=== PATIENT | male | born 1950 | race Caucasian/White ===

== ENCOUNTER 2020-04-17 18:09 | Outpatient (REF) | payer MEDICARE, MEDICAID, SELFPAY | END 2020-04-17 18:10 | disposition home or self-care (01) | LOC: HO.LAB 18:09 | PROVIDERS: Visit Provider Internal Medicine | DX: Z20.828 Contact with and (suspected) exposure to other viral communicable diseases (principal) | CPT/HCPCS: 36415; 87635 ==

== ENCOUNTER 2020-04-22 09:18 | Emergency (ER) | payer MEDICARE, MEDICAID, SELFPAY ==
[2020-04-22 09:24] VITALS: BP 105/60; BP 120/68; PULSE 76; RESP 15; TEMP 36.9; O2SAT 96; BMI 24.5
--- NOTE | 2020-04-22 09:35 | XR_ITS ---
EXAMINATION: XR CHEST CLINICAL INFORMATION: Chest pain. COMPARISON: 06/30/2019. TECHNIQUE: Frontal view of the chest was obtained. FINDINGS: No significant abnormality is noted involving the heart, lungs, mediastinum, bony thorax or soft tissues. IMPRESSION: Unremarkable examination.
--- NOTE | 2020-04-22 09:36 | ECG_ITS ---
Test Reason : CP Blood Pressure : / mmHG Vent. Rate : 061 BPM Atrial Rate : 061 BPM P-R Int : 126 ms QRS Dur : 082 ms QT Int : 390 ms P-R-T Axes : 032 -14 051 degrees QTc Int : 392 ms Normal sinus rhythm QRS Of low voltage Borderline ECG When compared with ECG of 30-DEC-2019 11:17, No significant change was found Referred By: Sander Mendoza Electronically Signed By:ALEXA DIANE MD
--- NOTE | 2020-04-22 09:37 | ED.CHESTPAIN ---
HPI - Chest Pain General Chief Complaint: Chest Pain Stated Complaint: CHEST PAIN Time Seen by Provider: 04/22/20 09:34 Related Data Allergies Allergy/AdvReac Type Severity Reaction Status Date / Time No Known Allergies Allergy Unverified 03/30/20 14:58 [No Known Allergies*] none Allergy Unknown Uncoded 09/24/18 00:00 [facility] Past Medical History Medical History (Updated 04/22/20 @ 09:28 by Kaelyn Shipley) Asthma Social History Social History Smoking Status: Never smoker Smoked in Last 30 Days: No Use of substances other than those prescribed or required for medical reasons: No Advance Directives: No Advance Directives Information Provided: Yes Physical Exam Vital Signs: Vital Signs: Vital Signs Temp Pulse Resp BP Pulse Ox 04/22/20 09:24 98.5 F 76 15 105/60 96 Body Mass Index 24.5
--- NOTE | 2020-04-22 09:39 | ED_ITS ---
HPI - Chest Pain General Chief Complaint: Chest Pain Stated Complaint: CHEST PAIN Time Seen by Provider: 04/22/20 09:34 Mode of arrival: EMS History of Present Illness HPI narrative: 64 years old male with history of borderline diabetes and hypertension presented to the emergency room by ambulance with chief complaint of chest pain since yesterday, not radiation of the pain Onset (ago): day(s) (1) Timing of current episode: episodic Prior episodes: No Onset: during rest Pain location: substernal Pain radiation: none Severity: mild Quality: dull Relieving factors: nitroglycerin Exacerbating factors: nothing Risk Factors Coronary artery disease risk factors: diabetes and hypertension Related Data Allergies Allergy/AdvReac Type Severity Reaction Status Date / Time No Known Allergies Allergy Unverified 03/30/20 14:58 [No Known Allergies*] none Allergy Unknown Uncoded 09/24/18 00:00 Review of Systems Review of Systems: Yes all other systems are reviewed and are negative Respiratory: Respiratory: Reports no additional respiratory complaints PMFSH Past Medical History Medical History Asthma Social History Social History Smoking Status: Never smoker Smoked in Last 30 Days: No Use of substances other than those prescribed or required for medical reasons: No Advance Directives: No Advance Directives Information Provided: Yes Physical Exam Vital Signs: Vital Signs: Vital Signs Temp Pulse Resp BP Pulse Ox 04/22/20 11:45 98.8 F 59 17 108/69 97 04/22/20 10:51 98.4 F 57 14 108/71 96 04/22/20 10:12 98.5 F 56 14 91/56 L 96 04/22/20 09:24 98.5 F 76 15 105/60 96 Body Mass Index 24.5 Const: Orientation/consciousness: oriented to place and patient oriented x3 HENMT: Head: Yes normal to inspection and Yes No palpable skull fracture present Eyes: General: appearance normal, both eyes and all related structures Visual Patel: normal visual patel by confrontation Neck: Neck: Yes normal visual inspection Chest: Chest palpation & inspection: normal inspection of the chest and normal palpation of entire chest wall Resp: Effort & Inspection: normal respiratory effort and decreased respiratory effort Cardio: Rhythm: regular rhythm Skin: General skin exam: no rashes or lesions noted Neuro: General: oriented to place and patient oriented x3 Course Course Course Narrative: CHEST PAIN-FREE, TROPONIN NEGATIVE, HIS PAIN HAS BEEN GOING ON SINCE YESTERDAY I THINK IS VERY REASONABLE TO REPEAT A TROPONIN AT 03:00 HOURS INTERVAL Reevaluation(s) Reevaluation #1: REMAIN CHEST PAIN FREE #2 TROPONIN IS NEGATIVE I THINK IT IS REASONABLE TO D/C THE PT AT THIS TIME Time: 14:45 Reevaluation #2: REPEAT EKG NORMAL SINUS RHYTHM A 58 ST-T SEGMENT ISOELECTRIC NO ISCHEMIA MDM - Chest Pain Lab Data Result diagrams: 04/22/20 10:11 04/22/20 10:11 Labs: Lab Results 04/22/20 04/22/20 04/22/20 Range/Units 10:11 10:11 10:11 WBC 5.5 (4.8-10.8) X10*3/uL RBC 4.65 (4.60-5.80) X10*6/uL Hgb 15.1 (14.0-18.0) g/dl Hct 44.1 (42-52) % MCV 94.8 (80-98) fL MCH 32.5 (27.0-33.0) pg MCHC 34.2 (31.0-36.0) g/dl RDW 11.6 (11.0-16.0) % Plt Count 267 (160-400) X10*3/uL MPV 8.8 L (9.4-12.4) fL Immature Gran % (Auto) 1.3 H (0.0-0.4) % Neut % (Auto) 64.2 (45-73) % Lymph % (Auto) 27.0 (20-40) % [place] % (Auto) 6.4 (2-11) % Eos % (Auto) 0.7 (0-4) % Baso % (Auto) 0.4 (0-2) % Lymph # (Auto) 1.5 (1.2-4.9) X10*3/uL [place] # (Auto) 0.4 (0.1-1.2) X10*3/uL Eos # (Auto) 0.0 (0.0-0.4) X10*3/uL Baso # (Auto) 0.0 (0.0-0.2) X10*3/uL Abs Immat Gran (auto) 0.07 H (0.00-0.03) X10*3/uL Absolute Neuts (auto) 3.5 (2.0-8.3) X10*3/uL Absolute Nucleated RBC 0.000 (0.0-0.012) X10*3/uL Nucleated RBC % (auto) 0.0 (0.0-0.2) /100WBC PT 12.2 (10.8-13.0) SEC INR 1.0 (0.9-1.1) APTT 30.7 (24.1-38.0) SEC D-Dimer < 200 NG/ML Sodium 139 (135-145) mmol/L Potassium 4.0 (3.3-5.1) mmol/l Chloride 107 (96-108) mmol/L Carbon Dioxide 26 (22-29) mmol/L Anion Gap 10 L (12-20) BUN 17 H (9-16) mg/dL Creatinine 0.82 (0.5-1.4) mg/dL Estim Creat Clear Calc 72.1 Estimated GFR > 60 Random Glucose 94 (60-115) mg/dL Calcium 9.2 (8.4-10.2) mg/dL Total Bilirubin 0.6 (0.0-1.0) mg/dL AST 15 (5-37) U/L ALT 19 (0-40) U/L Alkaline Phosphatase 51 (39-117) U/L Troponin I High Sens (<3.5-35.0) ng/L Total Protein 6.5 (6.5-8.0) g/dL Albumin 4.1 (3.5-5.0) g/dL 04/22/20 04/22/20 Range/Units 10:11 12:37 WBC (4.8-10.8) X10*3/uL RBC (4.60-5.80) X10*6/uL Hgb (14.0-18.0) g/dl Hct (42-52) % MCV (80-98) fL MCH (27.0-33.0) pg MCHC (31.0-36.0) g/dl RDW (11.0-16.0) % Plt Count (160-400) X10*3/uL MPV (9.4-12.4) fL Immature Gran % (Auto) (0.0-0.4) % Neut % (Auto) (45-73) % Lymph % (Auto) (20-40) % [place] % (Auto) (2-11) % Eos % (Auto) (0-4) % Baso % (Auto) (0-2) % Lymph # (Auto) (1.2-4.9) X10*3/uL [place] # (Auto) (0.1-1.2) X10*3/uL Eos # (Auto) (0.0-0.4) X10*3/uL Baso # (Auto) (0.0-0.2) X10*3/uL Abs Immat Gran (auto) (0.00-0.03) X10*3/uL Absolute Neuts (auto) (2.0-8.3) X10*3/uL Absolute Nucleated RBC (0.0-0.012) X10*3/uL Nucleated RBC % (auto) (0.0-0.2) /100WBC PT (10.8-13.0) SEC INR (0.9-1.1) APTT (24.1-38.0) SEC D-Dimer NG/ML Sodium (135-145) mmol/L Potassium (3.3-5.1) mmol/l Chloride (96-108) mmol/L Carbon Dioxide (22-29) mmol/L Anion Gap (12-20) BUN (9-16) mg/dL Creatinine (0.5-1.4) mg/dL Estim Creat Clear Calc Estimated GFR Random Glucose (60-115) mg/dL Calcium (8.4-10.2) mg/dL Total Bilirubin (0.0-1.0) mg/dL AST (5-37) U/L ALT (0-40) U/L Alkaline Phosphatase (39-117) U/L Troponin I High Sens < 3.5 < 3.5 (<3.5-35.0) ng/L Total Protein (6.5-8.0) g/dL Albumin (3.5-5.0) g/dL Imaging Data Chest x-ray: Radiologist's impression: FINDINGS: No significant abnormality is noted involving the heart, lungs, mediastinum, bony thorax or soft tissues. IMPRESSION: Unremarkable examination. ECG Data ECG #1: Attestation: I personally reviewed and interpreted this ECG as follows: ECG interpretation date: 04/22/20 Pacemaker model: NORMAL SINUS RYTHM RATE 61 NO ISCHEMIC CHANGES,ST-T ISOELECTRIC
[2020-04-22 10:12] VITALS: BP 91/56; PULSE 56; RESP 14; TEMP 36.9; O2SAT 96
[2020-04-22 10:20] LABS: MANUAL DIFF FLAG NO
[2020-04-22 10:21] LABS: Basophils Percent Auto 0.4 % (0-2); Eosinophils Percent Auto 0.7 % (0-4); Hematocrit 44.1 % (42-52); Hemoglobin 15.1 g/dl (14.0-18.0); Imm Gran Abs Auto 0.07 X10*3/uL (0.00-0.03); Imm Gran Pct Auto 1.3 % (0.0-0.4); Lymphocytes Absolute Auto 1.5 X10*3/uL (1.2-4.9); Mean Corpuscular HGB Conc 34.2 g/dl (31.0-36.0); Mean Corpuscular Hemoglobin 32.5 pg (27.0-33.0); Mean Corpuscular Volume 94.8 fL (80-98); Mean Platelet Volume 8.8 fL (9.4-12.4); Monocytes Absolute Auto 0.4 X10*3/uL (0.1-1.2); Monocytes Percent Auto 6.4 % (2-11); Neutrophils Absolute Auto 3.5 X10*3/uL (2.0-8.3); Neutrophils Percent Auto 64.2 % (45-73); Platelet Count 267 X10*3/uL (160-400); Red Blood Count 4.65 X10*6/uL (4.60-5.80); Red Cell Distribution Width 11.6 % (11.0-16.0); White Blood Count 5.5 X10*3/uL (4.8-10.8)
[2020-04-22 10:27] LABS: Prothrombin Time 12.2 SEC (10.8-13.0)
[2020-04-22 10:29] LABS: Partial Thromboplastin Time 30.7 SEC (24.1-38.0)
[2020-04-22 10:37] LABS: D Dimer < 200 NG/ML
[2020-04-22 10:46] LABS: Alanine Aminotransferase 19 U/L (0-40); Albumin Level 4.1 g/dL (3.5-5.0); Alkaline Phosphatase 51 U/L (39-117); Anion Gap 10 (12-20); Aspartate Amino Transferase 15 U/L (5-37); Bilirubin Total 0.6 mg/dL (0.0-1.0); Blood Urea Nitrogen 17 mg/dL (9-16); Calcium 9.2 mg/dL (8.4-10.2); Carbon Dioxide 26 mmol/L (22-29); Chloride 107 mmol/L (96-108); Creatinine Clr Calc Pharmacy 72.1; Estimated Glomerular Filt Rate > 60; Glucose Random 94 mg/dL (60-115); Sodium 139 mmol/L (135-145); Total Protein 6.5 g/dL (6.5-8.0)
[2020-04-22 10:51] VITALS: BP 108/71; PULSE 57; RESP 14; TEMP 36.9; O2SAT 96
[2020-04-22 10:52] LABS: Troponin-I High Sensitivity < 3.5 ng/L (<3.5-35.0)
--- NOTE | 2020-04-22 10:53 | PC.NURSE ---
pt reports relief of chest pain.
[2020-04-22 11:45] VITALS: BP 108/69; PULSE 59; RESP 17; TEMP 37.1; O2SAT 97
--- NOTE | 2020-04-22 12:42 | PC.NURSE ---
repeat trop drawn and sent to lab. pt continues to deny further chest pain.
[2020-04-22 13:10] LABS: Troponin-I High Sensitivity < 3.5 ng/L (<3.5-35.0)
== END 2020-04-22 15:13 | disposition home or self-care (01) ==
PROVIDERS: Emergency Provider Emergency Medicine
DX: R07.9 Chest pain, unspecified (principal); I10 Essential (primary) hypertension; E11.9 Type 2 diabetes mellitus without complications; Z79.899 Other long term (current) drug therapy
CPT/HCPCS: 36415; 71045; 80053; 84484; 85025; 85379; 85610; 85730; 93005; 99283; 99284

== ENCOUNTER 2020-07-06 06:01 | Emergency (ER) | payer MEDICARE, MEDICAID, SELFPAY ==
[2020-07-06 06:02] VITALS: BP 126/84; PULSE 76; RESP 18; TEMP 37.8; O2SAT 95; BMI 23.1
--- NOTE | 2020-07-06 06:13 | ED.GENADULT ---
HPI - General Adult General Chief complaint: General Medical Stated complaint: CHILLS,BODYACHES,? COVID S/P EXPOSURE Time Seen by Provider: 07/06/20 06:13 Source: patient Mode of arrival: ambulatory Limitations: language barrier History of Present Illness HPI narrative: Patient history of mild asthma and chronic vertigo been feeling weak chills sore throat headache for last 2 days patient's son was positive with COVID 10 days ago and is living with him patient denies any significant shortness of breath no chest pain no palpitations no abdominal pain no loss of taste or smell on arrival patient temperature was 100.1 F, saturating 95% at room air Onset (ago): day(s) (2) Related Data Allergies Allergy/AdvReac Type Severity Reaction Status Date / Time No Known Allergies Allergy Unverified 03/30/20 14:58 [No Known Allergies*] none Allergy Unknown Uncoded 09/24/18 00:00 Review of Systems Review of Systems: Constitutional : No Weight loss, No Fever, + Chills ENT/Mouth : +sore throat, No Rhinorrhea Eyes: No Eye Pain, No Swelling Cardiovascular : No Chest Pain, no palpitations Respiratory : No Cough, No Sputum, no shortness of breath Gastrointestinal : no Nausea, No Vomiting, No Diarrhea, No abdominal Pain, no black stools Genitourinary : No Dysuria, No Urinary Frequency Musculoskeletal : No joint pain, ++Myalgias, No Joint Swelling Skin : No Skin Lesions, No rash Neuro : No Weakness, No Numbness, No Dizziness, No Headache Psych : No Anxiety/Panic, No Depression Heme/Lymph: No Bruising, No Lymphadenopathy Endocrine : No Polyuria, No Polydipsia All other systems reviewed and are negative PMFSH Past Medical History Medical History Asthma Social History Social History Smoking Status: Never smoker Use of substances other than those prescribed or required for medical reasons: No Advance Directives: No Advance Directives Information Provided: No Physical Exam Vital Signs: Vital Signs: Last Vital Signs Temp 100.1 F 07/06/20 06:02 Pulse 76 07/06/20 06:02 Resp 16 07/06/20 06:14 BP 126/84 07/06/20 06:02 Pulse Ox 95 12/24/20 06:02 Body Mass Index 23.1 Appearance: Alert. Oriented X3. No acute distress. Eyes: Pupils equal, round and reactive to light. ENT: Pharynx normal. Neck: Normal inspection. Neck supple. CVS: Normal heart rate and rhythm. Pulses normal. Respiratory: No respiratory distress. Breath sounds normal. Abdomen: Soft and nontender. Bowel sounds are present, no mass palpable, no CVA tenderness Skin: Skin warm and dry. Normal skin color. Normal skin turgor. Extremities: No lower extremity edema. Neuro: Oriented X 3. No motor deficit. No sensory deficit. Medical Decision Making MDM Narrative Medical decision making narrative: Patient likely with COVID symptoms with recent exposure from son with COVID at home patient denies any shortness of breath saturating 95% at room air will do the chest x-ray and COVID testing patient's previous labs in 05/02 were normal, CXR neg for infiltrates
[2020-07-06 06:14] VITALS: RESP 16
--- NOTE | 2020-07-06 06:14 | XR_ITS ---
EXAMINATION: CHEST 1 VIEW CLINICAL INFORMATION: Covid positivity. COMPARISON: 06/30/2019. TECHNIQUE: An AP view of the chest is provided. FINDINGS: The cardiac silhouette is not enlarged. The mediastinal and hilar contours are unremarkable. There are neither pleural effusions nor pneumothoraces. There are no consolidations. The osseous structures are stable. XR/XR chest 1V IMPRESSION: No evidence for acute disease.
[2020-07-06] MEDS: Acetaminophen 325 MG TABLET 650 MG PO (06:49)
[2020-07-06 07:16] LABS: COVID-19 Test Negative (Negative)
--- NOTE | 2020-07-06 07:29 | PC.NURSE ---
Dr Sheth to bedside discussing plan for Flu/RSV/Covid swab after negative Barron test, pt request to await results
[2020-07-06 08:22] LABS: Influenza A PCR NEGATIVE (Negative); Influenza B PCR NEGATIVE (Negative); Resp Syncy Virus RNA Qual PCR NEGATIVE (Negative); SARS COV2 PCR INHOUSE POSITIVE (Negative)
== END 2020-07-06 08:39 | disposition home or self-care (01) ==
PROVIDERS: Emergency Provider Internal Medicine
DX: U07.1 COVID-19 (principal); J45.909 Unspecified asthma, uncomplicated
CPT/HCPCS: 0241U; 71045; 87635; 99284

== ENCOUNTER 2020-07-18 08:46 | Outpatient (REF) | payer MEDICARE, MEDICAID, SELFPAY | END 2020-07-18 08:47 | disposition home or self-care (01) | LOC: HO.LAB 08:46 | PROVIDERS: Visit Provider Internal Medicine | DX: Z20.828 Contact with and (suspected) exposure to other viral communicable diseases (principal) | CPT/HCPCS: 36415; C9803; U0003 ==

== ENCOUNTER 2020-09-30 07:37 | Emergency (ER) | payer MEDICARE, MEDICAID, SELFPAY ==
--- NOTE | ~2020-09-30 | XR_ITS ---
EXAMINATION: XR CHEST CLINICAL INFORMATION: Cough. COMPARISON: Chest radiograph dated 07/06/2020. TECHNIQUE: Frontal view of the chest was obtained. FINDINGS: Lungs are mildly hyperexpanded. No consolidation or pulmonary edema. No pneumothorax or pleural effusion. Cardiomediastinal silhouette within normal limits. No acute osseous abnormality. XR/XR chest 1V IMPRESSION: Mildly hypoexpanded lungs. No consolidation.
[2020-09-30 07:45] VITALS: BP 121/85; BP 155/88; PULSE 79; PULSE 94; RESP 18; TEMP 36.4; O2SAT 96; O2SAT 97; BMI 26.5
--- NOTE | 2020-09-30 08:08 | ECG_ITS ---
Test Reason : L SIDE CP Blood Pressure : / mmHG Vent. Rate : 089 BPM Atrial Rate : 089 BPM P-R Int : 132 ms QRS Dur : 084 ms QT Int : 360 ms P-R-T Axes : 036 -14 045 degrees QTc Int : 438 ms Normal sinus rhythm Normal ECG When compared with ECG of 22-APR-2020 09:55, No significant change was found Referred By: Jason Dumas Electronically Signed By:MIGUEL CAMERON MD
--- NOTE | 2020-09-30 08:09 | ED.URI ---
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 Patient stated he has been coughing for the past 4 days as mostly dry cough sometimes with green sputum but no blood patient declined fever or chills, no recent travel, patient was positive for COVID 19 infection 3 months ago, patient was tested recently for COVID but the result is not available via, patient describes bilateral ribs pain only when he coughs, no recent trauma to the chest, no lower extremity swelling or pain, no history of PE or DVT. Patient has history of asthma and normally use albuterol inhaler at home. Patient emergency room appear comfortable with stable vital signs and normal oxygen saturation. Related Data Allergies Allergy/AdvReac Type Severity Reaction Status Date / Time No Known Allergies Allergy Unverified 03/30/20 14:58 [No Known Allergies*] none Allergy Unknown Uncoded 09/24/18 00:00 Review of Systems Review of Systems: All other systems are reviewed and are negative Constitutional: Reports as per HPI and Reports no additional constitutional complaints Eyes: Reports as per HPI and Reports no additional eye complaints Reports system reviewed and no additional complaints, except as documented Cardiovascular: Reports as per HPI and Reports no additional cardiovascular complaints Respiratory: Reports as per HPI and Reports no additional respiratory complaints Gastrointestinal: Reports as per HPI and Reports no additional gastrointestinal complaints Genitourinary: Reports no additional female genitourinary complaints Musculoskeletal: Reports no additional musculoskeletal complaints Skin/Breast: Reports system reviewed and no additional complaints, except as docu Psychiatric: Reports no additional psychiatric complaints Endocrine: Reports no additional endocrine complaints Hematologic/Lymphatic: Reports no additional hematologic/lymphatic complaints Allergic/Immunologic: Reports no additional allergic/immunologic complaints Reports system reviewed and no additional complaints, except as documented and Reports Abnormal speech present [facility] Past Medical History Medical History Asthma Social History Social History Alcohol intake: current Alcohol intake frequency: holidays/special occasions only Smoking Status: Former smoker Use of substances other than those prescribed or required for medical reasons: No Advance Directives: No Advance Directives Information Provided: No Physical Exam Vital Signs: Vital Signs: Last Vital Signs Temp 97.6 F 09/30/20 07:45 Pulse 79 09/30/20 07:45 Resp 18 09/30/20 07:45 BP 121/85 09/30/20 07:45 Pulse Ox 100 09/30/20 08:39 Body Mass Index 26.5 Vital signs have been reviewed as appeared to be correct. Blood pressure normal. Heart rate normal. Respiration rate normal. Temperature normal. Oxygen saturation normal. Appearance: Alert. Oriented X3. No acute distress. Head: Normal external exam. Normocephalic. Atraumatic. No Lange signs noted. No raccoon eyes noted Eyes: PERRLA. EOMI. Conjunctiva and sclera normal. Eyelids normal. ENT: TM's Normal. Pharynx normal. Uvula midline. Moist mucous membranes. No trismus noted. No drooling noted. No muffled voice noted. Neck: Normal inspection. Neck supple. FROM. No adenopathy. Thyroid Normal. No meningeal signs. No neck mass noted. CVS: Normal heart rate and rhythm. Heart sound normal. No murmurs noted. Pulses normal throughout. Respiratory: No respiratory distress. Painless inspiration. Breath sounds normal. Bilateral diffuse expiratory wheezing, no rales, no rhonchi noted. Chest is mildly tender bilaterally, no step-off, no deformity no subcu emphysema. No accessory muscle usage noted or decreased air movement noted. Abdomen: Soft and nontender. Bowel sounds normal in all 4 quadrants. No distention noted. No organomegaly noted. No visible injury noted. Back: No CVA tenderness. Full range of motion noted. Skin: Skin warm and dry. Normal skin color. Normal skin turgor. No rashes/lesions/lacerations noted. Extremities: No lower extremity edema. Extremities exhibit normal range of motion. Extremities nontender. Neuro: Oriented X 3. No motor deficit. No sensory deficit. Reflexes normal. Course Course Course Narrative: 69-year-old male presented with bilateral chest wall pain with coughing for the past 4-5 days, COVID-19 infection testing is negative, chest x-ray shows no acute pneumonia, patient was acute leukocytosis. Patient also maintaining vital signs stable while in the emergency department. MDM - URI/Sore Throat Lab Data Attestation: I reviewed the patient's lab results. Result diagrams: 09/30/20 08:28 09/30/20 08:28 Labs: Lab Results 09/30/20 09/30/20 09/30/20 Range/Units 08:23 08:28 08:28 WBC 14.8 H (4.8-10.8) X10*3/uL RBC 4.69 (4.60-5.80) X10*6/uL Hgb 15.5 (14.0-18.0) g/dl Hct 45.1 (42-52) % MCV 96.2 (80-98) fL MCH 33.0 (27.0-33.0) pg MCHC 34.4 (31.0-36.0) g/dl RDW 11.6 (11.0-16.0) % Plt Count 312 (160-400) X10*3/uL MPV 9.0 L (9.4-12.4) fL Immature Gran % (Auto) 0.5 H (0.0-0.4) % Neut % (Auto) 94.2 H (45-73) % Lymph % (Auto) 3.7 L (20-40) % Door % (Auto) 1.5 L (2-11) % Eos % (Auto) 0.0 (0-4) % Baso % (Auto) 0.1 (0-2) % Lymph # (Auto) 0.5 L (1.2-4.9) X10*3/uL Door # (Auto) 0.2 (0.1-1.2) X10*3/uL Eos # (Auto) 0.0 (0.0-0.4) X10*3/uL Baso # (Auto) 0.0 (0.0-0.2) X10*3/uL Abs Immat Gran (auto) 0.08 H (0.00-0.03) X10*3/uL Absolute Neuts (auto) 13.9 H (2.0-8.3) X10*3/uL Absolute Nucleated RBC 0.000 (0.0-0.012) X10*3/uL Nucleated RBC % (auto) 0.0 (0.0-0.2) /100WBC Smear Tech's Comments VERIFIED Sodium 142 (135-145) mmol/L Potassium 4.4 (3.3-5.1) mmol/L Chloride 108 (96-108) mmol/L Carbon Dioxide 23 (22-29) mmol/L Anion Gap 15 (12-20) BUN 20 H (9-16) mg/dL Creatinine 0.79 (0.5-1.4) mg/dL Estim Creat Clear Calc 77.8 Estimated GFR > 60 Random Glucose 134 H D (60-115) mg/dL Calcium 9.3 (8.4-10.2) mg/dL Troponin I High Sens B-Natriuretic Peptide (<100) pg/mL Lipase 26 (8-78) U/L Urine Color Urine Appearance Urine pH (5.0-8.0) Ur Specific [place] (1.005-1.025) Urine Protein (NEG-TRACE) MG/DL Urine Glucose (UA) (NEG) MG/DL Urine Ketones (NEG) MG/DL Urine Blood (NEG) Urine Nitrite (NEG) Ur Leukocyte Esterase (NEG) COVID-19 (DONNY) Negative (Negative) COVID-19 Clin Com See Note 09/30/20 09/30/20 09/30/20 Range/Units 08:28 08:28 09:44 WBC (4.8-10.8) X10*3/uL RBC (4.60-5.80) X10*6/uL Hgb (14.0-18.0) g/dl Hct (42-52) % MCV (80-98) fL MCH (27.0-33.0) pg MCHC (31.0-36.0) g/dl RDW (11.0-16.0) % Plt Count (160-400) X10*3/uL MPV (9.4-12.4) fL Immature Gran % (Auto) (0.0-0.4) % Neut % (Auto) (45-73) % Lymph % (Auto) (20-40) % Door % (Auto) (2-11) % Eos % (Auto) (0-4) % Baso % (Auto) (0-2) % Lymph # (Auto) (1.2-4.9) X10*3/uL Door # (Auto) (0.1-1.2) X10*3/uL Eos # (Auto) (0.0-0.4) X10*3/uL Baso # (Auto) (0.0-0.2) X10*3/uL Abs Immat Gran (auto) (0.00-0.03) X10*3/uL Absolute Neuts (auto) (2.0-8.3) X10*3/uL Absolute Nucleated RBC (0.0-0.012) X10*3/uL Nucleated RBC % (auto) (0.0-0.2) /100WBC Smear Tech's Comments Sodium (135-145) mmol/L Potassium (3.3-5.1) mmol/L Chloride (96-108) mmol/L Carbon Dioxide (22-29) mmol/L Anion Gap (12-20) BUN (9-16) mg/dL Creatinine (0.5-1.4) mg/dL Estim Creat Clear Calc Estimated GFR Random Glucose (60-115) mg/dL Calcium (8.4-10.2) mg/dL Troponin I High Sens Cancelled < 3.5 B-Natriuretic Peptide 65 (<100) pg/mL Lipase (8-78) U/L Urine Color YELLOW Urine Appearance CLEAR Urine pH 6.0 (5.0-8.0) Ur Specific [place]on 1.020 (1.005-1.025) Urine Protein NEG (NEG-TRACE) MG/DL Urine Glucose (UA) NEG (NEG) MG/DL Urine Ketones NEG (NEG) MG/DL Urine Blood NEG (NEG) Urine Nitrite NEG (NEG) Ur Leukocyte Esterase NEG (NEG) COVID-19 (DONNY) (Negative) COVID-19 Clin Com Imaging Data Chest x-ray: Radiologist's impression: Lungs are mildly hyperexpanded. No consolidation or pulmonary edema. No pneumothorax or pleural effusion. Cardiomediastinal silhouette within normal limits. No acute osseous abnormality. ECG Data Interpretation: Normal sinus rhythm at 89 beats per minutes, normal intervals, no ST-T changes. Discharge Plan Discharge Clinical Impression: Asthma exacerbation Qualifiers: Asthma severity: mild Asthma persistence: intermittent Qualified Code(s): J45.21 - Mild intermittent asthma with (acute) exacerbation Patient Disposition: Home, Self-Care Instructions: Asthma (ED) Referrals: Physician,Unknown [Primary Care Provider] - 2 days
[2020-09-30 08:33] VITALS: PULSE 80
[2020-09-30 08:39] VITALS: O2SAT 100
[2020-09-30 08:41] LABS: Basophils Percent Auto 0.1 % (0-2); Hematocrit 45.1 % (42-52); Hemoglobin 15.5 g/dl (14.0-18.0); Imm Gran Abs Auto 0.08 X10*3/uL (0.00-0.03); Imm Gran Pct Auto 0.5 % (0.0-0.4); Lymphocytes Absolute Auto 0.5 X10*3/uL (1.2-4.9); Lymphocytes Percent Auto 3.7 % (20-40); MANUAL DIFF FLAG SCAN; Mean Corpuscular HGB Conc 34.4 g/dl (31.0-36.0); Mean Corpuscular Volume 96.2 fL (80-98); Monocytes Absolute Auto 0.2 X10*3/uL (0.1-1.2); Monocytes Percent Auto 1.5 % (2-11); Neutrophils Absolute Auto 13.9 X10*3/uL (2.0-8.3); Neutrophils Percent Auto 94.2 % (45-73); Platelet Count 312 X10*3/uL (160-400); Red Blood Count 4.69 X10*6/uL (4.60-5.80); Red Cell Distribution Width 11.6 % (11.0-16.0); SCAN SMEAR FLAG 1; White Blood Count 14.8 X10*3/uL (4.8-10.8)
[2020-09-30 09:00] LABS: SLIDE REVIEW VERIFIED
[2020-09-30 09:01] LABS: COVID-19 Test Negative (Negative)
[2020-09-30 09:09] LABS: Anion Gap 15 (12-20); Blood Urea Nitrogen 20 mg/dL (9-16); Calcium 9.3 mg/dL (8.4-10.2); Carbon Dioxide 23 mmol/L (22-29); Chloride 108 mmol/L (96-108); Creatinine Clr Calc Pharmacy 77.8; Estimated Glomerular Filt Rate > 60; Glucose Random 134 mg/dL (60-115); Lipase 26 U/L (8-78); Potassium 4.4 mmol/L (3.3-5.1); Sodium 142 mmol/L (135-145)
[2020-09-30] MEDS: Albuterol/Iprat 2.5/0.5MG 3 ML AMPUL.NEB INHALE (09:09)
[2020-09-30 09:15] LABS: B Type Natriuretic Peptide 65 pg/mL (<100); Troponin-I High Sensitivity < 3.5 ng/L (<3.5-35.0)
[2020-09-30 09:52] LABS: Glucose Urine UA NEG (NEG); Leukocyte Esterase Urine NEG (NEG); Nitrite Urine NEG (NEG); Urine Blood NEG (NEG); Urine Ketones NEG (NEG); Urine Protein NEG (NEG-TRACE)
[2020-09-30 09:53] LABS: Appearance Urine CLEAR; Color Urine YELLOW
== END 2020-09-30 10:47 | disposition home or self-care (01) ==
PROVIDERS: Emergency Provider Emergency Medicine
DX: J45.21 Mild intermittent asthma with (acute) exacerbation (principal); R07.89 Other chest pain; Z20.822 Contact with and (suspected) exposure to COVID-19
CPT/HCPCS: 36415; 71045; 80048; 81003; 83690; 83880; 84484; 85025; 87635; 93005; 99284

== ENCOUNTER 2020-10-11 09:42 | Emergency (ER) | payer MEDICARE, MEDICAID, SELFPAY ==
--- NOTE | ~2020-10-11 | XR_ITS ---
EXAMINATION: XR CHEST CLINICAL INFORMATION: SOB and wheezing with chest pain COMPARISON: None TECHNIQUE: Frontal view of the chest was obtained. FINDINGS: There is a hines-shaped bony thorax. The lungs are well-expanded and clear. The heart size and pulmonary vascularity is normal. No gross bony abnormality seen. XR/XR chest 1V IMPRESSION: Unremarkable chest exam.
[2020-10-11 09:52] VITALS: BP 115/94; PULSE 90; RESP 20; TEMP 36.9; O2SAT 95; BMI 23.5
[2020-10-11 10:00] VITALS: BP 138/84; PULSE 100; RESP 22; TEMP 36.8; O2SAT 98
--- NOTE | 2020-10-11 10:02 | ECG_ITS ---
Test Reason : ASTHMA Blood Pressure : / mmHG Vent. Rate : 076 BPM Atrial Rate : 076 BPM P-R Int : 128 ms QRS Dur : 088 ms QT Int : 374 ms P-R-T Axes : 047 -08 051 degrees QTc Int : 420 ms Normal sinus rhythm Normal ECG When compared with ECG of 30-SEP-2020 08:18, No significant change was found Referred By: Yue Cuello Electronically Signed By:Donnie Haas
--- NOTE | 2020-10-11 10:31 | ED_ITS ---
HPI - Asthma General Chief Complaint: Asthma Stated Complaint: Chest pain/ cough Time Seen by Provider: 10/11/20 10:02 Source: patient and EMS Mode of arrival: EMS Limitations: no limitations History of Present Illness HPI Narrative: 69 y/o male with history of COVID-19 in June 2020 & asthma with recent exacerbation s/p treatment with 5 days of PO prednisone presents to the ED from home via EMS with continued dry cough and wheezing along with chest pressure when he coughs. The last 2 weeks he has been coughing and wheezing more. He was seen here on 09/30, had an unremarkable workup and was sent home. Since then he has also been seen in an Urgent care clinic and he was prescribed albuterol and prednisone. He denies productive cough, fever, chills, N/V, abdominal pain. Chest pain is central and only when he coughs. MD complaint: asthma attack , shortness of breath and wheezing Onset (ago): day(s) (5) Severity: moderate and similar to prior Context: recent URI Associated symptoms: dry cough Asthma History: history of frequent attacks and history of prior ED visit Treatments Prior to Arrival: inhaled bronchodilator Related Data Current Asthma Therapy: inhaled bronchodilator and recent oral steroid Previous Rx's Medication Instructions Recorded albuterol sulfate 1 inh INHALATION QID PRN #6.7 g 10/11/20 azithromycin [Zithromax Z-Syed] See Rx Instructions .ROUTE 10/11/20 .COMPLEX #6 tab benzonatate [Tessalon Perles] 100 mg PO TID PRN #10 cap 10/11/20 prednisone 10 mg PO PER PKG DIR #48 ea 10/11/20 Allergies Allergy/AdvReac Type Severity Reaction Status Date / Time No Known Allergies Allergy Unverified 03/30/20 14:58 [No Known Allergies*] none Allergy Unknown Uncoded 09/24/18 00:00 Review of Systems Review of Systems: Constitutional: No Fever, No Chills ENT/Mouth: No sore throat, No Rhinorrhea, No Swallowing Difficulty Eyes: No Eye Pain, No Swelling, No Redness Cardiovascular: + Chest Pain, No SOB, No Orthopnea, No Edema Respiratory: + Cough, No Sputum, + Wheezing, + dyspnea Gastrointestinal: No Nausea, No Vomiting, No Diarrhea, No abdominal Pain Genitourinary: No Dysuria, No Urinary Frequency, No Hematuria Musculoskeletal: No joint pain, No Myalgias Skin: No Skin Lesions, No rash Neuro: No Weakness, No Numbness, No Dizziness, No Headache Psych: No Anxiety/Panic, No Depression Heme/Lymph: No Bruising, No Lymphadenopathy Endocrine: No Polyuria, No Polydipsia [facility] Past Medical History Attestation statement: The following information was validated with the patient. Medical History Asthma Social History Social History Alcohol intake: current Alcohol intake frequency: holidays/special occasions only Smoking Status: Former smoker Advance Directives: Yes Advance Directives Information Provided: Yes Advance Directives on File: No Physical Exam Vital Signs: Vital Signs: Last Vital Signs Temp 98.2 F 10/11/20 10:00 Pulse 74 10/11/20 11:28 Resp 22 H 10/11/20 10:00 BP 138/84 10/11/20 10:00 Pulse Ox 98 10/11/20 10:00 Body Mass Index 23.5 Appearance: Alert. Oriented X3. No acute distress. Eyes: Pupils equal, round and reactive to light. ENT: Pharynx normal. Neck: Normal inspection. Neck supple. CVS: Normal heart rate and rhythm. Pulses normal. Respiratory: No respiratory distress. Breath sounds with diffuse expiratory wheezes and prolonged expiratory phase. Speaks in full sentences. Abdomen: Soft and nontender. +BS x4 Skin: Skin warm and dry. Normal skin color. Normal skin turgor. No rashes. Extremities: No lower extremity edema. Negative Marianne's sign. Neuro: Oriented X 3. No motor deficit. No sensory deficit. Course Course Course Narrative: 69 y/o male presenting with dry cough with chest discomfort and wheezing consistent with acute asthma exacerbation. Recently completed short course of steroids. Will get CXR to r/o PNA, EKG to r/o ACS and get basic lab workup. IV solumedrol, Mg++ and hour long nebulizer ordered. On ambulation he is breathing with ease, no distress, no hypoxia. Reevaluation(s) Reevaluation #1: CXR is negative. Viral PCR is negative. EKG normal. Troponin negative. Lung sounds are significantly improved after steroids and neb were given. He is feeling better. SpO2 98% on room air in no respiratory distress. He is stable for discharge home with treatment for acute bronchitis. MDM - Asthma Differential Diagnosis Differential diagnosis: Likely Acute exacerbation, Status asthmaticus, Acute asthmatic bronchitis, Pneumonia, COPD exacerbation, Pulmonary edema systolic and Pulmonary edema dystolic Medical Records Attestation: I reviewed the patient's medical records. Lab Data Attestation: I reviewed the patient's lab results. Result diagrams: 10/11/20 11:08 10/11/20 11:07 Labs: Lab Results 10/11/20 10/11/20 10/11/20 Range/Units 11:07 11:07 11:07 WBC (4.8-10.8) X10*3/uL RBC (4.60-5.80) X10*6/uL Hgb (14.0-18.0) g/dl Hct (42-52) % MCV (80-98) fL MCH (27.0-33.0) pg MCHC (31.0-36.0) g/dl RDW (11.0-16.0) % Plt Count (160-400) X10*3/uL MPV (9.4-12.4) fL Immature Gran % (Auto) (0.0-0.4) % Neut % (Auto) (45-73) % Lymph % (Auto) (20-40) % Bradley % (Auto) (2-11) % Eos % (Auto) (0-4) % Baso % (Auto) (0-2) % Lymph # (Auto) (1.2-4.9) X10*3/uL Bradley # (Auto) (0.1-1.2) X10*3/uL Eos # (Auto) (0.0-0.4) X10*3/uL Baso # (Auto) (0.0-0.2) X10*3/uL Abs Immat Gran (auto) (0.00-0.03) X10*3/uL Absolute Neuts (auto) (2.0-8.3) X10*3/uL Absolute Nucleated RBC (0.0-0.012) X10*3/uL Nucleated RBC % (auto) (0.0-0.2) /100WBC Hold Blue Top SEE NOTE Sodium 141 (135-145) mmol/L Potassium 4.2 (3.3-5.1) mmol/L Chloride 108 (96-108) mmol/L Carbon Dioxide 25 (22-29) mmol/L Anion Gap 12 (12-20) BUN 19 H (9-16) mg/dL Creatinine 0.76 (0.5-1.4) mg/dL Estim Creat Clear Calc 77.8 Estimated GFR > 60 Random Glucose 98 (60-115) mg/dL Calcium 8.9 (8.4-10.2) mg/dL Magnesium 2.1 (1.6-2.6) mg/dL Total Bilirubin 0.5 (0.0-1.0) mg/dL Direct Bilirubin 0.2 (0.0-0.5) mg/dL AST 15 (5-37) U/L ALT 19 (0-40) U/L Alkaline Phosphatase 65 D (39-117) U/L Troponin I High Sens < 3.5 (<3.5-35.0) ng/L B-Natriuretic Peptide 34 (<100) pg/mL Total Protein 6.4 L (6.5-8.0) g/dL Albumin 3.8 (3.5-5.0) g/dL Procalcitonin ng/mL Urine Color Urine Appearance Urine pH (5.0-8.0) Ur Specific [place] (1.005-1.025) Urine Protein (NEG-TRACE) MG/DL Urine Glucose (UA) (NEG) MG/DL Urine Ketones (NEG) MG/DL Urine Blood (NEG) Urine Nitrite (NEG) Ur Leukocyte Esterase (NEG) Coronavirus (PCR) (Negative) Influenza Type A (PCR) (Negative) Influenza Type B (PCR) (Negative) RSV RNA Qual (PCR) (Negative) 10/11/20 10/11/20 10/11/20 Range/Units 11:07 11:08 11:08 WBC 7.6 (4.8-10.8) X10*3/uL RBC 4.83 (4.60-5.80) X10*6/uL Hgb 15.7 (14.0-18.0) g/dl Hct 47.0 (42-52) % MCV 97.3 (80-98) fL MCH 32.5 (27.0-33.0) pg MCHC 33.4 (31.0-36.0) g/dl RDW 11.6 (11.0-16.0) % Plt Count 314 (160-400) X10*3/uL MPV 8.8 L (9.4-12.4) fL Immature Gran % (Auto) 1.6 H (0.0-0.4) % Neut % (Auto) 70.1 (45-73) % Lymph % (Auto) 21.6 (20-40) % Bradley % (Auto) 5.4 (2-11) % Eos % (Auto) 0.9 (0-4) % Baso % (Auto) 0.4 (0-2) % Lymph # (Auto) 1.6 (1.2-4.9) X10*3/uL Bradley # (Auto) 0.4 (0.1-1.2) X10*3/uL Eos # (Auto) 0.1 (0.0-0.4) X10*3/uL Baso # (Auto) 0.0 (0.0-0.2) X10*3/uL Abs Immat Gran (auto) 0.12 H (0.00-0.03) X10*3/uL Absolute Neuts (auto) 5.3 (2.0-8.3) X10*3/uL Absolute Nucleated RBC 0.000 (0.0-0.012) X10*3/uL Nucleated RBC % (auto) 0.0 (0.0-0.2) /100WBC Hold Blue Top Sodium (135-145) mmol/L Potassium (3.3-5.1) mmol/L Chloride (96-108) mmol/L Carbon Dioxide (22-29) mmol/L Anion Gap (12-20) BUN (9-16) mg/dL Creatinine (0.5-1.4) mg/dL Estim Creat Clear Calc Estimated GFR Random Glucose (60-115) mg/dL Calcium (8.4-10.2) mg/dL Magnesium (1.6-2.6) mg/dL Total Bilirubin (0.0-1.0) mg/dL Direct Bilirubin (0.0-0.5) mg/dL AST (5-37) U/L ALT (0-40) U/L Alkaline Phosphatase (39-117) U/L Troponin I High Sens (<3.5-35.0) ng/L B-Natriuretic Peptide (<100) pg/mL Total Protein (6.5-8.0) g/dL Albumin (3.5-5.0) g/dL Procalcitonin 0.04 ng/mL Urine Color Urine Appearance Urine pH (5.0-8.0) Ur Specific [place] (1.005-1.025) Urine Protein (NEG-TRACE) MG/DL Urine Glucose (UA) (NEG) MG/DL Urine Ketones (NEG) MG/DL Urine Blood (NEG) Urine Nitrite (NEG) Ur Leukocyte Esterase (NEG) Coronavirus (PCR) NEGATIVE (Negative) Influenza Type A (PCR) NEGATIVE (Negative) Influenza Type B (PCR) NEGATIVE (Negative) RSV RNA Qual (PCR) NEGATIVE (Negative) 10/11/20 Range/Units 11:08 WBC (4.8-10.8) X10*3/uL RBC (4.60-5.80) X10*6/uL Hgb (14.0-18.0) g/dl Hct (42-52) % MCV (80-98) fL MCH (27.0-33.0) pg MCHC (31.0-36.0) g/dl RDW (11.0-16.0) % Plt Count (160-400) X10*3/uL MPV (9.4-12.4) fL Immature Gran % (Auto) (0.0-0.4) % Neut % (Auto) (45-73) % Lymph % (Auto) (20-40) % Bradley % (Auto) (2-11) % Eos % (Auto) (0-4) % Baso % (Auto) (0-2) % Lymph # (Auto) (1.2-4.9) X10*3/uL Bradley # (Auto) (0.1-1.2) X10*3/uL Eos # (Auto) (0.0-0.4) X10*3/uL Baso # (Auto) (0.0-0.2) X10*3/uL Abs Immat Gran (auto) (0.00-0.03) X10*3/uL Absolute Neuts (auto) (2.0-8.3) X10*3/uL Absolute Nucleated RBC (0.0-0.012) X10*3/uL Nucleated RBC % (auto) (0.0-0.2) /100WBC Hold Blue Top Sodium (135-145) mmol/L Potassium (3.3-5.1) mmol/L Chloride (96-108) mmol/L Carbon Dioxide (22-29) mmol/L Anion Gap (12-20) BUN (9-16) mg/dL Creatinine (0.5-1.4) mg/dL Estim Creat Clear Calc Estimated GFR Random Glucose (60-115) mg/dL Calcium (8.4-10.2) mg/dL Magnesium (1.6-2.6) mg/dL Total Bilirubin (0.0-1.0) mg/dL Direct Bilirubin (0.0-0.5) mg/dL AST (5-37) U/L ALT (0-40) U/L Alkaline Phosphatase (39-117) U/L Troponin I High Sens (<3.5-35.0) ng/L B-Natriuretic Peptide (<100) pg/mL Total Protein (6.5-8.0) g/dL Albumin (3.5-5.0) g/dL Procalcitonin ng/mL Urine Color YELLOW Urine Appearance CLEAR Urine pH 6.5 (5.0-8.0) Ur Specific [place] 1.010 (1.005-1.025) Urine Protein NEG (NEG-TRACE) MG/DL Urine Glucose (UA) NEG (NEG) MG/DL Urine Ketones NEG (NEG) MG/DL Urine Blood NEG (NEG) Urine Nitrite NEG (NEG) Ur Leukocyte Esterase NEG (NEG) Coronavirus (PCR) (Negative) Influenza Type A (PCR) (Negative) Influenza Type B (PCR) (Negative) RSV RNA Qual (PCR) (Negative) ECG Data Attestation: I personally reviewed and interpreted this ECG as follows: ECG interpretation date: 10/11/20 ECG interpretation time: 10:24 Interpretation: normal sinus rhythm, HR 76 bpm, normal QRS, normal NE interval, normal QTC. No ST segment elevations Discharge Plan Discharge Clinical Impression: Asthma with acute exacerbation Qualifiers: Asthma severity: mild Asthma persistence: intermittent Qualified Code(s): J45.21 - Mild intermittent asthma with (acute) exacerbation Patient Disposition: Home, Self-Care Instructions: Asthma (ED), Bronchospasm (ED) Additional Instructions: Your chest x-ray showed no pneumonia. Your lab workup and EKG were normal. You are being treated for acute bronchitis and acute asthma flare. Use the albuterol inhaler at least 3x per day while you are feeling unwell, more if needed. Take all medications as directed. Follow up with your doctor this week. If you have worsening symptoms come back to the ER for further evaluation. Prescriptions: New prednisone 10 mg tablets,dose pack 10 mg PO PER PKG DIR Qty: 48 RF: 0 albuterol sulfate 90 mcg/actuation HFA aerosol inhaler 1 inh inhalation QID PRN (Reason: shortness of breath or wheezing) Qty: 6.7 RF: 0 azithromycin [Zithromax Z-Syed] 250 mg tablet See Rx Instructions .ROUTE .COMPLEX Qty: 6 RF: 0 benzonatate [Tessalon Perles] 100 mg capsule 100 mg PO TID PRN (Reason: cough) Qty: 10 RF: 0
[2020-10-11 11:16] LABS: MANUAL DIFF FLAG NO
[2020-10-11 11:19] LABS: Glucose Urine UA NEG (NEG); Leukocyte Esterase Urine NEG (NEG); Nitrite Urine NEG (NEG); PH 6.5 (5.0-8.0); Urine Blood NEG (NEG); Urine Ketones NEG (NEG); Urine Protein NEG (NEG-TRACE)
[2020-10-11 11:20] LABS: Appearance Urine CLEAR; Color Urine YELLOW
[2020-10-11] MEDS: methylPREDNISolone Sod Succ 125 MG/2 ML VIAL IVPUSH (11:21)
[2020-10-11] MEDS: Magnesium Sulfate/H2O 2 GM/50 ML PIGGYBACK IV (11:21)
[2020-10-11 11:24] LABS: Basophils Percent Auto 0.4 % (0-2); Eosinophils Absolute Auto 0.1 X10*3/uL (0.0-0.4); Eosinophils Percent Auto 0.9 % (0-4); Hemoglobin 15.7 g/dl (14.0-18.0); Imm Gran Abs Auto 0.12 X10*3/uL (0.00-0.03); Imm Gran Pct Auto 1.6 % (0.0-0.4); Lymphocytes Absolute Auto 1.6 X10*3/uL (1.2-4.9); Lymphocytes Percent Auto 21.6 % (20-40); Mean Corpuscular HGB Conc 33.4 g/dl (31.0-36.0); Mean Corpuscular Hemoglobin 32.5 pg (27.0-33.0); Mean Corpuscular Volume 97.3 fL (80-98); Mean Platelet Volume 8.8 fL (9.4-12.4); Monocytes Absolute Auto 0.4 X10*3/uL (0.1-1.2); Monocytes Percent Auto 5.4 % (2-11); Neutrophils Absolute Auto 5.3 X10*3/uL (2.0-8.3); Neutrophils Percent Auto 70.1 % (45-73); Platelet Count 314 X10*3/uL (160-400); Red Blood Count 4.83 X10*6/uL (4.60-5.80); Red Cell Distribution Width 11.6 % (11.0-16.0); White Blood Count 7.6 X10*3/uL (4.8-10.8)
[2020-10-11] MEDS: Albuterol Sulfate (0.083%) 2.5 MG/3 ML VIAL.NEB 10 MG INHALE (11:27)
[2020-10-11 11:28] VITALS: PULSE 74; O2SAT 95
[2020-10-11 11:40] LABS: Alanine Aminotransferase 19 U/L (0-40); Albumin Level 3.8 g/dL (3.5-5.0); Alkaline Phosphatase 65 U/L (39-117); Anion Gap 12 (12-20); Aspartate Amino Transferase 15 U/L (5-37); Bilirubin Direct 0.2 mg/dL (0.0-0.5); Bilirubin Total 0.5 mg/dL (0.0-1.0); Blood Urea Nitrogen 19 mg/dL (9-16); Calcium 8.9 mg/dL (8.4-10.2); Carbon Dioxide 25 mmol/L (22-29); Chloride 108 mmol/L (96-108); Creatinine Clr Calc Pharmacy 77.8; Estimated Glomerular Filt Rate > 60; Glucose Random 98 mg/dL (60-115); Magnesium 2.1 mg/dL (1.6-2.6); Potassium 4.2 mmol/L (3.3-5.1); Sodium 141 mmol/L (135-145); Total Protein 6.4 g/dL (6.5-8.0)
[2020-10-11 11:47] LABS: B Type Natriuretic Peptide 34 pg/mL (<100); Troponin-I High Sensitivity < 3.5 ng/L (<3.5-35.0)
[2020-10-11 12:04] LABS: Procalcitonin 0.04 ng/mL
[2020-10-11 12:27] LABS: Influenza A PCR NEGATIVE (Negative); Influenza B PCR NEGATIVE (Negative); Resp Syncy Virus RNA Qual PCR NEGATIVE (Negative); SARS COV2 PCR INHOUSE NEGATIVE (Negative)
== END 2020-10-11 13:22 | disposition home or self-care (01) ==
PROVIDERS: Physician Assistant; Emergency Provider Emergency Medicine
DX: J45.21 Mild intermittent asthma with (acute) exacerbation (principal); Z20.822 Contact with and (suspected) exposure to COVID-19
CPT/HCPCS: 0241U; 36415; 71045; 80048; 80076; 81003; 83735; 83880; 84145; 84484; 85025; 93005; 94640; 96365; 96366; 96374; 99284; J2930; J3475

== ENCOUNTER 2021-01-21 12:52 | Emergency (ER) | payer MEDICARE, MEDICAID, SELFPAY ==
[2021-01-21 13:04] VITALS: BP 150/81; PULSE 76; RESP 18; TEMP 36.7; O2SAT 98; BMI 26.5
--- NOTE | 2021-01-21 15:37 | ECG_ITS ---
Test Reason : CHESTPAIN Blood Pressure : / mmHG Vent. Rate : 056 BPM Atrial Rate : 056 BPM P-R Int : 134 ms QRS Dur : 090 ms QT Int : 440 ms P-R-T Axes : 028 -13 046 degrees QTc Int : 424 ms Sinus bradycardia Otherwise normal ECG When compared with ECG of 11-OCT-2020 10:18, No significant change was found Referred By: Jason Dumas Electronically Signed By:Donnie Haas
[2021-01-21 15:45] VITALS: BP 129/76; PULSE 60; RESP 13; TEMP 36.7; O2SAT 97
[2021-01-21 15:52] LABS: Glucose Urine UA NEG (NEG); Leukocyte Esterase Urine NEG (NEG); Nitrite Urine NEG (NEG); Specific Gravity - Urine 1.025 (1.005-1.025); Urine Blood NEG (NEG); Urine Ketones NEG (NEG); Urine Protein NEG (NEG-TRACE)
[2021-01-21 15:54] LABS: Appearance Urine CLEAR; Color Urine YELLOW
--- NOTE | 2021-01-21 15:58 | ED.ABDPAIN ---
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 Patient's symptoms started 3 days ago, described as acid to the epigastric and low chest area, patient had 2 days of diarrhea prior to this, pain is worsening by food, no relieving factors. Describes symptoms as intermittent mostly after foods, moderate 7/10 in severity, associated with nausea and nonbloody watery diarrhea, aggravated by food, no relieving factors. No fever, no chills, no shortness of breath. Patient had similar symptoms many years ago and was treated by a director of corporate real estate for gastritis. Related Data Previous Rx's Medication Instructions Recorded albuterol sulfate 1 inh INHALATION QID PRN #6.7 g 10/11/20 azithromycin [Zithromax Z-Syed] See Rx Instructions .ROUTE 10/11/20 .COMPLEX #6 tab benzonatate [Tessalon Perles] 100 mg PO TID PRN #10 cap 10/11/20 prednisone 10 mg PO PER PKG DIR #48 ea 10/11/20 Allergies Allergy/AdvReac Type Severity Reaction Status Date / Time No Known Allergies Allergy Unverified 03/30/20 14:58 [No Known Allergies*] none Allergy Unknown Uncoded 09/24/18 00:00 Review of Systems Review of Systems All other systems are reviewed and are negative Constitutional: Reports as per HPI and Reports no additional constitutional complaints Eyes: Reports as per HPI and Reports no additional eye complaints Reports system reviewed and no additional complaints, except as documented Cardiovascular: Reports as per HPI and Reports no additional cardiovascular complaints Respiratory: Reports as per HPI and Reports no additional respiratory complaints Gastrointestinal: Reports as per HPI and Reports no additional gastrointestinal complaints Genitourinary: Reports no additional female genitourinary complaints Musculoskeletal: Reports no additional musculoskeletal complaints Skin/Breast: Reports system reviewed and no additional complaints, except as docu Psychiatric: Reports no additional psychiatric complaints Endocrine: Reports no additional endocrine complaints Hematologic/Lymphatic: Reports no additional hematologic/lymphatic complaints Allergic/Immunologic: Reports no additional allergic/immunologic complaints Reports system reviewed and no additional complaints, except as documented and Reports Abnormal speech present Physical Exam Vital Signs: Vital Signs: Last Vital Signs Temp 98.0 F 01/21/21 15:45 Pulse 52 01/21/21 16:14 Resp 16 01/21/21 16:14 BP 130/77 01/21/21 16:14 Pulse Ox 99 01/21/21 16:14 Body Mass Index 26.5 Vital signs have been reviewed as appeared to be correct. Blood pressure normal. Heart rate normal. Respiration rate normal. Temperature normal. Oxygen saturation normal. Appearance: Alert. Oriented X3. No acute distress. Head: Normal external exam. Normocephalic. Atraumatic. No Lange signs noted. No raccoon eyes noted Eyes: PERRLA. EOMI. Conjunctiva and sclera normal. Eyelids normal. ENT: TM's Normal. Pharynx normal. Uvula midline. Moist mucous membranes. No trismus noted. No drooling noted. No muffled voice noted. Neck: Normal inspection. Neck supple. FROM. No adenopathy. Thyroid Normal. No meningeal signs. No neck mass noted. CVS: Normal heart rate and rhythm. Heart sound normal. No murmurs noted. Pulses normal throughout. Respiratory: No respiratory distress. Painless inspiration. Breath sounds normal. No wheezes/rales/rhonchi noted. Chest nontender. No accessory muscle usage noted or decreased air movement noted. Abdomen: Soft and nontender. Bowel sounds normal in all 4 quadrants. No distention noted. No organomegaly noted. No visible injury noted. Back: No CVA tenderness. Full range of motion noted. Skin: Skin warm and dry. Normal skin color. Normal skin turgor. No rashes/lesions/lacerations noted. Extremities: No lower extremity edema. Extremities exhibit normal range of motion. Extremities nontender. Neuro: Oriented X 3. No motor deficit. No sensory deficit. Reflexes normal. Course Course Course Narrative: 70-year-old male came in with epigastric/lower chest pain for 3 days. EKG is unremarkable, labs including troponin/chest x-ray pending. Patient was treated with Maalox/Pepcid patient to be re-evaluated. Case signed out to Dr. Sheth checking labs and disposition accordingly. MDM - Abdominal Pain Lab Data Labs: Lab Results 01/21/21 Range/Units 15:46 Urine Color YELLOW Urine Appearance CLEAR Urine pH 6.0 (5.0-8.0) Ur Specific [place] 1.025 (1.005-1.025) Urine Protein NEG (NEG-TRACE) MG/DL Urine Glucose (UA) NEG (NEG) MG/DL Urine Ketones NEG (NEG) MG/DL Urine Blood NEG (NEG) Urine Nitrite NEG (NEG) Ur Leukocyte Esterase NEG (NEG) ECG Data Interpretation: Sinus bradycardia at 56 beats per minutes, left axis deviation, normal intervals, no ST-T changes. Discharge Plan Discharge Prescriptions: No Action prednisone 10 mg tablets,dose pack 10 mg PO PER PKG DIR Qty: 48 RF: 0 albuterol sulfate 90 mcg/actuation HFA aerosol inhaler 1 inh inhalation QID PRN (Reason: shortness of breath or wheezing) Qty: 6.7 RF: 0 azithromycin [Zithromax Z-Syed] 250 mg tablet See Rx Instructions .ROUTE .COMPLEX Qty: 6 RF: 0 benzonatate [Tessalon Perles] 100 mg capsule 100 mg PO TID PRN (Reason: cough) Qty: 10 RF: 0 PMFSH Past Medical History Medical History Asthma Social History Social History Alcohol intake: current Alcohol intake frequency: holidays/special occasions only Advance Directives: No Advance Directives Information Provided: Yes
[2021-01-21 16:14] VITALS: BP 130/77; PULSE 52; RESP 16; O2SAT 99
[2021-01-21] MEDS: Magnesium Hydrox/Alum Hydrox 30 ML ORAL.SUSP PO (16:14)
[2021-01-21] MEDS: Famotidine/PF 20 MG/2 ML VIAL IVPUSH (16:14)
[2021-01-21 18:25] LABS: MANUAL DIFF FLAG NO
[2021-01-21 18:28] LABS: Basophils Percent Auto 0.3 % (0-2); Eosinophils Absolute Auto 0.1 X10*3/uL (0.0-0.4); Hematocrit 46.7 % (42-52); Hemoglobin 15.9 g/dl (14.0-18.0); Imm Gran Abs Auto 0.06 X10*3/uL (0.00-0.03); Lymphocytes Percent Auto 33.1 % (20-40); Mean Corpuscular Hemoglobin 32.1 pg (27.0-33.0); Mean Corpuscular Volume 94.3 fL (80-98); Mean Platelet Volume 8.6 fL (9.4-12.4); Monocytes Absolute Auto 0.3 X10*3/uL (0.1-1.2); Monocytes Percent Auto 5.6 % (2-11); Neutrophils Absolute Auto 3.6 X10*3/uL (2.0-8.3); Platelet Count 261 X10*3/uL (160-400); Red Blood Count 4.95 X10*6/uL (4.60-5.80); Red Cell Distribution Width 11.6 % (11.0-16.0); White Blood Count 6.1 X10*3/uL (4.8-10.8)
[2021-01-21 18:56] LABS: Alanine Aminotransferase 17 U/L (0-40); Albumin Level 4.1 g/dL (3.5-5.0); Alkaline Phosphatase 50 U/L (39-117); Anion Gap 13 (12-20); Aspartate Amino Transferase 14 U/L (5-37); Bilirubin Total 0.7 mg/dL (0.0-1.0); Blood Urea Nitrogen 16 mg/dL (9-16); Calcium 9.2 mg/dL (8.4-10.2); Carbon Dioxide 24 mmol/L (22-29); Chloride 108 mmol/L (96-108); Creatinine Clr Calc Pharmacy 76.8; Estimated Glomerular Filt Rate > 60; Glucose Random 95 mg/dL (60-115); Potassium 3.9 mmol/L (3.3-5.1); Sodium 141 mmol/L (135-145); Total Protein 6.5 g/dL (6.5-8.0)
[2021-01-21 18:58] LABS: Troponin-I High Sensitivity < 3.5 ng/L (<3.5-35.0)
[2021-01-21 19:35] VITALS: BP 125/77; PULSE 57; RESP 15; TEMP 37; O2SAT 98
[2021-01-21 20:59] VITALS: BP 138/78; PULSE 69; RESP 16; O2SAT 98
== END 2021-01-21 21:01 | disposition home or self-care (01) ==
PROVIDERS: Emergency Provider Emergency Medicine; PCP Internal Medicine
DX: R07.89 Other chest pain (principal)
CPT/HCPCS: 36415; 80053; 81003; 84484; 85025; 93005; 96374; 99284; 99285

== ENCOUNTER 2021-07-31 07:57 | Outpatient (REF) | payer MEDICARE, MEDICAID, SELFPAY ==
--- NOTE | ~2021-07-31 | XR_ITS ---
EXAMINATION: LEFT HIP. LEFT KNEE. CLINICAL INFORMATION: Pain COMPARISON: None TECHNIQUE: Left hip 2 views. Left knee 4 views. FINDINGS: Left hip: The hip joint space is maintained normal. No visible acute fracture, dislocation or bony erosive changes seen. The soft tissues are normal. Left knee: There is no visible acute fracture, dislocation or bony erosive changes. The soft tissues are normal. No abnormal joint effusion. There is mild anterior superior patellar enthesophyte. XR/XR knee LT 4V IMPRESSION: Unremarkable left hip exam. Small anterior superior patellar enthesophyte. Otherwise unremarkable left knee exam.
--- NOTE | ~2021-07-31 | XR_ITS ---
EXAMINATION: LEFT HIP. LEFT KNEE. CLINICAL INFORMATION: Pain COMPARISON: None TECHNIQUE: Left hip 2 views. Left knee 4 views. FINDINGS: Left hip: The hip joint space is maintained normal. No visible acute fracture, dislocation or bony erosive changes seen. The soft tissues are normal. Left knee: There is no visible acute fracture, dislocation or bony erosive changes. The soft tissues are normal. No abnormal joint effusion. There is mild anterior superior patellar enthesophyte. XR/XR hip LT min 2V IMPRESSION: Unremarkable left hip exam. Small anterior superior patellar enthesophyte. Otherwise unremarkable left knee exam.
== END 2021-07-31 07:58 | disposition home or self-care (01) ==
LOC: HO.XRAY 07:57
PROVIDERS: PCP Internal Medicine; Visit Provider Internal Medicine
DX: M25.552 Pain in left hip (principal); M25.562 Pain in left knee
CPT/HCPCS: 73502; 73564

== ENCOUNTER 2021-08-09 10:59 | Emergency (ER) | payer MEDICARE, MEDICAID, SELFPAY ==
--- NOTE | ~2021-08-09 | XR_ITS ---
EXAMINATION: XR CHEST CLINICAL INFORMATION: Cough COMPARISON: Previous chest x-ray September 2020 TECHNIQUE: Frontal view of the chest was obtained. FINDINGS: The cardiac and mediastinal contours are stable. The lungs are clear. There is no pleural effusion or pneumothorax. There is mild curvature of the thoracic spine to the right. XR/XR chest 1V IMPRESSION: No evidence for acute disease in the chest.
--- NOTE | 2021-08-09 11:23 | ECG_ITS ---
Test Reason : CHEST PAIN Blood Pressure : / mmHG Vent. Rate : 078 BPM Atrial Rate : 078 BPM P-R Int : 134 ms QRS Dur : 092 ms QT Int : 368 ms P-R-T Axes : 035 -17 037 degrees QTc Int : 419 ms Sinus rhythm with marked sinus arrhythmia Otherwise normal ECG When compared with ECG of 21-JAN-2021 15:54, No significant change was found Referred By: Billie Harris Electronically Signed By:MIGUEL CAMERON MD
--- NOTE | 2021-08-09 11:24 | ED_ITS ---
HPI - General Adult General Chief complaint: Chest Pain Stated complaint: +COVID, CP WITH COUGH Time Seen by Provider: 08/09/21 11:06 Source: patient and EMS Mode of arrival: EMS Limitations: no limitations History of Present Illness HPI narrative: Patient comes to the emergency room complaining of, and chest pain secondary to coughing. Patient states that 2 days ago he was seen at the [facility], initially he was told that the COVID test was negative. Today he received a phone call stating that his COVID result was positive. Patient is unsure if he has COVID or not. Patient states that he received 3 immunizations of Moderna. Patient complaining of chills, no fever. Patient states that he h as history of asthma, he has been using his inhaler and patient's PCP already started him on prednisone 3 days ago. At this time, patient is not coughing, denies chest pain or shortness of breath, no calf pain. Related Data Previous Rx's Medication Instructions Recorded albuterol sulfate 90 mcg/actuation 1 inh INHALATION QID PRN #6.7 g 10/11/20 aerosol inhaler azithromycin 250 mg tablet See Rx Instructions .ROUTE 10/11/20 (Zithromax Z-Syed) .COMPLEX #6 tab benzonatate 100 mg capsule 100 mg PO TID PRN #10 cap 10/11/20 (Tessalon Mireya) prednisone 10 mg tablets in a dose 10 mg PO PER PKG DIR #48 ea 10/11/20 pack omeprazole 20 mg capsule,delayed 20 mg PO DAILY #30 cap 01/21/21 release Allergies Allergy/AdvReac Type Severity Reaction Status Date / Time No Known Allergies Allergy Unverified 03/30/20 14:58 [No Known Allergies*] none Allergy Unknown Uncoded 09/24/18 00:00 Review of Systems Verdana 4l Review of Systems: Verdana 4d Verdana 4d Constitutional : No Weight loss, complaining of Fever, No Chills, No Night Sweats, No Fatigue, No Malaise ENT/Mouth : No Hearing loss, No Ear Pain, No Nasal Congestion, No Sinus Pain, No Hoarseness, No sore throat, No Rhinorrhea, No SwallowingSwallowing Difficulty Eyes: No Eye Pain, No Swelling, No Redness, No Foreign Body, No Discharge, No Vision Changes Cardiovascular : 1 chest pain secondary to coughing, otherwise no chest pain, this time a asymptomatic No SOB, No Dyspnea on Exertion, No Orthopnea, No Edema, No Palpitations Respiratory : Complaining of dry Cough, No Sputum, complaining of intermittent Wheezing Gastrointestinal : No Nausea, No Vomiting, No Diarrhea, No Constipation, No abdominal Pain, No Hematochezia, No Melena Genitourinary : no irregular bleeding, No Dysuria, No Urinary Frequency, No Hematuria, No Urinary Incontinence, No Urgency, No Flank Pain, No Urinary Flow Changes, No Hesitancy Musculoskeletal : No joint pain, No Myalgias, No Joint Swelling Skin : No Skin Lesions, No rash Neuro : No Weakness, No Numbness, No Paresthesias, No Loss of Consciousness, No Dizziness, No Headache Psych : No Anxiety/Panic, No Depression, No SI/HI/AH/VH, No Social Issues, Heme/Lymph: No Bruising, No Bleeding,No Lymphadenopathy Endocrine : No Polyuria, No Polydipsia, No Temperature Intolerance [facility] Past Medical History Medical History Asthma Social History Social History Alcohol intake: current Alcohol intake frequency: holidays/special occasions only Advance Directives: No Advance Directives Information Provided: No Physical Exam Verdana 4l Vital Signs: Verdana 4d Verdana 4d Vital Signs: Verdana 4d Verdana 4Bd Last Vital Signs Verdana 4d Getter Filler New 4d Getter Filler New 4d Temp 98.9 F 08/09/21 11:27 Getter Filler New 4d Pulse 80 08/09/21 11:27 Getter Filler New 4d Resp 16 08/09/21 11:27 BP 126/89 08/09/21 11:27 Pulse Ox 97 08/09/21 11:27 BMI result Body Mass Index 26.5 Const: Other: Appearance: Alert. Oriented X3. No acute distress. Eyes: Pupils equal, round and reactive to light. ENT: Pharynx normal. Neck: Normal inspection. Neck supple. No lymph nodes noted. No crepitus CVS: Normal heart rate and rhythm. Pulses normal. Normal S1 and S2 Respiratory: No respiratory distress. Breath sounds normal. No Wheezing. No rales Abdomen: Soft and nontender. No rigidity. No distention. good BS x4 Skin: Skin warm and dry. Normal skin color. Normal skin turgor. Extremities: No lower extremity edema. No Lacerations. No Rash Neuro: Oriented X 3. No motor deficit. No sensory deficit. Moving all exter mities. No slurred speech. Course Course Course Narrative: Patient's x-rays negative, COVID test is negative. Patient likely having viral bronchitis. However, COVID tests are not 100% accurate. Patient instructed to be retested in 2-3 days and to remain at home in quarantine Medical Decision Making Lab Data Result diagrams: 08/09/21 11:40 08/09/21 11:40 Labs: Lab Results 08/09/21 08/09/21 08/09/21 Range/Units 11:40 11:40 11:40 WBC 12.6 H (4.8-10.8) X10*3/uL RBC 4.70 (4.60-5.80) X10*6/uL Hgb 15.2 (14.0-18.0) g/dl Hct 44.5 (42.0-52.0) % MCV 94.7 (80.0-98.0) fL MCH 32.3 (27.0-33.0) pg MCHC 34.2 (31.0-36.0) g/dl RDW 11.7 (11.0-16.0) % Plt Count 293 (160-400) X10*3/uL MPV 9.3 L (9.4-12.4) fL Immature Gran % (Auto) 1.3 H (0.0-0.4) % Neut % (Auto) 85.4 H (45-73) % Lymph % (Auto) 9.7 L (20-40) % Summit % (Auto) 3.2 (2-11) % Eos % (Auto) 0.1 (0-4) % Baso % (Auto) 0.3 (0-2) % Lymph # (Auto) 1.2 (1.2-4.9) X10*3/uL Summit # (Auto) 0.4 (0.1-1.2) X10*3/uL Eos # (Auto) 0.0 (0.0-0.4) X10*3/uL Baso # (Auto) 0.0 (0.0-0.2) X10*3/uL Abs Immat Gran (auto) 0.16 H (0.00-0.03) X10*3/uL Absolute Neuts (auto) 10.8 H (2.0-8.3) x10*3/uL Absolute Nucleated RBC 0.000 (0.0-0.012) X10*3/uL Nucleated RBC % (auto) 0.0 (0.0-0.2) /100WBC Sodium 142 (135-145) mmol/L Potassium 3.6 (3.3-5.1) mmol/L Chloride 109 H (96-108) mmol/L Carbon Dioxide 23 (22-29) mmol/L Anion Gap 14 (12-20) BUN 23 H (9-16) mg/dL Creatinine 0.83 (0.5-1.4) mg/dL Estim Creat Clear Calc 70.1 Estimated GFR > 60 Random Glucose 109 (60-115) mg/dL Calcium 9.6 (8.4-10.2) mg/dL Troponin I High Sens < 3.5 (<3.5-35.0) ng/L COVID-19 (DONNY) (Negative) COVID-19 Clin Com 08/09/21 Range/Units 11:40 WBC (4.8-10.8) X10*3/uL RBC (4.60-5.80) X10*6/uL Hgb (14.0-18.0) g/dl Hct (42.0-52.0) % MCV (80.0-98.0) fL MCH (27.0-33.0) pg MCHC (31.0-36.0) g/dl RDW (11.0-16.0) % Plt Count (160-400) X10*3/uL MPV (9.4-12.4) fL Immature Gran % (Auto) (0.0-0.4) % Neut % (Auto) (45-73) % Lymph % (Auto) (20-40) % Summit % (Auto) (2-11) % Eos % (Auto) (0-4) % Baso % (Auto) (0-2) % Lymph # (Auto) (1.2-4.9) X10*3/uL Summit # (Auto) (0.1-1.2) X10*3/uL Eos # (Auto) (0.0-0.4) X10*3/uL Baso # (Auto) (0.0-0.2) X10*3/uL Abs Immat Gran (auto) (0.00-0.03) X10*3/uL Absolute Neuts (auto) (2.0-8.3) x10*3/uL Absolute Nucleated RBC (0.0-0.012) X10*3/uL Nucleated RBC % (auto) (0.0-0.2) /100WBC Sodium (135-145) mmol/L Potassium (3.3-5.1) mmol/L Chloride (96-108) mmol/L Carbon Dioxide (22-29) mmol/L Anion Gap (12-20) BUN (9-16) mg/dL Creatinine (0.5-1.4) mg/dL Estim Creat Clear Calc Estimated GFR Random Glucose (60-115) mg/dL Calcium (8.4-10.2) mg/dL Troponin I High Sens (<3.5-35.0) ng/L COVID-19 (DONNY) Negative (Negative) COVID-19 Clin Com See Note Imaging Data Chest x-ray: Radiologist's impression: TECHNIQUE: Frontal view of the chest was obtained. FINDINGS: The cardiac and mediastinal contours are stable. The lungs are clear. There is no pleural effusion or pneumothorax. There is mild curvature of the thoracic spine to the right. XR/XR chest 1V IMPRESSION: No evidence for acute disease in the chest. Discharge Plan Discharge Clinical Impression: Acute bronchitis, viral Patient Disposition: Home, Self-Care Instructions: Acute Bronchitis (ED) Prescriptions: No Action prednisone 10 mg tablets,dose pack 10 mg PO PER PKG DIR Qty: 48 0RF Rx Instructions: Take 4 tablets one a day for 4 days, then 3 tablets for 4 days, then 2 tablets for 4 days, then 1 tablet for 4 days. albuterol sulfate 90 mcg/actuation HFA aerosol inhaler 1 inh inhalation QID PRN (Reason: shortness of breath or wheezing) Qty: 6.7 0RF azithromycin [Zithromax Z-Syed] 250 mg tablet See Rx Instructions .ROUTE .COMPLEX Qty: 6 0RF Rx Instructions: take 500 mg today (day 1), then 250 mg for 4 days (days 2-5) benzonatate [Tessalon Perles] 100 mg capsule 100 mg PO TID PRN (Reason: cough) Qty: 10 0RF omeprazole 20 mg capsule,delayed release(DR/EC) 20 mg PO DAILY Qty: 30 0RF
[2021-08-09 11:27] VITALS: BP 126/89; BP 146/91; PULSE 80; PULSE 96; RESP 16; TEMP 37.2; O2SAT 97; O2SAT 98; BMI 26.5
[2021-08-09 11:47] LABS: MANUAL DIFF FLAG NO
[2021-08-09 11:49] LABS: Basophils Percent Auto 0.3 % (0-2); Eosinophils Percent Auto 0.1 % (0-4); Hematocrit 44.5 % (42.0-52.0); Hemoglobin 15.2 g/dl (14.0-18.0); Imm Gran Abs Auto 0.16 X10*3/uL (0.00-0.03); Imm Gran Pct Auto 1.3 % (0.0-0.4); Lymphocytes Absolute Auto 1.2 X10*3/uL (1.2-4.9); Lymphocytes Percent Auto 9.7 % (20-40); Mean Corpuscular HGB Conc 34.2 g/dl (31.0-36.0); Mean Corpuscular Hemoglobin 32.3 pg (27.0-33.0); Mean Corpuscular Volume 94.7 fL (80.0-98.0); Mean Platelet Volume 9.3 fL (9.4-12.4); Monocytes Absolute Auto 0.4 X10*3/uL (0.1-1.2); Monocytes Percent Auto 3.2 % (2-11); Neutrophils Absolute Auto 10.8 x10*3/uL (2.0-8.3); Neutrophils Percent Auto 85.4 % (45-73); Platelet Count 293 X10*3/uL (160-400); Red Cell Distribution Width 11.7 % (11.0-16.0); White Blood Count 12.6 X10*3/uL (4.8-10.8)
[2021-08-09 12:03] LABS: Anion Gap 14 (12-20); Blood Urea Nitrogen 23 mg/dL (9-16); COVID-19 Test Negative (Negative); Calcium 9.6 mg/dL (8.4-10.2); Carbon Dioxide 23 mmol/L (22-29); Chloride 109 mmol/L (96-108); Creatinine Clr Calc Pharmacy 70.1; Estimated Glomerular Filt Rate > 60; Glucose Random 109 mg/dL (60-115); IDNOW Serial# 55D5AD1C; Potassium 3.6 mmol/L (3.3-5.1); Sodium 142 mmol/L (135-145)
[2021-08-09 12:11] LABS: Troponin-I High Sensitivity < 3.5 ng/L (<3.5-35.0)
== END 2021-08-09 13:43 | disposition home or self-care (01) ==
PROVIDERS: Emergency Provider Emergency Medicine
DX: J20.8 Acute bronchitis due to other specified organisms (principal); Z20.822 Contact with and (suspected) exposure to COVID-19; J45.909 Unspecified asthma, uncomplicated
CPT/HCPCS: 71045; 80048; 84484; 85025; 87635; 93005; 99283

== ENCOUNTER 2021-10-22 07:58 | Outpatient (REF) | payer MEDICARE, MEDICAID, SELFPAY | END 2021-10-22 07:59 | disposition home or self-care (01) | LOC: HO.HOSX 07:58 | PROVIDERS: Visit Provider Physician Assistant | DX: Z13.89 Encounter for screening for other disorder (principal) ==

== ENCOUNTER 2022-02-15 09:27 | Emergency (ER) | payer MEDICARE, MEDICAID, SELFPAY ==
[2022-02-15 09:46] VITALS: BP 122/77; BP 170/96; PULSE 70; PULSE 79; RESP 16; TEMP 36.9; O2SAT 94; BMI 28.3
--- NOTE | 2022-02-15 09:53 | ECG_ITS ---
Test Reason : anxiety Blood Pressure : / mmHG Vent. Rate : 064 BPM Atrial Rate : 064 BPM P-R Int : 126 ms QRS Dur : 090 ms QT Int : 406 ms P-R-T Axes : 034 -16 050 degrees QTc Int : 418 ms Normal sinus rhythm Normal ECG When compared with ECG of 09-AUG-2021 11:36, No significant change was found Referred By: Ling White Electronically Signed By:MIGUEL CAMERON MD
--- NOTE | 2022-02-15 09:54 | ED.ANXIETY ---
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 Patient tells me these resolved without any intervention. He has no complaints on arrival to the emergency room. He tells me this feels pretty typical for his panic attacks. He denies any associated chest pain, shortness of breath, palpitation, numbness or tingling of the extremities. Patient is currently seeing a therapist and psychiatrist for his anxiety. He reports a recent argument with his girlfriend which he believes may have triggered the panic attack. Related Data Previous Rx's Medication Instructions Recorded albuterol sulfate 90 mcg/actuation 1 inh inhalation QID PRN shortness 10/11/20 aerosol inhaler of breath or wheezing #6.7 grams azithromycin 250 mg tablet See Rx Instructions PO .COMPLEX #6 10/11/20 (Zithromax Z-Syed) tabs benzonatate 100 mg capsule 100 mg PO TID PRN cough #10 caps 10/11/20 (Tessalon Perles) prednisone 10 mg tablets in a dose 10 mg PO PER PKG DIR #48 ea 10/11/20 pack omeprazole 20 mg capsule,delayed 20 mg PO DAILY #30 caps 01/21/21 release Allergies Allergy/AdvReac Type Severity Reaction Status Date / Time No Known Allergies Allergy Unverified 03/30/20 14:58 [No Known Allergies*] none Allergy Unknown Uncoded 09/24/18 00:00 Review of Systems Review of Systems: Yes all other systems are reviewed and are negative Constitutional: Constitutional: Reports no additional constitutional complaints, Denies body ache(s), Denies chills, Denies fever(s), Denies headache(s) and Denies weakness Eyes: Eyes: Reports no additional eye complaints and Denies change in vision ENT: Reports system reviewed and no additional complaints, except as documented, Denies dizziness, Denies headache(s), Denies nasal congestion, Denies nasal discharge and Denies neck pain Cardiovascular: Cardiovascular: Reports no additional cardiovascular complaints, Denies chest pain, Denies leg edema and Denies dyspnea Respiratory: Respiratory: Reports no additional respiratory complaints, Denies cough and Denies dyspnea Gastrointestinal: Gastrointestinal: Reports no additional gastrointestinal complaints, Denies abdominal pain, Denies diarrhea, Denies nausea and Denies vomiting Genitourinary: Genitourinary: Denies urinary incontinence Musculoskeletal: Musculoskeletal: Reports no additional musculoskeletal complaints, Denies back pain, Denies arthralgias, Denies joint swelling, Denies neck pain, Denies numbness and Denies tingling Integumentary/Breasts: Skin/Breast: Reports system reviewed and no additional complaints, except as docu and Denies rash Neurologic: Reports system reviewed and no additional complaints, except as documented, Denies Abnormal speech present, Denies dizziness, Denies headache(s), Denies numbness, Denies tingling and Denies weakness Psychiatric: Psychiatric: Reports anxiety, Denies homicidal ideation and Denies suicidal ideation PMFSH Past Medical History Attestation statement: The following information was validated with the patient. Source: old records reviewed and nursing notes reviewed Medical History Asthma Social History Social History Alcohol intake: never Patient Tobacco Use Status: Never used Tobacco Use of substances other than those prescribed or required for medical reasons: No Advance Directives: Yes Advance Directives Information Provided: Yes Advance Directives on File: No Physical Exam Vital Signs: Vital Signs: Last Vital Signs Temp 98.4 F 02/15/22 09:46 Pulse 70 02/15/22 09:46 Resp 16 02/15/22 09:46 BP 122/77 02/15/22 09:46 Pulse Ox 94 02/15/22 09:46 O2 Del Method 02/15/22 09:46 BMI result Body Mass Index 28.3 Const: General: cooperative, healthy appearing, comfortable and no acute distress Orientation/consciousness: patient oriented x3 Limitations: no limitations HEENT: Head: Yes normal to inspection Ears: hearing grossly normal bilaterally General nose exam: Normal external nose present Face and sinus: Yes normal facial exam Mouth: Normal oral and palatal mucosa present Throat: Yes posterior oropharynx normal Eyes: General: appearance normal, both eyes and all related structures Pupils: Equal, round and reactive pupils present Neck: Neck: Yes normal visual inspection Chest: Chest palpation & inspection: normal inspection of the chest Resp: Effort & Inspection: normal respiratory effort Auscultation: clear to auscultation bilaterally Cardio: Rate: regular rate Rhythm: regular rhythm Peripheral pulses: Peripheral pulses 2+ throughout GI: Inspection: Yes normal to inspection Palpation (GI): Soft to palpation and nontender Auscultation: normal bowel sounds Back/Spine/Pelvis: Thoracic/Lumbar Spine: thoracic and lumbar spine normal to inspection Skin: General skin exam: no rashes or lesions noted Neuro: General: patient oriented x3, no focal motor deficits and normal sensation to monofilament Cranial nerves: Yes CN's II-XII intact bilaterally and Yes Equal, round and reactive pupils present Cognition (Neuro): normal cognition Speech: No Abnormal speech present Gait exam (Neuro): Normal gait present Motor exam (neuro): 5/5 motor strength present throughout Extrem: General: Yes normal to inspection Course Course Course Narrative: Labs are unremarkable. EKG shows no ischemic changes. Patient feels well would like to be discharged home. Reviewed worrisome signs and symptoms of when to return to the emergency department. Comfortable discharge home. MDM - Anxiety MDM Narrative Medical decision making narrative: 71-year-old male with a history of anxiety, panic attacks and asthma presents after reported panic attack which occurred 1 hour prior to arrival while he was in a program. All symptoms are resolved now. Patient had no associated chest pain, shortness of breath, palpitations, nausea or diaphoresis concerning for ACS. Due to age however will check labs and EKG. He is not suicidal. He feels better at this time. If workup negative patient can follow up without outpatient providers -atypical for ACS with normal EKG and troponin Medical Records Attestation: I reviewed the patient's medical records. Lab Data Attestation: I reviewed the patient's lab results. Result diagrams: 02/15/22 10:10 02/15/22 10:10 Labs: Lab Results 02/15/22 02/15/22 02/15/22 Range/Units 10:10 10:10 10:10 WBC 6.0 (4.8-10.8) X10*3/uL RBC 4.81 (4.60-5.80) X10*6/uL Hgb 15.6 (14.0-18.0) g/dl Hct 45.0 (42.0-52.0) % MCV 93.6 (80.0-98.0) fL MCH 32.4 (27.0-33.0) pg MCHC 34.7 (31.0-36.0) g/dl RDW 11.6 (11.0-16.0) % Plt Count 275 (160-400) X10*3/uL MPV 8.8 L (9.4-12.4) fL Immature Gran % (Auto) 1.0 H (0.0-0.4) % Neut % (Auto) 73.3 H (45-73) % Lymph % (Auto) 19.7 L (20-40) % Esmeralda % (Auto) 5.5 (2-11) % Eos % (Auto) 0.2 (0-4) % Baso % (Auto) 0.3 (0-2) % Lymph # (Auto) 1.2 (1.2-4.9) X10*3/uL Esmeralda # (Auto) 0.3 (0.1-1.2) X10*3/uL Eos # (Auto) 0.0 (0.0-0.4) X10*3/uL Baso # (Auto) 0.0 (0.0-0.2) X10*3/uL Abs Immat Gran (auto) 0.06 H (0.00-0.03) X10*3/uL Absolute Neuts (auto) 4.4 (2.0-8.3) x10*3/uL Absolute Nucleated RBC 0.000 (0.0-0.012) X10*3/uL Nucleated RBC % (auto) 0.0 (0.0-0.2) /100WBC Sodium 140 (135-145) mmol/L Potassium 4.1 (3.3-5.1) mmol/L Chloride 107 (96-108) mmol/L Carbon Dioxide 24 (22-29) mmol/L Anion Gap 13 (12-20) BUN 20 H (9-16) mg/dL Creatinine 0.81 (0.5-1.4) mg/dL Estim Creat Clear Calc 73.0 Estimated GFR > 60 Random Glucose 109 (60-115) mg/dL Calcium 9.4 (8.4-10.2) mg/dL Troponin I High Sens < 3.5 (<3.5-35.0) ng/L ECG Data Attestation: I personally reviewed and interpreted this ECG as follows: ECG interpretation date: 02/15/22 ECG interpretation time: 09:51 Interpretation: Normal sinus rhythm with a rate of 64, normal CO, normal QRS, normal QT Discharge Plan Discharge Clinical Impression: Panic disorder Patient Disposition: Home, Self-Care Instructions: Panic Attack (ED) Additional Instructions: Your EKG and labs look good Please follow-up with your outpatient providers as needed Prescriptions: No Action prednisone 10 mg tablets,dose pack 10 mg PO PER PKG DIR Qty: 48 0RF Rx Instructions: Take 4 tablets one a day for 4 days, then 3 tablets for 4 days, then 2 tablets for 4 days, then 1 tablet for 4 days. albuterol sulfate 90 mcg/actuation HFA aerosol inhaler 1 inh inhalation QID PRN (Reason: shortness of breath or wheezing) Qty: 6.7 0RF azithromycin [Zithromax Z-Syed] 250 mg tablet See Rx Instructions .ROUTE .COMPLEX Qty: 6 0RF Rx Instructions: take 500 mg today (day 1), then 250 mg for 4 days (days 2-5) benzonatate [Tessalon Perles] 100 mg capsule 100 mg PO TID PRN (Reason: cough) Qty: 10 0RF omeprazole 20 mg capsule,delayed release(DR/EC) 20 mg PO DAILY Qty: 30 0RF Referrals: Physician,Unknown J [Primary Care Provider] - Print Language: Frisian
[2022-02-15 10:17] LABS: MANUAL DIFF FLAG NO
[2022-02-15 10:18] LABS: Basophils Percent Auto 0.3 % (0-2); Eosinophils Percent Auto 0.2 % (0-4); Hemoglobin 15.6 g/dl (14.0-18.0); Imm Gran Abs Auto 0.06 X10*3/uL (0.00-0.03); Lymphocytes Absolute Auto 1.2 X10*3/uL (1.2-4.9); Lymphocytes Percent Auto 19.7 % (20-40); Mean Corpuscular HGB Conc 34.7 g/dl (31.0-36.0); Mean Corpuscular Hemoglobin 32.4 pg (27.0-33.0); Mean Corpuscular Volume 93.6 fL (80.0-98.0); Mean Platelet Volume 8.8 fL (9.4-12.4); Monocytes Absolute Auto 0.3 X10*3/uL (0.1-1.2); Monocytes Percent Auto 5.5 % (2-11); Neutrophils Absolute Auto 4.4 x10*3/uL (2.0-8.3); Neutrophils Percent Auto 73.3 % (45-73); Platelet Count 275 X10*3/uL (160-400); Red Blood Count 4.81 X10*6/uL (4.60-5.80); Red Cell Distribution Width 11.6 % (11.0-16.0)
[2022-02-15 10:33] LABS: Anion Gap 13 (12-20); Blood Urea Nitrogen 20 mg/dL (9-16); Calcium 9.4 mg/dL (8.4-10.2); Carbon Dioxide 24 mmol/L (22-29); Chloride 107 mmol/L (96-108); Estimated Glomerular Filt Rate > 60; Glucose Random 109 mg/dL (60-115); Potassium 4.1 mmol/L (3.3-5.1); Sodium 140 mmol/L (135-145)
[2022-02-15 10:40] LABS: Troponin-I High Sensitivity < 3.5 ng/L (<3.5-35.0)
== END 2022-02-15 11:23 | disposition home or self-care (01) ==
PROVIDERS: Nurse Practitioner Family; Emergency Provider Emergency Medicine
DX: F41.9 Anxiety disorder, unspecified (principal); F41.0 Panic disorder [episodic paroxysmal anxiety]; Z79.899 Other long term (current) drug therapy
CPT/HCPCS: 36415; 80048; 84484; 85025; 93005; 99283; 99284

== ENCOUNTER 2022-05-22 06:04 | Emergency (ER) | payer MEDICARE, MEDICAID, SELFPAY ==
--- NOTE | ~2022-05-22 | XR_ITS ---
EXAMINATION: XR CHEST CLINICAL INFORMATION: Chest pain COMPARISON: 08/09/2021 TECHNIQUE: Frontal view of the chest was obtained. FINDINGS: Cardiac leads overlie the chest. The lungs are well expanded. There is no focal consolidation, edema, or effusion. No pneumothorax. The cardiomediastinal silhouette is within normal limits. No acute osseous abnormality. XR/XR chest 1V IMPRESSION: No acute pulmonary disease.
[2022-05-22 06:09] VITALS: BP 129/92; PULSE 82; O2SAT 96
--- NOTE | 2022-05-22 06:12 | ECG_ITS ---
Test Reason : CHEST PAIN Blood Pressure : / mmHG Vent. Rate : 077 BPM Atrial Rate : 077 BPM P-R Int : 128 ms QRS Dur : 084 ms QT Int : 362 ms P-R-T Axes : 033 -14 065 degrees QTc Int : 409 ms Normal sinus rhythm Low voltage QRS Borderline ECG No previous ECGs available Referred By: Generic ED Physician Electronically Signed By:ALEXA DIANE MD
[2022-05-22 06:19] VITALS: BP 116/77; PULSE 85; RESP 19; TEMP 36.9; O2SAT 98; BMI 22.0
[2022-05-22 06:54] LABS: MANUAL DIFF FLAG NO
[2022-05-22 06:55] LABS: Basophils Percent Auto 0.4 % (0-2); Eosinophils Percent Auto 0.7 % (0-4); Hematocrit 45.1 % (42.0-52.0); Hemoglobin 15.5 g/dl (14.0-18.0); Imm Gran Abs Auto 0.06 X10*3/uL (0.00-0.03); Imm Gran Pct Auto 1.1 % (0.0-0.4); Lymphocytes Absolute Auto 0.8 X10*3/uL (1.2-4.9); Mean Corpuscular HGB Conc 34.4 g/dl (31.0-36.0); Mean Corpuscular Hemoglobin 32.4 pg (27.0-33.0); Mean Corpuscular Volume 94.2 fL (80.0-98.0); Mean Platelet Volume 8.7 fL (9.4-12.4); Monocytes Absolute Auto 0.5 X10*3/uL (0.1-1.2); Monocytes Percent Auto 9.2 % (2-11); Neutrophils Absolute Auto 4.2 x10*3/uL (2.0-8.3); Neutrophils Percent Auto 74.6 % (45-73); Platelet Count 233 X10*3/uL (160-400); Red Blood Count 4.79 X10*6/uL (4.60-5.80); Red Cell Distribution Width 11.5 % (11.0-16.0); White Blood Count 5.7 X10*3/uL (4.8-10.8)
--- NOTE | 2022-05-22 07:11 | ED.CHESTPAIN ---
HPI - Chest Pain General Chief Complaint: Chest Pain Stated Complaint: cp with sob Time Seen by Provider: 05/22/22 06:58 Source: patient and old records reviewed History of Present Illness HPI narrative: Patient complaining of chest pain with cough starting 2 days ago. He states he has no pain when he is not coughing. Positive phlegm which is white. No fevers or chills. History of COVID-19 which he had in 2019. He has not taken a COVID test. No nausea vomiting. No abdominal pain. He has a history of asthma for which he has a pump and a nebulizer machine. He states they help symptoms a little bit. He states he has never been a smoker. No history of COPD. No history of coronary artery disease. Risk factors for coronary artery disease are hypertension and hypercholesterolemia. Related Data Home Medications Medication Instructions Recorded Confirmed buspirone 10 mg tablet 10 mg PO BID 02/20/22 buspirone 7.5 mg tablet 7.5 mg PO BID 02/20/22 escitalopram oxalate 10 mg tablet 10 mg PO DAILY 02/20/22 fluticasone propionate 220 2 puff inhalation BID 02/20/22 mcg/actuation HFA aerosol inhaler (Flovent HFA) quetiapine 50 mg tablet 50 mg PO BEDTIME 02/20/22 Previous Rx's Medication Instructions Recorded albuterol sulfate 90 mcg/actuation 1 inh inhalation QID PRN shortness 10/11/20 aerosol inhaler of breath or wheezing #6.7 grams azithromycin 250 mg tablet See Rx Instructions PO .COMPLEX #6 10/11/20 (Zithromax Z-Syed) tabs benzonatate 100 mg capsule 100 mg PO TID PRN cough #10 caps 10/11/20 (Tessalabner Gomes) prednisone 10 mg tablets in a dose 10 mg PO PER PKG DIR #48 ea 10/11/20 pack omeprazole 20 mg capsule,delayed 20 mg PO DAILY #30 caps 01/21/21 release albuterol sulfate 2.5 mg/3 mL 2.5 mg (3 mL) inhalation QID PRN 05/22/22 (0.083 %) solution for nebulization shortness of breath or wheezing #90 mL albuterol sulfate 90 mcg/actuation 2 puff inhalation Q6H PRN 05/22/22 aerosol inhaler shortness of breath or wheezing #8.5 grams ibuprofen 600 mg tablet 600 mg PO TID PRN pain #20 tabs 05/22/22 prednisone 20 mg tablet 40 mg PO DAILY #10 tabs 05/22/22 Allergies Allergy/AdvReac Type Severity Reaction Status Date / Time No Known Allergies Allergy Verified 02/20/22 15:16 [No Known Allergies*] none Allergy Unknown Unknown Uncoded 02/20/22 15:16 Review of Systems Constitutional: Comments: No fevers or chills ENT: Comments: No sore throat Cardiovascular: Comments: Chest pain is described Respiratory: Comments: Symptoms as described Gastrointestinal: Comments: No abdominal pain or nausea or vomiting Musculoskeletal: Comments: No leg pain or pedal edema Integumentary/Breasts: Comments: No rash PMFSH Past Medical History Medical History Allergic rhinitis Anxiety Asthma Depression GERD (gastroesophageal reflux disease) HTN (hypertension) Hypercholesterolemia Post traumatic stress disorder Surgical History History of surgery Social History Social History Alcohol intake: never Patient Tobacco Use Status: Never used Tobacco Smoked in Last 30 Days: No Use of substances other than those prescribed or required for medical reasons: No Advance Directives: No Advance Directives Information Provided: No Physical Exam Vital Signs: Vital Signs: Last Vital Signs Temp 98.4 F 05/22/22 06:19 Pulse 72 05/22/22 07:28 Resp 22 H 05/22/22 07:28 BP 107/74 05/22/22 07:28 Pulse Ox 99 05/22/22 07:28 O2 Del Method 05/22/22 06:19 BMI result Body Mass Index 22.0 Const: Other: Awake alert in no acute distress Chest: Other: Chest wall is nontender Resp: Other: Good air entry with slight expiratory wheeze Cardio: Other: Regular rate and rhythm without murmurs rubs or gallops GI: Other: Abdomen soft nontender nondistended. No organomegaly Skin: Other: Warm pink and dry without rash Neuro: Other: No obvious neurologic deficit Extrem: Other: No calf tenderness to palpation. No pedal edema Course Course Course Narrative: Chest pain in the setting of respiratory symptoms. Rule out cardiac etiology. Musculoskeletal chest pain Bronchitis Pneumonia COVID-19 RSV Other respiratory infection CBC and chemistry so far normal. EKG normal sinus rhythm without ischemic changes or dysrhythmia. Chest x-ray normal Await troponin and COVID testing 07:57. Troponin is normal. RSV is positive however. As patient has wheezing, will discharge home on steroids and albuterol. Otherwise supportive care. Medications Administered Discontinued Medications Generic Name Dose Route Start Last Admin Trade Name Freq PRN Reason Stop Dose Admin Albuterol/Ipratropium 3 ml 05/22/22 07:09 05/22/22 07:27 Albuterol/Iprat 2.5/0.5mg 3 Ml Ampul.Neb INHALE 05/22/22 07:10 3 ml ONCE ONE Administration Methylprednisolone Sodium Succinate 125 mg 05/22/22 07:09 05/22/22 07:30 Methylprednisolone Sod Succ 125 Mg/2 Ml Vial IVPUSH 05/22/22 07:10 125 mg ONCE ONE Administration MDM - Chest Pain Lab Data Result diagrams: 05/22/22 06:49 05/22/22 06:49 Labs: Lab Results 05/22/22 05/22/22 05/22/22 Range/Units 06:49 06:49 06:49 WBC 5.7 (4.8-10.8) X10*3/uL RBC 4.79 (4.60-5.80) X10*6/uL Hgb 15.5 (14.0-18.0) g/dl Hct 45.1 (42.0-52.0) % MCV 94.2 (80.0-98.0) fL MCH 32.4 (27.0-33.0) pg MCHC 34.4 (31.0-36.0) g/dl RDW 11.5 (11.0-16.0) % Plt Count 233 (160-400) X10*3/uL MPV 8.7 L (9.4-12.4) fL Immature Gran % (Auto) 1.1 H (0.0-0.4) % Neut % (Auto) 74.6 H (45-73) % Lymph % (Auto) 14.0 L (20-40) % [place] % (Auto) 9.2 (2-11) % Eos % (Auto) 0.7 (0-4) % Baso % (Auto) 0.4 (0-2) % Lymph # (Auto) 0.8 L (1.2-4.9) X10*3/uL [place] # (Auto) 0.5 (0.1-1.2) X10*3/uL Eos # (Auto) 0.0 (0.0-0.4) X10*3/uL Baso # (Auto) 0.0 (0.0-0.2) X10*3/uL Abs Immat Gran (auto) 0.06 H (0.00-0.03) X10*3/uL Absolute Neuts (auto) 4.2 (2.0-8.3) x10*3/uL Absolute Nucleated RBC 0.000 (0.0-0.012) X10*3/uL Nucleated RBC % (auto) 0.0 (0.0-0.2) /100WBC Sodium 141 (135-145) mmol/L Potassium 3.9 (3.3-5.1) mmol/L Chloride 107 (96-108) mmol/L Carbon Dioxide 24 (22-29) mmol/L Anion Gap 14 (12-20) BUN 19 H (9-16) mg/dL Creatinine 0.76 (0.5-1.4) mg/dL Estim Creat Clear Calc 89.1 Estimated GFR > 60 Random Glucose 102 (60-115) mg/dL Calcium 8.8 D (8.4-10.2) mg/dL Troponin I High Sens < 3.5 (<3.5-35.0) ng/L B-Natriuretic Peptide (<100) pg/mL Influenza Type A (PCR) (Negative) Influenza Type B (PCR) (Negative) RSV RNA Qual (PCR) (Negative) SARS-CoV-2 RNA (RT-PCR) (Negative) 05/22/22 05/22/22 Range/Units 06:49 06:49 WBC (4.8-10.8) X10*3/uL RBC (4.60-5.80) X10*6/uL Hgb (14.0-18.0) g/dl Hct (42.0-52.0) % MCV (80.0-98.0) fL MCH (27.0-33.0) pg MCHC (31.0-36.0) g/dl RDW (11.0-16.0) % Plt Count (160-400) X10*3/uL MPV (9.4-12.4) fL Immature Gran % (Auto) (0.0-0.4) % Neut % (Auto) (45-73) % Lymph % (Auto) (20-40) % [place] % (Auto) (2-11) % Eos % (Auto) (0-4) % Baso % (Auto) (0-2) % Lymph # (Auto) (1.2-4.9) X10*3/uL [place] # (Auto) (0.1-1.2) X10*3/uL Eos # (Auto) (0.0-0.4) X10*3/uL Baso # (Auto) (0.0-0.2) X10*3/uL Abs Immat Gran (auto) (0.00-0.03) X10*3/uL Absolute Neuts (auto) (2.0-8.3) x10*3/uL Absolute Nucleated RBC (0.0-0.012) X10*3/uL Nucleated RBC % (auto) (0.0-0.2) /100WBC Sodium (135-145) mmol/L Potassium (3.3-5.1) mmol/L Chloride (96-108) mmol/L Carbon Dioxide (22-29) mmol/L Anion Gap (12-20) BUN (9-16) mg/dL Creatinine (0.5-1.4) mg/dL Estim Creat Clear Calc Estimated GFR Random Glucose (60-115) mg/dL Calcium (8.4-10.2) mg/dL Troponin I High Sens (<3.5-35.0) ng/L B-Natriuretic Peptide 32 (<100) pg/mL Influenza Type A (PCR) NEGATIVE (Negative) Influenza Type B (PCR) NEGATIVE (Negative) RSV RNA Qual (PCR) POSITIVE A (Negative) SARS-CoV-2 RNA (RT-PCR) NEGATIVE (Negative) Discharge Plan Discharge Clinical Impression: Respiratory syncytial virus (RSV), Atypical chest pain Patient Disposition: Home, Self-Care Instructions: Chest Pain (DC), Respiratory Syncytial Virus (ED) Prescriptions: New albuterol sulfate 90 mcg/actuation HFA aerosol inhaler 2 puff inhalation Q6H PRN (Reason: shortness of breath or wheezing) Qty: 8.5 0RF prednisone 20 mg tablet 40 mg PO DAILY Qty: 10 0RF ibuprofen 600 mg tablet 600 mg PO TID PRN (Reason: pain) Qty: 20 0RF albuterol sulfate 2.5 mg /3 mL (0.083 %) solution for nebulization 2.5 mg inhalation QID PRN (Reason: shortness of breath or wheezing) Qty: 90 0RF No Action prednisone 10 mg tablets,dose pack 10 mg PO PER PKG DIR Qty: 48 0RF Rx Instructions: Take 4 tablets one a day for 4 days, then 3 tablets for 4 days, then 2 tablets for 4 days, then 1 tablet for 4 days. albuterol sulfate 90 mcg/actuation HFA aerosol inhaler 1 inh inhalation QID PRN (Reason: shortness of breath or wheezing) Qty: 6.7 0RF azithromycin [Zithromax Z-Syed] 250 mg tablet See Rx Instructions .ROUTE .COMPLEX Qty: 6 0RF Rx Instructions: take 500 mg today (day 1), then 250 mg for 4 days (days 2-5) benzonatate [Tessalon Perles] 100 mg capsule 100 mg PO TID PRN (Reason: cough) Qty: 10 0RF omeprazole 20 mg capsule,delayed release(DR/EC) 20 mg PO DAILY Qty: 30 0RF fluticasone propionate [Flovent HFA] 220 mcg/actuation HFA aerosol inhaler 2 puff inhalation BID quetiapine 50 mg tablet 50 mg PO BEDTIME escitalopram oxalate 10 mg tablet 10 mg PO DAILY buspirone 10 mg tablet 10 mg PO BID buspirone 7.5 mg tablet 7.5 mg PO BID
[2022-05-22 07:16] LABS: Anion Gap 14 (12-20); Blood Urea Nitrogen 19 mg/dL (9-16); Calcium 8.8 mg/dL (8.4-10.2); Carbon Dioxide 24 mmol/L (22-29); Chloride 107 mmol/L (96-108); Creatinine Clr Calc Pharmacy 89.1; Estimated Glomerular Filt Rate > 60; Glucose Random 102 mg/dL (60-115); Potassium 3.9 mmol/L (3.3-5.1); Sodium 141 mmol/L (135-145)
[2022-05-22 07:24] LABS: B Type Natriuretic Peptide 32 pg/mL (<100)
[2022-05-22 07:27] VITALS: PULSE 66; RESP 20; O2SAT 95
[2022-05-22] MEDS: Albuterol/Iprat 2.5/0.5MG 3 ML AMPUL.NEB INHALE (07:27)
[2022-05-22 07:28] VITALS: BP 107/74; PULSE 72; RESP 22; O2SAT 99
[2022-05-22 07:29] LABS: Troponin-I High Sensitivity < 3.5 ng/L (<3.5-35.0)
[2022-05-22] MEDS: methylPREDNISolone Sod Succ 125 MG/2 ML VIAL IVPUSH (07:30)
[2022-05-22 07:31] LABS: Influenza A PCR NEGATIVE (Negative); Influenza B PCR NEGATIVE (Negative); Resp Syncy Virus RNA Qual PCR POSITIVE (Negative); SARS COV2 PCR INHOUSE NEGATIVE (Negative)
== END 2022-05-22 08:11 | disposition home or self-care (01) ==
PROVIDERS: Emergency Provider Emergency Medicine
DX: J06.9 Acute upper respiratory infection, unspecified (principal); B97.4 Respiratory syncytial virus as the cause of diseases classified elsewhere; R07.89 Other chest pain; R06.02 Shortness of breath; I10 Essential (primary) hypertension; Z20.822 Contact with and (suspected) exposure to COVID-19; Z79.899 Other long term (current) drug therapy
CPT/HCPCS: 0241U; 36415; 71045; 80048; 83880; 84484; 85025; 93005; 94640; 96374; 99284; 99285; J2930

== ENCOUNTER 2022-08-02 04:23 | Emergency (ER) | payer MEDICARE, MEDICAID, SELFPAY ==
--- NOTE | ~2022-08-02 | CT_ITS ---
EXAMINATION: CT ABDOMEN AND PELVIS WITHOUT CONTRAST CLINICAL INFORMATION: Left lower quadrant abdominal pain. COMPARISON: Abdominal ultrasound from 06/30/2019. TECHNIQUE: Multidetector volumetric imaging was performed from the superior aspect of the liver through the pubic symphysis. Sagittal and coronal reformatted images were obtained on the technologist's workstation. This CT examination was performed using dose optimization techniques as appropriate, variously including the following: *Automated exposure control *Adjustment of mA and/or kV according to patient size (this includes techniques or standardized protocols for targeted exams where dose is matched to indication/reason for exam; i.e. extremities or head) *Use of iterative reconstruction technique DLP: 443 mGy-cm FINDINGS: LUNG BASES: Normal. No pulmonary consolidation or pleural effusion. LIVER: The liver has normal size, shape, and attenuation. No evidence of liver mass. GALLBLADDER AND BILIARY TREE: Gallbladder is without radiopaque stones, wall thickening or pericholecystic fluid. No dilated bile ducts. PANCREAS: Normal. No edema, pancreatic ductal dilatation or mass. SPLEEN: Normal. ADRENAL GLANDS: Normal. KIDNEYS AND URETERS: Kidneys are normal in size. Simple peripelvic cysts of the left kidney. No renal imaging follow-up is recommended for simple cysts. Also, [id number] left hydronephrosis and mild perinephric edema are caused by a 0.3 cm proximal ureteral stone (L3 level of ureter). The right kidney and right ureter are unremarkable. BLADDER: Underdistended, suboptimally evaluated. No bladder stones. BOWEL AND PERITONEUM: Stomach is unremarkable. No dilated loops of bowel. No overt bowel wall thickening or mesenteric fat stranding. No free fluid or pneumoperitoneum. ABDOMINAL WALL: Unremarkable. VASCULATURE: Mild atherosclerosis of the abdominal aorta and iliac arteries without aneurysm. LYMPH NODES: No pathologic sized lymph nodes in the abdomen or pelvis. No inguinal lymphadenopathy. PELVIC VISCERA: Unremarkable. MUSCULOSKELETAL: No suspicious bone lesions. CT/CT abdomen pelvis wo IV con IMPRESSION: [id number] left hydronephrosis and proximal hydroureter are caused by 0.3 cm stone at the L3 level of the ureter.
[2022-08-02 04:32] VITALS: BP 116/72; BP 157/70; PULSE 71; PULSE 81; RESP 18; TEMP 36.4; O2SAT 97; O2SAT 98; BMI 25.1
[2022-08-02 04:43] LABS: MANUAL DIFF FLAG NO
[2022-08-02 04:45] LABS: Basophils Percent Auto 0.4 % (0-2); Eosinophils Absolute Auto 0.1 X10*3/uL (0.0-0.4); Eosinophils Percent Auto 0.6 % (0-4); Hematocrit 42.9 % (42.0-52.0); Hemoglobin 14.8 g/dl (14.0-18.0); Imm Gran Abs Auto 0.05 X10*3/uL (0.00-0.03); Imm Gran Pct Auto 0.6 % (0.0-0.4); Lymphocytes Percent Auto 23.6 % (20-40); Mean Corpuscular HGB Conc 34.5 g/dl (31.0-36.0); Mean Corpuscular Volume 92.7 fL (80.0-98.0); Mean Platelet Volume 8.7 fL (9.4-12.4); Monocytes Absolute Auto 0.5 X10*3/uL (0.1-1.2); Monocytes Percent Auto 5.4 % (2-11); Neutrophils Absolute Auto 5.8 x10*3/uL (2.0-8.3); Neutrophils Percent Auto 69.4 % (45-73); Platelet Count 287 X10*3/uL (160-400); Red Blood Count 4.63 X10*6/uL (4.60-5.80); Red Cell Distribution Width 11.7 % (11.0-16.0); White Blood Count 8.4 X10*3/uL (4.8-10.8)
[2022-08-02 04:46] LABS: Appearance Urine Clear; Color Urine Yellow; Glucose Urine UA Negative (Negative); Leukocyte Esterase Urine Negative (Negative); Nitrite Urine Negative (Negative); PH 5.5 (5.0-9.0); Specific Gravity - Urine 1.025 (1.005-1.025); UMIC TRIGGER UACC YES; Urine Blood Large (3+) (Negative); Urine Ketones Negative (Negative); Urine Protein Negative (Neg-Trace)
[2022-08-02 04:52] LABS: Bacteria Urine None Seen (None Seen); Hyaline Casts Urine 0-2 /LPF (0-2); RBC Urine >20 /HPF (0-2); Squamous Epithelial Cell Urine 0-2 /HPF (0-2); WBC Urine 0-5 /HPF (0-5)
[2022-08-02 05:03] LABS: Alanine Aminotransferase 12 U/L (0-40); Albumin Level 3.9 g/dL (3.5-5.0); Alkaline Phosphatase 59 U/L (39-117); Anion Gap 13 (12-20); Aspartate Amino Transferase 12 U/L (5-37); Bilirubin Direct 0.2 mg/dL (0.0-0.5); Bilirubin Total 0.5 mg/dL (0.0-1.0); Blood Urea Nitrogen 26 mg/dL (9-16); Calcium 9.5 mg/dL (8.4-10.2); Carbon Dioxide 24 mmol/L (22-29); Chloride 108 mmol/L (96-108); Creatinine Clr Calc Pharmacy 72.3; Estimated Glomerular Filt Rate > 60; Glucose Random 186 mg/dL (60-115); Lipase 27 U/L (8-78); Potassium 3.6 mmol/L (3.3-5.1); Sodium 141 mmol/L (135-145); Total Protein 6.2 g/dL (6.5-8.0)
[2022-08-02 05:26] VITALS: BP 114/95; PULSE 69; RESP 18; TEMP 36.4; O2SAT 97
--- NOTE | 2022-08-02 06:32 | ED_ITS ---
HPI - Abdominal Pain General Chief Complaint: Abdominal Pain Stated Complaint: LLQ PAIN Time Seen by Provider: 08/02/22 06:24 Source: patient Mode of arrival: ambulatory Limitations: no limitations History of Present Illness HPI narrative: 71-year-old male with history of anxiety presents to the emergency department with acute left lower quadrant abdominal pain. Pain started approximately 2:00 a.m.. The pain occasionally radiates into left flank. . Pain is constant. There is no clear relieving or exacerbating features. Patient rates the pain currently as a 9/10. Patient denies a history of such pain. He denies any nausea, vomiting, diarrhea, constipation. He denies any urinary complaints such as frequency, urgency, dysuria, hematuria. Has had no fevers or chills. Related Data Home Medications Medication Instructions Recorded Confirmed buspirone 10 mg tablet 10 mg PO BID 02/20/22 buspirone 7.5 mg tablet 7.5 mg PO BID 02/20/22 escitalopram oxalate 10 mg tablet 10 mg PO DAILY 02/20/22 fluticasone propionate 220 2 puff inhalation BID 02/20/22 mcg/actuation HFA aerosol inhaler (Flovent HFA) quetiapine 50 mg tablet 50 mg PO BEDTIME 02/20/22 Previous Rx's Medication Instructions Recorded albuterol sulfate 90 mcg/actuation 1 inh inhalation QID PRN shortness 10/11/20 aerosol inhaler of breath or wheezing #6.7 grams azithromycin 250 mg tablet See Rx Instructions PO .COMPLEX #6 10/11/20 (Zithromax Z-Syed) tabs benzonatate 100 mg capsule 100 mg PO TID PRN cough #10 caps 10/11/20 (Tessalabner Gomes) prednisone 10 mg tablets in a dose 10 mg PO PER PKG DIR #48 ea 10/11/20 pack omeprazole 20 mg capsule,delayed 20 mg PO DAILY #30 caps 01/21/21 release albuterol sulfate 2.5 mg/3 mL 2.5 mg (3 mL) inhalation QID PRN 05/22/22 (0.083 %) solution for nebulization shortness of breath or wheezing #90 mL albuterol sulfate 90 mcg/actuation 2 puff inhalation Q6H PRN 05/22/22 aerosol inhaler shortness of breath or wheezing #8.5 grams ibuprofen 600 mg tablet 600 mg PO TID PRN pain #20 tabs 05/22/22 prednisone 20 mg tablet 40 mg PO DAILY #10 tabs 05/22/22 ibuprofen 400 mg tablet 400 mg PO Q8H #14 tabs 08/02/22 ondansetron 4 mg disintegrating 4 mg PO Q8H #10 tabs 08/02/22 tablet oxycodone 5 mg tablet 5 mg PO Q6H PRN pain #10 tabs 08/02/22 Allergies Allergy/AdvReac Type Severity Reaction Status Date / Time No Known Allergies Allergy Verified 02/20/22 15:16 [No Known Allergies*] none Allergy Unknown Unknown Uncoded 02/20/22 15:16 Review of Systems Review of Systems Yes all other systems are reviewed and are negative Constitutional: Denies anorexia, Denies chills, Denies fatigue and Denies fever(s) Eyes: Denies blurry vision and Denies change in vision Denies dizziness, Denies otalgia and Denies hearing loss Cardiovascular: Denies chest pain, Denies syncope, Denies rapid heart rate, Denies lightheadedness, Denies Loss of Consciousness and Denies dyspnea Respiratory: Denies cough, Denies dyspnea and Denies wheezing Gastrointestinal: Reports abdominal pain, Denies change in stool character, Denies diarrhea, Denies nausea and Denies vomiting Genitourinary: Denies hematuria, Denies oliguria, Denies difficulty urinating, Denies flank pain and Denies urinary urgency Musculoskeletal: Denies back pain and Denies arthralgias Skin/Breast: Denies lesions Denies confusion, Denies dizziness and Denies syncope Psychiatric: Reports anxiety, Denies confusion and Denies depression Endocrine: Denies fatigue Hematologic/Lymphatic: Reports no additional hematologic/lymphatic complaints Allergic/Immunologic: Reports no additional allergic/immunologic complaints and Denies wheezing PMFSH Past Medical History Attestation statement: The following information was validated with the patient. Source: old records reviewed and nursing notes reviewed Medical History Allergic rhinitis Anxiety Asthma Depression GERD (gastroesophageal reflux disease) HTN (hypertension) Hypercholesterolemia Post traumatic stress disorder Surgical History History of surgery Social History Social History Alcohol intake: never Patient Tobacco Use Status: Never used Tobacco Advance Directives: No Advance Directives Information Provided: Yes Physical Exam ED Vital Signs: Vital Signs - 24 hr 08/02/22 04:32 08/02/22 05:26 08/02/22 07:29 Temperature 97.5 F 97.5 F 98.0 F Pulse Rate 71 69 74 Respiratory Rate 18 18 14 Blood Pressure 157/70 H 114/95 H 114/65 Pulse Oximetry 98 97 98 Oxygen Delivery Method Room Air Room Air Room Air BMI result Body Mass Index 25.1 Const General: alert, awake and acute distress moderate; No confusion Orientation/consciousness: oriented to person, oriented to place and No confusion HENMT Head: Yes normal to inspection Eyes General: appearance normal, both eyes and all related structures Neck Neck: Yes normal visual inspection Resp Effort & Inspection: normal respiratory effort, able to speak in complete sentences and not labored Auscultation: clear to auscultation bilaterally Cardio Rate: regular rate Rhythm: regular rhythm Heart sounds: no murmurs GI Inspection: Yes normal to inspection Palpation (GI): Tenderness to palpation present (GI) in the LLQ, no guarding, no masses and no pulsatile masses General: Yes CVA tenderness (Left) Back/Spine/Pelvis Back: CVA tenderness (Left) Skin General skin exam: no rashes or lesions noted Neuro General: oriented to person, oriented to place, no focal motor deficits and No confusion Extrem General: Yes normal to inspection Psych Appearance: grossly normal Mental Status: mental status grossly normal Course Course Course Narrative: 71-year-old male presents with complaint of left lower quadrant abdominal pain. He had minimal tenderness to left lower quadrant without rebound or guarding. Did have CVA tenderness. Multiple differential diagnoses were considered including renal colic, diverticulitis, perforated viscus. No pulsatile mass was appreciated. Less likely to be AAA. Ascending UTI, acute urinary obstruction, colitis, infectious etiology also considered. Patient will be provided with intravenous fluids, analgesics in particular, Ketoralac. He denies any nausea. There is no evidence that he needs antibiotics at this time. Reevaluation(s) Reevaluation #1: Discussed results with patient. Reevaluated pain. All questions were addressed. Time: 07:53 Reevaluation #2: Patient's pain is currently 5/10. He is aware of the 3 mm kidney stone. Is aware of additional findings on laboratory analysis which include hyperglycemia likely due to acute stress reaction. He will follow-up with his primary care provider regarding this. He will be referred to Urology. Will send patient home with prescriptions for analgesics and antiemetics. Time: 08:05 Medical Decision Making Differential Diagnosis Differential Diagnoses: The differential diagnosis associated with the presentation includes (Renal colic, diverticulitis, colitis, infectious etiology, perforated viscus, AAA, musculoskeletal, shingles) Admission/Observation Consideration of admission/observation: Escalation of care including admission/observation considered Lab Data MDM Lab Attestation statement: I reviewed the patient's lab results. 08/02/22 04:37 08/02/22 04:37 Labs: Lab Results 08/02/22 08/02/22 08/02/22 Range/Units 04:37 04:37 04:37 WBC 8.4 (4.8-10.8) X10*3/uL RBC 4.63 (4.60-5.80) X10*6/uL Hgb 14.8 (14.0-18.0) g/dl Hct 42.9 (42.0-52.0) % MCV 92.7 (80.0-98.0) fL MCH 32.0 (27.0-33.0) pg MCHC 34.5 (31.0-36.0) g/dl RDW 11.7 (11.0-16.0) % Plt Count 287 (160-400) X10*3/uL MPV 8.7 L (9.4-12.4) fL Immature Gran % (Auto) 0.6 H (0.0-0.4) % Neut % (Auto) 69.4 (45-73) % Lymph % (Auto) 23.6 (20-40) % [place] % (Auto) 5.4 (2-11) % Eos % (Auto) 0.6 (0-4) % Baso % (Auto) 0.4 (0-2) % Lymph # (Auto) 2.0 (1.2-4.9) X10*3/uL [place] # (Auto) 0.5 (0.1-1.2) X10*3/uL Eos # (Auto) 0.1 (0.0-0.4) X10*3/uL Baso # (Auto) 0.0 (0.0-0.2) X10*3/uL Abs Immat Gran (auto) 0.05 H (0.00-0.03) X10*3/uL Absolute Neuts (auto) 5.8 (2.0-8.3) x10*3/uL Absolute Nucleated RBC 0.000 (0.0-0.012) X10*3/uL Nucleated RBC % (auto) 0.0 (0.0-0.2) /100WBC Sodium 141 (135-145) mmol/L Potassium 3.6 (3.3-5.1) mmol/L Chloride 108 (96-108) mmol/L Carbon Dioxide 24 (22-29) mmol/L Anion Gap 13 (12-20) BUN 26 H (9-16) mg/dL Creatinine 0.95 (0.5-1.4) mg/dL Estim Creat Clear Calc 72.3 Estimated GFR > 60 Random Glucose 186 H (60-115) mg/dL Calcium 9.5 D (8.4-10.2) mg/dL Total Bilirubin 0.5 (0.0-1.0) mg/dL Direct Bilirubin 0.2 (0.0-0.5) mg/dL AST 12 (5-37) U/L ALT 12 (0-40) U/L Alkaline Phosphatase 59 (39-117) U/L Total Protein 6.2 L (6.5-8.0) g/dL Albumin 3.9 (3.5-5.0) g/dL Lipase 27 (8-78) U/L Urine Color Yellow Urine Appearance Clear Urine pH 5.5 (5.0-9.0) Ur Specific [place] 1.025 (1.005-1.025) Urine Protein Negative (Neg-Trace) mg/dL Urine Glucose (UA) Negative (Negative) mg/dL Urine Ketones Negative (Negative) mg/dL Urine Blood Large (3+) H (Negative) Urine Nitrite Negative (Negative) Ur Leukocyte Esterase Negative (Negative) Urine RBC >20 H (0-2) /HPF Urine WBC 0-5 (0-5) /HPF Ur Squamous Epith Cells 0-2 (0-2) /HPF Urine Bacteria None Seen (None Seen) Hyaline Casts 0-2 (0-2) /LPF Radiology Impression Discussion of test interpretation with radiology: I have reviewed the radiologist's reading. (IMPRESSION: [id number] left hydronephrosis and proximal hydroureter are caused by 0.3 cm stone at the L3 level of the ureter. Dictated By:Miko Forteigned By:<Electronically signed by Miko Forte MD in [place]>) Radiologist Impression: IMPRESSION: [id number] left hydronephrosis and proximal hydroureter are caused by 0.3 cm stone at the L3 level of the ureter. ? Dictated By: Miko Forte MD Signed By: <Electronically signed by Miko Forte MD in [place]> Independently reviewed imaging and interpretation. External Record Review External record reviewed: Prior outpatient labs Tests considered The following testing was considered but not selected: Up were considered including CBC, metabolic panel, urinalysis, imaging studies such as CT scan to rule out the differential diagnosis. Prescription Management I considered prescription management with: Pain Medication Core Measures Measure exclusions: not indicated Medications Administered Discontinued Medications Generic Name Dose Route Start Last Admin Trade Name Freq PRN Reason Stop Dose Admin Sodium Chloride 1,000 mls @ 999 mls/hr 08/02/22 06:30 08/02/22 07:55 Ns IV 08/02/22 07:30 Infused .Q1H1M RAÚL Infusion Ketorolac Tromethamine 15 mg 08/02/22 06:31 08/02/22 06:42 Ketorolac Tromethamine 15 Mg/Ml Vial IVPUSH 08/02/22 06:32 15 mg ONCE ONE Administration Discharge Plan Discharge Clinical Impression: Ureterolithiasis, Abdominal pain, acute, Acute hyperglycemia, Hematuria, microscopic Patient Disposition: Home, Self-Care Instructions: Kidney Stones (ED) Additional Instructions: Follow-up with your primary care doctor regarding her hyperglycemia. This is likely an acute stress reaction. Prescriptions: New ondansetron 4 mg tablet,disintegrating 4 mg PO Q8H Qty: 10 0RF ibuprofen 400 mg tablet 400 mg PO Q8H Qty: 14 0RF oxycodone 5 mg tablet 5 mg PO Q6H PRN (Reason: pain) Qty: 10 0RF Rx Instructions: Partial Fill upon patient request. No Action prednisone 10 mg tablets,dose pack 10 mg PO PER PKG DIR Qty: 48 0RF Rx Instructions: Take 4 tablets one a day for 4 days, then 3 tablets for 4 days, then 2 tablets for 4 days, then 1 tablet for 4 days. albuterol sulfate 90 mcg/actuation HFA aerosol inhaler 1 inh inhalation QID PRN (Reason: shortness of breath or wheezing) Qty: 6.7 0RF azithromycin [Zithromax Z-Syed] 250 mg tablet See Rx Instructions .ROUTE .COMPLEX Qty: 6 0RF Rx Instructions: take 500 mg today (day 1), then 250 mg for 4 days (days 2-5) benzonatate [Tessalon Perles] 100 mg capsule 100 mg PO TID PRN (Reason: cough) Qty: 10 0RF omeprazole 20 mg capsule,delayed release(DR/EC) 20 mg PO DAILY Qty: 30 0RF albuterol sulfate 90 mcg/actuation HFA aerosol inhaler 2 puff inhalation Q6H PRN (Reason: shortness of breath or wheezing) Qty: 8.5 0RF prednisone 20 mg tablet 40 mg PO DAILY Qty: 10 0RF ibuprofen 600 mg tablet 600 mg PO TID PRN (Reason: pain) Qty: 20 0RF albuterol sulfate 2.5 mg /3 mL (0.083 %) solution for nebulization 2.5 mg inhalation QID PRN (Reason: shortness of breath or wheezing) Qty: 90 0RF fluticasone propionate [Flovent HFA] 220 mcg/actuation HFA aerosol inhaler 2 puff inhalation BID quetiapine 50 mg tablet 50 mg PO BEDTIME escitalopram oxalate 10 mg tablet 10 mg PO DAILY buspirone 10 mg tablet 10 mg PO BID buspirone 7.5 mg tablet 7.5 mg PO BID Referrals: [facility] – [place] Urology Services [Provider Group] - 3 days
[2022-08-02] MEDS: Ketorolac Tromethamine 15 MG/ML VIAL IVPUSH (06:42)
[2022-08-02] MEDS: 0.9 % Sodium Chloride 1,000 ML 999 ML IV (06:57)
--- NOTE | 2022-08-02 07:05 | PC.NURSE ---
Patient complaint of 9/10 LLQ abd pain for last 5 hours some tnderness with auscultation light palpation, no guarding noted BS quad x 4 will CTM
[2022-08-02 07:29] VITALS: BP 114/65; PULSE 74; RESP 14; TEMP 36.7; O2SAT 98
--- NOTE | 2022-08-02 07:44 | PC.NURSE ---
patient resting comfortably tolerating IVF with no ill effect.
--- NOTE | 2022-08-02 08:27 | PC.NURSE ---
Verified orders with MD patient up for discharge.
== END 2022-08-02 08:35 | disposition home or self-care (01) ==
PROVIDERS: Emergency Provider Emergency Medicine
DX: N20.1 Calculus of ureter (principal); R10.32 Left lower quadrant pain; R73.9 Hyperglycemia, unspecified; R31.29 Other microscopic hematuria
CPT/HCPCS: 36415; 74176; 80048; 80076; 81001; 83690; 85025; 96361; 96374; 99284; J1885

== ENCOUNTER 2022-08-05 12:27 | Observation (INO) | payer MEDICARE, MEDICAID, SELFPAY ==
--- NOTE | ~2022-08-05 | CT_ITS ---
EXAMINATION: CT ABDOMEN AND PELVIS WITHOUT CONTRAST CLINICAL INFORMATION: Left flank pain and constipation COMPARISON: CT abdomen pelvis 3 days ago on 08/02/2022 TECHNIQUE: Multidetector volumetric imaging was performed from the superior aspect of the liver through the pubic symphysis. Sagittal and coronal reformatted images were obtained on the technologist's workstation. This CT examination was performed using dose optimization techniques as appropriate, variously including the following: *Automated exposure control *Adjustment of mA and/or kV according to patient size (this includes techniques or standardized protocols for targeted exams where dose is matched to indication/reason for exam; i.e. extremities or head) *Use of iterative reconstruction technique DLP: 481 mGy-cm FINDINGS: LUNG BASES: The visualized lung bases are unremarkable. LIVER, GALLBLADDER, AND BILIARY TREE: The liver is normal in size and shape but demonstrates decreased attenuation consistent with hepatic steatosis.. No focal hepatic lesion or biliary ductal dilatation is present. The gallbladder is unremarkable with no evidence of radiopaque gallstones, gallbladder wall thickening, or obvious pericholecystic inflammatory changes. PANCREAS: Unremarkable. SPLEEN: Unremarkable. ADRENAL GLANDS: Unremarkable. KIDNEYS AND URETERS: Left: Again seen is left hydronephrosis caused by an obstructing proximal left ureteral calculus measuring 3 mm at the level of the L3-L4 interspace. It is not significantly changed in position. There is increased perinephric stranding compared to the prior study. No other left renal calculi are seen. No left renal masses. Right: A single tiny punctate 1 mm calculus is present in the mid to lower right kidney (4:277) which could not be appreciated at the time of the prior CT. There is a small 1 cm right Bosniak class I renal cyst present laterally which needs no additional imaging or follow-up. No solid right renal masses are seen. No right-sided hydronephrosis. BLADDER: Unremarkable. GASTROINTESTINAL TRACT: The small and large bowel are unremarkable. The appendix is unremarkable. ABDOMINAL WALL: No significant hernia is appreciated. LYMPH NODES: No retroperitoneal lymphadenopathy. VASCULAR: Calcific plaque present in the aorta and iliac vessels without aneurysm. PELVIC VISCERA: The prostate and seminal vesicles are unremarkable. OSSEOUS STRUCTURES: Unremarkable. CT/CT abdomen pelvis wo IV con IMPRESSION: 1. Obstructing 3 mm left proximal ureteral calculus with associated hydronephrosis and increased perinephric stranding without significant change when compared to the study from 3 days ago. 2. Incidental note made of hepatic steatosis and tiny punctate nonobstructing right renal calculus. Fleischner guidelines were followed.
--- NOTE | ~2022-08-05 | US_ITS ---
EXAMINATION: US RETROPERITONEAL LIMITED (RENAL ONLY) CLINICAL INFORMATION: Left flank pain. Known stone. COMPARISON: CT 08/02/2022 TECHNIQUE: Real-time imaging of the kidneys. FINDINGS: RIGHT KIDNEY: 10.7 x 5.8 x 7.6 cm (SAG x AP x TRV). The kidney is normal in size, contour, and echogenicity. Renal cortical thickness is normal. No renal calculi or hydronephrosis. There is an anechoic cyst at the midpole measures 1.9 x 1.1 x 1.1 cm. LEFT KIDNEY: 11.5 x 8.3 x 7.3 cm (SAG x AP x TRV). The kidney is normal in size, contour, and echogenicity. Renal cortical thickness is normal. No renal calculi or focal parenchymal lesions. There is moderate hydronephrosis. Bladder is partially distended and normal in contour. The right ureteral jet is visualized, the left is not. US/US renal BI IMPRESSION: There is moderate left hydronephrosis and there is nonvisualization of the left ureteral jet which would be in keeping with known left ureteral calculus..
[2022-08-05 12:40] VITALS: BP 147/98; PULSE 99; O2SAT 97
--- NOTE | 2022-08-05 12:48 | ED_ITS ---
HPI - Abdominal Pain General Chief Complaint: Urogenital-Male <JADE Arango - Last Filed: 08/05/22 17:08> Stated Complaint: L side abd pain, No BM x3 days per EMS <JADE Arango - Last Filed: 08/05/22 17:08> Time Seen by Provider: 08/05/22 16:26 <JADE Arango - Last Filed: 08/05/22 17:08> Source: patient <JADE Whatley - Last Filed: 08/05/22 17:40> Mode of arrival: ambulatory <JADE Whatley Last Filed: 08/05/22 17:40> Limitations: no limitations <JADE Whatley Last Filed: 08/05/22 17:40> History of Present Illness HPI narrative: 71-year-old male history of anxiety, asthma, GERD , hypertension presents to the emergency department with complaints of left-sided stabbing constant abdominal pains that radiates to left flank have been present since 08/02/2022 he tells me at that time pain started suddenly, he tells me that it used to be intermittent in nature however now it is a constant discomfort. Patient also reports that he has been constipated, has not had a bowel movement since August 01, still passing gas. Patient tells me that he was evaluated here in the emergency department on August 02 and was told he had a 3 mm stone that was causing hydronephrosis and proximal hydroureter, he was discharged home with pain management, and Zofran. Patient has not seen a specialist however he tells me that he is here today because symptoms are much worse today. Denies fevers, chills, chest pain, shortness of breath, nausea, vomiting, headache, vision changes, dizziness, weakness. <JADE Whatley Last Filed: 08/05/22 17:40> Related Data Home Medications: Home Medications Medication Instructions Recorded Confirmed escitalopram oxalate 10 mg tablet 10 mg PO DAILY 02/20/22 08/05/22 fluticasone propionate 220 2 puff inhalation BID 02/20/22 08/05/22 mcg/actuation HFA aerosol inhaler (Flovent HFA) quetiapine 50 mg tablet 50 mg PO BEDTIME 02/20/22 08/05/22 ibuprofen 400 mg tablet 400 mg PO Q8H PRN Pain (Scale 08/05/22 08/05/22 Score 1-3) melatonin 1 mg tablet 1 tab PO BEDTIME 08/05/22 08/05/22 ondansetron 4 mg disintegrating 4 mg PO Q8H PRN Nausea And Vomiting 08/05/22 08/05/22 tablet Previous Rx's Medication Instructions Recorded albuterol sulfate 90 mcg/actuation 1 inh inhalation QID PRN shortness 10/11/20 aerosol inhaler of breath or wheezing #6.7 grams omeprazole 20 mg capsule,delayed 20 mg PO DAILY #30 caps 01/21/21 release albuterol sulfate 2.5 mg/3 mL 2.5 mg (3 mL) inhalation QID PRN 05/22/22 (0.083 %) solution for nebulization shortness of breath or wheezing #90 mL oxycodone 5 mg tablet 5 mg PO Q6H PRN pain #10 tabs 08/02/22 <JADE Arango - Last Filed: 08/05/22 17:08> Allergies/Adverse Reactions: Allergies Allergy/AdvReac Type Severity Reaction Status Date / Time No Known Allergies Allergy Verified 08/05/22 12:52 [No Known Allergies*] <JADE Arango - Last Filed: 08/05/22 17:08> Review of Systems Review of Systems Constitutional : No Weight loss, No Fever, No Chills, No Fatigue, No Malaise ENT/Mouth : No sore throat, No Rhinorrhea Eyes: No Eye Pain, No Swelling, No Redness Cardiovascular : No Chest Pain, No SOB, No Dyspnea on Exertion, No Orthopnea, No Edema, No Palpitations Respiratory : No Cough, No Sputum, No Wheezing Gastrointestinal : No Nausea, No Vomiting, No Diarrhea, No Constipation, + abdominal Pain, No Hematochezia, No Melena Genitourinary : No Dysuria, No Urinary Frequency, No Hematuria, Musculoskeletal : No joint pain, No Myalgias, No Joint Swelling Skin : No Skin Lesions, No rash Neuro : No Weakness, No Numbness, No Dizziness, No Headache Psych : No Anxiety/Panic, No Depression All other systems reviewed and are negative <JADE Whatley - Last Filed: 08/05/22 17:40> Yes all other systems are reviewed and are negative <JADE Whatley - Last Filed: 08/05/22 17:40> [facility] Past Medical History Attestation statement: The following information was validated with the patient. <JADE Whatley - Last Filed: 08/05/22 17:40> Source: old records reviewed and nursing notes reviewed <JADE Whatley - Last Filed: 08/05/22 17:40> Medical History: Medical History Allergic rhinitis Anxiety Asthma Depression GERD (gastroesophageal reflux disease) HTN (hypertension) Hypercholesterolemia Post traumatic stress disorder <JADE Arango - Last Filed: 08/05/22 17:08> Surgical History: Surgical History History of surgery <JDAE Arango - Last Filed: 08/05/22 17:08> Social History Social History: Social History Alcohol intake: never Patient Tobacco Use Status: Never used Tobacco Advance Directives: No Advance Directives Information Provided: Yes <JADE Arango - Last Filed: 08/05/22 17:08> Physical Exam ED Vital Signs: Vital Signs - 24 hr 08/05/22 12:49 08/05/22 14:00 Temperature 97.7 F 98.2 F Pulse Rate 101 H 91 Respiratory Rate 16 16 Blood Pressure 134/75 114/81 Pulse Oximetry 98 97 Oxygen Delivery Method Room Air Room Air BMI result Body Mass Index 26.1 <JADE Arango - Last Filed: 08/05/22 17:08> Vital Signs - 24 hr 08/05/22 12:49 08/05/22 14:00 Temperature 97.7 F 98.2 F Pulse Rate 101 H 91 Respiratory Rate 16 16 Blood Pressure 134/75 114/81 Pulse Oximetry 98 97 Oxygen Delivery Method Room Air Room Air BMI result Body Mass Index 26.1 vss <JADE Whatley - Last Filed: 08/05/22 17:40> Appearance: Alert.? Oriented X3.? No acute distress.? Head: Normocephalic, atraumatic, no step-offs or deformities Eyes: Pupils equal, round and reactive to light.? Neck: Normal inspection.? Neck supple.? CVS: Normal heart rate and rhythm.? Pulses normal.? Respiratory: No respiratory distress.? Breath sounds normal.? Abdomen: Soft and + LLQ pain on palpation .? Skin: Skin warm and dry.? Normal skin color.? Normal skin turgor.? Extremities: No lower extremity edema.? No calf ttp. 5/5 strength to bilateral upper and lower extremities Back: No midline tenderness, no C-spine tenderness, full range of motion, mild left-sided CVA tenderness. Neuro: Oriented X 3.? No motor deficit.? No sensory deficit. CN 2-12 intact <JADE Whatley - Last Filed: 08/05/22 17:40> Course Course Course Narrative: RME - 71 yo male presents to the ER for evaluation of worsening left sided stabbing, constant abdominal pains since 08/02. No vomiting, last BM was 08/01. Was seen here 08/02 and diagnosed with a 3mm stone at the L3 level of the ureter with mild-moderate hydronephrosi and proximal hydroureter - discharged with ibuprofen, oxycodone, and zofran. Reports ongoing constant pain. Will get renal U/S to assess for worsening hydro, UA and basic labs. <JADE Arango - Last Filed: 08/05/22 17:08> Reevaluation(s) Reevaluation #1: CBC with slight leukocytosis 11.7 likely inflammatory, I do not suspect infection. Chemistry with no acute electrolyte abnormalities. CT scan showing an obstructing 3 mm left proximal stone with associated hydronephrosis and annemarie phrenic stranding patient in pain despite pain medicine. Also this is patient's 2nd visit within the past few days. I did speak out to Urology that states the pain does not improve he may require stent tomorrow morning. Plan is hospital admission. <JADE Whatley - Last Filed: 08/05/22 17:40> Time: 17:36 <JADE Whatley - Last Filed: 08/05/22 17:40> Medical Decision Making Medical Decision Making MDM Narrative: 71-year-old male returning for the 2nd time within a week for complaints of left lower quadrant pain and left-sided flank pain worsening. Patient reports this pain is been present since August 02. Reports severe constant pain this time. Physical exam with left lower quadrant pain and left-sided flank pain to palpation. Concerns for possible obstructing uropathy versus renal calculi. Unlikely acute abdomen, pyelo, bacteremia. Plan urine, imaging. <JADE Whatley - Last Filed: 08/05/22 17:40> Differential Diagnosis Differential Diagnoses: The differential diagnosis associated with the presentation includes <JADE Whatley Last Filed: 08/05/22 17:40> Concerns for possible obstructing uropathy versus renal calculi. Unlikely acute abdomen, pyelo, bacteremia. <JADE Whatley - Last Filed: 08/05/22 17:40> Admission/Observation Consideration of admission/observation: Escalation of care including admission/observation considered <JADE Whatley - Last Filed: 08/05/22 17:40> Lab Data MDM Lab Attestation statement: I reviewed the patient's lab results. <JADE Whatley - Last Filed: 08/05/22 17:40> Result Diagrams: 08/05/22 13:03 08/05/22 13:03 <JADE Arango - Last Filed: 08/05/22 17:08> Labs: Lab Results 08/05/22 08/05/22 Range/Units 13:03 13:03 WBC 11.7 H (4.8-10.8) X10*3/uL RBC 4.77 (4.60-5.80) X10*6/uL Hgb 15.3 (14.0-18.0) g/dl Hct 43.6 (42.0-52.0) % MCV 91.4 (80.0-98.0) fL MCH 32.1 (27.0-33.0) pg MCHC 35.1 (31.0-36.0) g/dl RDW 11.4 (11.0-16.0) % Plt Count 287 (160-400) X10*3/uL MPV 8.8 L (9.4-12.4) fL Immature Gran % (Auto) 0.9 H (0.0-0.4) % Neut % (Auto) 84.9 H (45-73) % Lymph % (Auto) 6.9 L (20-40) % [place] % (Auto) 7.0 (2-11) % Eos % (Auto) 0.0 (0-4) % Baso % (Auto) 0.3 (0-2) % Lymph # (Auto) 0.8 L (1.2-4.9) X10*3/uL [place] # (Auto) 0.8 (0.1-1.2) X10*3/uL Eos # (Auto) 0.0 (0.0-0.4) X10*3/uL Baso # (Auto) 0.0 (0.0-0.2) X10*3/uL Abs Immat Gran (auto) 0.10 H (0.00-0.03) X10*3/uL Absolute Neuts (auto) 9.9 H (2.0-8.3) x10*3/uL Absolute Nucleated RBC 0.000 (0.0-0.012) X10*3/uL Nucleated RBC % (auto) 0.0 (0.0-0.2) /100WBC Sodium 135 (135-145) mmol/L Potassium 4.2 (3.3-5.1) mmol/L Chloride 102 (96-108) mmol/L Carbon Dioxide 24 (22-29) mmol/L Anion Gap 13 (12-20) BUN 17 H (9-16) mg/dL Creatinine 1.07 (0.5-1.4) mg/dL Estim Creat Clear Calc 53.7 Estimated GFR > 60 Random Glucose 123 H (60-115) mg/dL Calcium 9.2 (8.4-10.2) mg/dL Magnesium 1.8 (1.6-2.6) mg/dL Total Bilirubin 0.8 (0.0-1.0) mg/dL Direct Bilirubin 0.3 (0.0-0.5) mg/dL AST 14 (5-37) U/L ALT 13 (0-40) U/L Alkaline Phosphatase 60 (39-117) U/L Total Protein 6.7 (6.5-8.0) g/dL Albumin 4.1 (3.5-5.0) g/dL <JADE Arango - Last Filed: 08/05/22 17:08> Lab Results 08/05/22 08/05/22 Range/Units 13:03 13:03 WBC 11.7 H (4.8-10.8) X10*3/uL RBC 4.77 (4.60-5.80) X10*6/uL Hgb 15.3 (14.0-18.0) g/dl Hct 43.6 (42.0-52.0) % MCV 91.4 (80.0-98.0) fL MCH 32.1 (27.0-33.0) pg MCHC 35.1 (31.0-36.0) g/dl RDW 11.4 (11.0-16.0) % Plt Count 287 (160-400) X10*3/uL MPV 8.8 L (9.4-12.4) fL Immature Gran % (Auto) 0.9 H (0.0-0.4) % Neut % (Auto) 84.9 H (45-73) % Lymph % (Auto) 6.9 L (20-40) % [place] % (Auto) 7.0 (2-11) % Eos % (Auto) 0.0 (0-4) % Baso % (Auto) 0.3 (0-2) % Lymph # (Auto) 0.8 L (1.2-4.9) X10*3/uL [place] # (Auto) 0.8 (0.1-1.2) X10*3/uL Eos # (Auto) 0.0 (0.0-0.4) X10*3/uL Baso # (Auto) 0.0 (0.0-0.2) X10*3/uL Abs Immat Gran (auto) 0.10 H (0.00-0.03) X10*3/uL Absolute Neuts (auto) 9.9 H (2.0-8.3) x10*3/uL Absolute Nucleated RBC 0.000 (0.0-0.012) X10*3/uL Nucleated RBC % (auto) 0.0 (0.0-0.2) /100WBC Sodium 135 (135-145) mmol/L Potassium 4.2 (3.3-5.1) mmol/L Chloride 102 (96-108) mmol/L Carbon Dioxide 24 (22-29) mmol/L Anion Gap 13 (12-20) BUN 17 H (9-16) mg/dL Creatinine 1.07 (0.5-1.4) mg/dL Estim Creat Clear Calc 53.7 Estimated GFR > 60 Random Glucose 123 H (60-115) mg/dL Calcium 9.2 (8.4-10.2) mg/dL Magnesium 1.8 (1.6-2.6) mg/dL Total Bilirubin 0.8 (0.0-1.0) mg/dL Direct Bilirubin 0.3 (0.0-0.5) mg/dL AST 14 (5-37) U/L ALT 13 (0-40) U/L Alkaline Phosphatase 60 (39-117) U/L Total Protein 6.7 (6.5-8.0) g/dL Albumin 4.1 (3.5-5.0) g/dL <JADE Whatley - Last Filed: 08/05/22 17:40> Independent Interpretation I performed an independent interpretation of an: CT Scan (3 mm obstructing stone) <JADE Whatley - Last Filed: 08/05/22 17:40> Radiology Impression Discussion of test interpretation with radiology: I have reviewed the radiologist's reading. <JADE Whatley - Last Filed: 08/05/22 17:40> External Record Review External record reviewed: Inpatient record, Office record, Outpatient record, Prior outpatient labs, Prior outpatient radiology, Primary care record and Outside ED record <JADE Whatley - Last Filed: 08/05/22 17:40> Core Measures AMI core measures followed: Yes <JADE Whatley - Last Filed: 08/05/22 17:40> Measure exclusions: not indicated <JADE Whatley - Last Filed: 08/05/22 17:40> Medications Administered Generic Name Dose Route Start Last Admin Trade Name Freq PRN Reason Stop Dose Admin Sodium Chloride 1,000 mls @ 999 mls/hr 08/05/22 17:00 08/05/22 17:28 Ns IV 08/05/22 18:00 999 mls/hr .Q1H1M RAÚL Administration Discontinued Medications Generic Name Dose Route Start Last Admin Trade Name Jair PRN Reason Stop Dose Admin Morphine Sulfate 4 mg 08/05/22 16:50 08/05/22 17:35 Morphine Sulfate 4 Mg/Ml Cartridge IVPUSH 08/05/22 16:51 4 mg ONCE ONE Administration Protocol Prednisone 20 mg 08/05/22 16:50 08/05/22 17:36 Prednisone 20 Mg Tablet PO 08/05/22 16:51 20 mg ONCE ONE Administration Tamsulosin HCl 0.4 mg 08/05/22 16:50 08/05/22 17:36 Tamsulosin Hcl 0.4 Mg Capsule PO 08/05/22 16:51 0.4 mg ONCE ONE Administration <JADE Arango - Last Filed: 08/05/22 17:08> Medications Administered Generic Name Dose Route Start Last Admin Trade Name Jair PRN Reason Stop Dose Admin Sodium Chloride 1,000 mls @ 999 mls/hr 08/05/22 17:00 08/05/22 17:28 Ns IV 08/05/22 18:00 999 mls/hr .Q1H1M RAÚL Administration Discontinued Medications Generic Name Dose Route Start Last Admin Trade Name Jair PRN Reason Stop Dose Admin Morphine Sulfate 4 mg 08/05/22 16:50 08/05/22 17:35 Morphine Sulfate 4 Mg/Ml Cartridge IVPUSH 08/05/22 16:51 4 mg ONCE ONE Administration Protocol Prednisone 20 mg 08/05/22 16:50 08/05/22 17:36 Prednisone 20 Mg Tablet PO 08/05/22 16:51 20 mg ONCE ONE Administration Tamsulosin HCl 0.4 mg 08/05/22 16:50 08/05/22 17:36 Tamsulosin Hcl 0.4 Mg Capsule PO 08/05/22 16:51 0.4 mg ONCE ONE Administration <JADE Whatley - Last Filed: 08/05/22 17:40> Critical Care Time Critical Care Time Critical Care Time: No <JADE Whatley - Last Filed: 08/05/22 17:40> Discharge Plan Discharge Clinical Impression: Kidney calculus, Acute left flank pain <JADE Arango - Last Filed: 08/05/22 17:08> Patient Disposition: Still a Patient <JADE Arango - Last Filed: 08/05/22 17:08> Prescriptions: No Action albuterol sulfate 90 mcg/actuation HFA aerosol inhaler 1 inh inhalation QID PRN (Reason: shortness of breath or wheezing) Qty: 6.7 0RF omeprazole 20 mg capsule,delayed release(DR/EC) 20 mg PO DAILY Qty: 30 0RF albuterol sulfate 2.5 mg /3 mL (0.083 %) solution for nebulization 2.5 mg inhalation QID PRN (Reason: shortness of breath or wheezing) Qty: 90 0RF oxycodone 5 mg tablet 5 mg PO Q6H PRN (Reason: pain) Qty: 10 0RF Rx Instructions: Partial Fill upon patient request. melatonin 1 mg tablet 1 tab PO BEDTIME ibuprofen 400 mg tablet 400 mg PO Q8H PRN (Reason: Pain (Scale Score 1-3)) ondansetron 4 mg tablet,disintegrating 4 mg PO Q8H PRN (Reason: Nausea And Vomiting) fluticasone propionate [Flovent HFA] 220 mcg/actuation HFA aerosol inhaler 2 puff inhalation BID quetiapine 50 mg tablet 50 mg PO BEDTIME escitalopram oxalate 10 mg tablet 10 mg PO DAILY <JADE Arango - Last Filed: 08/05/22 17:08>
[2022-08-05 12:49] VITALS: BP 134/75; PULSE 101; RESP 16; TEMP 36.5; O2SAT 98; BMI 26.1
[2022-08-05 13:09] LABS: MANUAL DIFF FLAG NO
[2022-08-05 13:11] LABS: Basophils Percent Auto 0.3 % (0-2); Hematocrit 43.6 % (42.0-52.0); Hemoglobin 15.3 g/dl (14.0-18.0); Imm Gran Pct Auto 0.9 % (0.0-0.4); Lymphocytes Absolute Auto 0.8 X10*3/uL (1.2-4.9); Lymphocytes Percent Auto 6.9 % (20-40); Mean Corpuscular HGB Conc 35.1 g/dl (31.0-36.0); Mean Corpuscular Hemoglobin 32.1 pg (27.0-33.0); Mean Corpuscular Volume 91.4 fL (80.0-98.0); Mean Platelet Volume 8.8 fL (9.4-12.4); Monocytes Absolute Auto 0.8 X10*3/uL (0.1-1.2); Neutrophils Absolute Auto 9.9 x10*3/uL (2.0-8.3); Neutrophils Percent Auto 84.9 % (45-73); Platelet Count 287 X10*3/uL (160-400); Red Blood Count 4.77 X10*6/uL (4.60-5.80); Red Cell Distribution Width 11.4 % (11.0-16.0); White Blood Count 11.7 X10*3/uL (4.8-10.8)
[2022-08-05 13:40] LABS: Alanine Aminotransferase 13 U/L (0-40); Albumin Level 4.1 g/dL (3.5-5.0); Alkaline Phosphatase 60 U/L (39-117); Anion Gap 13 (12-20); Aspartate Amino Transferase 14 U/L (5-37); Bilirubin Direct 0.3 mg/dL (0.0-0.5); Bilirubin Total 0.8 mg/dL (0.0-1.0); Blood Urea Nitrogen 17 mg/dL (9-16); Calcium 9.2 mg/dL (8.4-10.2); Carbon Dioxide 24 mmol/L (22-29); Chloride 102 mmol/L (96-108); Creatinine Clr Calc Pharmacy 53.7; Estimated Glomerular Filt Rate > 60; Glucose Random 123 mg/dL (60-115); Magnesium 1.8 mg/dL (1.6-2.6); Potassium 4.2 mmol/L (3.3-5.1); Sodium 135 mmol/L (135-145); Total Protein 6.7 g/dL (6.5-8.0)
[2022-08-05 14:00] VITALS: BP 114/81; PULSE 91; RESP 16; TEMP 36.8; O2SAT 97
[2022-08-05 16:00] VITALS: BP 134/80; PULSE 87; O2SAT 97
[2022-08-05] MEDS: 0.9 % Sodium Chloride 1,000 ML 999 ML IV (17:28)
[2022-08-05] MEDS: Morphine Sulfate 4 MG/ML CARTRIDGE IVPUSH (17:35)
[2022-08-05] MEDS: predniSONE 20 MG TABLET PO (17:36)
[2022-08-05] MEDS: Tamsulosin HCL 0.4 MG CAPSULE PO (17:36)
--- NOTE | 2022-08-05 17:44 | PHA.MEDREC ---
Pharmacy Consult ? Medication Reconciliation Pharmacy has completed the medication reconciliation.
[2022-08-05 17:48] VITALS: BP 141/81; PULSE 86; RESP 18; O2SAT 97
--- NOTE | 2022-08-05 18:08 | P.HPHOSP_ITS ---
History of Present Illness Date of Service: 08/05/22 Attending physician on admission: Fabiano Gomez Chief Complaint: llq/left flank pain 71 year old male with history of anxiety/depression, mild persistant asthma, GERD, HTN< HLD, PTSD presented to the ED earlier today for evaluation LLQ/left flank pain ongoing for 3 days. Was seen in the ED 08/[address] abd/pelvis noting a 3mm stone with hydronephrosis and proximal hydroureter discharged home with pain management. He also reports constipation, with no BM in last 3 days btu is passing gas. There is nasuea, no vomiting. Reports pain is now constant and has worsened. No fevers, chills, diarrhea, melena, hematochezia, dysuria, hematuria, increased urinary frequency, decreased urine output, sob, lightheadedness, chest pain. In the ED, VS stable. Mild leukocytosis 11.7. Creat 1.07, BUN 17. Electrolytes normal. UA unremarkable. Renal u/s showing moderate left hydronephrosis. CT abd/pelvis showing obstructing 3mm left proximal ureteral calculus with associated hydronephrosis and increased perinephric stranding without significant change from study 3 days ago. In the ED, treated with flomax, prednisone 20mg, and IV NS and pain control with morphine. ED discussed case with Dr. Amanda recommending admission and probable ureteral stenting tomorrow. Review of Systems Review of Systems: General: No fevers, malaise, unintentional weight loss HEENT: No blurred vision, diplopia. No sore throat, nasal congestion, rhinorrhea, sinus pain, ear pain Cardiovascular: No chest pain, palpitations, or leg edema Respiratory: No shortness of breath, wheezing, cough GI: +LLQ pain, +nausea. No vomiting, diarrhea, constipation, melena, hematochezia : No dysuria, hematuria, increased urinary frequency, decreased urinary output MSK:+left flank pain. No myalgia Neuro: No headaches, weakness, paresthesias Skin: No rashes or lesions [facility] Medical History (Updated 08/05/22 @ 18:39 by JADE Mancia) Allergic rhinitis Anxiety Asthma COVID-19 Depression GERD (gastroesophageal reflux disease) HTN (hypertension) Hypercholesterolemia Post traumatic stress disorder Surgical History History of surgery Social History Alcohol intake: never Patient Tobacco Use Status: Never used Tobacco Smoked in Last 30 Days: No Use of substances other than those prescribed or required for medical reasons: No Advance Directives: No Advance Directives Information Provided: Yes Meds Allergies Allergy/AdvReac Type Severity Reaction Status Date / Time No Known Allergies Allergy Verified 08/05/22 12:52 [No Known Allergies*] Active Medications: Current Medications Pharmacy Consult (Consult Rx Perform Med Rec) 1 each MISCELLANE ONCE PRN PRN Reason: Consult order Home Medications Medication Instructions Recorded Confirmed Last Taken Type escitalopram oxalate 10 mg tablet 10 mg PO DAILY 02/20/22 08/05/22 Unknown History fluticasone propionate 220 2 puff inhalation BID 02/20/22 08/05/22 Unknown History mcg/actuation HFA aerosol inhaler (Flovent HFA) quetiapine 50 mg tablet 50 mg PO BEDTIME 02/20/22 08/05/22 Unknown History ibuprofen 400 mg tablet 400 mg PO Q8H PRN Pain (Scale 08/05/22 08/05/22 Unknown History Score 1-3) melatonin 1 mg tablet 1 tab PO BEDTIME 08/05/22 08/05/22 Unknown History ondansetron 4 mg disintegrating 4 mg PO Q8H PRN Nausea And Vomiting 08/05/22 08/05/22 Unknown History tablet Physical Exam Vital Signs and Narrative: Vital Signs: Last Vital Signs Temp 98.2 F 08/05/22 14:00 Pulse 86 08/05/22 17:48 Resp 18 08/05/22 17:48 BP 141/81 H 08/05/22 17:48 Pulse Ox 97 08/05/22 17:48 O2 Del Method 08/05/22 17:48 BMI result Body Mass Index 26.1 Constitutional - Awake and Alert, No apparent distress Eyes - PERRLA, EOMI Cardiovascular - S1S2, RRR, No edema Respiratory - Normal lung expansion, Normal respiratory effort, No respiratory distress, CTA bilaterally Gastrointestinal - LLQ ttp without guarding or rebound. ND; +BS - Significant L-sided CVA tenderness Extremities - no calf tenderness bilaterally, no swelling Musculoskeletal - Normal inspection, normal ROM Skin - Warm/Dry Neurological - Alert & oriented x3, 5/5 strength BUE and BLE Psychological - Appropriate affect Results Labs 08/05/22 13:03 08/05/22 13:03 Labs: Laboratory Results - last 24 hr 08/05/22 08/05/22 13:03 13:03 MCV 91.4 MCH 32.1 MCHC 35.1 RDW 11.4 Plt Count 287 MPV 8.8 L Immature Gran % (Auto) 0.9 H Neut % (Auto) 84.9 H Lymph % (Auto) 6.9 L [place] % (Auto) 7.0 Eos % (Auto) 0.0 Baso % (Auto) 0.3 Lymph # (Auto) 0.8 L [place] # (Auto) 0.8 Eos # (Auto) 0.0 Baso # (Auto) 0.0 Abs Immat Gran (auto) 0.10 H Absolute Neuts (auto) 9.9 H Absolute Nucleated RBC 0.000 Nucleated RBC % (auto) 0.0 Anion Gap 13 Estim Creat Clear Calc 53.7 Estimated GFR > 60 Random Glucose 123 H Calcium 9.2 Magnesium 1.8 Total Bilirubin 0.8 Direct Bilirubin 0.3 AST 14 ALT 13 Alkaline Phosphatase 60 Total Protein 6.7 Albumin 4.1 Imaging Radiologist's Impressions: Impressions Renal Ultrasound 08/05/22 13:50 IMPRESSION: There is moderate left hydronephrosis and there is nonvisualization of the left ureteral jet which would be in keeping with known left ureteral calculus.. Abdomen/Pelvis CT 08/05/22 16:50 IMPRESSION: 1. Obstructing 3 mm left proximal ureteral calculus with associated hydronephrosis and increased perinephric stranding without significant change when compared to the study from 3 days ago. 2. Incidental note made of hepatic steatosis and tiny punctate nonobstructing right renal calculus. Fleischner guidelines were followed. Assessment and Plan (1) Kidney calculus: Status: Acute Plan 71 year old male with history of anxiety/depression, mild persistant asthma, GERD, HTN, HLD, PTSD admitted for obstructive uropathy and hydronephrosis. #Obstructive uropathy with moderate hydronephrosis -CT abd/pelvis with left sided obstructing 3mm stone with moderate hydronephrosis -Continue IVF -Regular diet for now. NPO after midnight for possible urologic procedure -Ondansetron prn -Pain management with toradol and morphine on pain scale prn _appreciate urology input #HTN-reasonably controlled -Not on antihypertensives #HLD -Not on statin #Depression/anxiety -Continue home meds #Mild persistent asthma- without acute exacerbation -Continue flovent -Albuterol prn Full code DVT prophylaxis- compression/early ambulation Time Spent With Patient Time: Total time managing care of this patient today ____ minutes. Quality Stroke Does the patient have a stroke diagnosis?: No VTE Prior VTE?: No VTE Risk Level:: Medical - moderate - high VTE Device Contraindication: N/A - Device Ordered VTE Drug Contraindication: Treatment Not Indicated
[2022-08-05 18:12] LABS: Appearance Urine Clear; Color Urine Yellow; Glucose Urine UA Negative (Negative); Leukocyte Esterase Urine Negative (Negative); Nitrite Urine Negative (Negative); Urine Blood Negative (Negative); Urine Ketones 15 mg/dL (Negative); Urine Protein Negative (Neg-Trace)
[2022-08-05 18:31] LABS: COVID-19 Test Negative (Negative); IDNOW Serial# 16C4AD1C
[2022-08-05 19:14] VITALS: BP 129/80; PULSE 80; RESP 16; TEMP 36.9; O2SAT 94
[2022-08-05] MEDS: polyethylene glycoL 3350 17 GM POWD.PACK PO (19:18)
[2022-08-05] MEDS: 0.9 % Sodium Chloride 1,000 ML 100 ML IVCONT (19:18)
[2022-08-05] MEDS: QUEtiapine Fumarate 50 MG TABLET PO (22:18)
[2022-08-05] MEDS: Melatonin 3 MG TABLET PO (22:18)
[2022-08-06] VITALS: BP 118/55; PULSE 72; RESP 16; TEMP 36.8; O2SAT 96
[2022-08-06] MEDS: 0.9 % Sodium Chloride 1,000 ML 100 ML IVCONT (05:11)
[2022-08-06] MEDS: Omeprazole 20 MG CAPSULE.DR PO (05:13)
[2022-08-06 06:23] LABS: MANUAL DIFF FLAG NO
[2022-08-06 06:40] LABS: Basophils Percent Auto 0.1 % (0-2); Hematocrit 40.6 % (42.0-52.0); Hemoglobin 13.8 g/dl (14.0-18.0); Imm Gran Abs Auto 0.06 X10*3/uL (0.00-0.03); Imm Gran Pct Auto 0.8 % (0.0-0.4); Lymphocytes Percent Auto 13.1 % (20-40); Mean Corpuscular Hemoglobin 31.4 pg (27.0-33.0); Mean Corpuscular Volume 92.5 fL (80.0-98.0); Monocytes Absolute Auto 0.5 X10*3/uL (0.1-1.2); Monocytes Percent Auto 6.9 % (2-11); Neutrophils Absolute Auto 5.8 x10*3/uL (2.0-8.3); Neutrophils Percent Auto 79.1 % (45-73); Platelet Count 252 X10*3/uL (160-400); Red Blood Count 4.39 X10*6/uL (4.60-5.80); Red Cell Distribution Width 11.3 % (11.0-16.0); White Blood Count 7.4 X10*3/uL (4.8-10.8)
[2022-08-06 06:54] LABS: Anion Gap 14 (12-20); Blood Urea Nitrogen 15 mg/dL (9-16); Calcium 8.7 mg/dL (8.4-10.2); Carbon Dioxide 21 mmol/L (22-29); Chloride 109 mmol/L (96-108); Creatinine Clr Calc Pharmacy 78.8; Estimated Glomerular Filt Rate > 60; Glucose Random 118 mg/dL (60-115); Potassium 3.9 mmol/L (3.3-5.1); Sodium 140 mmol/L (135-145)
[2022-08-06] MEDS: Escitalopram Oxalate 10 MG TABLET PO (07:08)
[2022-08-06 07:18] VITALS: BP 123/73; PULSE 73; RESP 16; TEMP 36.2; O2SAT 95
[2022-08-06] MEDS: Fluticasone Propionate 250 MCG BLST.W.DEV 2 PUFF INHALE (07:54)
[2022-08-06 07:55] VITALS: PULSE 76; RESP 18; O2SAT 96
--- NOTE | 2022-08-06 09:35 | P.DS_ITS ---
DS: Providers Provider Date of Service: 08/06/22 Date of admission: 08/05/22 18:29 Primary care physician: Alberta Ackerman MD Consults: 08/05/22 18:34 Consult to Urology Routine Consulting Provider: Eldon Amanda Reason for consultation: obstructive uropathy DS: Diagnosis Discharge Diagnosis (1) Kidney calculus: Status: Acute DS: Summary Hospital Course Hospital Course: from initial hpi: Chief Complaint: llq/left flank pain 71 year old male with history of anxiety/depression, mild persistant asthma, GERD, HTN< HLD, PTSD presented to the ED earlier today for evaluation LLQ/left flank pain ongoing for 3 days. Was seen in the ED 08/[address] abd/pelvis noting a 3mm stone with hydronephrosis and proximal hydroureter discharged home with pain management. He also reports constipation, with no BM in last 3 days btu is passing gas. There is nasuea, no vomiting. Reports pain is now constant and has worsened. No fevers, chills, diarrhea, melena, hematochezia, dysuria, hematuria, increased urinary frequency, decreased urine output, sob, lightheadedness, chest pain. In the ED, VS stable. Mild leukocytosis 11.7. Creat 1.07, BUN 17. Electrolytes normal. UA unremarkable. Renal u/s showing moderate left hydronephrosis. CT abd/pelvis showing obstructing 3mm left proximal ureteral calculus with associated hydronephrosis and increased perinephric stranding without significant change from study 3 days ago. In the ED, treated with flomax, prednisone 20mg, and IV NS and pain control with morphine. ED discussed case with Dr. Amanda recommending admission and probable ureteral stenting tomorrow. hospital course: patient was admitted for obstructive uropathy with moderate hydronephrosis, was given fluids and pain meds. plan was for cystoscopy, however, patient's pain resolved spontaneously, likely missed passed stone. will be discharged home on flomax and should follow up with . mood disorder will continue seroquel and lexapro, for gerd will continue omeprazole, for mild persistent asthma will continue on flovent. pateint is felling better and will be discharged home. Time Spent with Patient Time attestation: Total time managing care of this patient today ____ minutes. Discharge coordination time: Greater than 30 minutes Quality: Safe Use of Opioids Does Pt have an Active Cancer Diagnosis on the Problem List?: No Quality: Stroke Does the patient have a stroke diagnosis?: No Physical Exam Vital Signs: Vital Signs: Last Vital Signs Temp 97.1 F 08/06/22 07:18 Pulse 76 08/06/22 07:55 Resp 18 08/06/22 07:55 BP 123/73 08/06/22 07:18 Pulse Ox 95 08/06/22 07:18 O2 Del Method 08/06/22 07:18 BMI result Body Mass Index 26.1 General: AO X 3, no acute distress Resp: CTA bilateral, no accessory muscles used CVS: S1,S2,RRR GI: soft, non tender, non distended Neuro: motor grossly intact, alert Psych: appropriate affect, appropriate insight DS: Data Data Completed and Pending Labs on day of discharge: Laboratory Results - last 24 hr 08/05/22 08/05/22 08/05/22 13:03 13:03 17:50 WBC 11.7 H RBC 4.77 Hgb 15.3 Hct 43.6 MCV 91.4 MCH 32.1 MCHC 35.1 RDW 11.4 Plt Count 287 MPV 8.8 L Immature Gran % (Auto) 0.9 H Neut % (Auto) 84.9 H Lymph % (Auto) 6.9 L [place] % (Auto) 7.0 Eos % (Auto) 0.0 Baso % (Auto) 0.3 Lymph # (Auto) 0.8 L [place] # (Auto) 0.8 Eos # (Auto) 0.0 Baso # (Auto) 0.0 Abs Immat Gran (auto) 0.10 H Absolute Neuts (auto) 9.9 H Absolute Nucleated RBC 0.000 Nucleated RBC % (auto) 0.0 Sodium 135 Potassium 4.2 Chloride 102 Carbon Dioxide 24 Anion Gap 13 BUN 17 H Creatinine 1.07 Estim Creat Clear Calc 53.7 Estimated GFR > 60 Random Glucose 123 H Calcium 9.2 Magnesium 1.8 Total Bilirubin 0.8 Direct Bilirubin 0.3 AST 14 ALT 13 Alkaline Phosphatase 60 Total Protein 6.7 Albumin 4.1 Urine Color Yellow Urine Appearance Clear Urine pH 6.0 Ur Specific [place] 1.010 Urine Protein Negative Urine Glucose (UA) Negative Urine Ketones 15 Urine Blood Negative Urine Nitrite Negative Ur Leukocyte Esterase Negative COVID-19 (DONNY) COVID-19 Clin Com 08/05/22 08/06/22 08/06/22 17:50 05:53 05:53 WBC 7.4 RBC 4.39 L Hgb 13.8 L Hct 40.6 L MCV 92.5 MCH 31.4 MCHC 34.0 RDW 11.3 Plt Count 252 MPV 9.0 L Immature Gran % (Auto) 0.8 H Neut % (Auto) 79.1 H Lymph % (Auto) 13.1 L [place] % (Auto) 6.9 Eos % (Auto) 0.0 Baso % (Auto) 0.1 Lymph # (Auto) 1.0 L [place] # (Auto) 0.5 Eos # (Auto) 0.0 Baso # (Auto) 0.0 Abs Immat Gran (auto) 0.06 H Absolute Neuts (auto) 5.8 Absolute Nucleated RBC 0.000 Nucleated RBC % (auto) 0.0 Sodium 140 Potassium 3.9 Chloride 109 H Carbon Dioxide 21 L Anion Gap 14 BUN 15 Creatinine 0.73 Estim Creat Clear Calc 78.8 Estimated GFR > 60 Random Glucose 118 H Calcium 8.7 Magnesium Total Bilirubin Direct Bilirubin AST ALT Alkaline Phosphatase Total Protein Albumin Urine Color Urine Appearance Urine pH Ur Specific [place] Urine Protein Urine Glucose (UA) Urine Ketones Urine Blood Urine Nitrite Ur Leukocyte Esterase COVID-19 (DONNY) Negative COVID-19 Clin Com See Note Discharge Plan Discharge Anticipated Discharge Date/Time: 08/06/22 09:33 Patient Disposition: Home, Self-Care Discharge Diagnosis: kidney stone Referrals: Alberta Rizo MD [Primary Care Provider] - 1 Week Discharge Medications: New tamsulosin [Flomax] 0.4 mg capsule 0.4 mg PO DAILY Qty: 30 0RF Continued albuterol sulfate 90 mcg/actuation HFA aerosol inhaler 1 inh inhalation QID PRN (Reason: shortness of breath or wheezing) Qty: 6.7 0RF omeprazole 20 mg capsule,delayed release(DR/EC) 20 mg PO DAILY Qty: 30 0RF albuterol sulfate 2.5 mg /3 mL (0.083 %) solution for nebulization 2.5 mg inhalation QID PRN (Reason: shortness of breath or wheezing) Qty: 90 0RF oxycodone 5 mg tablet 5 mg PO Q6H PRN (Reason: pain) Qty: 10 0RF Rx Instructions: Partial Fill upon patient request. melatonin 1 mg tablet 1 tab PO BEDTIME ibuprofen 400 mg tablet 400 mg PO Q8H PRN (Reason: Pain (Scale Score 1-3)) ondansetron 4 mg tablet,disintegrating 4 mg PO Q8H PRN (Reason: Nausea And Vomiting) fluticasone propionate [Flovent HFA] 220 mcg/actuation HFA aerosol inhaler 2 puff inhalation BID quetiapine 50 mg tablet 50 mg PO BEDTIME escitalopram oxalate 10 mg tablet 10 mg PO DAILY Discharge Orders: Discharge Order (Routine); Ordered 08/06/22 Ordered By: Fabiano Gomez Diet: Advance to usual diet Activity on Discharge: As tolerated Stand Alone Forms: Patient Portal Discharge page Care Plan Goals: recovery Health Concerns: zuleima hicks Plan of Treatment: flomax Assessment: see above
--- NOTE | 2022-08-06 09:46 | MHC.CM.PN ---
Addendum entered by Jo Ann Mcnamara RN 08/06/22 09:57: PATIENT STILL IN ROOM. KEARNS 08/06 SIGNED AND LEFT WITH PATIENT COPY IN CHART HE IS FULLY INDEPENDENT FAMILY WILL PROVIDE TRANSPORT. HOME -SELF CARE Original Note: PATIENT DC PRIOR TO CASE MANAGEMENT INTERVENTION.
--- NOTE | 2022-08-06 10:14 | PM.UROCN ---
History of Present Illness Consult details Consult date: 08/06/22 Narrative: Consulting complaint left proximal ureteric stone associated with pain 71-year-old Sinhala-speaking male Admitted to hospital for left flank pain control 2nd visit to ER with in past 5 days Imaging - 3mm left proximal ureteric stone with perinephric stranding On evaluation states pain has significantly reduced Minimal issues overnight Does not report prior stone history WBC 7.4, creatinine 0.7, calcium 8.7 Recommend 6 week follow-up office with ultrasound for resolution Review of Systems Constitutional: Constitutional: Reports as per HPI and Reports no additional constitutional complaints Cardiovascular: Cardiovascular: Reports as per HPI and Reports no additional cardiovascular complaints Respiratory: Respiratory: Reports as per HPI and Reports no additional respiratory complaints Gastrointestinal: Gastrointestinal: Reports as per HPI and Reports no additional gastrointestinal complaints Genitourinary: Genitourinary: Reports as per HPI Musculoskeletal: Musculoskeletal: Reports no additional musculoskeletal complaints and Reports as per HPI Neurologic: Reports system reviewed and no additional complaints, except as documented and Reports as per HPI PMFSH Past Medical History Medical History (Updated 08/05/22 @ 18:39 by JADE Mancia) Allergic rhinitis Anxiety Asthma COVID-19 Depression GERD (gastroesophageal reflux disease) HTN (hypertension) Hypercholesterolemia Post traumatic stress disorder Surgical History Surgical History History of surgery Social History Social History Alcohol intake: never Patient Tobacco Use Status: Never used Tobacco Smoked in Last 30 Days: No Use of substances other than those prescribed or required for medical reasons: No Advance Directives: No Advance Directives Information Provided: Yes Meds Allergies Allergy/AdvReac Type Severity Reaction Status Date / Time No Known Allergies Allergy Verified 08/05/22 12:52 [No Known Allergies*] Active Medications: Current Medications Acetaminophen (Acetaminophen 325 Mg Tablet) 650 mg PO Q6H PRN PRN Reason: Pain, Mild (Pain Scale 1-3) Escitalopram Oxalate (Escitalopram Oxalate 10 Mg Tablet) 10 mg PO DAILY [facility] Last Admin: 08/06/22 07:08 Dose: 10 mg Fluticasone Propionate (Fluticasone Propionate 250 Mcg Blst.W.Dev) 2 puff INHALE RBID [facility] Last Admin: 08/06/22 07:54 Dose: 2 puff Sodium Chloride (Ns) 1,000 mls @ 100 mls/hr IVCONT .Q10H [facility] Last Admin: 08/06/22 05:11 Dose: 100 mls/hr Ketorolac Tromethamine (Ketorolac Tromethamine 30 Mg/Ml Vial) 30 mg IVPUSH Q6H PRN PRN Reason: Pain, Moderate (Pain Scale 4-6 Stop: 08/10/22 18:28 Melatonin (Melatonin 3 Mg Tablet) 3 mg PO BEDTIME [facility] Last Admin: 08/05/22 22:18 Dose: 3 mg Morphine Sulfate (Morphine Sulfate 4 Mg/Ml Cartridge) 2 mg IVPUSH Q4H PRN; Protocol PRN Reason: Pain, Severe (Pain Scale 7-10) Omeprazole (Omeprazole 20 Mg Capsule.Dr) 20 mg PO DAILY@0630 [facility] Last Admin: 08/06/22 05:13 Dose: 20 mg Ondansetron HCl (Ondansetron Hcl 4 Mg/2 Ml Vial) 4 mg IVPUSH Q8H PRN PRN Reason: Nausea and Vomiting Pharmacy Consult (Consult Rx Perform Med Rec) 1 each MISCELLANE ONCE PRN PRN Reason: Consult order Polyethylene Glycol (Polyethylene Glycol 3350 17 Gm Powd.Pack) 17 gm PO DAILY [facility] Last Admin: 08/06/22 07:07 Dose: Not Given Quetiapine Fumarate (Quetiapine Fumarate 50 Mg Tablet) 50 mg PO BEDTIME [facility] Last Admin: 08/05/22 22:18 Dose: 50 mg Sodium Chloride (0.9 % Sodium Chloride Flush 3 Ml Syringe) 3 ml IVFLUSH QSHIFT [facility] Last Admin: 08/06/22 07:06 Dose: Not Given Home Medications Medication Instructions Recorded Confirmed Last Taken Type escitalopram oxalate 10 mg tablet 10 mg PO DAILY 02/20/22 08/05/22 Unknown History fluticasone propionate 220 2 puff inhalation BID 02/20/22 08/05/22 Unknown History mcg/actuation HFA aerosol inhaler (Flovent HFA) quetiapine 50 mg tablet 50 mg PO BEDTIME 02/20/22 08/05/22 Unknown History ibuprofen 400 mg tablet 400 mg PO Q8H PRN Pain (Scale 08/05/22 08/05/22 Unknown History Score 1-3) melatonin 1 mg tablet 1 tab PO BEDTIME 08/05/22 08/05/22 Unknown History ondansetron 4 mg disintegrating 4 mg PO Q8H PRN Nausea And Vomiting 08/05/22 08/05/22 Unknown History tablet Physical Exam Vital Signs: Vital Signs: Last Vital Signs Temp 97.1 F 08/06/22 07:18 Pulse 76 08/06/22 07:55 Resp 18 08/06/22 07:55 BP 123/73 08/06/22 07:18 Pulse Ox 95 08/06/22 07:18 O2 Del Method 08/06/22 07:18 BMI result Body Mass Index 26.1 Const: General: cooperative, healthy appearing, comfortable and no acute distress Orientation/consciousness: patient oriented x3 HEENT: Face and sinus: Yes normal facial exam Mouth: moist mucous membranes Neck: Neck: Yes normal visual inspection, Yes full ROM and Yes trachea midline Chest: Chest palpation & inspection: normal inspection of the chest Resp: Effort & Inspection: normal respiratory effort, able to speak in complete sentences and no respiratory distress GI: Inspection: Yes normal to inspection Back/Spine/Pelvis: Cervical Spine: normal cervical lordosis Thoracic/Lumbar Spine: thoracic and lumbar spine normal to inspection Skin: General skin exam: no rashes or lesions noted Neuro: General: patient oriented x3, tone normal and moves all extremities Extrem: General: Yes normal to inspection and Yes capillary refill normal Results Labs 08/06/22 05:53 08/06/22 05:53 Labs: Abnormal lab results 08/05/22 08/05/22 08/06/22 Range/Units 13:03 13:03 05:53 WBC 11.7 H (4.8-10.8) X10*3/uL RBC 4.39 L (4.60-5.80) X10*6/uL Hgb 13.8 L (14.0-18.0) g/dl Hct 40.6 L (42.0-52.0) % MPV 8.8 L 9.0 L (9.4-12.4) fL Immature Gran % (Auto) 0.9 H 0.8 H (0.0-0.4) % Neut % (Auto) 84.9 H 79.1 H (45-73) % Lymph % (Auto) 6.9 L 13.1 L (20-40) % Lymph # (Auto) 0.8 L 1.0 L (1.2-4.9) X10*3/uL Abs Immat Gran (auto) 0.10 H 0.06 H (0.00-0.03) X10*3/uL Absolute Neuts (auto) 9.9 H (2.0-8.3) x10*3/uL Chloride (96-108) mmol/L Carbon Dioxide (22-29) mmol/L BUN 17 H (9-16) mg/dL Random Glucose 123 H (60-115) mg/dL 08/06/22 Range/Units 05:53 WBC (4.8-10.8) X10*3/uL RBC (4.60-5.80) X10*6/uL Hgb (14.0-18.0) g/dl Hct (42.0-52.0) % MPV (9.4-12.4) fL Immature Gran % (Auto) (0.0-0.4) % Neut % (Auto) (45-73) % Lymph % (Auto) (20-40) % Lymph # (Auto) (1.2-4.9) X10*3/uL Abs Immat Gran (auto) (0.00-0.03) X10*3/uL Absolute Neuts (auto) (2.0-8.3) x10*3/uL Chloride 109 H (96-108) mmol/L Carbon Dioxide 21 L (22-29) mmol/L BUN (9-16) mg/dL Random Glucose 118 H (60-115) mg/dL Short CBC 08/05/22 08/06/22 Range/Units 13:03 05:53 WBC 11.7 H 7.4 (4.8-10.8) X10*3/uL Hgb 15.3 13.8 L (14.0-18.0) g/dl Hct 43.6 40.6 L (42.0-52.0) % Plt Count 287 252 (160-400) X10*3/uL BMP 08/05/22 08/06/22 13:03 05:53 Sodium 135 140 Potassium 4.2 3.9 Chloride 102 109 H Carbon Dioxide 24 21 L BUN 17 H 15 Creatinine 1.07 0.73 Calcium 9.2 8.7 Liver Function 08/05/22 Range/Units 13:03 Total Bilirubin 0.8 (0.0-1.0) mg/dL Direct Bilirubin 0.3 (0.0-0.5) mg/dL AST 14 (5-37) U/L ALT 13 (0-40) U/L Alkaline Phosphatase 60 (39-117) U/L Albumin 4.1 (3.5-5.0) g/dL Urine 08/05/22 Range/Units 17:50 Urine Color Yellow Urine Appearance Clear Urine pH 6.0 (5.0-9.0) Ur Specific [place] 1.010 (1.005-1.025) Urine Protein Negative (Neg-Trace) mg/dL Urine Glucose (UA) Negative (Negative) mg/dL All other labs normal. Assessment and Plan (1) Kidney calculus: Status: Acute Plan Six week follow-up office for resolution with renal ultrasound Time Spent With Patient Time: Total time managing care of this patient today ____ minutes. Procedures Date of Service Date of Service: 08/06/22
== END 2022-08-06 10:33 | disposition home or self-care (01) ==
LOC: HO.ED 17:40 → HO.EDOVER 18:45 → HO.S3 18:54
PROVIDERS: Physician Assistant; Admitting Provider Physician Assistant; Emergency Provider Emergency Medicine; PCP Internal Medicine; Visit Provider Internal Medicine
DX: N13.2 Hydronephrosis with renal and ureteral calculous obstruction (principal); N20.0 Calculus of kidney; Z20.822 Contact with and (suspected) exposure to COVID-19; K59.00 Constipation, unspecified; I10 Essential (primary) hypertension; E78.00 Pure hypercholesterolemia, unspecified; K21.9 Gastro-esophageal reflux disease without esophagitis; J45.909 Unspecified asthma, uncomplicated; F41.9 Anxiety disorder, unspecified; Z79.899 Other long term (current) drug therapy; F43.10 Post-traumatic stress disorder, unspecified
CPT/HCPCS: 36415; 74176; 76775; 80048; 80076; 81003; 83735; 85025; 87635; 94640; 96361; 96374; 99221; 99285; J2270

== ENCOUNTER → 2022-09-16 09:33 | Outpatient (BNVA) | payer MEDICARE, MEDICAID, SELFPAY | PROVIDERS: PCP Internal Medicine; Visit Provider Nurse Practitioner Family | DX: N20.0 Calculus of kidney (principal) | CPT/HCPCS: 99202 ==

== ENCOUNTER 2022-09-19 12:27 | Outpatient (REF) | payer MEDICARE, MEDICAID, SELFPAY ==
--- NOTE | ~2022-09-19 | US_ITS ---
EXAMINATION: US RETROPERITONEAL LIMITED (RENAL ONLY) CLINICAL INFORMATION: Calculus of kidney. COMPARISON: CT abdomen and pelvis without contrast 08/05/2022. Ultrasound retroperitoneal limited (renal only) 08/05/2022. Ultrasound abdomen complete 06/30/2019. TECHNIQUE: Real-time imaging of the kidneys. FINDINGS: RIGHT KIDNEY: 11.0 x 4.9 x 6.1 cm (SAG x AP x TRV). The kidney is normal in size, contour, and echogenicity. Renal cortical thickness is normal. 4 1 nonobstructing mid pole calculus. No hydronephrosis. 1.6 cm simple appearing midpole cyst for which no follow-up imaging is required. LEFT KIDNEY: 11.6 x 5.0 x 5.1 cm (SAG x AP x TRV). The kidney is normal in size, contour, and echogenicity. Renal cortical thickness is normal. Mild hydronephrosis of the left kidney is again noted. US/US renal BI IMPRESSION: 1. Mild hydronephrosis of the left kidney is again noted. 2. 4 mm nonobstructing right renal calculus without hydronephrosis. 3. 1.6 cm simple appearing right renal cyst for which no follow-up imaging is required.
== END 2022-09-19 12:28 | disposition home or self-care (01) ==
LOC: HO.US 12:27
PROVIDERS: PCP Internal Medicine; Visit Provider Urology
DX: N20.0 Calculus of kidney (principal)
CPT/HCPCS: 76775

== ENCOUNTER → 2022-09-26 08:11 | Outpatient (BNVA) | payer MEDICARE, MEDICAID, SELFPAY | PROVIDERS: PCP Internal Medicine; Visit Provider Nurse Practitioner Family | DX: N20.0 Calculus of kidney (principal) | CPT/HCPCS: 99212 ==

== ENCOUNTER 2023-03-14 10:33 | Outpatient (REF) | payer MEDICARE, MEDICAID, SELFPAY ==
--- NOTE | ~2023-03-14 | US_ITS ---
EXAMINATION: US RETROPERITONEAL LIMITED (RENAL ONLY) CLINICAL INFORMATION: Calculus of kidney. COMPARISON: Bilateral renal ultrasounds dated 09/19/2022 and 08/05/2022. CT abdomen and pelvis without contrast dated 08/05/2022. TECHNIQUE: Real-time imaging of the kidneys. FINDINGS: RIGHT KIDNEY: 8.4 x 5.2 x 5.3 cm (SAG x AP x TRV). The kidney is normal in size, contour, and echogenicity. Renal cortical thickness is normal. No renal calculi or hydronephrosis. There is an anechoic cyst in the midpole measuring 1.2 x 1.6 x 1.6 cm. There is mild pelvic fullness. LEFT KIDNEY: 10.3 x 6.0 x 4.5 cm (SAG x AP x TRV). The kidney is normal in size, contour, and echogenicity. Renal cortical thickness is normal. No calculi or focal parenchymal lesions. No hydronephrosis. There is mild pelvic fullness. US/US renal BI IMPRESSION: 1. Simple cyst midpole right kidney. No follow up needed. 2. Mild bilateral renal fullness.
== END 2023-03-14 10:34 | disposition home or self-care (01) ==
LOC: HO.US 10:33
PROVIDERS: Visit Provider Nurse Practitioner Family
DX: N20.0 Calculus of kidney (principal)
CPT/HCPCS: 76775

== ENCOUNTER 2023-04-01 09:24 | Outpatient (AMB) | payer MEDICARE, MEDICAID, SELFPAY ==
--- NOTE | 2023-04-01 09:28 | MHC.OFFVIS ---
Intake Intake Visit Reasons: 6m/US(SET) Intake Note: Patient is present for follow up ultrasound/kidney stone (imaging 03/14/23) Urology Medications: Vitamin B6 Blood thinner: none Associate Professor Of Biostatistics Required: Yes Accompanied by: Unknown Allergies No Known Allergies [No Known Allergies*] Allergy (Verified 04/01/23 20:41) Medication List - Last Reconciled 04/01/23 by KAZ Lucio acetaminophen 1,000 mg PO Q6H PRN albuterol sulfate 90 mcg/actuation 1 inh inhalation QID PRN albuterol sulfate 2.5 mg (3 mL) inhalation QID PRN buspirone 10 mg PO BID escitalopram oxalate 10 mg PO DAILY fluticasone propionate 220 mcg/actuation (Flovent HFA) 2 puffs inhalation BID ibuprofen 400 mg PO Q8H PRN melatonin 1 tab PO BEDTIME omeprazole 20 mg PO DAILY pyridoxine (vitamin B6) 100 mg PO DAILY 90 days quetiapine 50 mg PO BEDTIME quetiapine 100 mg PO BEDTIME quetiapine mg PO HPI HPI Comments History of Present Illness Details Dickson is a pleaseant 72 year old Upper Sorbian speaking male patient of Dr. Dexter Ackerman who was accompanied by his daughter at today's visit. He has a past medical history of anxiety, asthma, GERD, hypertension. He presents to the office today for a follow up of his nephrolithiasis. Recent renal ultrasound results reviewed with the patient today. Right kidney with no calculi or hydronephrosis. There is an anechoic cyst in the midpole measuring 1.2 x 1.6 x 1.6 cm. No follow-up imaging recommended per radiology report. There is mild pelvic fullness. Left kidney with no calculi, lesions, and or hydronephrosis. There is mild pelvic fullness. When asked patient continues to be feeling and doing well. He denies any urinary issues or concerns. He denies any changes to his urinary habits. When asked patient denies urinary urgency, urinary frequency, changes in urinary stream, dysuria, foul-smelling urine, hematuria, incontinence, flank pain, fever and or chills. In office urinalysis within normal limits. Discussed at length the importance of drinking adequate amount of fluid daily. PAPO offered however deferred. In review of patient's chart it appears last PSA 3/19--0.5. [facility] Medical History Allergic rhinitis Post traumatic stress disorder Depression Hypercholesterolemia HTN (hypertension) GERD (gastroesophageal reflux disease) Anxiety COVID-19 Asthma Surgical History History of surgery Social History Alcohol intake: never Patient Tobacco Use Status: Never used Tobacco Current occupational status: retired Review of Systems Const All systems reviewed & are unremarkable except as noted in HPI and below Reports as per HPI Eyes Reports no additional complaints ENT Reports no additional complaints Card Reports no additional complaints Resp Reports no additional complaints GI Reports no additional complaints Reports as per HPI Musc Reports no additional complaints Neuro Reports no additional complaints Psych Reports no additional complaints Endo Reports no additional complaints Zay/Lymph Reports no additional complaints Aller/Immun Reports no additional complaints Physical Exam Const General: cooperative, healthy appearing, comfortable, no acute distress, well developed, alert and awake Nutritional Appearance: well nourished Orientation/consciousness: patient oriented x3 Limitations: no limitations HEENT Head: Yes normal to inspection, Yes normocephalic and Yes atraumatic Ears: hearing grossly normal bilaterally Eyes General: appearance normal, both eyes and all related structures Neck Neck: Yes normal visual inspection and Yes trachea midline Chest Chest palpation & inspection: normal inspection of the chest Resp Effort & Inspection: normal respiratory effort and able to speak in complete sentences Cardio Rate: regular rate GI Inspection: Yes normal to inspection General: Yes no CVA tenderness Back/Spine/Pelvis Back: no CVA tenderness Skin General skin exam: no rashes or lesions noted Neuro General: patient oriented x3 Extrem General: Yes normal to inspection Psych Appearance: grossly normal and well kempt Mental Status: mental status grossly normal Speech and movement: Normal speech and movement present and Clear speech present Affect: normal affect Attitude: cooperative Thought process: Normal thought process present Thought content: Normal thought content present Insight: Good insight present (Psych) Judgement: Good judgement present (Psych) Results AMB Urinalysis, Automated UA Leukoctes 0 Stefania/uL Last Edit by Jack Nichols on 04/01/23 09:45 UA Nitrite Negative Last Edit by Jack Nichols on 04/01/23 09:45 UA Urobilinogen 0.2 mg/dL Last Edit by Jack Nichols on 04/01/23 09:45 UA Protein 0 mg/dL Last Edit by Jack Nichols on 04/01/23 09:45 UA pH 6.0 Last Edit by Jack Nichols on 04/01/23 09:45 UA Blood 0 Arie/uL Last Edit by Jack Nichols on 04/01/23 09:45 UA Specific [place]ccle[place] 1.030 Last Edit by Jack Nichols on 04/01/23 09:45 UA Ketone Negative Last Edit by Jack Nichols on 04/01/23 09:45 UA Bilirubin 0 mg/dL Last Edit by Jack Nichols on 04/01/23 09:45 UA Glucose 0 mg/dL Last Edit by Jack Nichols on 04/01/23 09:45 Results Reviewed Results Reviewed: Laboratory Last Values Urine pH (Auto) 6.0 04/01/23 09:36 Specific Mccle[place] (Auto) 1.030 04/01/23 09:36 Urine Protein (Auto) 0 mg/dL 04/01/23 09:36 Glucose (UA)(Auto) 0 mg/dL 04/01/23 09:36 Urine Ketones (Auto) Negative 04/01/23 09:36 Urine Blood (Auto) 0 Arie/uL 04/01/23 09:36 Urine Nitrite (Auto) Negative 04/01/23 09:36 Urine Bilirubin (Auto) 0 mg/dL 04/01/23 09:36 Urine Urobilinogen (Auto) 0.2 mg/dL 04/01/23 09:36 Leukocyte Esterase (Auto) 0 Stefania/uL 04/01/23 09:36 Date of Service: 03/14/23 EXAMINATION: US RETROPERITONEAL LIMITED (RENAL ONLY) FINDINGS: RIGHT KIDNEY: 8.4 x 5.2 x 5.3 cm (SAG x AP x TRV). The kidney is normal in size, contour, and echogenicity. Renal cortical thickness is normal. No renal calculi or hydronephrosis. There is an anechoic cyst in the midpole measuring 1.2 x 1.6 x 1.6 cm. There is mild pelvic fullness. LEFT KIDNEY: 10.3 x 6.0 x 4.5 cm (SAG x AP x TRV). The kidney is normal in size, contour, and echogenicity. Renal cortical thickness is normal. No calculi or focal parenchymal lesions. No hydronephrosis. There is mild pelvic fullness. IMPRESSION: 1. Simple cyst midpole right kidney. No follow up needed. 2. Mild bilateral renal fullness. Assessment & Plan Assessment & Plan (1) Renal cyst: Code(s): N28.1 - Cyst of kidney, acquired (2) Kidney calculus: Code(s): N20.0 - Calculus of kidney Plan In office urinalysis results reviewed with the patient today; as noted above. Recent renal imaging results reviewed with the patient today; as noted above. Patient denies any bothersome urinary issues or concerns at this time. Patient reports to be happy with current voiding parameters. Will continue with interval surveillance imaging monitoring. Discussed, educated, and stressed the importance of drinking plenty of water daily. Continue vitamin B6 as discussed and prescribed. Continue adding 1 oz of lemon juice to water daily. Renal ultrasound in 6 months. Follow-up in 6 months with imaging and lab to be completed prior; or sooner with any issues, concerns, and or questions. Orders: Orders AMB Urinalysis Automated Today Z13.9 - Encounter for screening, unspecified US renal BI 6 Months N20.0 - Calculus of kidney, N28.1 - Cyst of kidney, acquired Blood Urea Nitrogen 6 Months N20.0 - Calculus of kidney, N28.1 - Cyst of kidney, acquired Creatinine 6 Months N20.0 - Calculus of kidney, N28.1 - Cyst of kidney, acquired Prostate Specific Antigen Today N40.0 - Benign prostatic hyperplasia without lower urinary tract symptoms Medications: Refilled pyridoxine (vitamin B6) 100 mg PO DAILY 90 tabs 3RF 90 days N20.0 - Calculus of kidney Patient Instructions: The patient had an opportunity to ask questions regarding the treatment plan. All questions were answered. Physical exam, labs, and imaging were discussed and reviewed in detail. As well as risks, benefits, and discussion of treatment choices. No major barriers to understanding were identified. The patient expressed understanding and agreement with the above treatment plan. The patient was made aware they should contact our office by phone for worsening of their current condition, the appearance of new symptoms, or with any questions or concerns. Compliance is encouraged with any medications and follow up testing that is ordered. It is a privilege to be allowed the opportunity to participate in? your urological care.? Again, if you have any questions or concerns If you have any questions or concerns please do not hesitate to contact me. The office is [phone]. This note is constructed using voice recognition software. While every effort has been made to ensure accuracy communications professor errors may have been included. Yours sincerely, KAZ Lucio Coding Level of Care Code Est Pt Level 3 (54980) Diagnoses Renal cyst N28.1 Kidney calculus N20.0
== END 2023-04-01 09:57 | disposition home or self-care (01) ==
PROVIDERS: Visit Provider Nurse Practitioner Family
DX: N28.1 Cyst of kidney, acquired (principal); N20.0 Calculus of kidney
CPT/HCPCS: 99213

== ENCOUNTER → 2023-04-01 09:24 | Outpatient (BNVA) | payer MEDICARE, MEDICAID, SELFPAY | PROVIDERS: Visit Provider Nurse Practitioner Family | DX: N20.0 Calculus of kidney (principal); N28.1 Cyst of kidney, acquired | CPT/HCPCS: 81003; 99212 ==

== ENCOUNTER 2023-04-20 10:19 | Inpatient (IN) | payer MEDICARE, MEDICAID, SELFPAY ==
[2023-04-20 10:39] VITALS: BP 118/74; BP 132/72; PULSE 78; PULSE 89; RESP 20; TEMP 36.8; O2SAT 97; BMI 26.5
[2023-04-20 11:00] VITALS: BP 108/73; PULSE 72; RESP 18; TEMP 36.9; O2SAT 95
--- NOTE | 2023-04-20 11:05 | PC.NURSE ---
spoke with charge nurse, pt to be brought over to pod.
--- NOTE | 2023-04-20 11:07 | ED.PSYCH ---
HPI - Psych General Chief Complaint: Psychiatric Symptoms Stated Complaint: DIFF BREATHING, H/O ASTHMA Time Seen by Provider: 04/20/23 10:29 Source: patient and old records reviewed Mode of arrival: EMS Limitations: no limitations History of Present Illness HPI Narrative: 72 yo male with PMH of kidney stones, PTSD, anxiety and depression he tells me prior SI attempts and SI here with c/o SI and hearing voices for 1 week intermittently taking his medications he plans to jump from the porch of 7th story building. He denies medical complaints he states he wasn't being truthful MD complaint: suicidal ideation and feels depressed Onset (ago): week(s) Duration: getting worse History of same: Yes Relieving factors: none Exacerbating factors: other Context: not taking psychiatric medications Associated psychiatric symptoms: depression and suicidal ideation Associated symptoms: denies other symptoms Treatments prior to arrival: placed on mental health hold If self harm: admits thoughts of self harm and has plan Related Data Home Medications Medication Instructions Recorded Confirmed escitalopram oxalate 10 mg tablet 10 mg PO DAILY 02/20/22 09/26/22 fluticasone propionate 220 2 puff inhalation BID 02/20/22 09/26/22 mcg/actuation HFA aerosol inhaler (Flovent HFA) quetiapine 50 mg tablet 50 mg PO BEDTIME 02/20/22 09/26/22 ibuprofen 400 mg tablet 400 mg PO Q8H PRN Pain (Scale 08/05/22 09/26/22 Score 1-3) melatonin 1 mg tablet 1 tab PO BEDTIME 08/05/22 09/26/22 acetaminophen 500 mg tablet 1,000 mg PO Q6H PRN 09/16/22 09/26/22 buspirone 10 mg tablet 10 mg PO BID 09/16/22 09/26/22 quetiapine 100 mg tablet 100 mg PO BEDTIME 09/16/22 09/26/22 quetiapine 25 mg tablet mg PO 04/01/23 Previous Rx's Medication Instructions Recorded albuterol sulfate 90 mcg/actuation 1 inh inhalation QID PRN shortness 10/11/20 aerosol inhaler of breath or wheezing #6.7 grams omeprazole 20 mg capsule,delayed 20 mg PO DAILY #30 caps 01/21/21 release albuterol sulfate 2.5 mg/3 mL 2.5 mg (3 mL) inhalation QID PRN 05/22/22 (0.083 %) solution for nebulization shortness of breath or wheezing #90 mL pyridoxine (vitamin B6) 100 mg 100 mg PO DAILY 90 days #90 tabs 04/01/23 tablet Allergies Allergy/AdvReac Type Severity Reaction Status Date / Time No Known Allergies Allergy Verified 04/20/23 10:39 [No Known Allergies*] Review of Systems Review of Systems: Constitutional : No Fever, No Chills ENT/Mouth : No Ear Pain, No Nasal Congestion, No sore throat Eyes: No Eye Pain, No Swelling, No Redness Cardiovascular : No Chest Pain, No SOB Respiratory : No Cough, No Sputum, No Dyspnea Gastrointestinal : No Nausea, No Vomiting, No Diarrhea, No Hematochezia, No Melena Genitourinary : No Dysuria, No Urinary Frequency, No Hematuria Musculoskeletal : No Myalgias Skin : No Skin Lesions, No rash Neuro : No Weakness, No Numbness, No Paresthesias, No Dizziness, No Headache Psych : positive Anxiety, positive Depression, positive SI no HI, pos AH Heme/Lymph: No Lymphadenopathy Endocrine : No Polyuria, No Polydipsia All other systems reviewed and are negative [facility] Past Medical History Attestation statement: The following information was validated with the patient. Source: old records reviewed Medical History Allergic rhinitis Post traumatic stress disorder Depression Hypercholesterolemia HTN (hypertension) GERD (gastroesophageal reflux disease) Anxiety COVID-19 Asthma Surgical History History of surgery Social History Social History Alcohol intake: never Patient Tobacco Use Status: Never used Tobacco Smoked in Last 30 Days: No Use of substances other than those prescribed or required for medical reasons: No Advance Directives: No Advance Directives Information Provided: Yes Current occupational status: retired Physical Exam Vital Signs: Vital Signs: Last Vital Signs Temp 98.4 F 04/20/23 11:00 Pulse 72 04/20/23 11:00 Resp 18 04/20/23 11:00 BP 108/73 04/20/23 11:00 Pulse Ox 95 04/20/23 11:00 O2 Del Method Room Air 04/20/23 11:00 BMI result Body Mass Index 26.5 Appearance: Alert. Oriented X3. No acute distress. Eyes: Pupils equal, round and reactive to light. ENT: Pharynx normal. Neck: Normal inspection. Neck supple. CVS: Normal heart rate and rhythm. Pulses normal. Respiratory: No respiratory distress. Breath sounds normal. Abdomen: Soft and nontender. Skin: Skin warm and dry. Normal skin color. Normal skin turgor. Extremities: No lower extremity edema. No calf ttp Neuro: Oriented X 3. No motor deficit. No sensory deficit. CN2-12 intact, calm and cooperative Course Course Course Narrative: Physician observation started at 1123am. Patient placed in physician observation because the patient needed more time for CARE team to assess the need for psych admission. At the time observation was started the patient's vitals were stable, patient is alert and oriented but slightly anxious, Neuro: nonfocal, CV RRR, Lungs clear Medical Decision Making Medical Decision Making MDM Narrative: 72 yo male with PMH of kidney stones, PTSD, anxiety and depression here with SI and plan to jump from 7th floor. He denies medical complaints to me at this time will obtain basic labs, EKG and refer to CARE team given his plan and SI I have put him on section 12 until he sees CARE team. Differential Diagnosis Differential Diagnoses: The differential diagnosis associated with the presentation includes PTSD, depression, med non-compliance Admission/Observation Consideration of admission/observation: Escalation of care including admission/observation considered observe until N provider has seen patient Consult Healthcare Provider Management of the patient was discussed with: Behavioral Health Provider Lab Data [facility] Lab Attestation statement: I reviewed the patient's lab results. 04/20/23 11:10 04/20/23 11:10 Labs: Lab Results 04/20/23 04/20/23 Range/Units 11:10 11:32 WBC 6.9 (4.8-10.8) X10*3/uL RBC 4.79 (4.60-5.80) X10*6/uL Hgb 15.5 (14.0-18.0) g/dl Hct 44.6 (42.0-52.0) % MCV 93.1 (80.0-98.0) fL MCH 32.4 (27.0-33.0) pg MCHC 34.8 (31.0-36.0) g/dl RDW 11.4 (11.0-16.0) % Plt Count 266 (160-400) X10*3/uL MPV 8.6 L (9.4-12.4) fL Immature Gran % (Auto) 0.7 H (0.0-0.4) % Neut % (Auto) 79.1 H (45-73) % Lymph % (Auto) 15.3 L (20-40) % [place] % (Auto) 4.6 (2-11) % Eos % (Auto) 0.0 (0-4) % Baso % (Auto) 0.3 (0-2) % Lymph # (Auto) 1.1 L (1.2-4.9) X10*3/uL [place] # (Auto) 0.3 (0.1-1.2) X10*3/uL Eos # (Auto) 0.0 (0.0-0.4) X10*3/uL Baso # (Auto) 0.0 (0.0-0.2) X10*3/uL Abs Immat Gran (auto) 0.05 H (0.00-0.03) X10*3/uL Absolute Neuts (auto) 5.5 (2.0-8.3) x10*3/uL Absolute Nucleated RBC 0.000 (0.0-0.012) X10*3/uL Nucleated RBC % (auto) 0.0 (0.0-0.2) /100WBC Sodium 142 (135-145) mmol/L Potassium 4.0 (3.3-5.1) mmol/L Chloride 110 H (96-108) mmol/L Carbon Dioxide 21 L (22-29) mmol/L Anion Gap 15 (12-20) BUN 20 H (9-16) mg/dL Creatinine 0.81 (0.5-1.4) mg/dL Estim Creat Clear Calc 67.3 Estimated GFR > 60 Random Glucose 111 (60-115) mg/dL Calcium 9.4 D (8.4-10.2) mg/dL Magnesium 2.2 (1.6-2.6) mg/dL Total Bilirubin 0.7 (0.0-1.0) mg/dL Direct Bilirubin 0.2 (0.0-0.5) mg/dL AST 20 (5-37) U/L ALT 26 (0-40) U/L Alkaline Phosphatase 56 (39-117) U/L Total Protein 6.9 (6.5-8.0) g/dL Albumin 4.1 (3.5-5.0) g/dL Urine Color Yellow Urine Appearance Clear Urine pH 6.5 (5.0-9.0) Ur Specific [place] 1.020 (1.005-1.025) Urine Protein Negative (Neg-Trace) mg/dL Urine Glucose (UA) Negative (Negative) mg/dL Urine Ketones Negative (Negative) mg/dL Urine Blood Negative (Negative) Urine Nitrite Negative (Negative) Ur Leukocyte Esterase Negative (Negative) Urine Opiates Screen Not Detected (Not Detect) Urine Fentanyl Screen Not Detected (Not Detect) Ur Barbiturates Screen Not Detected (Not Detect) Ur Phencyclidine Scrn Not Detected (Not Detect) Ur Amphetamines Screen Not Detected (Not Detect) U Benzodiazepines Scrn Not Detected (Not Detect) Urine Cocaine Screen Not Detected (Not Detect) U Marijuana (THC) Screen Not Detected (Not Detect) Ethyl Alcohol < 10 mg/dL COVID-19 (DONNY) Negative (Negative) COVID-19 Clin Com See Note Independent Interpretation I performed an independent interpretation of an: EKG Interpretation: Rate: 77 Rhythm: NSR [place]: left Normal P waves. Normal NICKI. Normal QRS complex. ST T wave : normal no KATHY qTC: normal prior studies: no acute ischemia The study has been interpreted contemporaneously by me. . Independent Historian Clinical information obtained from an independent historian. History obtained from or confirmed by: EMS External Record Review External record reviewed: Inpatient record Discharge Plan Discharge Clinical Impression: Suicidal ideation Patient Disposition: Still a Patient Prescriptions: No Action albuterol sulfate 90 mcg/actuation HFA aerosol inhaler 1 inh inhalation QID PRN (Reason: shortness of breath or wheezing) Qty: 6.7 0RF omeprazole 20 mg capsule,delayed release(DR/EC) 20 mg PO DAILY Qty: 30 0RF albuterol sulfate 2.5 mg /3 mL (0.083 %) solution for nebulization 2.5 mg inhalation QID PRN (Reason: shortness of breath or wheezing) Qty: 90 0RF melatonin 1 mg tablet 1 tab PO BEDTIME ibuprofen 400 mg tablet 400 mg PO Q8H PRN (Reason: Pain (Scale Score 1-3)) quetiapine 25 mg tablet PO pyridoxine (vitamin B6) 100 mg tablet 100 mg PO DAILY 90 Days Qty: 90 3RF fluticasone propionate [Flovent HFA] 220 mcg/actuation HFA aerosol inhaler 2 puff inhalation BID quetiapine 50 mg tablet 50 mg PO BEDTIME escitalopram oxalate 10 mg tablet 10 mg PO DAILY acetaminophen 500 mg tablet 1,000 mg PO Q6H PRN quetiapine 100 mg tablet 100 mg PO BEDTIME buspirone 10 mg tablet 10 mg PO BID Interventions: [place]-Suicide Risk Severity Scale Last Done: 04/20/23 10:46
[2023-04-20 11:35] LABS: Alanine Aminotransferase 26 U/L (0-40); Albumin Level 4.1 g/dL (3.5-5.0); Alkaline Phosphatase 56 U/L (39-117); Anion Gap 15 (12-20); Aspartate Amino Transferase 20 U/L (5-37); Bilirubin Direct 0.2 mg/dL (0.0-0.5); Bilirubin Total 0.7 mg/dL (0.0-1.0); Blood Urea Nitrogen 20 mg/dL (9-16); Calcium 9.4 mg/dL (8.4-10.2); Carbon Dioxide 21 mmol/L (22-29); Chloride 110 mmol/L (96-108); Creatinine Clr Calc Pharmacy 67.3; Estimated Glomerular Filt Rate > 60; Ethanol < 10 mg/dL; Glucose Random 111 mg/dL (60-115); Magnesium 2.2 mg/dL (1.6-2.6); Sodium 142 mmol/L (135-145); Total Protein 6.9 g/dL (6.5-8.0)
[2023-04-20 20:40] VITALS: BP 116/71; PULSE 60; RESP 18; TEMP 36.1; O2SAT 96
[2023-04-21 03:40] VITALS: BP 125/72; PULSE 75; RESP 17; TEMP 36.7; O2SAT 96
--- NOTE | 2023-04-21 05:58 | PC.NURSE ---
Patient slept through the night, no distress observed/reported, behavior very pleasant, disposition per care team is section 12 inpatient Vickie-bed search, med rec completed/pending provider's approval, VSS, labs completed/resulted, will continue to monitor.
--- NOTE | 2023-04-21 07:19 | PC.NURSE ---
patient awake making small polite requests of staff, patient on phone at present cooperative and pleasant patient appears in no distress
[2023-04-21 08:53] VITALS: BP 146/79; PULSE 69; RESP 19; TEMP 36.2; O2SAT 95
--- NOTE | 2023-04-21 09:02 | PHA.MEDREC ---
Pharmacy Consult ? Medication Reconciliation Pharmacy has reviewed med rec, completed by Martínez Walden
[2023-04-21 17:09] VITALS: BP 142/83; PULSE 80; RESP 18; TEMP 36.2; O2SAT 97
--- NOTE | 2023-04-21 17:11 | PC.ADMIT ---
Dickson arrived to the unit at 1540 on a Conditional Voluntary, sharps check done by global technical writer and RN. Skin appears to be intact, he reports a history of Asthma and Vertigo. Per assessment Dickson presented to the ER after stopping his medications three days ago, he reports increased depression, sleep disturbance, poor appetite and SI with plan to jump off his balcony. Upon assessment Dickson reports he has not slept For a while, this is part of my I'm feeling like this, he also reports having nightmares of peoplle trying to kill him I wake up scared. Dickson reports that back in 2019 his of 42 years of marriage left him for another women and that has been Traumatic, I've been thinking about that lately. He reports he seeked out help, I know myself, he reports having 2 prior attempts back in 1991 where he took pill bottle was hospitalized for fourteen days, he reports that he was discharged and I still felt suicidal so I did it again, and was hospitalized for another fourteen days.
[2023-04-21 20:30] VITALS: BP 115/70; PULSE 68; RESP 18; TEMP 36; O2SAT 97
[2023-04-22 08:10] VITALS: BP 110/70; PULSE 88; RESP 18; TEMP 36.3; O2SAT 96
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
[2023-04-22 18:00] VITALS: BP 111/68; PULSE 70; RESP 18; TEMP 36.1; O2SAT 97
[2023-04-23 08:35] VITALS: BP 125/75; PULSE 114; RESP 18; TEMP 36.1; O2SAT 96
--- NOTE | 2023-04-23 08:45 | HO.PSYCHPN ---
Subjective Subjective Date of Service: 04/23/23 Reason For Visit: depression w/ psychosis Subjective Notes: Conditional Voluntary Interim History: Pt reports he is doing better. He denies depression and denies suicidal ideation plan or intent. Pt slept through the night. He had reported constipation but reports had BM, and feels better. No VH/AH. He denies thinking that people are following him. He has been more visible on the unit, social with select peers. Review of Systems Review of Systems Pt denies chest pain, no SOB, left shoulder pain, right elbow joint pain. Pt reports constipation, no vomiting, no nausea. No changes in vision. Mental Status Exam Mental Status Exam Narrative: Appearance:casually groomed, good hygiene, in NAD behavior:cooperative Psychomotor: no agitation or retardation noted Speech:clear, normal rate/rhythm/volume, spontaneous TP:mostly linear TC:feeling better, less AH/VH, less paranoia Mood: better Affect:blunted SI:denies HI:denies VH/AH:denies- no overt signs of psychosis Delusions:less paranoia ideas Insight/judgment:fair x 2. memory/cog: alert, oriented x 3. some gaps in memory when providing hx of treatment and other information but not formally tested. Diagnostics Vital Signs (24Hr): Vital Signs - 24 hr 04/22/23 18:00 04/23/23 08:35 Temperature 97 F 97.0 F Pulse Rate 70 114 H Respiratory Rate 18 18 Blood Pressure 111/68 125/75 Pulse Oximetry 97 96 Oxygen Delivery Method Room Air Room Air BMI result Body Mass Index 26.5 Labs 04/20/23 11:10 04/20/23 11:10 Labs: Laboratory Results - last 48 hr 04/22/23 07:52 Estimat Average Glucose 85 Hemoglobin A1c % 4.6 Magnesium 2.1 Triglycerides 89 Cholesterol 187 LDL Cholesterol, Calc 135 H HDL Cholesterol 35 L Vitamin B12 435 Folate 13.8 TSH 1.03 Free T4 1.08 Medications Medications Current Medications Acetaminophen (Acetaminophen 325 Mg Tablet) 650 mg PO Q6H PRN PRN Reason: Headache/Pain Mild Scale (1-3) Al Hydroxide/Mg Hydroxide (Magnesium Hydrox/Alum Hydrox 30 Ml Oral.Susp) 30 ml PO Q6H PRN PRN Reason: Heartburn/Nausea Escitalopram Oxalate (Escitalopram Oxalate 10 Mg Tablet) 10 mg PO DAILY [facility] Last Admin: 04/23/23 08:33 Dose: 10 mg Fluticasone Propionate (Fluticasone Propionate 250 Mcg Blst.W.Dev) 2 puff INHALE RBID [facility] Last Admin: 04/23/23 08:33 Dose: 2 puff Hydroxyzine HCl (Hydroxyzine Hcl 25 Mg Tablet) 25 mg PO Q6H PRN PRN Reason: Anxiety Magnesium Hydroxide (Milk Of Magnesia 30 Ml Oral.Susp) 30 ml PO DAILY PRN PRN Reason: Constipation Melatonin (Melatonin 3 Mg Tablet) 3 mg PO BEDTIME [facility] Last Admin: 04/22/23 20:45 Dose: 3 mg Pyridoxine HCl (Pyridoxine Hcl (Vitamin B6) 50 Mg Tablet) 100 mg PO DAILY [facility] Last Admin: 04/23/23 08:32 Dose: 100 mg Quetiapine Fumarate (Quetiapine Fumarate 25 Mg Tablet) 12.5 mg PO BID PRN PRN Reason: Anxiety Quetiapine Fumarate (Quetiapine Fumarate 50 Mg Tablet) 50 mg PO BEDTIME [facility] Last Admin: 04/22/23 20:45 Dose: 50 mg Trazodone HCl (Trazodone Hcl 50 Mg Tablet) 50 mg PO BEDTIME [id number] PRN PRN Reason: Insomnia Allergies Allergies Allergy/AdvReac Type Severity Reaction Status Date / Time No Known Allergies Allergy Verified 04/20/23 10:39 [No Known Allergies*] Assessment & Plan Assessment & Plan (1) MDD (major depressive disorder), recurrent, severe, with psychosis: Status: Acute Code(s): F33.3 - Major depressive disorder, recurrent, severe with psychotic symptoms Plan Mr. Dunn is 72 year-old male with hx of MDD with psychosis who called 911 reporting SI with plan to jump off 7th floor. Pt reports paranoid ideas of people trying to kill him and this exacerbating suicidal ideation. He reports paranoia is new- which daughter confirms. Pt and daughter report that pt has impulsive and explosive tendencies but less psychosis. However, per records from previous admission pt had presented with some psychosis. Utox is negative. We discussed risks, benefits and alternative treatment options. Pt agrees to continue seroquel and lexapro. PLAN 1. Admit to S1, CV, 15 minutes checks for safety increase seroquel bedtime to 75mg po qhs. continue morning seroquel 50mg po daily Reason for continued inpatient stay Substantial Risk for: inability to function Time Spent With Patient Time: Total time managing care of this patient today ____ minutes.
[2023-04-23 18:00] VITALS: BP 110/56; PULSE 65; RESP 18; TEMP 36.7; O2SAT 96
[2023-04-23] MEDS: QUEtiapine Fumarate 50 MG TABLET PO (20:36)
[2023-04-23] MEDS: Melatonin 3 MG TABLET PO (20:36)
[2023-04-24 07:00] VITALS: BMI 25.8
[2023-04-24 08:00] VITALS: BP 106/65; PULSE 77; RESP 16; TEMP 36.6; O2SAT 98
[2023-04-24] MEDS: Escitalopram Oxalate 10 MG TABLET PO (08:39)
[2023-04-24] MEDS: Pyridoxine HCl (Vitamin B6) 50 MG TABLET 100 MG PO (08:39)
--- NOTE | 2023-04-24 14:26 | P.PNPSI_ITS ---
Subjective Subjective Date of Service: 04/24/23 Reason For Visit: depression w/ psychosis Subjective Notes: Conditional Voluntary Interim History: Met with pt and DAVY Jack. Pt reports he feels fine. He denies depression or anxiety. He denies SI/HI. He reports his sleep is better and thinks this has helped in terms of his mood. He denies paranoia related to feeling like someone is trying to harm him. No behavioral concerns. Pt visible and social with select peers. Review of Systems Review of Systems Pt denies chest pain, no SOB, left shoulder pain, right elbow joint pain. Pt reports constipation, no vomiting, no nausea. No changes in vision. Mental Status Exam Mental Status Exam Narrative: Appearance:casually groomed, good hygiene, in NAD behavior:cooperative Psychomotor: no agitation or retardation noted Speech:clear, normal rate/rhythm/volume, spontaneous TP:mostly linear TC:feeling better, less AH/VH, less paranoia Mood: better Affect:blunted SI:denies HI:denies VH/AH:denies- no overt signs of psychosis Delusions:less paranoia ideas Insight/judgment:fair x 2. memory/cog: alert, oriented x 3. some gaps in memory when providing hx of treatment and other information but not formally tested. Diagnostics Vital Signs (24Hr): Vital Signs - 24 hr 04/23/23 18:00 04/24/23 08:00 Temperature 98.1 F 97.8 F Pulse Rate 65 77 Respiratory Rate 18 16 Blood Pressure 110/56 L 106/65 Pulse Oximetry 96 98 Oxygen Delivery Method Room Air Room Air BMI result Body Mass Index 25.8 Labs 04/20/23 11:10 04/20/23 11:10 Medications Medications Current Medications Acetaminophen (Acetaminophen 325 Mg Tablet) 650 mg PO Q6H PRN PRN Reason: Headache/Pain Mild Scale (1-3) Al Hydroxide/Mg Hydroxide (Magnesium Hydrox/Alum Hydrox 30 Ml Oral.Susp) 30 ml PO Q6H PRN PRN Reason: Heartburn/Nausea Escitalopram Oxalate (Escitalopram Oxalate 10 Mg Tablet) 10 mg PO DAILY [facility] Last Admin: 04/24/23 08:39 Dose: 10 mg Fluticasone Propionate (Fluticasone Propionate 250 Mcg Blst.W.Dev) 2 puff INHALE RBID [facility] Last Admin: 04/24/23 08:39 Dose: 2 puff Hydroxyzine HCl (Hydroxyzine Hcl 25 Mg Tablet) 25 mg PO Q6H PRN PRN Reason: Anxiety Magnesium Hydroxide (Milk Of Magnesia 30 Ml Oral.Susp) 30 ml PO DAILY PRN PRN Reason: Constipation Melatonin (Melatonin 3 Mg Tablet) 3 mg PO BEDTIME RAÚL Last Admin: 04/23/23 20:36 Dose: 3 mg Pyridoxine HCl (Pyridoxine Hcl (Vitamin B6) 50 Mg Tablet) 100 mg PO DAILY [facility] Last Admin: 04/24/23 08:39 Dose: 100 mg Quetiapine Fumarate (Quetiapine Fumarate 25 Mg Tablet) 12.5 mg PO BID PRN PRN Reason: Anxiety Quetiapine Fumarate (Quetiapine Fumarate 25 Mg Tablet) 75 mg PO BEDTIME RAÚL Trazodone HCl (Trazodone Hcl 50 Mg Tablet) 50 mg PO BEDTIME [id number] PRN PRN Reason: Insomnia Allergies Allergies Allergy/AdvReac Type Severity Reaction Status Date / Time No Known Allergies Allergy Verified 04/20/23 10:39 [No Known Allergies*] Assessment & Plan Assessment & Plan (1) MDD (major depressive disorder), recurrent, severe, with psychosis: Status: Acute Code(s): F33.3 - Major depressive disorder, recurrent, severe with psychotic symptoms Plan Mr. Dunn is 72 year-old male with hx of MDD with psychosis who called 911 reporting SI with plan to jump off 7th floor. Pt reports paranoid ideas of people trying to kill him and this exacerbating suicidal ideation. He reports paranoia is new- which daughter confirms. Pt and daughter report that pt has impulsive and explosive tendencies but less psychosis. However, per records from previous admission pt had presented with some psychosis. Utox is negative. We discussed risks, benefits and alternative treatment options. Pt agrees to continue seroquel and lexapro. PLAN 1. Admit to S1, CV, 15 minutes checks for safety increase seroquel bedtime to 75mg po qhs. continue morning seroquel 50mg po daily 04/24 continue tx. dc tomorrow. Reason for continued inpatient stay Substantial Risk for: inability to function Time Spent With Patient Time: Total time managing care of this patient today ____ minutes.
[2023-04-24 19:30] VITALS: BP 122/63; PULSE 70; RESP 16; TEMP 36.6; O2SAT 99
[2023-04-24] MEDS: QUEtiapine Fumarate 25 MG TABLET 75 MG PO (20:33)
[2023-04-24] MEDS: Melatonin 3 MG TABLET PO (20:33)
[2023-04-25 08:00] VITALS: BP 127/75; PULSE 76; RESP 16; TEMP 36.1; O2SAT 96
[2023-04-25] MEDS: Escitalopram Oxalate 10 MG TABLET PO (08:00)
[2023-04-25] MEDS: Pyridoxine HCl (Vitamin B6) 50 MG TABLET 100 MG PO (08:00)
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
--- NOTE | 2023-04-25 11:18 | PC.NURSE ---
Patient expresses readiness for d/c. All instructions/follow up appointments reviewed with daughter. All belongings reviewed and returned. Patient dressed neatly. Denies pain, SI/HI. Escorted to car by TW.
== END 2023-04-25 11:10 | disposition home or self-care (01) | DRG 885 ==
LOC: HO.ED 11:22 → HO.PGERI 04-21 16:07
PROVIDERS: Admitting Provider Psychiatry & Neurology Psychiatry; Emergency Provider Emergency Medicine; PCP Internal Medicine; Visit Provider Psychiatry & Neurology Psychiatry
DX: F33.3 Major depressive disorder, recurrent, severe with psychotic symptoms (principal); E78.00 Pure hypercholesterolemia, unspecified; F43.10 Post-traumatic stress disorder, unspecified; Z20.822 Contact with and (suspected) exposure to COVID-19; Z79.51 Long term (current) use of inhaled steroids; Z79.899 Other long term (current) drug therapy
CPT/HCPCS: 36415; 80048; 80061; 80076; 80307; 81003; 82607; 82746; 83036; 83735; 84439; 84443; 85025; 87635; 93005; 99285; S9485

== ENCOUNTER → 2023-04-21 16:04 | Outpatient (BNV) | payer MEDICARE, MEDICAID, SELFPAY | PROVIDERS: Admitting Provider Psychiatry & Neurology Psychiatry; Emergency Provider Emergency Medicine; PCP Internal Medicine; Visit Provider Social Worker | DX: F33.3 Major depressive disorder, recurrent, severe with psychotic symptoms (principal) | CPT/HCPCS: 90792; 99231; 99232; 99239 ==

== ENCOUNTER 2023-05-07 11:19 | Emergency (ER) | payer MEDICARE, MEDICAID, SELFPAY ==
[2023-05-07 11:29] VITALS: BP 138/70; PULSE 74; O2SAT 98
[2023-05-07 11:31] VITALS: BP 148/79; PULSE 89; RESP 20; TEMP 36.8; O2SAT 97
[2023-05-07 12:13] VITALS: BMI 25.0
--- NOTE | 2023-05-07 13:15 | ED.GENADULT ---
HPI - General Adult General Chief complaint: General Medical Stated complaint: ANXIETY,DIZZY PER EMS Time Seen by Provider: 05/07/23 12:36 Source: patient, EMS and RN notes reviewed Mode of arrival: EMS Limitations: no limitations History of Present Illness HPI narrative: Patient is a 72-year-old male with history of asthma, HTN, hypercholesterolemia, GERD, PTSD, depression, anxiety presenting to the emergency department with complaint of feeling anxious and jittery for the past several days. Reports that he has had minor falls due to loss of balance but denies head strike or loss of consciousness. States that he was walking outdoors and saw his shadow and became scared so he kicked at it and then realized that it was his own shadow. Denies any thoughts of suicidal or homicidal ideation. Denies any auditory or visual hallucinations. Reports intermittent episodes of sudden onset dizziness which he describes as the room spinning. Reports history of same in the past and states that he was prescribed medication but that his insurance would not cover the medication so he is not using it. Denies any nausea or vomiting. He denies any chest pain, shortness of breath, palpitations. Reports recent admission for depression. States he has been taking all medications as prescribed. MD complaint: anxiety Onset (ago): day(s) Associated symptoms: other (dizziness) Treatments prior to arrival: none Related Data Home Medications Medication Instructions Recorded Confirmed fluticasone propionate 220 2 puff inhalation BID 04/20/23 04/20/23 mcg/actuation HFA aerosol inhaler (Flovent HFA) pyridoxine (vitamin B6) 100 mg 100 mg PO DAILY 04/20/23 04/20/23 tablet Previous Rx's Medication Instructions Recorded escitalopram oxalate 10 mg tablet 10 mg PO DAILY #30 tabs 04/25/23 melatonin 3 mg tablet 3 mg PO BEDTIME #30 tabs 04/25/23 quetiapine 100 mg tablet 100 mg PO BEDTIME #30 tabs 04/25/23 quetiapine 25 mg tablet 25 mg PO BID PRN Anxiety #60 tabs 04/25/23 meclizine 12.5 mg tablet 12.5 mg PO BID PRN dizziness #10 05/07/23 tabs Allergies Allergy/AdvReac Type Severity Reaction Status Date / Time No Known Allergies Allergy Verified 04/20/23 10:39 [No Known Allergies*] Review of Systems Review of Systems: As per HPI. Yes all other systems are reviewed and are negative Constitutional: Constitutional: Reports as per HPI [facility] Past Medical History Medical History Allergic rhinitis Post traumatic stress disorder Depression Hypercholesterolemia HTN (hypertension) GERD (gastroesophageal reflux disease) Anxiety COVID-19 Asthma Surgical History History of surgery Social History Social History Household Members: None Housing: Apartment Do you presently have visiting nurse or other home services: No Unable to assess alcohol history related to: Unknown Alcohol intake: never Patient Tobacco Use Status: Never used Tobacco Smoked in Last 30 Days: No e-Cigarette/Vaping Use: Never Used Use of substances other than those prescribed or required for medical reasons: Unknown Advance Directives: No service: No Current occupational status: retired Sexual orientation: Straight/Heterosexual Physical Exam ED Vital Signs: Vital Signs - 24 hr 05/07/23 11:31 Temperature 98.3 F Pulse Rate 89 Respiratory Rate 20 Blood Pressure 148/79 H Pulse Oximetry 97 Oxygen Delivery Method Room Air BMI result Body Mass Index 25.0 Vital signs have been reviewed and appear to be correct. Blood pressure elevated. Heart rate normal. Respiratory rate normal. Temperature normal. Oxygen saturation normal. Const General: cooperative, healthy appearing and no acute distress Orientation/consciousness: oriented to person, oriented to place, oriented to time and patient oriented x3 Limitations: no limitations HENMT Head: Yes normocephalic and Yes atraumatic Ears: external ears normal General nose exam: Normal external nose present Face and sinus: Yes face symmetric Mouth: oropharynx normal and moist mucous membranes Throat: Yes uvula midline Eyes Pupils: Equal, round and reactive pupils present EOM: EOMs intact bilaterally and No Nystagmus present Neck Neck: Yes normal visual inspection and Yes supple Resp Effort & Inspection: normal respiratory effort and able to speak in complete sentences Auscultation: clear to auscultation bilaterally Cardio Rate: regular rate Rhythm: regular rhythm Heart sounds: S1 normal heart sound present and S2 normal heart sound present GI Palpation (GI): Soft to palpation and nontender Auscultation: normoactive bowel sounds General: Yes no CVA tenderness Back/Spine/Pelvis Back: no CVA tenderness Skin General skin exam: elasticity normal and turgor normal Neuro General: oriented to person, oriented to place, oriented to time, patient oriented x3, gait normal, tone normal, moves all extremities, no focal motor deficits and CN's II-XI intact bilaterally Cranial nerves: Yes Equal, round and reactive pupils present and No Nystagmus present Cognition (Neuro): normal cognition Motor exam (neuro): 5/5 motor strength present throughout, Pronator motor function not present, Normal motor muscle tone present throughout and Motor abnormalities not present Sensory Exam: Normal double simultaneous stimulation for sensation Extrem General: Yes full ROM, Yes no pedal edema and Yes no calf tenderness Psych Mental Status: mental status grossly normal Affect: normal affect Thought process: Normal thought process present Medications Administered Discontinued Medications Generic Name Dose Route Start Last Admin Trade Name Freq PRN Reason Stop Dose Admin Meclizine HCl 25 mg 05/07/23 13:34 05/07/23 13:47 Meclizine Hcl 25 Mg Tablet PO 05/07/23 13:35 25 mg ONCE ONE Administration Medical Decision Making Medical Decision Making [facility] Narrative: Patient is a 72-year-old male with history of asthma, HTN, hypercholesterolemia, GERD, PTSD, depression, anxiety presenting to the emergency department with complaint of feeling anxious and jittery for the past several days. On exam patient is awake, A+Ox3, VS WNL, afebrile, normal neurological exam without focal deficits, physical exam findings as above. Given reported symptoms and physical exam findings, initial differential includes acute anxiety, electrolyte abnormality, BPPV. Do not suspect central cause. Will medicate patient with meclizine and reassess. Labs notable for no leukocytosis, anemia, no significant electrolyte abnormalities. Patient reports resolution of dizziness and reduction in anxiety after receiving meclizine. Feel symptoms are likely related to his anxiety. Will discharge patient home with prescription for meclizine. Instructed him to follow-up with his therapist and primary care provider. Return precautions discussed at bedside. Patient verbalized understanding of and agreement with plan. Differential Diagnosis Differential Diagnoses: The differential diagnosis associated with the presentation includes As per MDM. Lab Data [facility] Lab Attestation statement: I reviewed the patient's lab results. As per MDM. 05/07/23 14:47 05/07/23 14:47 Labs: Lab Results 05/07/23 Range/Units 14:47 WBC 6.9 (4.8-10.8) X10*3/uL RBC 4.62 (4.60-5.80) X10*6/uL Hgb 14.9 (14.0-18.0) g/dl Hct 42.7 (42.0-52.0) % MCV 92.4 (80.0-98.0) fL MCH 32.3 (27.0-33.0) pg MCHC 34.9 (31.0-36.0) g/dl RDW 11.5 (11.0-16.0) % Plt Count 272 (160-400) X10*3/uL MPV 8.4 L (9.4-12.4) fL Immature Gran % (Auto) 1.4 H (0.0-0.4) % Neut % (Auto) 65.0 (45-73) % Lymph % (Auto) 26.8 (20-40) % [place] % (Auto) 5.5 (2-11) % Eos % (Auto) 1.0 (0-4) % Baso % (Auto) 0.3 (0-2) % Lymph # (Auto) 1.9 (1.2-4.9) X10*3/uL [place] # (Auto) 0.4 (0.1-1.2) X10*3/uL Eos # (Auto) 0.1 (0.0-0.4) X10*3/uL Baso # (Auto) 0.0 (0.0-0.2) X10*3/uL Abs Immat Gran (auto) 0.10 H (0.00-0.03) X10*3/uL Absolute Neuts (auto) 4.5 (2.0-8.3) x10*3/uL Absolute Nucleated RBC 0.000 (0.0-0.012) X10*3/uL Nucleated RBC % (auto) 0.0 (0.0-0.2) /100WBC Sodium 140 (135-145) mmol/L Potassium 4.1 (3.3-5.1) mmol/L Chloride 109 H (96-108) mmol/L Carbon Dioxide 23 (22-29) mmol/L Anion Gap 12 (12-20) BUN 17 H (9-16) mg/dL Creatinine 0.80 (0.5-1.4) mg/dL Estim Creat Clear Calc 73.6 Estimated GFR > 60 Random Glucose 95 (60-115) mg/dL Calcium 9.5 (8.4-10.2) mg/dL External Record Review External record reviewed: Inpatient record, Office record and Outpatient record Prescription Management I considered prescription management with: Other Discharge Plan Discharge Clinical Impression: Acute anxiety Patient Disposition: Home, Self-Care Instructions: Anxiety (ED) Additional Instructions: Hoy lo evaluaron en el departamento de emergencias por ansiedad y mareos. Tess s?ntomas mejoraron en el departamento de emergencias con un medicamento llamado meclizina. Le recetaron jose medicamento para usar en casa y la receta se envi? a polio callus en bishop farmacia. Barb un seguimiento con bishop proveedor de atenci?n primaria y con bishop terapeuta esta semana. Regrese al departamento de emergencias si presenta un empeoramiento de la ansiedad, pensamientos de lastimarse a s? mismo o a alguien m?s, alucinaciones auditivas o visuales, o cualquier otro s?ntoma preocupante. Benjamin los medicamentos que le recetan regularmente seg?n las indicaciones. Prescriptions: New meclizine 12.5 mg tablet 12.5 mg PO BID PRN (Reason: dizziness) Qty: 10 0RF No Action fluticasone propionate [Flovent HFA] 220 mcg/actuation HFA aerosol inhaler 2 puff INHALATION BID pyridoxine (vitamin B6) 100 mg tablet 100 mg PO DAILY quetiapine 25 mg Tablet 25 mg PO BID PRN (Reason: Anxiety) Qty: 60 0RF escitalopram oxalate 10 mg Tablet 10 mg PO DAILY Qty: 30 0RF quetiapine 100 mg tablet 100 mg PO BEDTIME Qty: 30 0RF melatonin 3 mg Tablet 3 mg PO BEDTIME Qty: 30 0RF Print Language: Croatian
[2023-05-07] MEDS: Meclizine HCl 25 MG TABLET PO (13:47)
[2023-05-07 14:50] LABS: MANUAL DIFF FLAG NO
[2023-05-07 14:52] LABS: Basophils Percent Auto 0.3 % (0-2); Eosinophils Absolute Auto 0.1 X10*3/uL (0.0-0.4); Hematocrit 42.7 % (42.0-52.0); Hemoglobin 14.9 g/dl (14.0-18.0); Imm Gran Pct Auto 1.4 % (0.0-0.4); Lymphocytes Absolute Auto 1.9 X10*3/uL (1.2-4.9); Lymphocytes Percent Auto 26.8 % (20-40); Mean Corpuscular HGB Conc 34.9 g/dl (31.0-36.0); Mean Corpuscular Hemoglobin 32.3 pg (27.0-33.0); Mean Corpuscular Volume 92.4 fL (80.0-98.0); Mean Platelet Volume 8.4 fL (9.4-12.4); Monocytes Absolute Auto 0.4 X10*3/uL (0.1-1.2); Monocytes Percent Auto 5.5 % (2-11); Neutrophils Absolute Auto 4.5 x10*3/uL (2.0-8.3); Platelet Count 272 X10*3/uL (160-400); Red Blood Count 4.62 X10*6/uL (4.60-5.80); Red Cell Distribution Width 11.5 % (11.0-16.0); White Blood Count 6.9 X10*3/uL (4.8-10.8)
[2023-05-07 15:05] LABS: Anion Gap 12 (12-20); Blood Urea Nitrogen 17 mg/dL (9-16); Calcium 9.5 mg/dL (8.4-10.2); Carbon Dioxide 23 mmol/L (22-29); Chloride 109 mmol/L (96-108); Creatinine Clr Calc Pharmacy 73.6; Estimated Glomerular Filt Rate > 60; Glucose Random 95 mg/dL (60-115); Potassium 4.1 mmol/L (3.3-5.1); Sodium 140 mmol/L (135-145)
[2023-05-07 15:46] VITALS: BP 144/62; PULSE 72; RESP 16; TEMP 36.6; O2SAT 97
--- NOTE | 2023-05-07 16:08 | PC.NURSE ---
pt dc'd with his daughter
== END 2023-05-07 16:10 | disposition home or self-care (01) ==
PROVIDERS: Registered Nurse Emergency; Emergency Provider Emergency Medicine
DX: F41.9 Anxiety disorder, unspecified (principal); I10 Essential (primary) hypertension; E78.00 Pure hypercholesterolemia, unspecified; K21.9 Gastro-esophageal reflux disease without esophagitis; F32.A Depression, unspecified; F43.10 Post-traumatic stress disorder, unspecified
CPT/HCPCS: 36415; 80048; 85025; 99283; 99284

== ENCOUNTER 2023-05-22 13:48 | Emergency (ER) | payer MEDICARE, MEDICAID, SELFPAY ==
[2023-05-22 14:07] VITALS: BP 132/68; PULSE 98; O2SAT 97
[2023-05-22 14:52] VITALS: BMI 23.0
--- NOTE | 2023-05-22 16:10 | ECG_ITS ---
Test Reason : SI Blood Pressure : / mmHG Vent. Rate : 061 BPM Atrial Rate : 061 BPM P-R Int : 134 ms QRS Dur : 088 ms QT Int : 414 ms P-R-T Axes : 032 -05 053 degrees QTc Int : 416 ms Normal sinus rhythm Low voltage QRS Normal ECG When compared with ECG of 20-APR-2023 10:56, No significant change was found Referred By: Billie Harris Electronically Signed By:ALEXA DIANE MD
--- NOTE | 2023-05-22 16:11 | ED_ITS ---
HPI - Psych General Chief Complaint: Psychiatric Symptoms Stated Complaint: ANXIETY X 1 MONTH Time Seen by Provider: 05/22/23 16:02 Source: patient and family Mode of arrival: ambulatory Limitations: no limitations History of Present Illness HPI Narrative: patient comes to the emergency room accompanied by family. Patient complaining of anxiety for 1 month, gradually getting worse. Patient has already been seen by his therapist and Psychiatry and is with medication treatment. However, the main reason that patient was brought to the emergency room is because over the last few weeks, patient has fallen 3 times, last time today. Patient states that he did not hit his head or lost consciousness. Patient states a gradually he has noted that his lower extremities are weaker, denies numbness or tingling, no saddle anesthesia, no urinary / fecal incontinence or retention. Denies chest pain or shortness of breath. Related Data Home Medications Medication Instructions Recorded Confirmed fluticasone propionate 220 2 puff inhalation BID 04/20/23 04/20/23 mcg/actuation HFA aerosol inhaler (Flovent HFA) pyridoxine (vitamin B6) 100 mg 100 mg PO DAILY 04/20/23 04/20/23 tablet Previous Rx's Medication Instructions Recorded escitalopram oxalate 10 mg tablet 10 mg PO DAILY #30 tabs 04/25/23 melatonin 3 mg tablet 3 mg PO BEDTIME #30 tabs 04/25/23 quetiapine 100 mg tablet 100 mg PO BEDTIME #30 tabs 04/25/23 quetiapine 25 mg tablet 25 mg PO BID PRN Anxiety #60 tabs 04/25/23 meclizine 12.5 mg tablet 12.5 mg PO BID PRN dizziness #10 05/07/23 tabs Allergies Allergy/AdvReac Type Severity Reaction Status Date / Time No Known Allergies Allergy Verified 04/20/23 10:39 [No Known Allergies*] Review of Systems 2 Review of Systems: Constitutional : No Weight loss, No Fever, No Chills, No Night Sweats, No Fatigue, No Malaise ENT/Mouth : No Hearing loss, No Ear Pain, No Nasal Congestion, No Sinus Pain, No Hoarseness, No sore throat, No Rhinorrhea, No Swallowing Difficulty Eyes: No Eye Pain, No Swelling, No Redness, No Foreign Body, No Discharge, No Vision Changes Cardiovascular : No Chest Pain, No SOB, No Dyspnea on Exertion, No Orthopnea, No Edema, No Palpitations Respiratory : No Cough, No Sputum, No Wheezing, No Smoke Exposure, No Dyspnea Gastrointestinal : No Nausea, No Vomiting, No Diarrhea, No Constipation, No abdominal Pain, No Hematochezia, No Melena Genitourinary : no irregular bleeding, No Dysuria, No Urinary Frequency, No Hematuria, No Urinary Incontinence, No Urgency, No Flank Pain, No Urinary Flow Changes, No Hesitancy Musculoskeletal : No joint pain, No Myalgias, No Joint Swelling Skin : No Skin Lesions, No rash Neuro : Complaining of worsening lower extremity weakness, multiple falls, still able to walk No Numbness, No Paresthesias, No Loss of Consciousness, No Dizziness, No Headache Psych : Complaining of anxiety and depression, patient denied SI or HI, although he told his nurse that he was suicidal, not homicidal. Heme/Lymph: No Bruising, No Bleeding,No Lymphadenopathy Endocrine : No Polyuria, No Polydipsia, No Temperature Intolerance PMFSH Past Medical History Medical History Allergic rhinitis Post traumatic stress disorder Depression Hypercholesterolemia HTN (hypertension) GERD (gastroesophageal reflux disease) Anxiety COVID-19 Asthma Surgical History History of surgery Social History Social History Household Members: None Housing: Apartment Do you presently have visiting nurse or other home services: No Unable to assess alcohol history related to: Unknown Alcohol intake: former Patient Tobacco Use Status: Never used Tobacco Smoked in Last 30 Days: No e-Cigarette/Vaping Use: Never Used Use of substances other than those prescribed or required for medical reasons: No Advance Directives: No Advance Directives Information Provided: Yes Healthcare Proxy: No Guardian: No service: No Current occupational status: retired Sexual orientation: Straight/Heterosexual Physical Exam 2 Vital Signs: Vital Signs: Last Vital Signs Temp 98.2 F 05/22/23 17:19 Pulse 65 05/22/23 17:19 Resp 16 05/22/23 17:19 BP 134/79 05/22/23 17:19 Pulse Ox 96 05/22/23 17:19 O2 Del Method Room Air 05/22/23 17:19 BMI result Body Mass Index 23.0 Const: Other: Appearance: Alert. Oriented X3. No acute distress. well-appearing Eyes: Pupils equal, round and reactive to light. ENT: Pharynx normal. Neck: Normal inspection. Neck supple. No lymph nodes noted. No crepitus CVS: Normal heart rate and rhythm. Pulses normal. Normal S1 and S2 Respiratory: No respiratory distress. Breath sounds normal. No Wheezing. No rales Abdomen: Soft and nontender. No rigidity. No distention. Skin: Skin warm and dry. Normal skin color. Normal skin turgor. Extremities: No lower extremity edema. No Lacerations. No Rash Neuro: Oriented X 3. No motor deficit. No sensory deficit. Moving all extremities. No slurred speech. CN 2 through 12 grossly intact Psych: calm, cooperative, normal affect Course Course Course Narrative: - Patient has a psychiatrist - labs and CT head pending Medical Decision Making Medical Decision Making [facility] Narrative: - My interpretation of labs: Hematology and chemistry at baseline, urinalysis negative. Head CT pending -the patient was evaluated by the care team, seems that patient spoke to the family and said he had suicidal ideation, jumping off a building. However, patient states that he did this because of feeling anxious. The care team evaluated the patient, patient is safe to be discharged home when medically cleared. I was asked to write a small prescription of Ativan for the patient until he is seen by his therapist a psychiatrist which he already has - I was informed by the patient's nurse that family member picked him up without being formally discharged they are calling the family now on asking them to have the patient return - my interpretation of CT scan: No intracranial bleed, no obvious masses. - Radiology report of CT scan pending - patient eloped, patient's nurse asked him to come to the emergency room, patient said that he refuses to return to the emergency room. The workup is not complete yet, therefore, I will not be sending medication to the patient's pharmacy Differential Diagnosis Differential Diagnoses: The differential diagnosis associated with the presentation includes ( anxiety, depression, UTI) Admission/Observation Consideration of admission/observation: Escalation of care including admission/observation considered ( given patient's symptoms, admission was considered on arrival.) Lab Data [facility] Lab Attestation statement: I reviewed the patient's lab results. 05/22/23 17:29 05/22/23 17:29 Labs: Lab Results 05/22/23 05/22/23 Range/Units 17:24 17:29 WBC 6.2 (4.8-10.8) X10*3/uL RBC 4.36 L (4.60-5.80) X10*6/uL Hgb 14.2 (14.0-18.0) g/dl Hct 41.6 L (42.0-52.0) % MCV 95.4 (80.0-98.0) fL MCH 32.6 (27.0-33.0) pg MCHC 34.1 (31.0-36.0) g/dl RDW 11.7 (11.0-16.0) % Plt Count 262 (160-400) X10*3/uL MPV 9.0 L (9.4-12.4) fL Immature Gran % (Auto) 0.8 H (0.0-0.4) % Neut % (Auto) 56.9 (45-73) % Lymph % (Auto) 34.6 (20-40) % [place] % (Auto) 6.1 (2-11) % Eos % (Auto) 1.3 (0-4) % Baso % (Auto) 0.3 (0-2) % Lymph # (Auto) 2.1 (1.2-4.9) X10*3/uL [place] # (Auto) 0.4 (0.1-1.2) X10*3/uL Eos # (Auto) 0.1 (0.0-0.4) X10*3/uL Baso # (Auto) 0.0 (0.0-0.2) X10*3/uL Abs Immat Gran (auto) 0.05 H (0.00-0.03) X10*3/uL Absolute Neuts (auto) 3.5 (2.0-8.3) x10*3/uL Absolute Nucleated RBC 0.000 (0.0-0.012) X10*3/uL Nucleated RBC % (auto) 0.0 (0.0-0.2) /100WBC Sodium 142 (135-145) mmol/L Potassium 4.4 (3.3-5.1) mmol/L Chloride 112 H (96-108) mmol/L Carbon Dioxide 21 L (22-29) mmol/L Anion Gap 13 (12-20) BUN 21 H (9-16) mg/dL Creatinine 0.81 (0.5-1.4) mg/dL Estim Creat Clear Calc 85.8 Estimated GFR > 60 Random Glucose 134 H (60-115) mg/dL Calcium 9.0 (8.4-10.2) mg/dL Magnesium 2.2 (1.6-2.6) mg/dL Total Bilirubin 0.2 (0.0-1.0) mg/dL Direct Bilirubin < 0.2 (0.0-0.5) mg/dL AST 40 H (5-37) U/L ALT 25 (0-40) U/L Alkaline Phosphatase 47 (39-117) U/L Total Protein 6.8 (6.5-8.0) g/dL Albumin 3.9 (3.5-5.0) g/dL Urine Color Yellow Urine Appearance Clear Urine pH 6.0 (5.0-9.0) Ur Specific [place] <= 1.005 (1.005-1.025) Urine Protein Negative (Neg-Trace) mg/dL Urine Glucose (UA) Negative (Negative) mg/dL Urine Ketones Negative (Negative) mg/dL Urine Blood Negative (Negative) Urine Nitrite Negative (Negative) Ur Leukocyte Esterase Negative (Negative) Urine Opiates Screen Not Detected (Not Detect) Urine Fentanyl Screen Not Detected (Not Detect) Ur Barbiturates Screen Not Detected (Not Detect) Ur Phencyclidine Scrn Not Detected (Not Detect) Ur Amphetamines Screen Not Detected (Not Detect) U Benzodiazepines Scrn Not Detected (Not Detect) Urine Cocaine Screen Not Detected (Not Detect) U Marijuana (THC) Screen Not Detected (Not Detect) Ethyl Alcohol < 10 mg/dL Independent Interpretation I performed an independent interpretation of an: CT Scan ( my interpretation of head CT: No obvious intracranial bleed or masses) Critical Care Time Critical Care Time Critical Care Time: Yes Total Critical Care Time: 60 Attestation: I have personally provided critical care time. Time includes review of lab data, radiology results, discussion with consultants, and monitoring for potential decompensation. Intervention performed as documented. Discharge Plan Discharge Clinical Impression: Anxiety, Depression, Recurrent falls Patient Disposition: Elopement Prescriptions: No Action meclizine 12.5 mg tablet 12.5 mg PO BID PRN (Reason: dizziness) Qty: 10 0RF fluticasone propionate [Flovent HFA] 220 mcg/actuation HFA aerosol inhaler 2 puff INHALATION BID pyridoxine (vitamin B6) 100 mg tablet 100 mg PO DAILY quetiapine 25 mg Tablet 25 mg PO BID PRN (Reason: Anxiety) Qty: 60 0RF escitalopram oxalate 10 mg Tablet 10 mg PO DAILY Qty: 30 0RF quetiapine 100 mg tablet 100 mg PO BEDTIME Qty: 30 0RF melatonin 3 mg Tablet 3 mg PO BEDTIME Qty: 30 0RF Interventions: [place]-Suicide Risk Severity Scale Last Done: 05/22/23 14:54
[2023-05-22 17:19] VITALS: BP 134/79; PULSE 65; RESP 16; TEMP 36.8; O2SAT 96
--- NOTE | 2023-05-22 17:33 | MHC.EDTECH ---
This pct assumed care of Pt at 1500 ,vitals taken ,pt was address change clerk into green gown and blue Pants ,all Belonings are locked up in Pod,Locker # 11 ,ekg taken and was read by Dr Harris ,blood drawn including sample collected and sent to lab ,Pt was hungry ally crackers ,Pudding and markel kaya given for snack .
[2023-05-22 17:34] LABS: MANUAL DIFF FLAG NO
[2023-05-22 17:36] LABS: Appearance Urine Clear; Color Urine Yellow; Glucose Urine UA Negative (Negative); Leukocyte Esterase Urine Negative (Negative); Nitrite Urine Negative (Negative); Specific Gravity - Urine <= 1.005 (1.005-1.025); Urine Blood Negative (Negative); Urine Ketones Negative (Negative); Urine Protein Negative (Neg-Trace)
[2023-05-22 17:42] LABS: Amphetamine Screen Urine Not Detected (Not Detect); Barbiturates, Urine Not Detected (Not Detect); Benzodiazepines Screen Urine Not Detected (Not Detect); Cannabinoid Screen Urine Not Detected (Not Detect); Cocaine Screen Urine Not Detected (Not Detect); Fentanyl, urine Not Detected (Not Detect); Opiate Screen Urine Not Detected (Not Detect); Phencyclidine Screen Urine Not Detected (Not Detect)
[2023-05-22 17:43] LABS: Basophils Percent Auto 0.3 % (0-2); Eosinophils Absolute Auto 0.1 X10*3/uL (0.0-0.4); Eosinophils Percent Auto 1.3 % (0-4); Hematocrit 41.6 % (42.0-52.0); Hemoglobin 14.2 g/dl (14.0-18.0); Imm Gran Abs Auto 0.05 X10*3/uL (0.00-0.03); Imm Gran Pct Auto 0.8 % (0.0-0.4); Lymphocytes Absolute Auto 2.1 X10*3/uL (1.2-4.9); Lymphocytes Percent Auto 34.6 % (20-40); Mean Corpuscular HGB Conc 34.1 g/dl (31.0-36.0); Mean Corpuscular Hemoglobin 32.6 pg (27.0-33.0); Mean Corpuscular Volume 95.4 fL (80.0-98.0); Monocytes Absolute Auto 0.4 X10*3/uL (0.1-1.2); Monocytes Percent Auto 6.1 % (2-11); Neutrophils Absolute Auto 3.5 x10*3/uL (2.0-8.3); Neutrophils Percent Auto 56.9 % (45-73); Platelet Count 262 X10*3/uL (160-400); Red Blood Count 4.36 X10*6/uL (4.60-5.80); Red Cell Distribution Width 11.7 % (11.0-16.0); White Blood Count 6.2 X10*3/uL (4.8-10.8)
[2023-05-22 17:52] LABS: Ethanol < 10 mg/dL
[2023-05-22 17:54] LABS: Alanine Aminotransferase 25 U/L (0-40); Albumin Level 3.9 g/dL (3.5-5.0); Alkaline Phosphatase 47 U/L (39-117); Anion Gap 13 (12-20); Aspartate Amino Transferase 40 U/L (5-37); Bilirubin Direct < 0.2 mg/dL (0.0-0.5); Bilirubin Total 0.2 mg/dL (0.0-1.0); Blood Urea Nitrogen 21 mg/dL (9-16); Carbon Dioxide 21 mmol/L (22-29); Chloride 112 mmol/L (96-108); Creatinine Clr Calc Pharmacy 85.8; Estimated Glomerular Filt Rate > 60; Glucose Random 134 mg/dL (60-115); Magnesium 2.2 mg/dL (1.6-2.6); Potassium 4.4 mmol/L (3.3-5.1); Sodium 142 mmol/L (135-145); Total Protein 6.8 g/dL (6.5-8.0)
--- NOTE | 2023-05-22 18:05 | PC.NURSE ---
Alert and oriented, denies pain or discomfort at this time, changed over into hospital attire, belongings locked in locker 11 in pod
--- NOTE | 2023-05-22 20:12 | MHC.EDTECH ---
Family member was at bedside ,and was told by JESSICA art result of c t scan was pending with a Possibility of discharge ,Clothes was given to family member and was told to wait for discharge Paper work and for the Provider to come speak to them ,family member got Patient dress and elpoed with Patient ,Emergency contact was called ,asking to bring Patient back ,Because he was not yet discharge ,But emergency contact is stating that the Patient is refusing to come back to the hospital ,Emergency contact stated that the Patient is at home in bed .
--- NOTE | 2023-05-22 20:31 | PC.NURSE ---
pt eloped with family member. Family member informed that pt has to wait to talk to the doctor on pending ct-scan and d/c papers. Dr. Harris aware
== END 2023-05-22 20:45 | disposition left against medical advice (07) ==
PROVIDERS: Emergency Provider Emergency Medicine; PCP Internal Medicine
DX: F41.9 Anxiety disorder, unspecified (principal); F32.A Depression, unspecified; R29.6 Repeated falls; F43.10 Post-traumatic stress disorder, unspecified; I10 Essential (primary) hypertension; E78.00 Pure hypercholesterolemia, unspecified; Z79.899 Other long term (current) drug therapy
CPT/HCPCS: 36415; 70450; 80048; 80076; 80307; 81003; 83735; 85025; 93005; 99284; 99285; S9485

== ENCOUNTER 2023-06-30 08:01 | Outpatient (REF) | payer MEDICARE, MEDICAID, SELFPAY ==
[2023-06-30 12:07] LABS: Blood Urea Nitrogen 19 mg/dL (9-16)
== END 2023-06-30 08:02 | disposition home or self-care (01) ==
LOC: HO.HHCL 08:01
PROVIDERS: Visit Provider Nurse Practitioner Family
DX: N28.1 Cyst of kidney, acquired (principal); N20.0 Calculus of kidney
CPT/HCPCS: 36415; 84520

== ENCOUNTER 2023-07-01 08:44 | Outpatient (REF) | payer MEDICARE, MEDICAID, SELFPAY ==
--- NOTE | ~2023-07-01 | XR_ITS ---
EXAMINATION: XR SHOULDER, LEFT CLINICAL INFORMATION: Left shoulder pain for 6 months. COMPARISON: None available. TECHNIQUE: AP external rotation, Grashey, scapular Y, and axillary views of the left shoulder. FINDINGS: Acromioclavicular joint: Moderate osteoarthritis with marginal osteophytes and subchondral cystic change. Glenohumeral joint normal. Surrounding bone and soft tissues normal. XR/XR shoulder LT min 2V IMPRESSION: Moderate osteoarthritis of the left acromioclavicular joint.
== END 2023-07-01 08:45 | disposition home or self-care (01) ==
LOC: HO.HHCX 08:44
PROVIDERS: Visit Provider Internal Medicine
DX: M25.512 Pain in left shoulder (principal); G89.29 Other chronic pain
CPT/HCPCS: 73030

== ENCOUNTER 2023-07-03 07:20 | Emergency (ER) | payer MEDICARE, MEDICAID, SELFPAY ==
--- NOTE | ~2023-07-03 | XR_ITS ---
EXAMINATION: XR CHEST CLINICAL INFORMATION: Chest tightness COMPARISON: Chest radiograph from 05/22/2022 TECHNIQUE: 2 views of the chest were obtained. FINDINGS: Chronic interstitial prominence. No pneumothorax. Trachea is midline. Cardiac mediastinal silhouette is not enlarged. No large pleural effusion. Slight dextrocurvature of the thoracic spine with multilevel degenerative changes. Soft tissues are unremarkable. XR/XR chest 2V IMPRESSION: No acute cardiopulmonary process.
[2023-07-03 07:24] VITALS: BP 119/79; PULSE 63; O2SAT 98
[2023-07-03 07:47] VITALS: BP 116/77; PULSE 60; RESP 14; TEMP 36.6; O2SAT 99; BMI 29.3
--- NOTE | 2023-07-03 07:48 | ED.GENADULT ---
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 Patient reports waking up this morning feeling fine. Upon standing up and walking to the kitchen, he reports feeling dizzy, described as a room spinning sensation, felt a tightness in his chest, and felt his legs get weak. He reports falling to the left onto the cough. Denies head strike or LOC. This episode lasted approximately 10 seconds before completely resolving. Reports immediately calling EMS. He denies chest pain/tightness at present however endorses some dizziness. Denies fever, chills, vision changes, neck or back pain, palpitations, SOB, nausea or vomiting. Denies recent travel or long car rides. Not on AC. Patient has been taking tamsulosin for renal calculi over the last year. Reports taking this prior to getting up this morning. Related Data Home Medications Medication Instructions Recorded Confirmed fluticasone propionate 220 2 puff inhalation BID 04/20/23 04/20/23 mcg/actuation HFA aerosol inhaler (Flovent HFA) pyridoxine (vitamin B6) 100 mg 100 mg PO DAILY 04/20/23 04/20/23 tablet Previous Rx's Medication Instructions Recorded escitalopram oxalate 10 mg tablet 10 mg PO DAILY #30 tabs 04/25/23 melatonin 3 mg tablet 3 mg PO BEDTIME #30 tabs 04/25/23 quetiapine 100 mg tablet 100 mg PO BEDTIME #30 tabs 04/25/23 quetiapine 25 mg tablet 25 mg PO BID PRN Anxiety #60 tabs 04/25/23 meclizine 12.5 mg tablet 12.5 mg PO BID PRN dizziness #10 05/07/23 tabs meclizine 12.5 mg tablet 12.5 mg PO DAILY PRN dizziness #14 07/03/23 tabs Allergies Allergy/AdvReac Type Severity Reaction Status Date / Time No Known Allergies Allergy Verified 04/20/23 10:39 [No Known Allergies*] Review of Systems Review of Systems: Constitutional: No fever, chills, fatigue, night sweats, weight changes ENT/Mouth: No ear pain, hearing loss, nasal congestion, sinus pain, rhinorrhea, sore throat Eyes: No eye pain, swelling, redness, vision changes, discharge Cardio: No chest pain, palpitations, BERNARD, orthopnea, peripheral edema Pulm: No SOB, cough, sputum, wheezing, dyspnea, hemoptysis GI: No nausea, vomiting, hematemesis, abdominal pain, diarrhea, constipation, hematochezia, melena : No irregular bleeding, dysuria, frequency, urgency, hesitancy, hematuria, flank pain, urinary flow changes, urinary incontinence or retention MSK: No back pain, neck pain, joint pain, myalgias Skin: No lesions, rashes Neuro: No weakness, numbness, paresthesias, LOC, +dizziness, No headache All other systems reviewed and are negative. [facility] Past Medical History Attestation statement: The following information was validated with the patient. Source: old records reviewed and nursing notes reviewed Medical History Allergic rhinitis Post traumatic stress disorder Depression Hypercholesterolemia HTN (hypertension) GERD (gastroesophageal reflux disease) Anxiety COVID-19 Asthma Surgical History History of surgery Social History Social History Household Members: None Housing: Apartment Do you presently have visiting nurse or other home services: No Unable to assess alcohol history related to: Unknown Alcohol intake: former Patient Tobacco Use Status: Never used Tobacco Smoked in Last 30 Days: No e-Cigarette/Vaping Use: Never Used Use of substances other than those prescribed or required for medical reasons: No Advance Directives: No Advance Directives Information Provided: Yes service: No Current occupational status: retired Sexual orientation: Straight/Heterosexual Physical Exam ED Vital Signs: Vital Signs - 24 hr 07/03/23 07:47 07/03/23 07:59 07/03/23 08:14 Temperature 97.9 F Pulse Rate 60 64 57 Respiratory Rate 14 17 Blood Pressure 116/77 131/75 Pulse Oximetry 99 93 Oxygen Delivery Method Room Air Room Air 07/03/23 09:11 07/03/23 09:11 07/03/23 09:12 Temperature Pulse Rate 56 56 61 Respiratory Rate Blood Pressure 132/73 128/75 124/72 Pulse Oximetry Oxygen Delivery Method BMI result Body Mass Index 29.3 Vital signs stable, intermittently bradycardic Const General: cooperative, healthy appearing, comfortable, no acute distress, alert and awake Nutritional Appearance: average body habitus Orientation/consciousness: patient oriented x3 Limitations: no limitations HENNV Head: Yes normal to inspection, Yes normocephalic and Yes atraumatic Ears: hearing grossly normal bilaterally General nose exam: Normal external nose present and Normal septum present Eyes General: appearance normal, both eyes and all related structures Conjunctivae: conjunctivae normal Sclerae: sclerae normal Pupils: Equal, round and reactive pupils present EOM: EOMs intact bilaterally Neck Neck: Yes normal visual inspection and Yes full ROM Chest Chest palpation & inspection: normal inspection of the chest, normal palpation of entire chest wall, no crepitus and no tenderness Resp Effort & Inspection: normal respiratory effort and able to speak in complete sentences Auscultation: clear to auscultation bilaterally Cardio Other: Intermittently bradycardic on the monitor, regular rate and rhythm on exam Rate: regular rate Rhythm: regular rhythm Peripheral pulses: radial pulses present GI Inspection: Yes normal to inspection Palpation (GI): Soft to palpation, nontender and no guarding General: Yes no CVA tenderness Back/Spine/Pelvis Other: No midline spinous tenderness. No paraspinal muscle tenderness. No step off deformity. Back: no CVA tenderness Skin General skin exam: no rashes or lesions noted Neuro Other: Strength 5/5 intact throughout.?Sensation intact to light touch.? Neurovascular intact distally.? General: patient oriented x3, gait normal, moves all extremities and no focal motor deficits Cranial nerves: Yes Equal, round and reactive pupils present and Yes Nystagmus not present Gait exam (Neuro): Normal gait present Coordination: [id number] test normal, [id number] test normal and Normal rapid alternating movements of the distal upper extremity present (Neuro) Pupils: Normal pupillary reactivity/response: bilateral Extrem General: Yes normal to inspection and Yes full ROM Course Course Course Narrative: 1023-- CBC without leukocytosis or anemia. Chemistry showing BUN 21, creatinine wnl. Receiving IVF. No acute electrolyte abnormality requiring intervention. Urine negative for infection. Troponin undetectable, EKG showing sinus bradycardia with a rate of 58 beats per minute, QT 422, no acute ischemic changes or ST elevations >> unlikely ACS. CXR unremarkable, no infiltrates or consolidations to suggest pneumonia. Orthostatic vital signs negative. > workup is unremarkable. Dizziness may be attributed to a drop in blood pressure this morning upon standing secondary to tamsulosin use vs underlying vertigo. Discussed workup with patient. Patient states that he no longer has chest tightness. Denies dizziness. He is ambulating with steady gait. Given his unremarkable workup, will send home with meclizine for possible vertigo. Advised patient to start taking tamsulosin at night as this can affect his blood pressure. Discussed worrisome signs and symptoms of when to return to the ED. Patient has remained stable throughout ED visit today. All questions answered at this time. Patient is agreeable with disposition and stable for discharge. 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 VSS. Afebrile, normotensive. Patient is nontoxic appearing and in no acute distress. PERRLA. No nystagmus. RRR. Lungs CTA bilaterally. Exam is nonfocal. Cerebellum intact. Ambulating with steady gait. Clinical concern for dehydration, acute electrolyte abnormality, anemia, vertigo, orthostatic hypotension, medication side effect. Lower suspicion for arrhythmia, ACS, pneumonia. Unlikely dissection, PE, cerebellar stroke, CVA/TIA, pericardial effusion, cardiac tamponade, pleural effusion. Plan for labs, tropes, EKG, UA, chest x-ray, orthostatic VS, IV fluids and re-evaluation. Differential Diagnosis Differential Diagnoses: The differential diagnosis associated with the presentation includes as above. Admission/Observation Consideration of admission/observation: Escalation of care including admission/observation considered In this 72-year-old with acute onset dizziness and chest tightness, admission was considered. Lab Data MDM Lab Attestation statement: I reviewed the patient's lab results. as above. 07/03/23 08:30 07/03/23 08:30 Labs: Lab Results 07/03/23 Range/Units 08:30 WBC 4.9 (4.8-10.8) X10*3/uL RBC 4.44 L (4.60-5.80) X10*6/uL Hgb 14.5 (14.0-18.0) g/dl Hct 41.2 L (42.0-52.0) % MCV 92.8 (80.0-98.0) fL MCH 32.7 (27.0-33.0) pg MCHC 35.2 (31.0-36.0) g/dl RDW 11.6 (11.0-16.0) % Plt Count 226 (160-400) X10*3/uL MPV 9.0 L (9.4-12.4) fL Immature Gran % (Auto) 1.0 H (0.0-0.4) % Neut % (Auto) 72.1 (45-73) % Lymph % (Auto) 19.1 L (20-40) % [place] % (Auto) 7.0 (2-11) % Eos % (Auto) 0.6 (0-4) % Baso % (Auto) 0.2 (0-2) % Lymph # (Auto) 0.9 L (1.2-4.9) X10*3/uL [place] # (Auto) 0.3 (0.1-1.2) X10*3/uL Eos # (Auto) 0.0 (0.0-0.4) X10*3/uL Baso # (Auto) 0.0 (0.0-0.2) X10*3/uL Abs Immat Gran (auto) 0.05 H (0.00-0.03) X10*3/uL Absolute Neuts (auto) 3.5 (2.0-8.3) x10*3/uL Absolute Nucleated RBC 0.000 (0.0-0.012) X10*3/uL Nucleated RBC % (auto) 0.0 (0.0-0.2) /100WBC Sodium 141 (135-145) mmol/L Potassium 3.8 (3.3-5.1) mmol/L Chloride 109 H (96-108) mmol/L Carbon Dioxide 24 (22-29) mmol/L Anion Gap 12 (12-20) BUN 21 H (9-16) mg/dL Creatinine 0.80 (0.5-1.4) mg/dL Estim Creat Clear Calc 74.0 Estimated GFR > 60 Random Glucose 132 H (60-115) mg/dL Calcium 9.0 (8.4-10.2) mg/dL Magnesium 1.9 (1.6-2.6) mg/dL Troponin I High Sens < 2.7 (<3.5-35.0) ng/L Urine Color Yellow Urine Appearance Clear Urine pH 6.0 (5.0-9.0) Ur Specific [place] 1.020 (1.005-1.025) Urine Protein Negative (Neg-Trace) mg/dL Urine Glucose (UA) Negative (Negative) mg/dL Urine Ketones Negative (Negative) mg/dL Urine Blood Negative (Negative) Urine Nitrite Negative (Negative) Ur Leukocyte Esterase Negative (Negative) Independent Interpretation I performed an independent interpretation of an: EKG and Plain X-Ray Interpretation: EKG showing sinus bradycardia with a rate of 58 beats per minute, QT 422, QTC 414, no acute ischemic changes or ST elevations. CXR without consolidations or infiltrates, agree with radiologist's interpretation. Radiology Impression Discussion of test interpretation with radiology: I have reviewed the radiologist's reading. Radiologist Impression: XR chest 2V IMPRESSION: No acute cardiopulmonary process. Independent Historian Clinical information obtained from an independent historian. History obtained from or confirmed by: EMS External Record Review External record reviewed: Inpatient record, Office record, Outpatient record, Prior outpatient labs, Prior outpatient radiology, Primary care record and Outside ED record Prescription Management I considered prescription management with: Other (antiemetic) Chronic Conditions Patient?s care impacted by: Hypertension and Other (renal calculi) Social Determinants Patient?s care significantly limited by Social Determinants of Health including: Other Social Determinant of Health Critical Care Time Critical Care Time Critical Care Time: No Discharge Plan Discharge Clinical Impression: Dizziness Patient Disposition: Home, Self-Care Instructions: Vertigo (ED), Lightheadedness (ED), Dizziness (ED) Additional Instructions: Your labs were normal. Your cardiac enzyme was normal. Your EKG showed slightly slow heart rate, otherwise normal. Your chest x-ray was normal. Your urine was negative for infection. Your vital signs taken while lying down, seated and standing were normal. You received IV fluids in the emergency department today. Your blood pressure likely dropped this morning secondary to tamsulosin use. Start taking tamsulosin at night before going to bed as it can affect your blood pressure. Make sure you are staying hydrated during the day getting enough to drink. Meclizine has been sent to your pharmacy. Take this as needed for dizziness/vertigo. Please follow-up with your primary care provider. If symptoms persist or worsen please return to the emergency department. The case of an emergency call 911. Tus laboratorios fueron normales. Wynne enzima card?janeth era normal. Wynne electrocardiograma mostr? reyes frecuencia card?janeth ligeramente lenta, por lo dem?s normal. Wynne radiograf?a de t?rax fue normal. Wynne orina fue negativa para infecci?n. Tess signos vitales tomados mientras estaba acostado, sentado y de pie fueron normales. Recibi? l?quidos intravenosos en el departamento de emergencias hoy. Es probable que wynne presi?n arterial haya bajado esta ma?margarito debido al uso de tamsulosina. Empiece a yung tamsulosina por la noche antes de acostarse, ya que puede afectar wynne presi?n arterial. Aseg?rese de mantenerse hidratado joni el d?a y beber lo suficiente. Meclizina weller sido enviada a wynne farmacia. Diablo esto seg?n sea necesario para los mareos/v?rtigo. Barb un seguimiento con wynne proveedor de atenci?n primaria. Si los s?ntomas persisten o empeoran, regrese al departamento de emergencias. El luis de reyes llamada de emergencia al 911. Prescriptions: New meclizine 12.5 mg tablet 12.5 mg PO DAILY PRN (Reason: dizziness) Qty: 14 0RF No Action meclizine 12.5 mg tablet 12.5 mg PO BID PRN (Reason: dizziness) Qty: 10 0RF fluticasone propionate [Flovent HFA] 220 mcg/actuation HFA aerosol inhaler 2 puff INHALATION BID pyridoxine (vitamin B6) 100 mg tablet 100 mg PO DAILY quetiapine 25 mg Tablet 25 mg PO BID PRN (Reason: Anxiety) Qty: 60 0RF escitalopram oxalate 10 mg Tablet 10 mg PO DAILY Qty: 30 0RF quetiapine 100 mg tablet 100 mg PO BEDTIME Qty: 30 0RF melatonin 3 mg Tablet 3 mg PO BEDTIME Qty: 30 0RF Referrals: Alberta iRzo MD [Primary Care Provider] - Print Language: Faroese
--- NOTE | 2023-07-03 07:50 | ECG_ITS ---
Test Reason : dizziness Blood Pressure : / mmHG Vent. Rate : 058 BPM Atrial Rate : 058 BPM P-R Int : 140 ms QRS Dur : 098 ms QT Int : 422 ms P-R-T Axes : 037 -11 051 degrees QTc Int : 414 ms Sinus bradycardia Otherwise normal ECG When compared with ECG of 22-MAY-2023 17:14, No significant change was found Referred By: Marry Hope Electronically Signed By:MIGUEL CAMERON MD
[2023-07-03 07:59] VITALS: PULSE 64
[2023-07-03] MEDS: 0.9 % Sodium Chloride 1,000 ML 999 ML IV (08:02)
[2023-07-03 08:14] VITALS: BP 131/75; PULSE 57; RESP 17; O2SAT 93
--- NOTE | 2023-07-03 08:26 | PC.NURSE ---
Pt is alert/oriented. States waking up and feeling funny feeling in head and chest tightness, denies chest pain or heart palpitations. Pt also reports while awaiting EMS pt felt near syncope but never had LOC. Denies any sx at this time. Neuros are intact, speech clear. NSR on tele, rate 60s. Breathing even and unlabored. LS clear throughout. SKin pink warm and dry.
[2023-07-03 08:41] LABS: MANUAL DIFF FLAG NO
[2023-07-03 08:45] LABS: Appearance Urine Clear; Basophils Percent Auto 0.2 % (0-2); Color Urine Yellow; Eosinophils Percent Auto 0.6 % (0-4); Glucose Urine UA Negative (Negative); Hematocrit 41.2 % (42.0-52.0); Hemoglobin 14.5 g/dl (14.0-18.0); Imm Gran Abs Auto 0.05 X10*3/uL (0.00-0.03); Leukocyte Esterase Urine Negative (Negative); Lymphocytes Absolute Auto 0.9 X10*3/uL (1.2-4.9); Lymphocytes Percent Auto 19.1 % (20-40); Mean Corpuscular HGB Conc 35.2 g/dl (31.0-36.0); Mean Corpuscular Hemoglobin 32.7 pg (27.0-33.0); Mean Corpuscular Volume 92.8 fL (80.0-98.0); Monocytes Absolute Auto 0.3 X10*3/uL (0.1-1.2); Neutrophils Absolute Auto 3.5 x10*3/uL (2.0-8.3); Neutrophils Percent Auto 72.1 % (45-73); Nitrite Urine Negative (Negative); Platelet Count 226 X10*3/uL (160-400); Red Blood Count 4.44 X10*6/uL (4.60-5.80); Red Cell Distribution Width 11.6 % (11.0-16.0); Urine Blood Negative (Negative); Urine Ketones Negative (Negative); Urine Protein Negative (Neg-Trace); White Blood Count 4.9 X10*3/uL (4.8-10.8)
[2023-07-03 08:58] LABS: Anion Gap 12 (12-20); Blood Urea Nitrogen 21 mg/dL (9-16); Carbon Dioxide 24 mmol/L (22-29); Chloride 109 mmol/L (96-108); Estimated Glomerular Filt Rate > 60; Glucose Random 132 mg/dL (60-115); Magnesium 1.9 mg/dL (1.6-2.6); Potassium 3.8 mmol/L (3.3-5.1); Sodium 141 mmol/L (135-145)
[2023-07-03 09:05] LABS: Troponin-I High Sensitivity < 2.7 ng/L (<3.5-35.0)
[2023-07-03 09:11] VITALS: BP 128/75; BP 132/73; PULSE 56
[2023-07-03 09:12] VITALS: BP 124/72; PULSE 61
== END 2023-07-03 11:14 | disposition home or self-care (01) ==
PROVIDERS: Physician Assistant Medical; Emergency Provider Emergency Medicine Emergency Medical Services; PCP Internal Medicine
DX: R42 Dizziness and giddiness (principal); R07.89 Other chest pain; Z79.899 Other long term (current) drug therapy
CPT/HCPCS: 36415; 71046; 80048; 81003; 83735; 84484; 85025; 93005; 96360; 99284; 99285

== ENCOUNTER → 2023-07-03 07:50 | Outpatient (BNV) | payer MEDICARE, MEDICAID, SELFPAY | PROVIDERS: Emergency Provider Emergency Medicine Emergency Medical Services; PCP Internal Medicine; Visit Provider Internal Medicine Cardiovascular Disease | DX: R00.1 Bradycardia, unspecified (principal) | CPT/HCPCS: 93010 ==

== ENCOUNTER 2023-07-28 13:50 | Outpatient (AMB) | payer MEDICARE, MEDICAID, SELFPAY ==
--- NOTE | 2023-07-28 13:52 | MHC.OFFVIS ---
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 Patient reports that he has had ongoing shoulder pain for about 5-6 months. He has increased pain with lifting and carrying. Denies numbness and tingling. He takes tylenol as needed which does help. 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 He complains of pain with daily activity, worse with lifting and carrying objects. He says his pain has been present for ~6 months now, and improves somewhat with Tylenol. He denies any other treatment. COUNTS INCLUDE 234 BEDS AT THE [facility] Medical History Allergic rhinitis Post traumatic stress disorder Depression Hypercholesterolemia HTN (hypertension) GERD (gastroesophageal reflux disease) Anxiety COVID-19 Asthma Surgical History History of surgery Social History Household Members: None Housing: Apartment Do you presently have visiting nurse or other home services: No Unable to assess alcohol history related to: Unknown Alcohol intake: former Patient Tobacco Use Status: Never used Tobacco e-Cigarette/Vaping Use: Never Used service: No Current occupational status: retired Sexual orientation: Straight/Heterosexual Review of Systems Const All systems reviewed & are unremarkable except as noted in HPI and below Physical Exam Vital Signs: BMI result Body Mass Index 25.7 Const General: no acute distress, alert and awake Orientation/consciousness: patient oriented x3 HEENT Head: Yes normocephalic and Yes atraumatic Eyes EOM: EOMs intact bilaterally Resp Effort & Inspection: normal respiratory effort and able to speak in complete sentences Cardio Jugular venous distension: no JVD Skin General skin exam: turgor normal Rashes: no rashes Neuro General: patient oriented x3 Extrem Other: Full ROM very mild ttp over ACJ but otherwise full rom and nl exam Psych Appearance: grossly normal Affect: normal affect Attitude: cooperative Results Reviewed Results Reviewed: I personally reviewed relevant radiographs. ACJ OA Assessment & Plan Assessment & Plan (1) Acromioclavicular joint arthritis: Code(s): M19.019 - Primary osteoarthritis, unspecified shoulder Plan: ACJ OA He is almost completely asymptomatic Will follow up if pain returns Plan Scribed for Jose Guevara MD by Nilo Velásquez, medical center representative, on 07/28/23 at 2:02 PM, EST. Coding Level of Care Code New Pt Level 3 (05806) Diagnoses Acromioclavicular joint arthritis M19.019
[2023-07-28 13:55] VITALS: BMI 25.7
== END 2023-07-28 14:42 | disposition home or self-care (01) ==
PROVIDERS: PCP Internal Medicine; Visit Provider Orthopaedic Surgery
DX: M19.012 Primary osteoarthritis, left shoulder (principal)
CPT/HCPCS: 99203

== ENCOUNTER → 2023-07-28 13:50 | Outpatient (BNVA) | payer MEDICARE, MEDICAID, SELFPAY | PROVIDERS: PCP Internal Medicine; Visit Provider Orthopaedic Surgery | DX: M19.019 Primary osteoarthritis, unspecified shoulder (principal) | CPT/HCPCS: 99202 ==

== ENCOUNTER 2023-08-05 15:30 | Outpatient (RCR) | payer MEDICARE, MEDICAID, SELFPAY ==
[2023-08-01 14:08] VITALS: BP 138/79; PULSE 59
== END 2023-09-09 12:45 | disposition home or self-care (01) ==
LOC: HO.PT 15:30
PROVIDERS: PCP Internal Medicine; Visit Provider Internal Medicine
DX: R26.81 Unsteadiness on feet (principal)
CPT/HCPCS: 95992; 97112; 97161

== ENCOUNTER 2023-09-14 08:13 | Emergency (ER) | payer MEDICARE, MEDICAID, SELFPAY ==
[2023-09-14 08:29] VITALS: BP 160/98; PULSE 86; O2SAT 97
[2023-09-14 08:40] VITALS: BP 109/77; PULSE 80; RESP 16; TEMP 36.8; O2SAT 98; BMI 24.2
--- NOTE | 2023-09-14 08:58 | ED.GENADULT ---
HPI - General Adult General Chief complaint: Psychiatric Symptoms Stated complaint: SI Time Seen by Provider: 09/14/23 08:56 Source: patient, EMS and sign language interpreter Mode of arrival: EMS Limitations: language barrier History of Present Illness HPI narrative: Patient is a 72 year old assigned male at with a history of MDD presenting to the emergency department today with increased depression and suicidal ideation. Patient states that he has been feeling more down lately and has a plan to jump off of his porch. Patient denies any dizziness, lightheadedness, abdominal pain, nausea, vomiting, fever, chills, blurry vision, double vision, loss of vision, chest pain, difficulty breathing, shortness of breath, back pain, night sweats, pain with urination, increased urinary frequency, increased urinary urgency, blood in his urine or stool, syncope or a near syncopal episode, recent trauma or falls, bowel incontinence, bladder incontinence, bowel retention, bladder retention, or any other complaints at this time. Relieving factors: none Exacerbating factors: none Associated symptoms: denies other symptoms Treatments prior to arrival: none Related Data Home Medications Medication Instructions Recorded Confirmed fluticasone propionate 220 2 puff inhalation BID 04/20/23 04/20/23 mcg/actuation HFA aerosol inhaler (Flovent HFA) pyridoxine (vitamin B6) 100 mg 100 mg PO DAILY 04/20/23 04/20/23 tablet Previous Rx's Medication Instructions Recorded escitalopram oxalate 10 mg tablet 10 mg PO DAILY #30 tabs 04/25/23 melatonin 3 mg tablet 3 mg PO BEDTIME #30 tabs 04/25/23 quetiapine 100 mg tablet 100 mg PO BEDTIME #30 tabs 04/25/23 quetiapine 25 mg tablet 25 mg PO BID PRN Anxiety #60 tabs 04/25/23 meclizine 12.5 mg tablet 12.5 mg PO BID PRN dizziness #10 05/07/23 tabs meclizine 12.5 mg tablet 12.5 mg PO DAILY PRN dizziness #14 07/03/23 tabs Allergies Allergy/AdvReac Type Severity Reaction Status Date / Time No Known Allergies Allergy Verified 07/28/23 13:57 [No Known Allergies*] Review of Systems Constitutional: Constitutional: Reports no additional constitutional complaints, Denies chills, Denies fever(s) and Denies night sweats Eyes: Eyes: Reports no additional eye complaints, Denies blurry vision, Denies change in vision, Denies diplopia, Denies eye discharge, Denies loss of vision and Denies eye pain ENT: Denies dizziness Cardiovascular: Cardiovascular: Reports no additional cardiovascular complaints, Denies chest pain, Denies lightheadedness, Denies Loss of Consciousness and Denies dyspnea Respiratory: Respiratory: Reports no additional respiratory complaints and Denies dyspnea Gastrointestinal: Gastrointestinal: Reports no additional gastrointestinal complaints, Denies abdominal pain, Denies melena, Denies hematochezia, Denies change in bowel habits and Denies change in stool character Genitourinary: Genitourinary: Reports no additional male genitourinary complaints, Denies hematuria, Denies oliguria, Denies difficulty urinating, Denies dysuria, Denies urinary frequency, Denies urinary hesitancy, Denies urinary incontinence and Denies urinary urgency Musculoskeletal: Musculoskeletal: Reports no additional musculoskeletal complaints, Denies numbness and Denies tingling Neurologic: Denies dizziness, Denies loss of vision, Denies numbness and Denies tingling Psychiatric: Psychiatric: Reports depression, Denies homicidal ideation and Reports suicidal ideation Endocrine: Endocrine: Reports no additional endocrine complaints Hematologic/Lymphatic: Hematologic/Lymphatic: Reports no additional hematologic/lymphatic complaints Allergic/Immunologic: Allergic/Immunologic: Reports no additional allergic/immunologic complaints [facility] Past Medical History Attestation statement: The following information was validated with the patient. Source: old records reviewed and nursing notes reviewed Medical History Allergic rhinitis Post traumatic stress disorder Depression Hypercholesterolemia HTN (hypertension) GERD (gastroesophageal reflux disease) Anxiety COVID-19 Asthma Surgical History History of surgery Social History Social History Household Members: None Housing: Apartment Do you presently have visiting nurse or other home services: No Unable to assess alcohol history related to: Unknown Alcohol intake: former Patient Tobacco Use Status: Never used Tobacco e-Cigarette/Vaping Use: Never Used Advance Directives: No Advance Directives Information Provided: No service: No Current occupational status: retired Sexual orientation: Straight/Heterosexual Physical Exam ED Vital Signs: Vital Signs - 24 hr 09/14/23 08:40 Temperature 98.2 F Pulse Rate 80 Respiratory Rate 16 Blood Pressure 109/77 Pulse Oximetry 98 Oxygen Delivery Method Room Air BMI result Body Mass Index 24.2 Const General: cooperative, no acute distress, alert and awake Nutritional Appearance: well nourished Orientation/consciousness: patient oriented x3 Limitations: no limitations HENMT Head: Yes normal to inspection and Yes atraumatic Ears: hearing grossly normal bilaterally and external ears normal General nose exam: Normal external nose present, no nasal discharge noted and no epistaxis Face and sinus: Yes normal facial exam, No abrasion and No laceration Mouth: Normal oral and palatal mucosa present, no drooling and no muffled voice Eyes General: appearance normal, both eyes and all related structures Periorbital: periorbital findings normal Eyelids: Yes eyelids normal Conjunctivae: conjunctivae normal Pupils: Equal, round and reactive pupils present EOM: EOMs intact bilaterally Neck Neck: Yes normal visual inspection, Yes full ROM and Yes no lymphadenopathy Chest Chest palpation & inspection: normal inspection of the chest Resp Effort & Inspection: normal respiratory effort and able to speak in complete sentences GI Inspection: Yes normal to inspection Neuro General: patient oriented x3 and moves all extremities Cranial nerves: Yes Equal, round and reactive pupils present Cognition (Neuro): normal cognition Motor exam (neuro): 5/5 motor strength present throughout Sensory Exam: Normal double simultaneous stimulation for sensation Coordination: [id number] test normal Extrem General: Yes normal to inspection, Yes full ROM and Yes capillary refill normal Psych Appearance: grossly normal Mental Status: mental status grossly normal Affect: Sad affect present Attitude: Guarded attititude/behavior present Thought content: Suicidality present Medical Decision Making Medical Decision Making [facility] Narrative: Patient is a 72 year old assigned male at with a history of MDD presenting to the emergency department today with suicidal ideation. Patient's physical exam was unremarkable. Patient's blood work was unremarkable. Patient's urine showed no acute process. I explained my physical exam findings as well as all test results to the patient. I answered all questions asked by the patient. Patient's disposition will be determined after CARE Team evaluation. Differential Diagnosis Differential Diagnoses: The differential diagnosis associated with the presentation includes Suicidal ideation Depression Admission/Observation Consideration of admission/observation: Escalation of care including admission/observation considered Patient's disposition will be determined after CARE team evaluation. Lab Data [facility] Lab Attestation statement: I reviewed the patient's lab results. My interpretation of these results are in the MDM Rationale portion of this note. 09/14/23 10:09 09/14/23 10:09 Labs: Lab Results 09/14/23 09/14/23 09/14/23 Range/Units 10:03 10:04 10:09 WBC 8.0 (4.8-10.8) X10*3/uL RBC 4.89 (4.60-5.80) X10*6/uL Hgb 15.9 (14.0-18.0) g/dl Hct 45.5 (42.0-52.0) % MCV 93.0 (80.0-98.0) fL MCH 32.5 (27.0-33.0) pg MCHC 34.9 (31.0-36.0) g/dl RDW 11.6 (11.0-16.0) % Plt Count 228 (160-400) X10*3/uL MPV 8.6 L (9.4-12.4) fL Immature Gran % (Auto) 0.8 H (0.0-0.4) % Neut % (Auto) 79.9 H (45-73) % Lymph % (Auto) 12.6 L (20-40) % [place] % (Auto) 6.3 (2-11) % Eos % (Auto) 0.1 (0-4) % Baso % (Auto) 0.3 (0-2) % Lymph # (Auto) 1.0 L (1.2-4.9) X10*3/uL [place] # (Auto) 0.5 (0.1-1.2) X10*3/uL Eos # (Auto) 0.0 (0.0-0.4) X10*3/uL Baso # (Auto) 0.0 (0.0-0.2) X10*3/uL Abs Immat Gran (auto) 0.06 H (0.00-0.03) X10*3/uL Absolute Neuts (auto) 6.4 (2.0-8.3) x10*3/uL Absolute Nucleated RBC 0.000 (0.0-0.012) X10*3/uL Nucleated RBC % (auto) 0.0 (0.0-0.2) /100WBC Sodium 142 (135-145) mmol/L Potassium 4.2 (3.3-5.1) mmol/L Chloride 109 H (96-108) mmol/L Carbon Dioxide 27 (22-29) mmol/L Anion Gap 10 L (12-20) BUN 17 H (9-16) mg/dL Creatinine 0.78 (0.5-1.4) mg/dL Estim Creat Clear Calc 78.3 Estimated GFR > 60 Random Glucose 124 H (60-115) mg/dL Calcium 9.2 (8.4-10.2) mg/dL Total Bilirubin 0.7 (0.0-1.0) mg/dL AST 17 (5-37) U/L ALT 27 (0-40) U/L Alkaline Phosphatase 55 (39-117) U/L Total Protein 6.8 (6.5-8.0) g/dL Albumin 4.0 (3.5-5.0) g/dL Urine Color Yellow Urine Appearance Clear Urine pH 6.0 (5.0-9.0) Ur Specific [place] <= 1.005 (1.005-1.025) Urine Protein Negative (Neg-Trace) mg/dL Urine Glucose (UA) Negative (Negative) mg/dL Urine Ketones Negative (Negative) mg/dL Urine Blood Negative (Negative) Urine Nitrite Negative (Negative) Ur Leukocyte Esterase Negative (Negative) Salicylates < 5.0 L (15-30) mg/dL Urine Opiates Screen Not Detected (Not Detect) Urine Fentanyl Screen Not Detected (Not Detect) Acetaminophen < 3 (<30) mcg/mL Ur Barbiturates Screen Not Detected (Not Detect) Ur Phencyclidine Scrn Not Detected (Not Detect) Ur Amphetamines Screen Not Detected (Not Detect) U Benzodiazepines Scrn Not Detected (Not Detect) Urine Cocaine Screen Not Detected (Not Detect) U Marijuana (THC) Screen Not Detected (Not Detect) Ethyl Alcohol < 10 mg/dL COVID-19 (DONNY) Negative (Negative) COVID-19 Clin Com See Note Independent Historian Clinical information obtained from an independent historian. History obtained from or confirmed by: EMS (EMS provided additional history and confirmed the history provided by the patient.) Discharge Plan Discharge Clinical Impression: Suicidal ideation, Depression Patient Disposition: Still a Patient Prescriptions: No Action meclizine 12.5 mg tablet 12.5 mg PO BID PRN (Reason: dizziness) Qty: 10 0RF meclizine 12.5 mg tablet 12.5 mg PO DAILY PRN (Reason: dizziness) Qty: 14 0RF fluticasone propionate [Flovent HFA] 220 mcg/actuation HFA aerosol inhaler 2 puff INHALATION BID pyridoxine (vitamin B6) 100 mg tablet 100 mg PO DAILY quetiapine 25 mg Tablet 25 mg PO BID PRN (Reason: Anxiety) Qty: 60 0RF escitalopram oxalate 10 mg Tablet 10 mg PO DAILY Qty: 30 0RF quetiapine 100 mg tablet 100 mg PO BEDTIME Qty: 30 0RF melatonin 3 mg Tablet 3 mg PO BEDTIME Qty: 30 0RF
[2023-09-14 10:13] LABS: MANUAL DIFF FLAG NO
[2023-09-14 10:16] LABS: Appearance Urine Clear; Color Urine Yellow; Glucose Urine UA Negative (Negative); Leukocyte Esterase Urine Negative (Negative); Nitrite Urine Negative (Negative); Specific Gravity - Urine <= 1.005 (1.005-1.025); Urine Blood Negative (Negative); Urine Ketones Negative (Negative); Urine Protein Negative (Neg-Trace)
[2023-09-14 10:16] LABS: Basophils Percent Auto 0.3 % (0-2); Eosinophils Percent Auto 0.1 % (0-4); Hematocrit 45.5 % (42.0-52.0); Hemoglobin 15.9 g/dl (14.0-18.0); Imm Gran Abs Auto 0.06 X10*3/uL (0.00-0.03); Imm Gran Pct Auto 0.8 % (0.0-0.4); Lymphocytes Percent Auto 12.6 % (20-40); Mean Corpuscular HGB Conc 34.9 g/dl (31.0-36.0); Mean Corpuscular Hemoglobin 32.5 pg (27.0-33.0); Mean Platelet Volume 8.6 fL (9.4-12.4); Monocytes Absolute Auto 0.5 X10*3/uL (0.1-1.2); Monocytes Percent Auto 6.3 % (2-11); Neutrophils Absolute Auto 6.4 x10*3/uL (2.0-8.3); Neutrophils Percent Auto 79.9 % (45-73); Platelet Count 228 X10*3/uL (160-400); Red Blood Count 4.89 X10*6/uL (4.60-5.80); Red Cell Distribution Width 11.6 % (11.0-16.0)
[2023-09-14 10:27] LABS: COVID-19 Test Negative (Negative); IDNOW Serial# 08D9AD1C
[2023-09-14 10:34] LABS: Amphetamine Screen Urine Not Detected (Not Detect); Barbiturates, Urine Not Detected (Not Detect); Benzodiazepines Screen Urine Not Detected (Not Detect); Cannabinoid Screen Urine Not Detected (Not Detect); Cocaine Screen Urine Not Detected (Not Detect); Fentanyl, urine Not Detected (Not Detect); Opiate Screen Urine Not Detected (Not Detect); Phencyclidine Screen Urine Not Detected (Not Detect)
[2023-09-14 10:35] LABS: Acetaminophen LAB < 3 mcg/mL (<30); Salicylate < 5.0 mg/dL (15-30)
[2023-09-14 10:36] LABS: Alanine Aminotransferase 27 U/L (0-40); Alkaline Phosphatase 55 U/L (39-117); Anion Gap 10 (12-20); Aspartate Amino Transferase 17 U/L (5-37); Bilirubin Total 0.7 mg/dL (0.0-1.0); Blood Urea Nitrogen 17 mg/dL (9-16); Calcium 9.2 mg/dL (8.4-10.2); Carbon Dioxide 27 mmol/L (22-29); Chloride 109 mmol/L (96-108); Creatinine Clr Calc Pharmacy 78.3; Estimated Glomerular Filt Rate > 60; Ethanol < 10 mg/dL; Glucose Random 124 mg/dL (60-115); Potassium 4.2 mmol/L (3.3-5.1); Sodium 142 mmol/L (135-145); Total Protein 6.8 g/dL (6.5-8.0)
--- NOTE | 2023-09-14 12:05 | ECG_ITS ---
Test Reason : QT INTERVAL Blood Pressure : / mmHG Vent. Rate : 094 BPM Atrial Rate : 094 BPM P-R Int : 136 ms QRS Dur : 092 ms QT Int : 348 ms P-R-T Axes : 039 -52 068 degrees QTc Int : 435 ms Normal sinus rhythm Left axis deviation Incomplete right bundle branch block Abnormal ECG When compared with ECG of 03-JUL-2023 08:18, Vent. rate has increased BY 36 BPM Incomplete right bundle branch block is now Present Referred By: Mary Thomas Electronically Signed By:Donnie Haas
--- NOTE | 2023-09-14 12:32 | PC.NURSE ---
Patient states he's not suicidal just anxious and depressed with racing thoughts at this time. No thoughts of hurting himself. was just given turkey sandwich and juice till lunch gets here.
--- NOTE | 2023-09-14 18:31 | MHC.CARE ---
Pt d/c home with [facility] referral. Pt assisted in dveloping following safety plan: SAFETY PLAN? Step 1: Warning Signs:? Increased anxiety Excessive worry? Step 2: Internal Coping strategies- Things I can do to take my mind off my problems without contacting another person: Deep breathing Watch television Step 3: People and social setting that can provide distraction: Name: Colette- Daughter? Name: Dickson- son? Place: [facility]? Step 4: People I can ask for help: Colette- Daughter Abby- Daughter Dickson- son? Step 5: Professionals or agencies I can contact during a crisis: Clinician Name: [facility] [phone] Suicide Prevention hotline: 0-623-400-QGMG (1360) Crisis Text Line: Text HOME to 838-929 Local Emergency Service Phone/Address: [facility]?? [phone] Gallagher Ma
== END 2023-09-14 16:53 | disposition home or self-care (01) ==
PROVIDERS: Physician Assistant Medical; Emergency Provider Student in an Organized Health Care Education/Training Program; PCP Internal Medicine
DX: F33.1 Major depressive disorder, recurrent, moderate (principal); R45.851 Suicidal ideations; I45.10 Unspecified right bundle-branch block; Z11.52 Encounter for screening for COVID-19; Z79.899 Other long term (current) drug therapy
CPT/HCPCS: 36415; 80053; 80143; 80179; 80307; 81003; 85025; 87635; 93005; 99284; S9485

== ENCOUNTER → 2023-09-14 12:05 | Outpatient (BNV) | payer MEDICARE, MEDICAID, SELFPAY | PROVIDERS: Emergency Provider Student in an Organized Health Care Education/Training Program; PCP Internal Medicine; Visit Provider Internal Medicine Cardiovascular Disease | DX: R94.31 Abnormal electrocardiogram [ECG] [EKG] (principal) | CPT/HCPCS: 93010 ==

== ENCOUNTER 2023-09-18 13:19 | Outpatient (REF) | payer MEDICARE, MEDICAID, SELFPAY ==
--- NOTE | ~2023-09-18 | US_ITS ---
EXAMINATION: US RETROPERITONEAL LIMITED (RENAL ONLY) CLINICAL INFORMATION: Calculus of kidney. COMPARISON: Renal ultrasound 03/14/[address]23 [address] 09/19/2022. CT abdomen and pelvis 08/05/2022. TECHNIQUE: Real-time imaging of the kidneys. FINDINGS: RIGHT KIDNEY: 10.4 x 5.6 x 5.6 cm (SAG x AP x TRV). The kidney is normal in size, contour, and echogenicity. Renal cortical thickness is normal. No renal calculi or hydronephrosis. 1.2 x 1.7 x 1.3 cm mid renal cortical cyst and 1.4 x 2.0 x 1.2 cm mid renal parapelvic cyst are seen. No imaging follow-up is recommended. LEFT KIDNEY: 10.9 x 5.5 x 4.5 cm (SAG x AP x TRV). The kidney is normal in size, contour, and echogenicity. Renal cortical thickness is normal. No renal calculi or hydronephrosis. 1.8 x 1.9 x 1.3 cm mid renal parapelvic cyst is seen. No imaging follow-up is recommended. US/US renal BI IMPRESSION: Bilateral renal cysts. No imaging follow-up is recommended. No renal calculi.
== END 2023-09-18 13:20 | disposition home or self-care (01) ==
LOC: HO.US 13:19
PROVIDERS: PCP Internal Medicine; Visit Provider Nurse Practitioner Family
DX: N20.0 Calculus of kidney (principal); N28.1 Cyst of kidney, acquired
CPT/HCPCS: 76775

== ENCOUNTER 2023-09-30 07:57 | Outpatient (AMB) | payer MEDICARE, MEDICAID, SELFPAY ==
--- NOTE | 2023-09-30 07:57 | A.OFFVIS_ITS ---
Intake Intake Visit Reasons: 6 mo/ labs/ US Intake Note: Patient presents today for a follow-up on labs/US Meds- Vitamin B6 Allergies to Antibiotic- No Known Allergies Blood Thinner- None Injection Molder Required: Yes Injection Molder Name: KEVIN POLANCO-[facility]I Allergies No Known Allergies [No Known Allergies*] Allergy (Verified 09/30/23 19:30) Medication List - Last Reconciled 09/30/23 by KAZ Lucio escitalopram oxalate 10 mg PO DAILY fluticasone propionate 220 mcg/actuation (Flovent HFA) 2 puffs inhalation BID meclizine 12.5 mg PO BID PRN melatonin 3 mg PO BEDTIME quetiapine 25 mg PO BID PRN quetiapine 100 mg PO BEDTIME HPI HPI Comments History of Present Illness Details Dickson is a pleaseant 72 year old Faroese speaking male patient of Dr. Dexter Ackerman. He has a past medical history of anxiety, depression, PTSD, allergic rhinitis, asthma, GERD, hypertension. He he is being followed up on today via telehealth for his nephrolithiasis. In discussion with the patient today reports to be doing and feeling well. Recent renal imaging results revi ewed with the patient today. Bilateral renal cysts. No imaging follow-up is recommended per radiology report. No renal calculi or hydronephrosis noted bilaterally. He denies any urinary issues or concerns. He denies any changes to his urinary habits. When asked patient denies urinary urgency, urinary frequency, changes in urinary stream, dysuria, foul-smelling urine, hematuria, incontinence, flank pain, fever and or chills. PSAs are as follows: 09/29--0.5. 10/04--0.8. He reports having since stopped his vitamin B6 as he felt this could be potentially causing his dizziness. He otherwise offers no other issues or concerns at this time. [facility] Medical History Allergic rhinitis Post traumatic stress disorder Depression Hypercholesterolemia HTN (hypertension) GERD (gastroesophageal reflux disease) Anxiety COVID-19 Asthma Surgical History History of surgery Social History Household Members: None Housing: Apartment Do you presently have visiting nurse or other home services: No Unable to assess alcohol history related to: Unknown Alcohol intake: former Patient Tobacco Use Status: Never used Tobacco e-Cigarette/Vaping Use: Never Used service: No Current occupational status: retired Sexual orientation: Straight/Heterosexual Review of Systems Const Reports as per HPI Eyes Reports no additional complaints ENT Reports no additional complaints Card Reports as per HPI Resp Reports as per HPI GI Reports as per HPI Reports as per HPI Musc Reports no additional complaints Neuro Reports no additional complaints Psych Reports as per HPI Endo Reports no additional complaints Zay/Lymph Reports no additional complaints Aller/Immun Reports as per HPI Physical Exam Const General: cooperative Resp Effort & Inspection: able to speak in complete sentences Psych Speech and movement: Clear speech present Attitude: cooperative Thought process: Normal thought process present Thought content: Normal thought content present Insight: Fair insight present (Psych) Judgement: Fair judgement present (Psych) Results Reviewed Results Reviewed: Date of Service: 09/18/23 EXAMINATION: US RETROPERITONEAL LIMITED (RENAL ONLY) FINDINGS: RIGHT KIDNEY: 10.4 x 5.6 x 5.6 cm (SAG x AP x TRV). The kidney is normal in size, contour, and echogenicity. Renal cortical thickness is normal. No renal calculi or hydronephrosis. 1.2 x 1.7 x 1.3 cm mid renal cortical cyst and 1.4 x 2.0 x 1.2 cm mid renal parapelvic cyst are seen. No imaging follow-up is recommended. LEFT KIDNEY: 10.9 x 5.5 x 4.5 cm (SAG x AP x TRV). The kidney is normal in size, contour, and echogenicity. Renal cortical thickness is normal. No renal calculi or hydronephrosis. 1.8 x 1.9 x 1.3 cm mid renal parapelvic cyst is seen. No imaging follow-up is recommended. IMPRESSION: Bilateral renal cysts. No imaging follow-up is recommended. No renal calculi. Assessment & Plan Assessment & Plan (1) Renal cyst: Code(s): N28.1 - Cyst of kidney, acquired (2) Kidney calculus: Code(s): N20.0 - Calculus of kidney Plan Recent renal ultrasound results reviewed with the patient today; as noted above. Recent PSA results reviewed with the patient today; as noted above. Patient currently denies any bothersome urinary issues or concerns. He reports be happy with current voiding parameters. Stop vitamin B6. Discussed at length potential causes of nephrolithiasis as well as renal cysts. Will continue with surveillance monitoring. Discussed, educated, and stressed the importance of drinking plenty of water daily. Renal ultrasound in 6 months. Follow-up in 6 months with imaging to be completed prior; or sooner with any issues, concerns, and or questions. Orders: Orders US renal BI 6 Months N20.0 - Calculus of kidney Medications: Discontinued meclizine Discontinued Reason: Patient Completed Course 12.5 mg PO DAILY PRN 14 tabs 0RF dizziness Patient Instructions: The patient had an opportunity to ask questions regarding the treatment plan. All questions were answered. Physical exam, labs, and imaging were discussed and reviewed in detail. As well as risks, benefits, and discussion of treatment choices. No major barriers to understanding were identified. The patient expressed understanding and agreement with the above treatment plan. The patient was made aware they should contact our office by phone for worsening of their current condition, the appearance of new symptoms, or with any questions or concerns. Compliance is encouraged with any medications and follow up testing that is ordered. It is a privilege to be allowed the opportunity to participate in? your urological care.? Again, if you have any questions or concerns If you have any questions or concerns please do not hesitate to contact me. The office is [phone]. This note is constructed using voice recognition software. While every effort has been made to ensure accuracy conference services director errors may have been included. Yours sincerely, HENRIETTA LucioWASHINGTON [facility] Telehealth Telehealth Location of provider rendering services: practice address Location of patient: address on file Patient Identification confirmed using: Name, : Yes Telehealth method: voice only Patient verbally consented to treatment: Yes Patient verbally consented to billing insurance company: Yes Patient informed of any privacy concerns related to visit: Yes Minutes spent on Phone/Video with Pt.: 15 Coding Level of Care Code Tele Est Pt Level 3 (98864) Diagnoses Renal cyst N28.1 Kidney calculus N20.0
== END 2023-09-30 09:47 | disposition home or self-care (01) ==
LOC: HO.HUSH 07:57
PROVIDERS: PCP Internal Medicine; Visit Provider Nurse Practitioner Family
DX: N28.1 Cyst of kidney, acquired (principal); N20.0 Calculus of kidney
CPT/HCPCS: 99442

== ENCOUNTER → 2023-09-30 07:57 | Outpatient (BNVA) | payer MEDICARE, MEDICAID, SELFPAY | PROVIDERS: PCP Internal Medicine; Visit Provider Nurse Practitioner Family ==

== ENCOUNTER 2023-09-30 08:08 | Outpatient (REF) | payer MEDICARE, MEDICAID, SELFPAY ==
[2023-09-30 12:16] LABS: Prostate Specific Antigen 0.75 ng/mL (<0.05-4.0)
[2023-09-30 12:24] LABS: Estimated Glomerular Filt Rate > 60
== END 2023-09-30 08:09 | disposition home or self-care (01) ==
LOC: HO.HHCL 08:08
PROVIDERS: Visit Provider Nurse Practitioner Family
DX: Z12.5 Encounter for screening for malignant neoplasm of prostate (principal); N28.1 Cyst of kidney, acquired; N20.0 Calculus of kidney; N40.0 Benign prostatic hyperplasia without lower urinary tract symptoms
CPT/HCPCS: 36415; 82565; 84153

== ENCOUNTER → 2023-10-14 10:14 | Outpatient (BNVA) | payer MEDICARE, MEDICAID, SELFPAY | PROVIDERS: PCP Internal Medicine; Visit Provider Physician Assistant ==

== ENCOUNTER 2023-11-05 06:29 | Emergency (ER) | payer MEDICARE, MEDICAID, SELFPAY ==
--- NOTE | ~2023-11-05 | CT_ITS ---
EXAMINATION: CT HEAD WITHOUT CONTRAST CLINICAL INFORMATION: Dizziness. Head injury. COMPARISON: Previous head CT May 2023 TECHNIQUE: Contiguous axial imaging was performed from the skull base to vertex without intravenous administration of contrast. This CT examination was performed using dose optimization techniques as appropriate, variously including the following: *Automated exposure control *Adjustment of mA and/or kV according to patient size (this includes techniques or standardized protocols for targeted exams where dose is matched to indication/reason for exam; i.e. extremities or head) *Use of iterative reconstruction technique DLP: 662 mGy-cm FINDINGS: There is no evidence for an extra-axial collection. There is no evidence for intra-or extra-axial hemorrhage. The ventricles and extra-axial CSF spaces are appropriate. Crawford-white matter differentiation is normal. No mass, mass effect or infarct is seen. Review of bone windows is normal. No skull fracture. Visualized paranasal sinuses, mastoid air cells and middle ears are clear. CT/CT head/brain wo IV con IMPRESSION: Unremarkable exam.
[2023-11-05 06:37] VITALS: BP 110/84; BP 121/79; PULSE 60; PULSE 84; RESP 16; TEMP 36.5; O2SAT 96; O2SAT 99; BMI 24.2
[2023-11-05 08:39] VITALS: BP 153/88; PULSE 74; RESP 20; TEMP 35.9; O2SAT 97
[2023-11-05 08:44] LABS: Glucose, Whole Blood 101 mg/dL (60-115)
--- NOTE | 2023-11-05 08:45 | ECG_ITS ---
Test Reason : dizzy Blood Pressure : / mmHG Vent. Rate : 058 BPM Atrial Rate : 058 BPM P-R Int : 118 ms QRS Dur : 086 ms QT Int : 416 ms P-R-T Axes : -05 -09 043 degrees QTc Int : 408 ms Sinus bradycardia with sinus arrhythmia Otherwise normal ECG When compared with ECG of 14-SEP-2023 13:32, Vent. rate has decreased BY 36 BPM Referred By: Generic ED Physician Electronically Signed By:MIGUEL CAMERON MD
--- NOTE | 2023-11-05 08:46 | PC.NURSE ---
pct comes over to the triage door with the pt, pct was assisting the pt to the bathroom, pt got very dizzy/weak and felt like he was about to pass, out, checked pt's poc 101 and full set vs, spoke to dr fernandez in regards to did incident, jeaniket ct is ovdered and labs
[2023-11-05 09:00] LABS: MANUAL DIFF FLAG NO
[2023-11-05 09:04] LABS: Basophils Percent Auto 0.4 % (0-2); Eosinophils Absolute Auto 0.1 X10*3/uL (0.0-0.4); Eosinophils Percent Auto 1.1 % (0-4); Hematocrit 46.6 % (42.0-52.0); Hemoglobin 16.3 g/dl (14.0-18.0); Imm Gran Abs Auto 0.06 X10*3/uL (0.00-0.03); Imm Gran Pct Auto 1.1 % (0.0-0.4); Lymphocytes Absolute Auto 1.8 X10*3/uL (1.2-4.9); Lymphocytes Percent Auto 32.7 % (20-40); Mean Corpuscular Hemoglobin 32.8 pg (27.0-33.0); Mean Corpuscular Volume 93.8 fL (80.0-98.0); Mean Platelet Volume 8.9 fL (9.4-12.4); Monocytes Absolute Auto 0.3 X10*3/uL (0.1-1.2); Monocytes Percent Auto 5.9 % (2-11); Neutrophils Absolute Auto 3.3 x10*3/uL (2.0-8.3); Neutrophils Percent Auto 58.8 % (45-73); Platelet Count 274 X10*3/uL (160-400); Red Blood Count 4.97 X10*6/uL (4.60-5.80); Red Cell Distribution Width 11.7 % (11.0-16.0); White Blood Count 5.6 X10*3/uL (4.8-10.8)
[2023-11-05 09:18] LABS: Alanine Aminotransferase 23 U/L (0-40); Albumin Level 4.3 g/dL (3.5-5.0); Alkaline Phosphatase 51 U/L (39-117); Anion Gap 12 (12-20); Aspartate Amino Transferase 22 U/L (5-37); Bilirubin Direct 0.2 mg/dL (0.0-0.5); Bilirubin Total 0.6 mg/dL (0.0-1.0); Blood Urea Nitrogen 20 mg/dL (9-16); Calcium 9.5 mg/dL (8.4-10.2); Carbon Dioxide 24 mmol/L (22-29); Chloride 108 mmol/L (96-108); Creatinine Clr Calc Pharmacy 82.2; Estimated Glomerular Filt Rate > 60; Glucose Random 104 mg/dL (60-115); Lipase 29 U/L (8-78); Sodium 140 mmol/L (135-145); Total Protein 7.3 g/dL (6.5-8.0)
[2023-11-05 09:29] LABS: Troponin-I High Sensitivity < 2.7 ng/L (<3.5-35.0)
--- NOTE | 2023-11-05 12:28 | ED.GENADULT ---
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 Patient states that 2 days ago he hit the back left portion of his head on a shelf / hanging plant, and he has pain ever since. Patient states that he did not have any loss of consciousness with the incident. Patient denies any dizziness, lightheadedness, abdominal pain, nausea, vomiting, fever, chills, blurry vision, double vision, loss of vision, chest pain, difficulty breathing, shortness of breath, back pain, night sweats, pain with urination, increased urinary frequency, increased urinary urgency, blood in his urine or stool, syncope or a near syncopal episode, bowel incontinence, bladder incontinence, bowel retention, bladder retention, or any other complaints at this time. Onset (ago): day(s) (2) Location: head Radiation: non-radiation Severity: mild Severity scale (1-10): 4 Quality: aching and dull Pain Consistency: constant Relieving factors: none Exacerbating factors: none Associated symptoms: denies other symptoms Treatments prior to arrival: none Related Data Home Medications ?Medication ?Instructions ?Recorded ?Confirmed fluticasone propionate 220 2 puff inhalation BID 04/20/23 10/14/23 mcg/actuation HFA aerosol inhaler (Flovent HFA) Previous Rx's ?Medication ?Instructions ?Recorded escitalopram oxalate 10 mg tablet 10 mg PO DAILY #30 tabs 04/25/23 melatonin 3 mg tablet 3 mg PO BEDTIME #30 tabs 04/25/23 quetiapine 100 mg tablet 100 mg PO BEDTIME #30 tabs 04/25/23 quetiapine 25 mg tablet 25 mg PO BID PRN Anxiety #60 tabs 04/25/23 meclizine 12.5 mg tablet 12.5 mg PO BID PRN dizziness #10 05/07/23 tabs bisacodyl 5 mg tablet,delayed 20 mg (4 x 5 mg) PO ONCE PRN 10/14/23 release (Dulcolax (bisacodyl)) colonoscopy prep 1 day #4 tabs polyethylene glycol 3350 17 238 g PO ONCE PRN laxative effect 10/14/23 gram/dose oral powder (Miralax) 1 day #238 grams Allergies Allergy/AdvReac Type Severity Reaction Status Date / Time No Known Allergies Allergy Verified 11/05/23 06:40 [No Known Allergies*] Review of Systems Constitutional: Constitutional: Reports no additional constitutional complaints, Denies chills, Denies fever(s), Reports headache(s) and Denies night sweats Eyes: Eyes: Reports no additional eye complaints, Denies blurry vision, Denies change in vision, Denies diplopia, Denies eye discharge, Denies loss of vision and Denies eye pain ENT: Denies dizziness and Reports headache(s) Cardiovascular: Cardiovascular: Reports no additional cardiovascular complaints, Denies chest pain, Denies lightheadedness, Denies Loss of Consciousness and Denies dyspnea Respiratory: Respiratory: Reports no additional respiratory complaints and Denies dyspnea Gastrointestinal: Gastrointestinal: Reports no additional gastrointestinal complaints, Denies abdominal pain, Denies melena, Denies hematochezia, Denies change in bowel habits and Denies change in stool character Genitourinary: Genitourinary: Reports no additional male genitourinary complaints, Denies hematuria, Denies oliguria, Denies difficulty urinating, Denies dysuria, Denies urinary frequency, Denies urinary hesitancy, Denies urinary incontinence and Denies urinary urgency Musculoskeletal: Musculoskeletal: Reports no additional musculoskeletal complaints, Denies numbness and Denies tingling Neurologic: Denies dizziness, Reports headache(s), Denies loss of vision, Denies numbness and Denies tingling Psychiatric: Psychiatric: Reports no additional psychiatric complaints Endocrine: Endocrine: Reports no additional endocrine complaints Hematologic/Lymphatic: Hematologic/Lymphatic: Reports no additional hematologic/lymphatic complaints Allergic/Immunologic: Allergic/Immunologic: Reports no additional allergic/immunologic complaints PMFSH Past Medical History Attestation statement: The following information was validated with the patient. Source: old records reviewed and nursing notes reviewed Medical History Allergic rhinitis Post traumatic stress disorder Depression Hypercholesterolemia HTN (hypertension) GERD (gastroesophageal reflux disease) Anxiety COVID-19 Asthma Surgical History History of surgery Social History Social History Household Members: None Housing: Apartment Do you presently have visiting nurse or other home services: No Unable to assess alcohol history related to: Unknown Alcohol intake: former Patient Tobacco Use Status: Never used Tobacco e-Cigarette/Vaping Use: Never Used Advance Directives: No Advance Directives Information Provided: Yes Do you have a plan to hurt others: No Plan service: No Current occupational status: retired Sexual orientation: Straight/Heterosexual Physical Exam ED Vital Signs: Vital Signs - 24 hr 11/05/23 06:37 11/05/23 08:39 11/05/23 13:25 Temperature 97.7 F 96.7 F L 98.4 F Pulse Rate 84 74 83 Respiratory Rate 16 20 18 Blood Pressure 121/79 153/88 H 123/73 Pulse Oximetry 96 97 98 Oxygen Delivery Method Room Air Room Air Room Air BMI result Body Mass Index 24.2 Const General: cooperative, no acute distress, alert and awake Nutritional Appearance: well nourished Orientation/consciousness: patient oriented x3 Limitations: no limitations [facility] Head images: 1. small raised bump palpated Ears: hearing grossly normal bilaterally and external ears normal General nose exam: Normal external nose present, no nasal discharge noted and no epistaxis Face and sinus: Yes normal facial exam, No abrasion and No laceration Mouth: Normal oral and palatal mucosa present, no drooling and no muffled voice Eyes General: appearance normal, both eyes and all related structures Periorbital: periorbital findings normal Eyelids: Yes eyelids normal Conjunctivae: conjunctivae normal Pupils: Equal, round and reactive pupils present EOM: EOMs intact bilaterally Neck Neck: Yes normal visual inspection, Yes full ROM and Yes no lymphadenopathy Chest Chest palpation & inspection: normal inspection of the chest Resp Effort & Inspection: normal respiratory effort and able to speak in complete sentences GI Inspection: Yes normal to inspection Neuro General: patient oriented x3 and moves all extremities Cranial nerves: Yes Equal, round and reactive pupils present Cognition (Neuro): normal cognition Motor exam (neuro): 5/5 motor strength present throughout Sensory Exam: Normal double simultaneous stimulation for sensation Coordination: [id number] test normal Extrem General: Yes normal to inspection, Yes full ROM and Yes capillary refill normal Psych Appearance: grossly normal Mental Status: mental status grossly normal Affect: normal affect Attitude: cooperative Thought process: Normal thought process present Thought content: Normal thought content present Insight: Good insight present (Psych) Medical Decision Making Medical Decision Making [facility] Narrative: Patient is a 72 year old assigned male at with a history of MDD presenting to the emergency department today with a headache. Patient's physical exam was as noted in the physical exam portion of this note. Patient's blood work was unremarkable. Patient's EKG was unremarkable. Patient's head CT showed no acute process. I explained my physical exam findings as well as all test results to the patient. I answered all questions asked by the patient. I stressed the importance of the patient taking his medication as prescribed. I stressed the importance of the patient following up with his primary care provider. I stressed the importance of the patient returning to the emergency department immediately if his symptoms were to worsen or if he were to develop any dizziness, shortness of breath, difficulty breathing, chest pain, blurry vision, loss of vision, nausea, vomiting, abdominal pain, fever, chills, back pain, or any other complaints. Patient verbalized agreement and understanding with this treatment plan and discharge. Differential Diagnosis Differential Diagnoses: The differential diagnosis associated with the presentation includes Headache Concussion Head injury Admission/Observation Consideration of admission/observation: Escalation of care including admission/observation considered Patient would have been admitted to the hospital had his work up had any findings where hospital admission was appropriate and his clinical presentation warranted hospital admission. Lab Data [facility] Lab Attestation statement: I reviewed the patient's lab results. My interpretation of these studies and their corresponding values is that they are grossly normal. 11/05/23 08:53 11/05/23 08:53 Labs: Lab Results 11/05/23 11/05/23 Range/Units 08:41 08:53 WBC 5.6 (4.8-10.8) X10*3/uL RBC 4.97 (4.60-5.80) X10*6/uL Hgb 16.3 (14.0-18.0) g/dl Hct 46.6 (42.0-52.0) % MCV 93.8 (80.0-98.0) fL MCH 32.8 (27.0-33.0) pg MCHC 35.0 (31.0-36.0) g/dl RDW 11.7 (11.0-16.0) % Plt Count 274 (160-400) X10*3/uL MPV 8.9 L (9.4-12.4) fL Immature Gran % (Auto) 1.1 H (0.0-0.4) % Neut % (Auto) 58.8 (45-73) % Lymph % (Auto) 32.7 (20-40) % Dukes % (Auto) 5.9 (2-11) % Eos % (Auto) 1.1 (0-4) % Baso % (Auto) 0.4 (0-2) % Lymph # (Auto) 1.8 (1.2-4.9) X10*3/uL Dukes # (Auto) 0.3 (0.1-1.2) X10*3/uL Eos # (Auto) 0.1 (0.0-0.4) X10*3/uL Baso # (Auto) 0.0 (0.0-0.2) X10*3/uL Abs Immat Gran (auto) 0.06 H (0.00-0.03) X10*3/uL Absolute Neuts (auto) 3.3 (2.0-8.3) x10*3/uL Absolute Nucleated RBC 0.000 (0.0-0.012) X10*3/uL Nucleated RBC % (auto) 0.0 (0.0-0.2) /100WBC Sodium 140 (135-145) mmol/L Potassium 4.0 (3.3-5.1) mmol/L Chloride 108 (96-108) mmol/L Carbon Dioxide 24 (22-29) mmol/L Anion Gap 12 (12-20) BUN 20 H (9-16) mg/dL Creatinine 0.77 (0.5-1.4) mg/dL Estim Creat Clear Calc 82.2 Estimated GFR > 60 POC Glucose 101 (60-115) mg/dL Random Glucose 104 (60-115) mg/dL Calcium 9.5 (8.4-10.2) mg/dL Total Bilirubin 0.6 (0.0-1.0) mg/dL Direct Bilirubin 0.2 (0.0-0.5) mg/dL AST 22 (5-37) U/L ALT 23 (0-40) U/L Alkaline Phosphatase 51 (39-117) U/L Troponin I High Sens < 2.7 (<3.5-35.0) ng/L Total Protein 7.3 (6.5-8.0) g/dL Albumin 4.3 (3.5-5.0) g/dL Lipase 29 (8-78) U/L Independent Interpretation I performed an independent interpretation of an: EKG and CT Scan Interpretation: My interpretation is in agreement with the radiologist's impression of this imaging study. EXAMINATION: CT HEAD WITHOUT CONTRAST CLINICAL INFORMATION: Dizziness. Head injury. COMPARISON: Previous head CT May 2023 TECHNIQUE: Contiguous axial imaging was performed from the skull base to vertex without intravenous administration of contrast. This CT examination was performed using dose optimization techniques as appropriate, variously including the following: *Automated exposure control *Adjustment of mA and/or kV according to patient size (this includes techniques or standardized protocols for targeted exams where dose is matched to indication/reason for exam; i.e. extremities or head) *Use of iterative reconstruction technique DLP: 662 mGy-cm FINDINGS: There is no evidence for an extra-axial collection. There is no evidence for intra-or extra-axial hemorrhage. The ventricles and extra-axial CSF spaces are appropriate. Crawford-white matter differentiation is normal. No mass, mass effect or infarct is seen. Review of bone windows is normal. No skull fracture. Visualized paranasal sinuses, mastoid air cells and middle ears are clear. CT/CT head/brain wo IV con IMPRESSION: Unremarkable exam. Dictated By: Mary Hope MD Signed By: Electronically signed by Mary Hope MD 11/05/23 1212 Vent. Rate: 058 BPM Atrial Rate: 058 BPM P-R Int: 118 ms QRS Dur: 086 ms QT Int: 416 ms P-R-T Axes: -05 -09 043 degrees QTc Int: 408 ms Sinus bradycardia with sinus arrhythmia Otherwise normal ECG When compared with ECG of 14-SEP-2023 13:32, Vent. rate has decreased BY 36 BPM DD/ 0847 Radiology Impression Discussion of test interpretation with radiology: I have reviewed the radiologist's reading. Discharge Plan Discharge Clinical Impression: Concussion Patient Disposition: Home, Self-Care Instructions: Concussion (ED) Additional Instructions: Follow up with your primary care provider. Return to the emergency department immediately if your symptoms worsen or if you develop any dizziness, shortness of breath, difficulty breathing, chest pain, blurry vision, loss of vision, nausea, vomiting, abdominal pain, fever, chills, back pain, or any other complaints. Prescriptions: No Action meclizine 12.5 mg tablet 12.5 mg PO BID PRN (Reason: dizziness) Qty: 10 0RF fluticasone propionate [Flovent HFA] 220 mcg/actuation HFA aerosol inhaler 2 puff INHALATION BID quetiapine 25 mg Tablet 25 mg PO BID PRN (Reason: Anxiety) Qty: 60 0RF escitalopram oxalate 10 mg Tablet 10 mg PO DAILY Qty: 30 0RF quetiapine 100 mg tablet 100 mg PO BEDTIME Qty: 30 0RF melatonin 3 mg Tablet 3 mg PO BEDTIME Qty: 30 0RF bisacodyl [Dulcolax (bisacodyl)] 5 mg tablet,delayed release (DR/EC) 20 mg PO ONCE PRN (Reason: colonoscopy prep) 1 Days Qty: 4 0RF Rx Instructions: Day before procedure @ 12 noon Take 4 tablets by mouth followed by large glass of water polyethylene glycol 3350 [Miralax] 17 gram/dose powder 238 g PO ONCE PRN (Reason: laxative effect) 1 Days Qty: 238 0RF Rx Instructions: Take as directed by mouth the day before your procedure. Referrals: Alberta Rizo MD [Primary Care Provider] - Interventions: ED Discharge Assessment Last Done: 11/05/23 13:25 Discharge Date/Time: 11/05/23 13:25 Print Language: Faroese
[2023-11-05 13:25] VITALS: BP 123/73; PULSE 83; RESP 18; TEMP 36.9; O2SAT 98
== END 2023-11-05 13:25 | disposition home or self-care (01) ==
PROVIDERS: Emergency Provider Emergency Medicine; PCP Internal Medicine
DX: S06.0X0A Concussion without loss of consciousness, initial encounter (principal); I10 Essential (primary) hypertension; J45.909 Unspecified asthma, uncomplicated; W22.8XXA Striking against or struck by other objects, initial encounter; Y93.9 Activity, unspecified; Y92.9 Unspecified place or not applicable; Y99.9 Unspecified external cause status
CPT/HCPCS: 36415; 70450; 80048; 80076; 82947; 83690; 84484; 85025; 93005; 99283; 99284

== ENCOUNTER → 2023-11-05 08:45 | Outpatient (BNV) | payer MEDICARE, MEDICAID, SELFPAY | PROVIDERS: Emergency Provider Emergency Medicine; PCP Internal Medicine; Visit Provider Internal Medicine Cardiovascular Disease | DX: I49.9 Cardiac arrhythmia, unspecified (principal) | CPT/HCPCS: 93010 ==

== ENCOUNTER 2024-03-26 07:07 | Day surgery (SDC) | payer OTHER, SELFPAY ==
[2024-03-26 07:23] VITALS: BMI 24.5
[2024-03-26 07:35] VITALS: BP 133/65; PULSE 68; RESP 16; TEMP 36.1; O2SAT 98
[2024-03-26] MEDS: Lactated Ringers 1,000 ML 80 ML IVCONT (07:42)
--- NOTE | 2024-03-26 08:28 | MHC.SHP ---
Pre-Procedural Eval Section A - 24 Hr Update-Section A only Date of Service: 03/26/24 The patient is an INPATIENT: No The patient has been examined within 24 hours of the surgical procedure. The History & Physical has been completed within 30 days and I have reviewed it.: No Section B - Complete if H&P > 30 days Chief Complaint: Surveillance for colon polyps Relevant Family History (Specify if Yes): No Relevant Social History: None Present Medications: see Short Stay Collaborative assessment Medical History: Significant History (Allergic rhinitis Post traumatic stress disorder Depression Hypercholesterolemia HTN (hypertension) GERD (gastroesophageal reflux disease) Anxiety COVID-19 Asthma) History of Previous Operations: Relevant previous surgery/procedure and date(s) (History of colonoscopy) Allergies: Allergies Allergy/AdvReac Type Severity Reaction Status Date / Time No Known Allergies Allergy Verified 11/05/23 06:40 [No Known Allergies*] Review of Systems Sugical H&P ROS: Negative: Constitution, Cardiovascular, Respiratory and Gastrointestinal Exam Surgical H&P Exam: Normal: Heart, Normal: Lungs, Normal: Extremities and Normal: Abdomen Plan Diagnosis/Plan: Unchanged I have reviewed the history and physical and performed a pertinent physical examination on my patient. No changes have occurred unless specified. Time Spent With Patient Time: Total time managing care of this patient today ____ minutes.
--- NOTE | 2024-03-26 08:44 | P.CONAN_ITS ---
[facility] Active Problems Active Problems: All Active Problems History of colon polyps (Acute) Acromioclavicular joint arthritis (Acute) MDD (major depressive disorder), recurrent, severe, with psychosis (Acute) Renal cyst (Acute) Kidney calculus (Acute) Acute left flank pain (Acute) Past Medical History Medical History Allergic rhinitis Post traumatic stress disorder Depression Hypercholesterolemia HTN (hypertension) GERD (gastroesophageal reflux disease) Anxiety COVID-19 Asthma Functional capacity: independent ambulation Family History Family history of problems with anesthesia: No Surgical History Surgical History History of surgery History of Problems with Anesthesia: No Social History Social History Household Members: None Housing: Apartment Are you a primary nurse care manager to a significant other at home: No Do you presently have visiting nurse or other home services: No Unable to assess alcohol history related to: Unknown Alcohol intake: former Patient Tobacco Use Status: Never used Tobacco e-Cigarette/Vaping Use: Never Used Second Hand Smoke Exposure: No Use of substances other than those prescribed or required for medical reasons: No Have you been hit, kicked, punched, or otherwise hurt by someone within the past year? If so, by whom?: No Are you DNR?: No Advance Directives: No Advance Directives Information Provided: Yes Advance Directives on File: No Recently lost weight without trying: No Eating poorly because of decreased appetite: No Nutrition Risks: No Nutritional Risk Poor oral hygiene: No service: No Current occupational status: retired Sexual orientation: Straight/Heterosexual Meds Allergies Allergy/AdvReac Type Severity Reaction Status Date / Time No Known Allergies Allergy Verified 11/05/23 06:40 [No Known Allergies*] Active Medications: Current Medications Lactated Ringer's (Lr) 1,000 mls @ 80 mls/hr IVCONT .[id number] RAÚL Last Admin: 03/26/24 07:42 Dose: 80 mls/hr Home Medications ?Medication ?Instructions ?Recorded ?Confirmed ?Last Taken ?Type fluticasone propionate 220 2 puff inhalation BID 04/20/23 10/14/23 Unknown History mcg/actuation HFA aerosol inhaler (Flovent HFA) Exam Height,Weight and Vital Signs: Height 5 ft 6 in Weight 68.946 kg Last Vital Signs Temp 96.9 F 03/26/24 07:35 Pulse 68 03/26/24 07:35 Resp 16 03/26/24 07:35 BP 133/65 03/26/24 07:35 Pulse Ox 98 03/26/24 07:35 O2 Del Method Room Air 03/26/24 07:35 Airway Mallampati Class: II TM Dist: >3cm Neck ROM: Full Lungs: CTA Assessment and Plan Final Anesthetic Review Family History of Problems with Anesthesia: No History of Problems with Anesthesia: No NPO: Yes ASA Class: II Final Preanesthetic Review: Meds/Allgs Chart Reviewed, Consent Obtained/Reviewed and Anes Risks/Benef Reviewed Patient Risk: Low Procedure Risk: Low Anesthetic Plan Anesthetic Plan: MAC: Disposition: Standard PACU
--- NOTE | 2024-03-26 09:45 | P.OPN-COLO_ITS ---
Colonoscopy Operative Note Operative Note Date of Service: 03/26/24 Narrative: COLONOSCOPY TILL CECUM WITH BIOPSIES, SNARE POLYPECTOMY AND HEMOCLIP PLACEMENT Pre-op diagnosis: Surveillance for colon polyps. Post-op diagnosis:? Colon polyps, Diverticulosis, hemorrhoids Endoscopist:? Wood David MD Anesthesia:?MAC Consent: Indications for the procedure and potential complications of bleeding, perforation, reaction to medications and missed diagnosis were discussed with the patient and informed consent was obtained. Instrument: Olympus CF H 190 L variable stiffness adult colonoscope Monitoring: Vital signs and clinical assessment, intermittent blood pressure monitoring, continuous EKG monitoring, Pulse oximetry and Carbon Dioxide monitoring were done throughout the procedure. Please see anesthesia flowsheet. Colon withdrawl time was 16 minutes. Procedure: The patient was placed in the left lateral decubitis position and pre-procedure medications were administered. After a digital rectal examination of the ano-rectum, the video colonoscope was inserted into the rectum and advanced through the colon to the cecum. The colonoscope was slowly withdrawn in a retrograde panoramic fashion and the colon mucosa was carefully examined including a retroflexed view of the rectum. Findings and interventions are described below. Procedure Difficulty: without difficulty Findings: Terminal Ileum: Not evaluated Cecum: Normal Ascending Colon: Normal Transverse Colon: A 5-6 mm sessile polyp in the proximal TC - removed with a cold snare Descending Colon: Normal Sigmoid Colon: Moderate diverticulosis Rectum: A 3-4 mm sessile polyp in the distal rectum just inside the anal verge - removed with a cold biopsy. Bleeding noted from biopsy site and one hemoclip was placed with cessation of bleeding Ano-rectum: Small internal hemorrhoids Colon preparation: Excellent, and Good in the right colon after some irrigation. [place] Bowel Preparation Scale Right colon; 2 Transverse colon: 3 Left colon; 3 (0 = Unprepared colon segment with mucosa not seen due to solid stool that cannot be cleared. 1 = Portion of mucosa of the colon segment seen, but other areas of the colon segment not well seen due to staining, residual stool and/or opaque liquid. 2 = Minor amount of residual staining, small fragments of stool and/or opaque liquid, but mucosa of colon segment seen well. 3 = Entire mucosa of colon segment seen well with no residual staining, small fragments of stool or opaque liquid) Impression and Post Procedure Diagnosis: Colonoscopy Findings: Two small polyps were removed Moderate diverticulosis seen in the sigmoid colon Small hemorrhoids on retroflexed exam. Plan: Pt has a FU appointment on 06/28/24 with JADE Dale, Repeat Colonoscopy in 5 years if polyps are adenomatous and due to history of adenomatous colon polyps Above findings were reviewed with the patient and relevant handouts were given and the discharge area.
[2024-03-26 09:47] VITALS: BP 100/57; PULSE 69; RESP 16; TEMP 37.1; O2SAT 95
[2024-03-26 10:02] VITALS: BP 112/78; PULSE 60; RESP 16; O2SAT 97
[2024-03-26 10:15] VITALS: BP 103/79; PULSE 63; RESP 16; TEMP 36.8; O2SAT 98
--- NOTE | 2024-03-26 13:26 | HO.POSTANES ---
Post Anesthesia Evaluation Post Anesthesia Evaluation Date of Service: 03/26/24 Vital Signs: Vital Signs Temp Pulse Resp BP Pulse Ox O2 Del Method O2 Flow Rate 03/26/24 10:15 98.2 F 63 16 103/79 98 Room Air 03/26/24 10:02 60 16 112/78 97 Room Air 03/26/24 09:47 98.8 F 69 16 100/57 L 95 Simple Mask 5 03/26/24 07:35 96.9 F 68 16 133/65 98 Room Air Anesthesia: Monitored Mental Status: Awake Pain Control: Satisfactory Nausea/Vomiting: None Hydration: Adequate Anesthesia-Related Issues: No Anes. Related Issues
== END 2024-03-26 10:49 | disposition home or self-care (01) ==
PROVIDERS: PCP Internal Medicine; Visit Provider Internal Medicine Gastroenterology
PROC: 0DJD8ZZ Inspection of Lower Intestinal Tract, Via Natural or Artificial Opening Endoscopic (ICD-10-PCS; CPT 45378; principal; 2024-03-26 09:10)
DX: Z12.11 Encounter for screening for malignant neoplasm of colon (principal); D12.3 Benign neoplasm of transverse colon; K62.1 Rectal polyp; K57.30 Diverticulosis of large intestine without perforation or abscess without bleeding; K64.8 Other hemorrhoids; Z86.010 Personal history of colon polyps; I10 Essential (primary) hypertension; E78.00 Pure hypercholesterolemia, unspecified; K21.9 Gastro-esophageal reflux disease without esophagitis; J45.909 Unspecified asthma, uncomplicated; F43.10 Post-traumatic stress disorder, unspecified
CPT/HCPCS: 45385; 45380; 88305; J2704

== ENCOUNTER → 2024-03-26 07:07 | Outpatient (BNV) | payer OTHER, SELFPAY | PROVIDERS: PCP Internal Medicine; Visit Provider Internal Medicine Gastroenterology | DX: Z12.11 Encounter for screening for malignant neoplasm of colon (principal); Z86.010 Personal history of colon polyps; D12.3 Benign neoplasm of transverse colon; K62.1 Rectal polyp; K57.30 Diverticulosis of large intestine without perforation or abscess without bleeding; K64.8 Other hemorrhoids | CPT/HCPCS: 45380; 45385 ==

== ENCOUNTER 2024-03-29 12:42 | Outpatient (REF) | payer OTHER, SELFPAY ==
--- NOTE | ~2024-03-29 | US_ITS ---
EXAMINATION: US RETROPERITONEAL LIMITED (RENAL ONLY) CLINICAL INFORMATION: Calculus of kidney. COMPARISON: Renal ultrasound 09/18/2023. TECHNIQUE: Real-time imaging of the kidneys. FINDINGS: RIGHT KIDNEY: 11.5 x 5.5 x 4.8 cm (SAG x AP x TRV). The kidney is normal in size, contour, and echogenicity. Renal cortical thickness is normal. No renal calculi or hydronephrosis. Simple appearing cysts measuring 1.5 cm in the interpolar kidney. LEFT KIDNEY: 12.2 x 6.2 x 5.5 cm (SAG x AP x TRV). The kidney is normal in size, contour, and echogenicity. Renal cortical thickness is normal. No renal calculi or hydronephrosis. Simple appearing cyst in the interpolar kidney measuring 2.1 cm. US/US renal BI IMPRESSION: 1. No nephrolithiasis or hydronephrosis. 2. Simple appearing bilateral renal cysts. Electronically signed by: Park Chapman MD 04/06/2024 04:07 PM EDT
== END 2024-03-29 12:43 | disposition home or self-care (01) ==
LOC: HO.US 12:42
PROVIDERS: PCP Internal Medicine; Visit Provider Nurse Practitioner Family
DX: N20.0 Calculus of kidney (principal)
CPT/HCPCS: 76775

== ENCOUNTER 2024-05-20 08:13 | Outpatient (REF) | payer OTHER, SELFPAY ==
[2024-05-20 11:21] LABS: MANUAL DIFF FLAG NO
[2024-05-20 11:30] LABS: Basophils Percent Auto 0.6 % (0-2); Eosinophils Percent Auto 0.6 % (0-4); Hemoglobin 15.1 g/dl (14.0-18.0); Imm Gran Abs Auto 0.06 X10*3/uL (0.00-0.03); Imm Gran Pct Auto 1.1 % (0.0-0.4); Lymphocytes Absolute Auto 1.6 X10*3/uL (1.2-4.9); Lymphocytes Percent Auto 28.7 % (20-40); Mean Corpuscular HGB Conc 34.3 g/dl (31.0-36.0); Mean Corpuscular Hemoglobin 32.4 pg (27.0-33.0); Mean Corpuscular Volume 94.4 fL (80.0-98.0); Mean Platelet Volume 9.4 fL (9.4-12.4); Monocytes Absolute Auto 0.3 X10*3/uL (0.1-1.2); Monocytes Percent Auto 5.9 % (2-11); Neutrophils Absolute Auto 3.4 x10*3/uL (2.0-8.3); Neutrophils Percent Auto 63.1 % (45-73); Platelet Count 293 X10*3/uL (160-400); Red Blood Count 4.66 X10*6/uL (4.60-5.80); Red Cell Distribution Width 11.6 % (11.0-16.0); White Blood Count 5.4 X10*3/uL (4.8-10.8)
[2024-05-20 11:35] LABS: Estimated Average Glucose 91 mg/dL; Hemoglobin A1C 117.3668 umol/L; Hemoglobin A1c % 4.8 % (<6.0); Total Hemoglobin (HGBA1C) 4000.8698 umol/L
[2024-05-20 12:07] LABS: Alanine Aminotransferase 38 U/L (0-40); Albumin Level 4.2 g/dL (3.5-5.0); Alkaline Phosphatase 54 U/L (39-117); Anion Gap 13 (12-20); Aspartate Amino Transferase 26 U/L (5-37); Bilirubin Total 0.6 mg/dL (0.0-1.0); Blood Urea Nitrogen 19 mg/dL (9-16); Calcium 9.6 mg/dL (8.4-10.2); Carbon Dioxide 23 mmol/L (22-29); Chloride 108 mmol/L (96-108); Estimated Glomerular Filt Rate > 60; Glucose Random 96 mg/dL (60-115); Potassium 3.8 mmol/L (3.3-5.1); Sodium 140 mmol/L (135-145); Total Protein 6.9 g/dL (6.5-8.0)
[2024-05-20 12:27] LABS: Free T4 (Free Thyroxine) 1.04 ng/dL (0.71-1.85); Thyroid Stimulating Hormone 0.84 uIU/mL (0.32-4.0)
== END 2024-05-20 08:14 | disposition home or self-care (01) ==
LOC: HO.HHCL 08:13
PROVIDERS: Visit Provider Psychiatry & Neurology Psychiatry
DX: Z79.899 Other long term (current) drug therapy (principal)
CPT/HCPCS: 36415; 80053; 83036; 84439; 84443; 85025

== ENCOUNTER 2024-12-07 13:11 | Emergency (ER) | payer OTHER, SELFPAY ==
[2024-12-07 13:22] VITALS: BP 154/88; PULSE 102; O2SAT 96
[2024-12-07 13:35] VITALS: BP 135/78; PULSE 88; RESP 18; TEMP 36.8; O2SAT 98; BMI 25.6
--- NOTE | 2024-12-07 14:05 | ECG_ITS ---
Test Reason : NAUSEA Blood Pressure : */* mmHG Vent. Rate : 76 BPM Atrial Rate : 76 BPM P-R Int : 130 ms QRS Dur : 90 ms QT Int : 386 ms P-R-T Axes : 31 2 71 degrees QTcB Int : 434 ms Normal sinus rhythm Normal ECG When compared with ECG of 05-Nov-2023 08:47, No significant change was found Referred By: Doug Dawn Electronically Signed By: MIGUEL CAMERON MD
--- OUTSIDE RECORDS SUMMARY | 2024-12-07 14:14 | XMS_ITS | Encounter Summary ---
Author Organization [employer] Address [address] [facility] [address] [place] [address] Care Team Providers Care Patient Access Representative Name Role Phone Alberta Rizo MD Primary Care Provide r Encounter Details Date Type Department Care Team (Late st Contact Info) Description 12/02/2023 Orders Only [facility] [address], [place] [phone] Alberta Rizo MD [address] [place] [address] Social History Tobacco Use Types Packs/Day Years Used Date Smoking Tobacco: Never Passive Smoke Exposure: Never Smokeless Tobacco: Never Depression Answer Date Recorded Patient Health Questionnaire-9 Score 6 06/30/2023 Patient Health Questionnaire-9 Score 6 06/30/2023 Last PHQ-9: Questionnaire Data Not on file 1 08/31/2022 Housing Stability Answer Date Recorded What is your housing situation today? I have alexis dia 05/02/[address] you li ve. Do you have problems with any of the following? None of the above 05/02/2023 Food Insecurity Answer Date Recorded Within the past 12 months, y ou worried that your food would run out before you got money to buy more: Never True 05/02/2023 Within the past 12 months,th e food you bought just didn't last and you didn't have enough money to get more: Never True Transportation Answer Date Recorded In the past 12 months, has l ack of transportation kept you from medical appts, meetings, work or from getting things needed for daily living? No 05/02/2023 Utilities Answer Date Recorded In the past 12 months, has t he electric, gas, oil or water company threatened to shut off services in your home? No 05/02/2023 Depression Answer Date Recorded Patient Health Questionnaire-2 Score 2 06/30/2023 Sex and Gender Information Value Date Recorded Sex Assigned at Male 05/13/2022 10:17 AM EDT Legal Sex Male 10:17 AM EDT Gender Identity Male 05/13/2022 10:17 AM EDT Sexual Orientation Straight 05/13/2022 10 :17 AM EDT documented as of this encounter Plan of Treatment Upcoming Encounters Date Type Department Care Team (Late st Contact Info) Description 12/28/2024 2:00 PM EDT Office Visit [facility] [address] [place] [address] Glen, Vicenta, OD [address] [place] [address] 02/07/2025 3:30 PM EDT Office Visit [facility] [address] [place] [address] Alberta Rizo MD [address] [place] [address] 02/10/2025 8:00 AM EDT Office Visit [facility] DENTAL [address] [place] [address] Jeanette, Lili [address] [place] [address] documented as of this encounter Visit Diagnoses Not on filedocumented in this encounter Additional Health Concerns Assessment Noted Time PHQ-9 Depression Total Score: 6 06/30/20 23 9:59 AM EST documented as of this encounter Care Teams Patient Access Representative Relationship Specialty Start Date End Date Alberta Rizo MD [address] [place] [address] PCP - General Family Medicine 07/30/19 documented as of this encounter
[2024-12-07 14:41] LABS: MANUAL DIFF FLAG NO
--- NOTE | 2024-12-07 14:42 | ED_ITS ---
HPI - General Adult General Chief complaint: Anxiety Stated complaint: CRISIS,RECENT BREAKUP PER EMS Time Seen by Provider: 12/07/24 13:21 Source: patient Mode of arrival: ambulatory Limitations: no limitations History of Present Illness ED Provider: Doug Dawn HPI narrative: 73-year-old male history of depression presents to ED for anxiety like reaction to being rejected. Patient states his female friend rejected him at the adult daycare. Patient states he has been trying to contact his female friend on the weekend, but could not reach her. Patient than states when female friend came to the day care she ignored the patient and would not make eye contact. Patient than states he left the adult daycare program and when he got home he became very upset and became anxious and nauseaous. Patient called the ambulance. patient denies any chest pain, shortness of breath, fever, chills, weakness, dizziness, night sweats, abdominal pain, urinary symptoms, or recent trauma. Patient denies any slurred speech, facial droop or paralysis of extremities. Related Data Home Medications ?Medication ?Instructions ?Recorded ?Confirmed fluticasone propionate 220 2 puff inhalation BID 04/20/23 10/14/23 mcg/actuation HFA aerosol inhaler (Flovent HFA) Previous Rx's ?Medication ?Instructions ?Recorded escitalopram oxalate 10 mg tablet 10 mg PO DAILY #30 tabs 04/25/23 melatonin 3 mg tablet 3 mg PO BEDTIME #30 tabs 04/25/23 quetiapine 100 mg tablet 100 mg PO BEDTIME #30 tabs 04/25/23 quetiapine 25 mg tablet 25 mg PO BID PRN Anxiety #60 tabs 04/25/23 meclizine 12.5 mg tablet 12.5 mg PO BID PRN dizziness #10 05/07/23 tabs Allergies Allergy/AdvReac Type Severity Reaction Status Date / Time No Known Allergies Allergy Verified 12/07/24 13:37 [No Known Allergies*] Review of Systems 2 Review of Systems: anxiety Yes all other systems are reviewed and are negative [facility] Past Medical History Medical History Allergic rhinitis Post traumatic stress disorder Depression Hypercholesterolemia HTN (hypertension) GERD (gastroesophageal reflux disease) Anxiety COVID-19 Asthma Surgical History History of surgery Social History Social History Household Members: None Housing: Apartment Are you a primary healthcare representative to a significant other at home: No Do you presently have visiting nurse or other home services: No Unable to assess alcohol history related to: Unknown Alcohol intake: former Patient Tobacco Use Status: Never used Tobacco e-Cigarette/Vaping Use: Never Used Second Hand Smoke Exposure: No Advance Directives: No Advance Directives Information Provided: Yes service: No Current occupational status: retired Sexual orientation: Straight/Heterosexual Physical Exam ED Vital Signs: Vital Signs - 24 hr 12/07/24 13:35 Temperature 98.2 F Pulse Rate 88 Respiratory Rate 18 Blood Pressure 135/78 Pulse Oximetry 98 BMI result Body Mass Index 25.6 Const General: cooperative, healthy appearing, comfortable, no acute distress, well developed, alert, awake and Physically active Orientation/consciousness: patient oriented x3 HENMT Head: Yes normal to inspection, Yes No palpable skull fracture present, Yes normocephalic and Yes atraumatic Eyes General: appearance normal, both eyes and all related structures Neck Neck: Yes normal visual inspection, Yes full ROM, Yes no lymphadenopathy, Yes no meningeal signs, Yes trachea midline, Yes supple, No anterior neck swelling and No tender Chest Chest palpation & inspection: normal inspection of the chest and normal palpation of entire chest wall Resp Effort & Inspection: normal respiratory effort and able to speak in complete sentences Auscultation: clear to auscultation bilaterally Cardio Jugular venous distension: no JVD Heart sounds: S1 normal heart sound present and S2 normal heart sound present GI Inspection: Yes normal to inspection Palpation (GI): Soft to palpation, not firm, nontender, no guarding and not rigid General: Yes no CVA tenderness Back/Spine/Pelvis Back: no CVA tenderness and No back tenderness Skin General skin exam: no rashes or lesions noted, elasticity normal and turgor normal Neuro General: patient oriented x3, gait normal, tone normal, moves all extremities, Normal light touch and pain sensation, no meningeal signs, no focal motor deficits, CN's II-XI intact bilaterally and normal sensation to monofilament Extrem General: Yes normal to inspection, Yes full ROM and Yes capillary refill normal Psych Appearance: grossly normal, well kempt and not disheveled Medical Decision Making Medical Decision Making MDM Narrative: 73-year-old male presents to ED for anxiety reaction after being rejected by his female friend. Patient denies any suicidal or homicidal ideation. Patient denies any chest pain or shortness of breath. Patient states anixety and nausea resoolved. Due to age we will do labs EKG. No need for care team evaluation. Patient is not danger to himself. Patient has follow up with therapist tomorrow. Patient has no auditory/visual hallucinations. 4:59pm: Initial labs EKG troponin negative. Patient is not in distress. Patient is not suicidal or homicidal. 6:06pm: Patient's EKGs labs 2 troponins negative. No need for care team crisis evaluation patient. patient will be discharged into family members care. Patient has appointment with therapist tomorrow. Patient explained worrisome signs and informed to return to the ED immediately. Not suspecting PE, CHF, pneumonia, pneumothorax, ND, myocarditis, pericarditis, or any other life- threatening etiology. Differential Diagnosis Differential Diagnoses: The differential diagnosis associated with the presentation includes (Anxiety, atypical chest pain,) Admission/Observation Consideration of admission/observation: Escalation of care including admission/observation considered Lab Data [facility] Lab Attestation statement: I reviewed the patient's lab results. 12/07/24 14:38 12/07/24 14:38 Labs: Lab Results 12/07/24 12/07/24 Range/Units 14:38 17:26 WBC 6.8 (4.8-10.8) X10*3/uL RBC 4.71 (4.60-5.80) X10*6/uL Hgb 15.4 (14.0-18.0) g/dl Hct 44.3 (42.0-52.0) % MCV 94.1 (80.0-98.0) fL MCH 32.7 (27.0-33.0) pg MCHC 34.8 (31.0-36.0) g/dl RDW 11.7 (11.0-16.0) % Plt Count 268 (160-400) X10*3/uL MPV 8.7 L (9.4-12.4) fL Immature Gran % (Auto) 0.7 H (0.0-0.4) % Neut % (Auto) 72.2 (45-73) % Lymph % (Auto) 21.5 (20-40) % Wise % (Auto) 4.9 (2-11) % Eos % (Auto) 0.4 (0-4) % Baso % (Auto) 0.3 (0-2) % Lymph # (Auto) 1.5 (1.2-4.9) X10*3/uL Wise # (Auto) 0.3 (0.1-1.2) X10*3/uL Eos # (Auto) 0.0 (0.0-0.4) X10*3/uL Baso # (Auto) 0.0 (0.0-0.2) X10*3/uL Abs Immat Gran (auto) 0.05 H (0.00-0.03) X10*3/uL Absolute Neuts (auto) 4.9 (2.0-8.3) x10*3/uL Absolute Nucleated RBC 0.000 (0.0-0.012) X10*3/uL Nucleated RBC % (auto) 0.0 (0.0-0.2) /100WBC Sodium 144 (135-145) mmol/L Potassium 4.5 (3.3-5.1) mmol/L Chloride 110 H (96-108) mmol/L Carbon Dioxide 29 (22-29) mmol/L Anion Gap 10 L (12-20) BUN 16 (9-16) mg/dL Creatinine 0.82 (0.5-1.4) mg/dL Estim Creat Clear Calc 68.1 Estimated GFR > 60 Random Glucose 149 H (60-115) mg/dL Calcium 9.3 (8.4-10.2) mg/dL Total Bilirubin 0.3 (0.0-1.0) mg/dL AST 25 (5-37) U/L ALT 30 (0-40) U/L Alkaline Phosphatase 58 (39-117) U/L Troponin I High Sens < 2.7 < 2.7 (<3.5-35.0) ng/L Total Protein 6.6 (6.5-8.0) g/dL Albumin 4.2 (3.5-5.0) g/dL Lipase 32 (8-78) U/L Independent Interpretation I performed an independent interpretation of an: EKG (Negative STEMI) Independent Historian Clinical information obtained from an independent historian. History obtained from or confirmed by: Other (Patient) Discharge Plan Discharge Clinical Impression: Acute anxiety Patient Disposition: Home, Self-Care Instructions: Anxiety (ED) Additional Instructions: Return to the ED immediately for any chest pain, shortness of breath, coughing up blood, weakness, dizziness, suicidal/homicidal ideation, abdominal pain, or any other concerning symptoms. Recommend keeping appointment with a therapist tomorrow. Recommend follow up with primary care provider. Prescriptions: No Action meclizine 12.5 mg tablet 12.5 mg PO BID PRN (Reason: dizziness) Qty: 10 0RF fluticasone propionate [Flovent HFA] 220 mcg/actuation HFA aerosol inhaler 2 puff INHALATION BID quetiapine 25 mg Tablet 25 mg PO BID PRN (Reason: Anxiety) Qty: 60 0RF escitalopram oxalate 10 mg Tablet 10 mg PO DAILY Qty: 30 0RF quetiapine 100 mg tablet 100 mg PO BEDTIME Qty: 30 0RF melatonin 3 mg Tablet 3 mg PO BEDTIME Qty: 30 0RF Referrals: Alberta Rizo MD [Primary Care Provider] - (Anxiety) Print Language: Yakut
[2024-12-07 14:43] LABS: Basophils Percent Auto 0.3 % (0-2); Eosinophils Percent Auto 0.4 % (0-4); Hematocrit 44.3 % (42.0-52.0); Hemoglobin 15.4 g/dl (14.0-18.0); Imm Gran Abs Auto 0.05 X10*3/uL (0.00-0.03); Imm Gran Pct Auto 0.7 % (0.0-0.4); Lymphocytes Absolute Auto 1.5 X10*3/uL (1.2-4.9); Lymphocytes Percent Auto 21.5 % (20-40); Mean Corpuscular HGB Conc 34.8 g/dl (31.0-36.0); Mean Corpuscular Hemoglobin 32.7 pg (27.0-33.0); Mean Corpuscular Volume 94.1 fL (80.0-98.0); Mean Platelet Volume 8.7 fL (9.4-12.4); Monocytes Absolute Auto 0.3 X10*3/uL (0.1-1.2); Monocytes Percent Auto 4.9 % (2-11); Neutrophils Absolute Auto 4.9 x10*3/uL (2.0-8.3); Neutrophils Percent Auto 72.2 % (45-73); Platelet Count 268 X10*3/uL (160-400); Red Blood Count 4.71 X10*6/uL (4.60-5.80); Red Cell Distribution Width 11.7 % (11.0-16.0); White Blood Count 6.8 X10*3/uL (4.8-10.8)
[2024-12-07 15:00] LABS: Alanine Aminotransferase 30 U/L (0-40); Albumin Level 4.2 g/dL (3.5-5.0); Alkaline Phosphatase 58 U/L (39-117); Anion Gap 10 (12-20); Aspartate Amino Transferase 25 U/L (5-37); Bilirubin Total 0.3 mg/dL (0.0-1.0); Blood Urea Nitrogen 16 mg/dL (9-16); Calcium 9.3 mg/dL (8.4-10.2); Carbon Dioxide 29 mmol/L (22-29); Chloride 110 mmol/L (96-108); Creatinine Clr Calc Pharmacy 68.1; Estimated Glomerular Filt Rate > 60; Glucose Random 149 mg/dL (60-115); Lipase 32 U/L (8-78); Potassium 4.5 mmol/L (3.3-5.1); Sodium 144 mmol/L (135-145); Total Protein 6.6 g/dL (6.5-8.0)
[2024-12-07 15:11] LABS: Troponin-I High Sensitivity < 2.7 ng/L (<3.5-35.0)
[2024-12-07 17:58] LABS: Troponin-I High Sensitivity < 2.7 ng/L (<3.5-35.0)
== END 2024-12-07 18:24 | disposition home or self-care (01) ==
PROVIDERS: Physician Assistant; Emergency Provider Emergency Medicine; PCP Internal Medicine
DX: F41.1 Generalized anxiety disorder (principal); R11.0 Nausea; Z79.899 Other long term (current) drug therapy
CPT/HCPCS: 36415; 80053; 83690; 84484; 85025; 93005; 99283

== ENCOUNTER → 2024-12-07 14:05 | Outpatient (BNV) | payer OTHER, SELFPAY | PROVIDERS: Emergency Provider Emergency Medicine; PCP Internal Medicine; Visit Provider Internal Medicine Cardiovascular Disease | DX: R11.0 Nausea (principal) | CPT/HCPCS: 93010 ==

== ENCOUNTER 2025-03-21 09:30 | Outpatient (REF) | payer OTHER, SELFPAY ==
--- OUTSIDE RECORDS SUMMARY | 2025-03-21 10:47 | XMS_ITS | Encounter Summary ---
Author Organization [employer] Address [address] [facility] [address] [place] [address] Care Team Providers Care Playground Official Name Role Phone Alberta Rizo MD Primary Care Provide r Encounter Details Date Type Department Care Team (Late st Contact Info) Description 12/02/2023 Orders Only [facility] [address] [place], [place] [phone] Alberta Rizo MD [address] [place] [address] Social History Tobacco Use Types Packs/Day Years [...] as of this encounter Plan of Treatment Not on file documented as of this encounter Visit Diagnoses Not on filedocumented in this encounter Additional Health Concerns Assessment Noted Time PHQ-9 Depression Total Score: 6 06/30/20 23 9:59 AM EST documented as of this encounter Care Teams Playground Official Relationship Specialty Start Date End Date Alberta Rizo MD [address] [place] [address] PCP - General Family Medicine 07/30/19 documented as of this encounter
--- OUTSIDE RECORDS SUMMARY | 2025-03-21 10:47 | XMS_ITS | Encounter Summary ---
Author Organization [employer] Address [address] [facility] [address] [place] [address] Care Team Providers Care Commanding Officer Traffic Division Name Role Phone Alberta Rizo MD Primary Care Provide r Reason for Visit * Reason Comments Med Refill Encounter Details Date Type Department Care Team ([facility] [place] [facility] Contact Info) Description 02/10/2025 Refill [facility] [address] [place], [place] [phone] Nathanael Tellez MD [address] [place] [address] Social History Tobacco Use Types Packs/Day Years Used Date Smoking Tobacco: Never Passive Smoke Exposure: Never Smokeless Tobacco: Never Alcohol Use Standard Drinks/Week Comments Never 0 (1 standard drink = 0.6 oz pur e alcohol) Depression Answer Date Recorded Patient Health Questionnaire-9 Score 8 02/07/2025 Patient Health Questionnaire-9 Score 8 02/07/2025 Last PHQ-9: Questionnaire Data Not on file 0 02/07/2025 Housing Stability Answer Date Recorded What is your housing situation today? I have alexis dia 02/02/[address] you li ve. Do you have problems with any of the following? None of the above 02/02/2025 Food Insecurity Answer Date Recorded Within the past 12 months, y ou worried that your food would run out before you got money to buy more: Never True 02/02/2025 Within the past 12 months,th e food you bought just didn't last and you didn't have enough money to get more: Never True Transportation Answer Date Recorded In the past 12 months, has l ack of transportation kept you from medical appts, meetings, work or from getting things needed for daily living? No 02/02/2025 Utilities Answer Date Recorded In the past 12 months, has t he electric, gas, oil or water company threatened to shut off services in your home? No 02/02/2025 Depression Answer Date Recorded Patient Health Questionnaire-2 Score 2 02/07/2025 Internet Access Answer Date Recorded Internet Access Q1 Yes 02/02/2025 Internet Access Q2 Not on file 02/02/2025 Sex and Gender Information Value Date Recorded [...] Assessment Noted Time PHQ-9 Depression Total Score: 8 02/08/20 25 2:51 PM EDT documented as of this encounter Care Teams Commanding Officer Traffic Division Relationship Specialty Start Date End Date Alberta Rizo MD [address] [place] [address] PCP - General Family Medicine 07/30/19 documented as of this encounter
--- OUTSIDE RECORDS SUMMARY | 2025-03-21 10:47 | XMS_ITS | Encounter Summary ---
Author Organization [employer] Address [address] [facility] [address] [place] [address] Care Team Providers Care Contract Programmer Name Role Phone Alberta Rizo MD Primary Care Provide r Encounter Details Date Type Department Care Team (Latest Contact Info) Description 01/19/2019 Abstract [facility] CONVERSIONS Dental, Provider, DDS Social History Tobacco Use Types Packs/Day Years Used Date Smoking Tobacco: Never Assessed Sex and Gender Information Value Date Recorded Sex Assigned at Male 05/13/2022 10:17 AM EDT Legal Sex Male 10:17 AM EDT Gender Identity Male 05/13/2022 10:17 AM EDT Sexual Orientation Straight 05/13/2022 10 :17 AM EDT documented as of this encounter Plan of Treatment Not on file documented as of this encounter Visit Diagnoses Not on filedocumented in this encounter Care Teams Contract Programmer Relationship Specialty Start Date End Date Alberta Rizo MD [address] [place] [address] PCP - General Family Medicine 07/30/19 documented as of this encounter
--- OUTSIDE RECORDS SUMMARY | 2025-03-21 10:47 | XMS_ITS | Clinical Summary ---
Author Organization [employer] Address [address] [facility] 7[address] [place] [address] Care Team Providers Care Furniture Builder Name Role Phone Alberta Rizo MD Primary Care Provide r Allergies No known active allergies Medications escitalopram (Lexapro) 10 MG tablet Take 10 mg by mouth in the morning. 3 Active pyridoxine (Vitamin B-6) 100 MG tablet Take 100 mg by mouth in the morning. 3 Active melatonin 3 MG tablet Take by mouth. Take 1 tablet by mouth every night at bedtime Active albuterol 108 (90 Base) MCG/ACT inhalerIndication s:Mild intermittent asthma without complication Inhale 2 puffs every 6 (six) hours if needed for wheezing. 18 g 3 Active triamcinolone (Kenalog) 0.1 % creamIndications: Rash Apply topically if needed in the morning and at bedtime (pain and swelling). 30 g 2 3 Active busPIRone (Buspar) 7.5 MG tablet Take 7.5 mg by mouth 2 times daily. 4 Active Bisacodyl EC 5 MG EC tablet TAKE 4 TABLETS BY MOUTH ONCE el DAY BEFORE PROCEDURE AT NOON 4 Active QUEtiapine (SEROquel) 50 MG tablet TAKE ONE-HALF TO 1 TABLET EVERY DAY AT BEDTIME 4 Active omeprazole (PriLOSEC) [address] capsuleIndication s:Gastroesophagea l reflux disease without esophagitis Take 1 capsule (20 mg) by mouth before breakfast. Do not crush or chew. 90 capsule 1 4 Active Ventolin HFA 108 (90 Base) MCG/ACT inhaler Inhale 2 puffs every 4 (four) hours if needed for wheezing. 18 g 3 5 Active Spacer/Aero-Holdi ng Chambers (OptiChamber Lesli) misc 1 each every 4 (four) hours if needed (asthma). 1 each 5 Active Nebulizer misc 1 kit Every 4-6 hours as needed (shortness of breath wheezing). Accerlon nebulizer given in walk in center 09/07/2024, education provided Active busPIRone (Buspar) 10 MG tablet Take 1 tablet by mouth 2 times daily. 5 Active albuterol (2.5 MG/3ML) 0.083% nebulizer solutionIndicatio ns:Mild intermittent asthma with acute exacerbation INHALE 1 AMPULE USING A NEBULIZER EVERY 6 HOURS NEEDED FOR WHEEZING 90 mL 3 5 Active loratadine (Claritin) 10 MG tabletIndications :Allergic rhinitis, unspecified seasonality, unspecified trigger Take 1 tablet (10 mg) by mouth Once per day. 30 tablet 2 5 05/08/20 25 Active budesonide-formot swapna (Symbicort) 80-4.5 MCG/ACT inhalerIndication s:Mild intermittent asthma, unspecified whether complicated Inhale 2 puffs in the morning and at bedtime. Rinse mouth with water after use to reduce aftertaste and incidence of candidiasis. Do not swallow. 1 each 11 5 02/08/20 Active Active Problems Problem Noted Date Diagnosed Date Missing teeth, acquired 02/10/2025 Bilateral hip pain 06/22/2024 Assessment & Plan (06/22/2024 3:36 PM EST): Acetaminophen PRN Crowded teeth 03/08/2024 Dental plaque 03/08/2024 TMJ crepitus 03/08/2024 Blurry vision 06/30/2023 Chronic left shoulder pain 06/30/2023 Assessment & Plan (06/22/2024 3:36 PM EST): Acetaminophen PRN Assessment & Plan (06/30/2023 10:57 AM EST): XRAy ordered Acetaminophen PRN Colon cancer screening 06/30/2023 Encounter for preventive care 06/30/2023 Assessment & Plan (06/30/2023 10:58 AM EST): See HPI Rash 06/30/2023 Unstable gait 06/30/2023 Chronic pain of left knee 05/02/20232022 Erectile dysfunction 05/02/2023 05/02/2023 Fall 05/02/2023 05/02/2023 Fatigue 05/02/2023 05/02/2023 Heartburn 05/02/2023 05/02/2023 Osteoarthritis of right knee 05/02/2023 Exacerbation of asthma 05/02/2023 Vertigo 05/02/2023 05/02/2023 Assessment & Plan (05/02/2023 1:20 PM EDT): Drink plenty of water Change position slowly Psychosis 05/02/2023 Assessment & Plan (02/07/2025 3:21 PM EDT): Stable for now, no recent episodes Assessment & Plan (05/02/2023 1:20 PM EDT): I reviewed with patient his medications I confirm with him his appointments with therapist and psychiatrist EKG will be done on upcoming appointment Dental calculus 12/31/2022 Localized gingival recession, minimal 12/31/2022 Allergic rhinitis 12/25/2011 05/02/2023 Assessment & Plan (02/07/2025 3:20 PM EDT): I will prescribe for patient loratadine Impotence of organic origin 12/25/201104/14 Mild intermittent asthma 12/25/2011 023 Assessment & Plan (02/07/2025 3:21 PM EDT): Patient educated to avoid triggers Today I discontinue ellipta instead I put him on symbicort BID Assessment & Plan (06/30/2023 10:57 AM EST): Patient educated to avoid asthma triggers Neck pain 12/25/2011 05/02/2023 Mood disorder 02/23/2011 05/02/2023 Assessment & Plan (02/07/2025 3:21 PM EDT): Continue to follow with therapist and psychiatrist Assessment & Plan (06/22/2024 3:37 PM EST): Continue to follow with specialist Eustachian tube disorder 02/23/2010 023 Gastroesophageal reflux disease without esophagi tis 02/23/2010 05/02/2023 Assessment & Plan (06/22/2024 3:36 PM EST): I advise patient to avoid NSAIDs, spicy and acid food, I advise to eat at the same time every day, I advise to elevate the head of the bed and take medications as prescribe Encounters Date Type Department Care Team Description 03/21/2025 Telephone [facility] [address] [place] [phone] Belen Saavedra, toll testboard worker Orders 02/10/2025 8:00 AM EDT Office Visit [facility] [address] [place] [phone] Lili Reid Localized gingival recession, minimal (Primary Dx); Dental calculus; TMJ crepitus; Dental plaque; Crowded teeth; Missing teeth, acquired 02/10/2025 Refill [facility] [address] [place] [phone] Nathanael Tellez MD 02/07/2025 3:30 PM EDT Office Visit [facility] [address] [place] [phone] Alberta Rizo MD Mood disorder (CMS/HCC) (Primary Dx); Mild intermittent asthma, unspecified whether complicated; Allergic rhinitis, unspecified seasonality, unspecified trigger; Psychosis, unspecified psychosis type (CMS/HCC) 02/07/2025 Travel 02/03/[address] [address] Alberta Rizo MD chart prep 02/02/2025 2:45 PM EDT Office Visit [facility] [address] [place] [address] Iqra Tom FNP Preop examination (Primary Dx); Mild intermittent asthma, unspecified whether complicated 02/02/2025 Travel 02/01/2025 Telephone [facility] [address] [place] [address] Ana Lin MA CHARTPREP 02/01/2025 Refill [facility] [address] [place] [address] Nathanael Tellez MD Mild intermittent asthma with acute exacerbation 01/31/2025 Telephone [facility] [address] [place] [address] Alberta Rizo MD Pre-op Exam 01/28/2025 Patient Outreach [facility] [address] [place] [address] Alberta Rizo MD Pre-visit Planning ((Unable to reach for PVP screening, LVM) to be completed in office ) 12/28/2024 2:00 PM EDT Office Visit [facility] [address] [place] [address] Glen, Vicenta, OD Pseudoexfoliation syndrome (Primary Dx); Retinal drusen, right; Age-related nuclear cataract of both eyes; Presbyopia 12/28/2024 Travel from Last 3 Months Immunizations Immunization Administration Dates Next Due INFLUENZA VACCINE QUADRIVALE NT RECOMBINANT PRESERVATIVE FREE RIV4 04/09/2013 Influenza High-dose Quadriva lent Preservative Free 04/11/2023,04/16/2022 Influenza Quadrivalent Adjuvanted 03/24/2020 Influenza injectable quadriv alent IIV4 with preservative 04/03/2016 Influenza, High Dose Seasona l, Preservative Free 03/25/2019,04/08/2018,03/06/2017,03/18 Influenza, IIV3, injectable 04/03/2016, 3,03/18/2012 Influenza, trivalent, adjuvanted 03/30/2019,03/15 Moderna Covid-19 Vaccine 12+ 05/30/2021,10/19/19 21,09/20/2020 Moderna Covid-19 Vaccine 6+ Bivalent 07/11/2022 PPD Test 10/20/2018,07/16/2016,11/16/2013 Pfizer Covid-19 Vaccine 12+ 07/17/2023 Pneumococcal Conjugate PCV 13 03/06/2017 Pneumococcal Polysaccharide PPSV23 04/08/2018,,11/16/2013 RSV Bivalent 06/30/2023 TD (adult), 2 Lf tetanus tox oid, preservative free, adsorbed 03/21/2018 Tdap 06/28/2016,11/25/2014 Zoster, Recombinant 04/28/2023,02/25/2023 Zoster, live 10/18/2015 Family History Medical History Relation Name Comments Diabetes Brother Diabetes Father Skin cancer Mother Relation Name Status Comments Brother Father Mother Social History Tobacco Use Types Packs/Day Years Used Date Smoking Tobacco: Never Passive Smoke Exposure: Never Smokeless Tobacco: Never Tobacco Cessation:Counseling Given: Not Answered Alcohol Use Standard Drinks/Week Comments Never 0 [...] Orientation Straight 05/13/2022 10 :17 AM EDT Last Filed Vital Signs Vital Sign Reading Time Taken Comments Blood Pressure 118/72 02/10/2025 8:03 AM EDT Pulse 72 02/07/2025 2:50 PM EDT Temperature 36.1 C (97 F) 02/07/2025 2:50 PM EDT Respiratory Rate 16 02/07/2025 2:50 PM EDT Oxygen Saturation 98% 02/02/2025 2:56 PM EDT Inhaled Oxygen Concentration - - Weight 65.6 kg (144 lb 9.6 oz) 02/07/2025 2:50 P M EDT Height 170.9 cm (5' 7.3 ) 02/07/2025 2:50 PM EDT Body Mass Index 22.45 02/07/2025 2:50 PM EDT Plan of Treatment Health Maintenance Due Date Last Done Comments CT Colonography 1951 FIT DNA/Cologuard 1950 FIT 1950 FOBT 1950 Sigmoidoscopy 1950 COVID-19 Vaccine ( season) 2025 07/17/2023, 07/11/2022, 05/30/2021, Additional history exists Influenza Vaccine (#1) 2025 , 04/11/2023, 04/16/2022, Additional history exists Dental Oral Exam 08/14/2025 02/10/2025, , 12/31/2022, Additional history exists Dental Prophylaxis 08/14/2025 02/10/2025, 0 03/08/2024, 09/05/2023, Additional history exists SDOH Screening 02/02/2026 02/02/2025 Alcohol/Substance Use Screening 02/07/2026 02/07/2025 Depression Screening 02/07/2026 02/07/2025, 02/08/20 Tobacco Screening 02/10/2026 02/10/2025 Dental X-Ray: Bitewings 02/11/2026 02/11/20 25, 03/08/2024, 12/31/2022, Additional history exists Dental X-Ray: Full Mouth 03/09/2027 024, 01/25/2021, 02/12/2019, Additional history exists Lipid Panel 04/16/2027 04/16/2022, 09/06/2020 DTaP/Tdap/Td Vaccines (4 - Td or Tdap) 03/21/2028 03/21/2018, 06/28/2016, 11/25/2014 Colonoscopy 03/26/2029 03/26/2024 Colorectal Cancer Screening 03/26/2029 Pneumococcal Vaccine: 50+ Years Completed 04/08/2018, 03/06/2017, 03/06/2017, Additional history exists Hepatitis C Screening Completed 04/16/2022, 020 Zoster Vaccines Completed 04/28/2023, 02/11, 10/18/2015 RSV Patients and Patients Aged 60 years or older Completed 06/30/2023 HIB Vaccines Aged Out No longer eligi ble based on patient's age to complete this topic HPV Vaccines Aged Out No longer eligi ble based on patient's age to complete this topic Hepatitis A Vaccines Aged Out No long er eligible based on patient's age to complete this topic Hepatitis B Vaccines Aged Out No long er eligible based on patient's age to complete this topic IPV Vaccines Aged Out No longer eligi ble based on patient's age to complete this topic Meningococcal B Vaccine Aged Out No l onger eligible based on patient's age to complete this topic Meningococcal Vaccine Aged Out No ernst sindhu eligible based on patient's age to complete this topic RSV under 20 months Aged Out No longe r eligible based on patient's age to complete this topic Rotavirus Vaccines Aged Out No longer eligible based on patient's age to complete this topic Procedures Procedure Name Priority Date/Time Associated Diagnosis Comments PERIODIC ORAL EVALUATION - ESTABLISHED PATIENT Routine 02/10/2025 8:00 AM EDT CASE PRESENTATION, DETAILED AND EXTENSIVE TREATMENT PLANNING Routine 02/10/2025 8:00 AM EDT Localized gingival recession, minimal Dental calculus TMJ crepitus Dental plaque Crowded teeth ORAL HYGIENE INSTRUCTIONS Routine 02/10/2025 8:00 AM EDT Localized gingival recession, minimal Dental calculus TMJ crepitus Dental plaque Crowded teeth INTRAORAL - PERIAPICAL EACH ADDITIONAL RADIOGRAPHIC IMAGE Routine 02/10/2025 8:00 AM EDT Localized gingival recession, minimal Dental calculus TMJ crepitus Dental plaque Crowded teeth INTRAORAL - PERIAPICAL FIRST RADIOGRAPHIC IMAGE Routine 02/10/2025 8:00 AM EDT Localized gingival recession, minimal Dental calculus TMJ crepitus Dental plaque Crowded teeth BITEWINGS - 4 RADIOGRAPHIC IMAGES Routine 02/10/2025 8:00 AM EDT Localized gingival recession, minimal Dental calculus TMJ crepitus Dental plaque Crowded teeth TOPICAL APPLICATION OF FLUORIDE VARNISH Routine 02/10/2025 8:00 AM EDT Localized gingival recession, minimal Crowded teeth PROPHYLAXIS - ADULT Routine 02/10/2025 8 :00 AM EDT Dental calculus Dental plaque FUNDUS PHOTOS - OU - BOTH EYES Routine 12/28/2024 2:00 PM EDT Retinal drusen, right HM COLONOSCOPY Routine 03/26/2024 INTRAORAL - COMPLETE SERIES OF RADIOGRAPHIC IMAGES Routine 03/08/2024 8:00 AM EDT Crowded teeth Dental plaque TMJ crepitus ZZZ HISTORICAL HEPATITIS C AB W/REFL TO HCV RNA, QN, PCR Routine 04/16/2022 8:16 AM EDT LIPID PANEL, STANDARD Routine 04/16/2022 8:16 AM EDT from Last 3 Months or Most Recently Relevant to Health Maintenance Results * Fundus Photos - OU - Both Eyes (12/28/2024 2:00 PM EDT) Narrative Glen, Vicenta, OD - 01/10/2025 12:03 PM EDT Images from the original result were not included. Right Eye Progression has been stable. Disc findings include normal observations. Macula findings include normal observations. Vessel findings include normal observations. Periphery findings include normal observations (Cluster of drusen superotemporal to macular and inferonasal to fovea). Left Eye Progression has been stable. Disc findings include normal observations. Macula findings include normal observations. Vessel findings include normal observations. Periphery findings include normal observations. Notes Assessment and Plan Areas of drusen superotemporal to macula and inferotemporal to fovea in the right eye. Left eye unremarkable. Findings are stable to 10/2023. Will monitor at his next exam. Result [facility] Vicenta Carroll OD OPHTH PHOTOGRAPHY Final Resul t * Hm Colonoscopy (03/26/2024) Pathologist [facility] Colonoscopy Normal Normal Narrative Marisa Sommer - 03/26/2024 Repeat Colonoscopy in 5 years if polyps are adenomatous and due to history of adenomatous colon Polyps (see external hospital admission note on 03/26/2024) Result [facility] Historical Provider HEALTH MAINTENANCE Edited Result - Final * HEPATITIS C AB W/REFL TO HCV RNA, QN, PCR (04/16/2022 8:16 AM EDT) [facility] HEPATITIS C ANTIBODY NON-REACTI VE NON-REACT JAI CONVERTED LEGACY LABS INDEX 0.05 <1.00 CONVERTED LEGACY LABS Comment: HCV antibody was non-reactive. There is no laboratory evidence of HCV infection. In most cases, no further action is required. However, if recent HCV exposure is suspected, a test for HCV RNA (test code 55395) is suggested. For additional information please refer to http://education.natue.GetLikeminds/faq/HHD41p0 (This link is being provided for informational/ educational purposes only.) 04/16/2022 8:16 AM EDT Alberta Ackerman MD HISTORICAL/NON ORDERA BLE LABS Final Result CONVERTED LEGACY LABS * (ABNORMAL) LIPID PANEL, STANDARD (04/16/2022 8:16 AM EDT) [facility] Chol/HDLC Ratio 4.4 <5.0 (calc) CONVERTED LEGACY LABS Cholesterol, Total 172 <200 mg/dL CONVERTED LEGACY LABS HDL Cholesterol 39(L) > OR = 40 mg/dL CONVERTED LEGACY LABS LDL Cholesterol 114(H) mg/dL (calc) CONVERTED LEGACY LABS Comment: Reference range: <100 Desirable range <100 mg/dL for primary prevention; <70 mg/dL for patients with CHD or diabetic patients with > or = 2 CHD risk factors. LDL-C is now calculated using the Paramjit calculation, which is a validated novel method providing better accuracy than the Friedewald equation in the estimation of LDL-C. Cameron SS et al. LORENZO. 2013;310(19): 6463-5225 (http://education.Anavex/faq/ZTH941) Non-HDL Cholesterol 133(H) <130 mg/dL (calc) CONVERTED LEGACY LABS Comment: For patients with diabetes plus 1 major ASCVD risk factor, treating to a non-HDL-C goal of <100 mg/dL (LDL-C of <70 mg/dL) is considered a therapeutic option. Triglycerides 93 <150 mg/dL CONVE RTED LEGACY LABS 04/16/2022 8:16 AM EDT Alberta Ackerman MD LAB BLOOD ORDERABLES Final Result CONVERTED LEGACY LABS from Last 3 Months or Most Recently Relevant to Health Maintenance Insurance [facility]PC OPTIONS (O D-SNP) [facility] STANDARD [facility] Care Teams Furniture Builder Relationship Specialty Start Date End Date Alberta Rizo MD [address] [place] [address] PCP - General Family Medicine 07/30/19
--- OUTSIDE RECORDS SUMMARY | 2025-03-21 10:47 | XMS_ITS | Encounter Summary ---
Author Organization Mobile Location, [employer] Address [address] [facility] [address] [place] [address] Care Team Providers Care Director Of Strategic Communications Name Role Phone Alberta Rizo MD Primary Care Provide r Encounter Details Date Type Department Care Team (Late st Contact Info) Description 12/11/2022 Orders Only [facility] [address] [place], [place] [phone] Camille Ramirez LPN Social History Tobacco Use Types Packs/Day Years [...] on filedocumented in this encounter Care Teams Director Of Strategic Communications Relationship Specialty Start Date End Date Alberta Rizo MD [address] [place] [phone] PCP - General Family Medicine 07/30/19 documented as of this encounter
--- OUTSIDE RECORDS SUMMARY | 2025-03-21 10:47 | XMS_ITS | Encounter Summary ---
Author Organization [employer] Address [address] [facility] [address] [place] [address] Care Team Providers Care Manufacturing Tech Name Role Phone Alberta iRzo MD Primary Care Provide r Reason for Visit * Reason Onset Date Comments Lab Orders 03/21/2025 Encounter Details Date Type Department Care Team ([facility] st Contact Info) Description 03/21/2025 Telephone [facility] [address] [place] [address] Belen Saavedra RN [address] [place] [address] Lab Orders Social History Tobacco Use Types Packs/Day Years [...] AM EDT documented as of this encounter Miscellaneous Notes * Telephone Encounter - Belen Saavedra RN - 03/21/2025 9:17 AM EDT Pt. Walked in requesting tb test for program. Reports no prior h/o positive results. Order placed, pt. Will go to lab now and is aware results take 3-5 days documented in this encounter Plan of Treatment Scheduled Orders Name Type Priority Associated Diagnoses Orde r Schedule T-SPOT .TB Lab Routine Screening examination for pulmonary tuberculosis Expected: 03/21/2025 (Approximate), Expires: 03/21/2026 documented as of this encounter Visit Diagnoses Diagnosis Screening examination for pulmonary tuberculosis documented in this encounter Additional Health Concerns Assessment Noted Time PHQ-9 Depression Total Score: 8 02/08/20 25 2:51 PM EDT documented as of this encounter Care Teams Manufacturing Tech Relationship Specialty Start Date End Date Alberta Rizo MD [address] [place] [id number] PCP - General Family Medicine 07/30/19 documented as of this encounter
--- OUTSIDE RECORDS SUMMARY | 2025-03-21 10:47 | XMS_ITS | Encounter Summary ---
Author Organization [employer] Address [address] [facility] [address]t [place] [address] Care Team Providers Care Set Up Mechanic Name Role Phone Alberta Rizo MD Primary Care Provide r Encounter Details Date Type Department Care Team (Latest Contact Info) Description 01/25/2021 Abstract [facility] CONVERSIONS Dental, Provider, DDS Social History Tobacco [...] on filedocumented in this encounter Care Teams Set Up Mechanic Relationship Specialty Start Date End Date Alberta Rizo MD [address] [place] [address] PCP - General Family Medicine 07/30/19 documented as of this encounter
--- OUTSIDE RECORDS SUMMARY | 2025-03-21 10:47 | XMS_ITS | Encounter Summary ---
Author Organization [email or web address] Address [address] [facility] [address] [place] [address] Care Team Providers Care Guard Museum Name Role Phone Alberta Rizo MD Primary Care Provide r Reason for Visit * Reason Onset Date Comments Pre-op Exam 01/31/2025 Encounter Details Date Type Department Care Team ([facility] st Contact Info) Description 01/31/2025 Telephone [facility] [address], [place] [id number] Alberta Rizo MD [address] [place], [place] [id number] Pre-op Exam Social History Tobacco Use Types Packs/Day Years Used Date Smoking Tobacco: Never Passive Smoke Exposure: Never Smokeless Tobacco: Never Alcohol Use Standard Drinks/Week Comments Never 0 (1 standard drink = 0.6 oz pur e alcohol) Depression Answer Date Recorded Patient Health Questionnaire-9 Score 18 02/02/2025 Patient Health Questionnaire-9 Score 18 02/02/2025 Last PHQ-9: Questionnaire Data Not on file 0 02/02/2025 Housing Stability Answer Date Recorded What is [...] Answer Date Recorded Patient Health Questionnaire-2 Score 5 02/02/2025 Internet Access Answer Date Recorded Internet Access Q1 Yes 02/02/2025 Internet Access Q2 Not on file 02/02/2025 Sex and Gender Information Value Date Recorded Sex Assigned at Male 05/13/2022 10:17 AM EDT Legal Sex Male 10:17 AM EDT Gender Identity Male 05/13/2022 10:17 AM EDT Sexual Orientation Straight 05/13/2022 10 :17 AM EDT documented as of this encounter Functional Status * Over the past 2 weeks, how often have you been bothered by any of the following problems? Question Answer Date of Assessment Author Patient Health Questionnaire -2 Score 5 02/02/2025 2:58 PM EDT Johnna Haile MA * Little interest or pleasure in doing things Answer Date of Assessment Author More than half the days 02/02/2025 2:58 PM EDT Johnna Solis MA * Feeling down, depressed, or hopeless Answer Date of Assessment Author Nearly every day 02/02/2025 2:58 PM EDT Johnna Gandhi Ma, [place] * Trouble falling or staying asleep, or sleeping too much Answer Date of Assessment Author Not at all 02/02/2025 2:58 PM EDT Johnna Chavira MA * Feeling tired or having little energy Answer Date of Assessment Author Nearly every day 02/02/2025 2:58 PM EDT Johnna Gandhi Ma, [place] * Poor appetite or overeating Answer Date of Assessment Author Nearly every day 02/02/2025 2:58 PM EDT Johnna Gandhi Ma, [place] * Feeling bad about yourself - or that you are a failure or have let yourself or your family down Answer Date of Assessment Author Several days 02/02/2025 2:58 PM EDT Johnna Chavira MA * Trouble concentrating on things, such as reading the newspaper or watching television Answer Date of Assessment Author Nearly every day 02/02/2025 2:58 PM EDT Johnna Gandhi Ma, [place] * Moving or speaking so slowly that other people could have noticed? Or the opposite - being so fidgety or restless that you have been moving around a lot more than usual. Answer Date of Assessment Author Nearly every day 02/02/2025 2:58 PM EDT Johnna Gandhi Ma, [place] * Thoughts that you would be better off or hurting yourself in some way Answer Date of Assessment Author Not at all 02/02/2025 2:58 PM EDT Johnna Chavira MA * Patient Health Questionnaire-9 Score Answer Date of Assessment Author 18 02/02/2025 2:58 PM EDT Johnna Chavira MA * How difficult have these problems made it for you to do your work, take care of things at home, or get along with other people? Answer Date of Assessment Author Very difficult 02/02/2025 2:58 PM EDT Johnna Chavira MA * Over the last 2 weeks, how often have you been bothered by any of the following problems? Question Answer Date of Assessment Author Feeling nervous, anxious, or on edge 3 02/02/2025 2:58 PM EDT Johnna Haile MA Not being able to stop or control worrying 3 02/02/2025 2:58 PM EDT Johnna Haile MA Worrying too much about different things 3 02/02/2025 2:58 PM EDT Johnna Haile MA Trouble relaxing 1 02/02/2025 2:58 PM EDT Johnna Solis MA Being so restless that it is hard to sit still 3 02/02/2025 2:58 PM EDT Johnna Haile MA Becoming easily annoyed or irritable 1 02/02/2025 2:58 PM EDT Johnna Haile MA Feeling afraid as if somethi ng awful might happen 3 02/02/2025 2:58 PM EDT Johnna Haile MA YADIRA-7 Total Score 17 02/02/2025 2:58 PM EDT Johnna Haile MA documented as of this encounter Miscellaneous Notes * Telephone Encounter - Lili Tom - 01/31/2025 12:06 PM EDT Facility agreed to pre op appointment on 02/02 with Negro * Telephone Encounter - Jeremiah Singh - 01/31/2025 10:38 AM EDT Date of Surgery: February 18 Surgical procedure being done: Cataract Eye Type of anesthesia: MAC Lab needed: No EKG: No Surgeon's name: Dr. Yañez Say Facility name: [facility] Surgeon's office number: [phone] Surgeon's office fax number: [phone] Contact name (person you spoke with): Sushil Last office note from surgeon requested: Yes Send Message to Lili Tom and Dileep Corona documented in this encounter Plan of Treatment Not on file documented as of this encounter Visit Diagnoses Not on filedocumented in this encounter Additional Health Concerns Assessment Noted Time PHQ-9 Depression Total Score: 9 06/22/20 24 10:32 AM EST documented as of this encounter Care Teams Guard Museum Relationship Specialty Start Date End Date Alberta Rizo MD [address] [place] [id number] PCP - General Family Medicine 07/30/19 documented as of this encounter
--- OUTSIDE RECORDS SUMMARY | 2025-03-21 10:47 | XMS_ITS | Patient Health Record ---
Author Organization [facility] Address [address] [place] [address] Care Team Providers Care Compliance Spec Name Role Phone Rojas Vizcaino MD Primary Care Provider Blaze Herman Jr Unavailable Reason For Referral No Information Medications Medication SIG (Take, Route, Frequency, Duration) Notes Start Date End Date Status Colyte with Flavor Packs 240 GM As directed Orally Over the specified time. for 1 day(s) Active Flonase 50 MCG/ACT 1 spray in each nost ril Nasally Once a day Active Claritin 10 MG 1 tablet Orally Once a day Active Omeprazole 20 MG TOME SUSAN CAPSULA VIA ORAL CADA MARTIN Oral Once a day Active Flovent HFA 44 MCG/ACT INHALE DOS DISPAR OS VIA ORAL DOS VECES AL MARTIN Inhalation Twice a day Active QUEtiapine Fumarate 25 MG TAKE 1 TABLET BY MOUTH 3 TIMES A DAY NEEDED Oral Once a day/prn Active Albuterol Sulfate HFA 108 (90 Base) MCG/ACT 2 puffs as needed Inhalation every 6 hrs/prn Activ e LORazepam 2 MG 1 tablet as needed O ral Once a day Active Immunizations Vaccine Route Administration Date Status Comme nts Flu vaccine no Preserv 3 and > Unknown 05/20/2017 Admin istered Social History Tobacco Use: Social History Observation Description Date Details (start date - stop date) Never Smoker NA - NA Tobacco Use/Smoking Question Answer Notes Patient is a nonsmoker Alcohol Screen Question Answer Notes Did you have a drink containing alcohol in the p ast year? No Points 0 Interpretation Negative Problems Problem Type SNOMED Code ICD Code Onset Dates Problem Status W/U Status Risk Notes Problem [id number] Colon cancer screening (Z12.11) Active confirmed Plan Of Treatment Future Test Test Name Order Date COLONOSCOPY 11/19/2017 Insurance Providers Payer Name Payer Address Payer Phone Subscriber Number Group Number Insured Name Patient Relationship to Insured Coverage Start Date Coverage End Date MEDICARE OF [place] [address] [place] [id number] VALDEZ CALOS Self - patient is the insured MEDICAID OF [employer] [address] [place] [address] [id number] VALDEZ CALOS Self - patient is the insured Medical (General) History Medical History History ICD Code asthma PTSD/depression gastroesophageal reflux disease arthritis seasonal allergies
[2025-03-24 09:04] LABS: TS Negative Control Passed; TS Panel A 0; TS Panel B 0; TS Positive Control Passed; TSpotTB Negative (Negative)
== END 2025-03-21 09:31 | disposition home or self-care (01) ==
LOC: HO.HHCL 09:30
PROVIDERS: PCP Internal Medicine; Visit Provider Internal Medicine
DX: Z11.1 Encounter for screening for respiratory tuberculosis (principal)
CPT/HCPCS: 36415; 86481

== ENCOUNTER 2025-04-22 02:39 | Emergency (ER) | payer OTHER, SELFPAY ==
--- NOTE | ~2025-04-22 | CT_ITS ---
CLINICAL HISTORY: abd wall cellulitis, fluctuance to R groin area CT abdomen and pelvis with IV contrast Comparison: CT - CT ABDOMEN PELVIS W IV CON - 04/22/25 03:32 EDT Findings: Subsegmental dependent atelectasis. No dependent layering pleural effusions. The heart is not enlarged. Coronary artery calcifications: None. Liver normal size and contour. No focal hepatic lesions. Patent hepatic and portal veins. Physiologic distention of the gallbladder with no radiopaque gallstones. Homogeneous enhancement of the pancreas. No splenomegaly. Normal adrenal glands. Symmetrical renal excretion with no segmental or diffuse renal parenchymal disease or evidence of obstructive uropathy/hydroureteronephrosis. Mild pelvicaliectasis bilaterally. Renal cortical cysts on the right. Normal caliber abdominal aorta. Bowel demonstrates a nonobstructive pattern. No free air. Appendix not visualized. Slight increased stool burden. Minimal fecalization of the small bowel reflecting small bowel stasis. Diverticulosis coli without CT evidence of acute diverticulitis. Mild prostatomegaly. Normal distention of the urinary bladder. No intraperitoneal, retroperitoneal, pelvic or inguinal masses lymphadenopathy or abnormal fluid collections. Cellulitis right groin no soft tissue gas or soft tissue fluid collections. Reactive inguinal lymph nodes. No vertebral body compression fractures or spondylolisthesis. No bony destructive lesions. Impression: 1. Cellulitis right groin with no soft tissue gas or soft tissue defects. Minimal reactive inguinal lymph nodes. 2. Increased stool burden. This document has been electronically signed by: Ayo Byrne MD on 04/22/2025 05:09:27
--- NOTE | 2025-04-22 02:43 | ED.GENADULT ---
HPI - General Adult General Chief complaint: General Medical Stated complaint: RT SIDED NECK PAIN FOR 3DAYS Time Seen by Provider: 04/22/25 02:41 Source: patient, EMS, old records reviewed and medical translator Mode of arrival: EMS Limitations: no limitations History of Present Illness ED Provider: JUDY GERMAIN narrative: 74 yo male with PMH of anxiety/depression, kidney stones, asthma, GERD, HTN, HLD, PTSD here with c/o 1. R sided neck pain hurts to move started 4 days after waking up. No numbness/weakness/rash/fevers/trauma. 2. He states he has warts or something with two lesions initially present x 1 month then inflammed x 3 days. No fevers, n/v, dysuria. No hx of these lesions in the past. He states he took tylenol but it still hurts. MD complaint: neck pain, skin lesions Onset (ago): day(s) (3) Location: neck, abdomen and genitals Radiation: non-radiation Severity: moderate and severe Quality: aching Pain Consistency: constant Relieving factors: immobilization Exacerbating factors: movement Associated symptoms: rash Treatments prior to arrival: other (tylenol) Related Data Home Medications ?Medication ?Instructions ?Recorded ?Confirmed fluticasone propionate 220 2 puff inhalation BID 04/20/23 10/14/23 mcg/actuation HFA aerosol inhaler (Flovent HFA) Previous Rx's ?Medication ?Instructions ?Recorded escitalopram oxalate 10 mg tablet 10 mg PO DAILY #30 tabs 04/25/23 melatonin 3 mg tablet 3 mg PO BEDTIME #30 tabs 04/25/23 quetiapine 100 mg tablet 100 mg PO BEDTIME #30 tabs 04/25/23 quetiapine 25 mg tablet 25 mg PO BID PRN Anxiety #60 tabs 04/25/23 meclizine 12.5 mg tablet 12.5 mg PO BID PRN dizziness #10 05/07/23 tabs cephalexin 500 mg capsule 500 mg PO QID 7 days #28 caps 04/22/25 doxycycline hyclate 100 mg capsule 100 mg PO BID 7 days #14 caps 04/22/25 Allergies Allergy/AdvReac Type Severity Reaction Status Date / Time No Known Allergies (No Known Allergy Verified 04/22/25 02:54 Allergies*) Review of Systems Review of Systems: Constitutional : No Fever, No Chills ENT/Mouth : No sore throat, No Rhinorrhea Eyes: No Eye Pain, No Swelling, No Redness Cardiovascular : No Chest Pain, No SOB Respiratory : No Cough, No Sputum Gastrointestinal : No Nausea, No Vomiting, No Diarrhea, No abdominal Pain Genitourinary : No Dysuria, No Hematuria Musculoskeletal : No joint pain, No Myalgias, No Joint Swelling, pos neck pain Skin : pos Skin Lesions, positive skin rash All other systems reviewed and are negative PMFSH Past Medical History Attestation statement: The following information was validated with the patient. Source: old records reviewed Medical History Allergic rhinitis Post traumatic stress disorder Depression Hypercholesterolemia HTN (hypertension) GERD (gastroesophageal reflux disease) Anxiety COVID-19 Asthma Surgical History History of surgery Social History Social History Household Members: None Housing: Apartment Are you a primary home care giver to a significant other at home: No Do you presently have visiting nurse or other home services: No Alcohol intake: former Patient Tobacco Use Status: Never used Tobacco Smoked in Last 30 Days: No e-Cigarette/Vaping Use: Never Used Second Hand Smoke Exposure: No Use of substances other than those prescribed or required for medical reasons: No Do you have a plan to hurt others: No Plan service: No Current occupational status: retired Sexual orientation: Straight/Heterosexual Physical Exam ED Vital Signs: Vital Signs - 24 hr 04/22/25 02:46 04/22/25 02:50 Temperature 97.5 F 97.5 F Pulse Rate 76 76 Respiratory Rate 20 Blood Pressure 120/75 120/75 Pulse Oximetry 97 97 Oxygen Delivery Method Room Air Room Air BMI result Body Mass Index 22.8 Appearance: Alert. Oriented X3. No acute distress. Eyes: Pupils equal, round and reactive to light. ENT: Pharynx normal. Neck: Normal inspection. Neck supple. no radicular symptoms no UE weakness. CVS: Normal heart rate and rhythm. Pulses normal. Respiratory: No respiratory distress. Breath sounds normal. Abdomen: Soft and on right lower abdominal wall is a boil, R groin area there is cellulitis and fluctuant area noted no pulsatile mass, no crepitus Skin: Skin warm and dry. Normal skin color. Normal skin turgor. Extremities: No lower extremity edema. No calf ttp Neuro: Oriented X 3. No motor deficit. No sensory deficit. CN2-12 intact Medications Administered Discontinued Medications Generic Name Dose Route Start Last Admin Trade Name Jair PRN Reason Stop Dose Admin Piperacillin Sod/Tazobactam 50 mls @ 100 mls/hr 04/22/25 02:49 04/22/25 03:48 Sod 3.375 gm/ Sodium Chloride IV 04/22/25 03:18 Infused ONCE ONE Infusion Ketorolac Tromethamine 15 mg 04/22/25 02:49 04/22/25 03:19 Ketorolac Tromethamine 15 Mg/Ml Vial IVPUSH 04/22/25 02:50 15 mg ONCE ONE Administration Morphine Sulfate 4 mg 04/22/25 02:49 04/22/25 03:19 Morphine Sulfate 4 Mg/Ml Cartridge IVPUSH 04/22/25 02:50 4 mg ONCE ONE Administration Protocol Medical Decision Making Medical Decision Making [facility] Narrative: 74 yo male with PMH of anxiety/depression, kidney stones, asthma, GERD, HTN, HLD, PTSD here with c/o neck pain that is MSK in nature no CP/SOB no rash no signs of dissection on exam, he also c/o warts that are in fact boils and cellulitis. He has no signs of involvement of the scrotum or Win's will obtain labs, cultures, lactic acid, start on IV zosyn and CT scan for deeper space infection. May need bedside aspiration vs I+D. Differential Diagnosis Differential Diagnoses: The differential diagnosis associated with the presentation includes cellulitis, boil, neck strain Admission/Observation Consideration of admission/observation: Escalation of care including admission/observation considered no wbc count, stable VS, neg lactic acid no gas or abscess will trial oral outpatient abx Lab Data [facility] Lab Attestation statement: I reviewed the patient's lab results. 04/22/25 03:13 04/22/25 03:13 Labs: Lab Results 04/22/25 Range/Units 03:13 WBC 9.7 (4.8-10.8) X10*3/uL RBC 4.39 L (4.60-5.80) X10*6/uL Hgb 14.1 (14.0-18.0) g/dl Hct 41.3 L (42.0-52.0) % MCV 94.1 (80.0-98.0) fL MCH 32.1 (27.0-33.0) pg MCHC 34.1 (31.0-36.0) g/dl RDW 11.6 (11.0-16.0) % Plt Count 271 (160-400) X10*3/uL MPV 8.7 L (9.4-12.4) fL Immature Gran % (Auto) 1.1 H (0.0-0.4) % Neut % (Auto) 75.1 H (45-73) % Lymph % (Auto) 15.0 L (20-40) % Will % (Auto) 7.6 (2-11) % Eos % (Auto) 0.9 (0-4) % Baso % (Auto) 0.3 (0-2) % Lymph # (Auto) 1.5 (1.2-4.9) X10*3/uL Will # (Auto) 0.7 (0.1-1.2) X10*3/uL Eos # (Auto) 0.1 (0.0-0.4) X10*3/uL Baso # (Auto) 0.0 (0.0-0.2) X10*3/uL Abs Immat Gran (auto) 0.11 H (0.00-0.03) X10*3/uL Absolute Neuts (auto) 7.3 (2.0-8.3) x10*3/uL Absolute Nucleated RBC 0.000 (0.0-0.012) X10*3/uL Nucleated RBC % (auto) 0.0 (0.0-0.2) /100WBC Sodium 142 (135-145) mmol/L Potassium 3.4 D (3.3-5.1) mmol/L Chloride 110 H (96-108) mmol/L Carbon Dioxide 24 (22-29) mmol/L Anion Gap 11 L (12-20) BUN 18 H (9-16) mg/dL Creatinine 0.69 (0.5-1.4) mg/dL Estim Creat Clear Calc 91.7 Estimated GFR > 60 Random Glucose 104 (60-115) mg/dL Lactic Acid 1.3 (0.5-2.0) mmol/L Calcium 8.8 (8.4-10.2) mg/dL Magnesium 2.1 (1.6-2.6) mg/dL Total Bilirubin 0.8 (0.0-1.0) mg/dL Direct Bilirubin 0.3 (0.0-0.5) mg/dL AST 23 (5-37) U/L ALT 22 (0-40) U/L Alkaline Phosphatase 63 (39-117) U/L Total Protein 6.3 L (6.5-8.0) g/dL Albumin 3.9 (3.5-5.0) g/dL Independent Interpretation I performed an independent interpretation of an: CT Scan (no abscess, no gas) Radiology Impression Discussion of test interpretation with radiology: I have reviewed the radiologist's reading. Independent Historian Clinical information obtained from an independent historian. History obtained from or confirmed by: EMS External Record Review External record reviewed: Inpatient record and Outpatient record Prescription Management I considered prescription management with: Antibiotic Discharge Plan Discharge Clinical Impression: Cellulitis Patient Disposition: Home, Self-Care Instructions: Cellulitis (ED), Warm Compress or Soak (ED) Additional Instructions: labs reassuring CT scan shows cellulitis and inflammed node in groin return for fevers, worsening pain, vomiting, unable to tolerate the medications or any other concerns On a cephalosporin?antibiotic, softer bowel movements are to be expected. Call your provider if you move your bowels more than 4 times a day, your bowel movements are almost all liquid, or you get a rash.?? On doxycycline, do not take pills immediately before going to bed and swallow pills with plenty of water. Avoid direct sunlight, iron, antacids, and Pepto Bismol. Call your provider if you develop new ringing in your ears, new problems hearing, dizziness, difficulty swallowing, rash, abdominal discomfort, nausea, or diarrhea.? Prescriptions: New doxycycline hyclate 100 mg capsule 100 mg PO BID 7 Days Qty: 14 0RF cephalexin 500 mg capsule 500 mg PO QID 7 Days Qty: 28 0RF No Action meclizine 12.5 mg tablet 12.5 mg PO BID PRN (Reason: dizziness) Qty: 10 0RF fluticasone propionate [Flovent HFA] 220 mcg/actuation HFA aerosol inhaler 2 puff INHALATION BID quetiapine 25 mg Tablet 25 mg PO BID PRN (Reason: Anxiety) Qty: 60 0RF escitalopram oxalate 10 mg Tablet 10 mg PO DAILY Qty: 30 0RF quetiapine 100 mg tablet 100 mg PO BEDTIME Qty: 30 0RF melatonin 3 mg Tablet 3 mg PO BEDTIME Qty: 30 0RF Print Language: Vietnamese
[2025-04-22 02:46] VITALS: BP 120/75; PULSE 76; TEMP 36.4; O2SAT 97
[2025-04-22 02:50] VITALS: BP 120/75; BP 126/76; PULSE 76; PULSE 88; RESP 20; TEMP 36.4; O2SAT 97; O2SAT 99; BMI 22.8
--- NOTE | 2025-04-22 02:55 | PC.NURSE ---
took ems report and completed triage, report given to primary nurse Zainab
[2025-04-22 03:23] LABS: MANUAL DIFF FLAG NO
[2025-04-22 03:30] LABS: Hematocrit 41.3 % (42.0-52.0); Hemoglobin 14.1 g/dl (14.0-18.0); Imm Gran Abs Auto 0.11 X10*3/uL (0.00-0.03); Imm Gran Pct Auto 1.1 % (0.0-0.4); Lymphocytes Absolute Auto 1.5 X10*3/uL (1.2-4.9); Mean Corpuscular HGB Conc 34.1 g/dl (31.0-36.0); Mean Corpuscular Hemoglobin 32.1 pg (27.0-33.0); Mean Corpuscular Volume 94.1 fL (80.0-98.0); NRBC Abs Auto 0.000 X10*3/uL (0.0-0.012); NRBC Pct Auto 0.0 /100WBC (0.0-0.2); Platelet Count 271 X10*3/uL (160-400); Red Blood Count 4.39 X10*6/uL (4.60-5.80); White Blood Count 9.7 X10*3/uL (4.8-10.8)
[2025-04-22 03:38] LABS: Alanine Aminotransferase 22 U/L (0-40); Albumin Level 3.9 g/dL (3.5-5.0); Alkaline Phosphatase 63 U/L (39-117); Anion Gap 11 (12-20); Aspartate Amino Transferase 23 U/L (5-37); Blood Urea Nitrogen 18 mg/dL (9-16); Calcium 8.8 mg/dL (8.4-10.2); Carbon Dioxide 24 mmol/L (22-29); Chloride 110 mmol/L (96-108); Creatinine Clr Calc Pharmacy 91.7; Estimated Glomerular Filt Rate > 60; Magnesium 2.1 mg/dL (1.6-2.6); Potassium 3.4 mmol/L (3.3-5.1); Sodium 142 mmol/L (135-145); Total Protein 6.3 g/dL (6.5-8.0)
[2025-04-22 05:45] VITALS: BP 123/70; PULSE 68; RESP 18; TEMP 36.4; O2SAT 98
[2025-04-22 06:09] VITALS: BP 123/70; PULSE 68; RESP 18; TEMP 36.4; O2SAT 98
--- NOTE | 2025-04-22 06:14 | PC.NURSE ---
Pt medicated, vitals taken, pain level assessed, IV taken out. Call hines at bedside. Pt able to make needs known. RN spoke to commissioner of internal revenue to call EMS to hot die picker as he is a fall risk (uses cane at baseline). D/C paperwork signed by pt & RN.
--- NOTE | 2025-04-22 06:26 | HO.NURTONUR ---
EMS to arrive for pick remover at 0700.
== END 2025-04-22 06:44 | disposition home or self-care (01) ==
LOC: HO.ED 05:43
PROVIDERS: Emergency Provider Emergency Medicine
DX: L03.221 Cellulitis of neck (principal); M54.2 Cervicalgia; R10.22 Pelvic and perineal pain left side; N50.89 Other specified disorders of the male genital organs; Z79.899 Other long term (current) drug therapy
CPT/HCPCS: 36415; 74177; 80048; 80076; 83605; 83735; 85025; 87040; 96365; 96375; 99284; 99285; J1885; J2270; J2543

== ENCOUNTER 2025-04-23 09:07 | Emergency (ER) | payer OTHER, SELFPAY ==
--- NOTE | ~2025-04-23 | CT_ITS ---
CLINICAL HISTORY: right groin abscess CT pelvis with contrast Comparison: CT abdomen and pelvis most recently on 04/22/2025 Findings: Similar short interval appearance of increased attenuation throughout subcutaneous soft tissues of the right groin/perineal region. No discrete abscess or loculated fluid collection. No soft tissue emphysema. No free air or free fluid. Unremarkable bladder. Mildly enlarged and partially calcified prostate gland. Visualized colon and small bowel are unremarkable. Moderately calcified iliofemoral vessels. Few borderline enlarged right inguinal and pelvic lymph nodes. No acute osseous abnormality. No lytic or sclerotic osseous lesions. Impression: 1. Stable short interval appearance of edema versus cellulitis involving right inguinal/perineal region. No discrete abscess or loculated fluid collection. No soft tissue gas. 2. Mild likely reactive right inguinal/pelvic lymphadenopathy. 3. Stable additional chronic/nonacute findings as above. This document has been electronically signed by: Mary Zafar MD on 04/23/2025 12:48:20
[2025-04-23 09:14] VITALS: BP 160/90; PULSE 94; O2SAT 99
[2025-04-23 09:15] VITALS: BP 148/83; PULSE 84; RESP 18; TEMP 36.9; O2SAT 97; BMI 25.7
--- OUTSIDE RECORDS SUMMARY | 2025-04-23 09:44 | XMS_ITS | Encounter Summary ---
Author Organization [facility] Address [address] [place] [address] Care Team Providers Care Offline Cutter Name Role Phone Name, Jeremiah BARBER Primary Care Provider Vini Schaffer MD Primary Care Provider Vini Demarco MD Primary Care Provider Jessica Irwin, Pcp Primary Care Provider Shannon e Reason for Visit * Reason Onset Date Comments Faxed Order 02/12/2013 Encounter Details Date Type Department Care Team Description 02/12/[address] [address] Name, MD Jeremiah Faxed Order Social History Tobacco Use Types Packs/Day Years Used Date Smoking Tobacco: Never Alcohol Use Standard Drinks/Week Comments No 0 (1 standard drink = 0.6 oz pur e alcohol) Sex Assigned at Date Recorded Not on file documented as of this encounter Miscellaneous Notes * Telephone Encounter - Gracie Miranda - 02/12/2013 3:39 PM EDT Received faxed order from adult foster care [facility], documented in this encounter Plan of Treatment Not on file documented as of this encounter Visit Diagnoses Not on filedocumented in this encounter Care Teams Offline Cutter Relationship Specialty Start Date End Date Jeremiah Key MD PCP - General Internal Medicine 03/05/12 07/11/15 Vini Cisneros MD PCP - General Internal Medicine 07/12/15 09/26/15 Vini Cisneros MD PCP - General Internal Medicine 09/27/15 01/01/16 [facility], Pcp PCP - General Internal Medicine 01/02/16 documented as of this encounter
--- OUTSIDE RECORDS SUMMARY | 2025-04-23 09:44 | XMS_ITS | Encounter Summary ---
Author Organization [facility] Address [address] [place] [address] Care Team Providers Care Tightening Machine Operator Name Role Phone Name, Jeremiah BARBER Primary Care Provider Vini Schaffer MD Primary Care Provider Vini Demarco MD Primary Care Provider Jessica Irwin, Pcp Primary Care Provider Shannon bello Encounter Details Date Type Department Care Team Description 04/14/2015 Hospital Medical Records [address] [place] [id number] Marvin Valerio MD Social History Tobacco Use Types Packs/Day Years Used Date Smoking Tobacco: Never Alcohol Use Standard Drinks/Week Comments No 0 (1 standard drink = 0.6 oz pur e alcohol) Sex Assigned at Date Recorded Not on file documented as of this encounter Plan of Treatment Not on file documented as of this encounter Visit Diagnoses Not on filedocumented in this encounter Care Teams Tightening Machine Operator Relationship Specialty Start Date End Date Name, MD Jeremiah PCP - General Internal Medicine 03/05/12 07/11/15 Vini Cisneros MD PCP - General Internal Medicine 07/12/15 09/26/15 Vini Cisneros MD PCP - General Internal Medicine 09/27/15 01/01/16 [facility], Pcp PCP - General Internal Medicine 01/02/16 documented as of this encounter
--- OUTSIDE RECORDS SUMMARY | 2025-04-23 09:44 | XMS_ITS | Encounter Summary ---
Author Organization [facility] Address [address] [place] [address] Care Team Providers Care Hot Plate Plywood Press Feeder Name Role Phone Name, Jeremiah BARBER Primary Care Provider Vini Schaffer MD Primary Care Provider Vini Demarco MD Primary Care Provider Jessica Irwin, Pcp Primary Care Provider Shannon e Reason for Visit * Reason Onset Date Comments VNA Call 11/29/2013 Encounter Details Date Type Department Care Team Description 11/29/2013 Telephone Adult Medicine [address] [address] Name, MD Jeremiah VNA Call Social History Tobacco Use Types Packs/Day Years Used Date Smoking Tobacco: Never Alcohol Use Standard Drinks/Week Comments No 0 (1 standard drink = 0.6 oz pur e alcohol) Sex Assigned at Date Recorded Not on file documented as of this encounter Miscellaneous Notes * Telephone Encounter - Kathleen Mauricio - 11/29/2013 12:30 PM EDT VNA CALL Which VNA office is calling? [facility] Full name of caller: lukas lópezl The caller is A nurse Is the caller at the patients home?: NO Reason for call: Thank you for sending info but this pt is not clinically appropriate for adult dayhealth. So it is being denied Does caller need an urgent call back? NO Was CONTACT Telephone # obtained above?: YES documented in this encounter Plan of Treatment Not on file documented as of this encounter Visit Diagnoses Not on filedocumented in this encounter Care Teams Hot Plate Plywood Press Feeder Relationship Specialty Start Date End Date Name, MD Jeremiah PCP - General Internal Medicine 03/05/12 07/11/15 Vini Cisneros MD PCP - General Internal Medicine 07/12/15 09/26/15 Vini Cisneros MD PCP - General Internal Medicine 09/27/15 01/01/16 Kb Irwin PCP - General Internal Medicine 01/02/16 documented as of this encounter
--- OUTSIDE RECORDS SUMMARY | 2025-04-23 09:44 | XMS_ITS | Clinical Summary ---
Author Organization [facility] Address [address] [place] [address] Care Team Providers Care Customs Agent Name Role Phone Community, Pcp Primary Care Provider Unavailabl e Allergies No known active allergies Medications Medication Sig Dispensed Refills Start Date End Date Status lorazepam (ATIVAN) 0.5 MG tablet Take 0.5 mg by mouth daily as needed. 0 Active ALBUTEROL SULFATE 108 (90 BASE) MCG/ACT AERS Inhale 2 Puffs into the lungs every 4 hours as needed for Cough or Wheezing. 1 Inhaler 2 09/07/2013 Active ibuprofen (ADVIL,MOTRIN) 600 MG tablet Take 1 Tab by mouth every 8 hours as needed for Pain. 42 Tab 0 01/25/2014 Active fluticasone (FLOVENT HFA) 220 MCG/ACT inhaler Inhale 2 Puffs into the lungs 2 times daily. 1 Inhaler 4 02/28/2015 Active loratadine (CLARITIN) 10 MG tablet Take 1 Tab by mouth daily. 30 Tab 5 05/29/2015 Active quetiapine (SEROQUEL) 50 MG tablet Take 50 mg by mouth 2 times daily. 0 Active trazodone (DESYREL) 50 MG tablet Take 50 mg by mouth at bedtime. 0 Active escitalopram (LEXAPRO) 10 MG tablet daily. 0 08/30/2015 Active escitalopram (LEXAPRO) 20 MG tablet daily. 0 09/17/2015 Active quetiapine (SEROQUEL) 100 MG tablet Take 1 Tab by mouth daily. 0 09/27/2015 Active quetiapine (SEROQUEL) 50 MG tablet Take 1 Tab by mouth at bedtime. 30 Tab 0 09/27/2015 Active fluticasone (FLONASE) 50 MCG/ACT nasal spray 2 Sprays by Each Nare route daily. 1 Bottle 1 09/27/2015 Active omeprazole (PRILOSEC) 20 MG capsule Take 1 Cap by mouth daily. 30 Cap 2 10/09/2015 Active Active Problems Problem Noted Date Major depressive disorder, recurrent epi sode 09/27/2015 Overview: Seeing Willingham at [facility] Premature ejaculation 03/22/2014 Overview: Patient described significant improvement with the use of Paxil that is helpful also to treat his symptoms of anxiety. Positional sleep apnea 12/28/2012 Anxiety 03/10/2012 Overview: Patient is follow at [facility] by Dr Hewitt for psychiatry Asthma 03/10/2012 Immunizations Name Administration Dates Next Due Influenza (> 6 Months) 04/09/2013,03/18/2012 Influenza Flu (PT Reported) 03/14/2015 PPD-RBMG 11/16/2013 Pneumoccoccal(Adult) Polysaccharide PPSV23 11/16 Tdap 11/25/2014 Zostavax (Patient Reported) 12/07/2013 Family History Relation Name Status Comments Brother 1 Alive DM Brother 2 Alive DM Brother 3 Alive DM Daughter 1 Alive Daughter 2 Alive Father DM Mother skin CA Sister 1 DM Sister 2 DM Son 1 Alive Son 2 Alive Social History Tobacco Use Types Packs/Day Years Used Date Smoking Tobacco: Never Alcohol Use Standard Drinks/Week Comments No 0 (1 standard drink = 0.6 oz pur e alcohol) Sex Assigned at Date Recorded Not on file Last Filed Vital Signs Vital Sign Reading Time Taken Comments Blood Pressure 98/64 09/27/2015 10:24 AM EDT Pulse 60 09/27/2015 10:24 AM EDT Temperature 36.7 C (98.1 F) 05/29/2015 11:08 AM EST Respiratory Rate 14 09/27/2015 10:24 AM EDT Oxygen Saturation - - Inhaled Oxygen Concentration - - Weight 66.8 kg (147 lb 3.2 oz) 09/27/2015 10:24 AM EDT Height 170.2 cm (5' 7 ) 09/27/2015 10:24 AM EDT Body Mass Index 23.05 09/27/2015 10:24 AM EDT Plan of Treatment Health Maintenance Due Date Last Done Comments Covid-19 Vaccine (#1) 06/27/1951 TOBACCO CHECK/ADVISE 12/26/1969 SHINGLES VACCINE (1 of 2) 02/01/2014 PNEUMOCOCCAL VACCINE (2 - PCV) 12/26/2016 11/16/2013 COLON CANCER SCREENING 04/20/2018 8 (External Completion of test per patient (Patient reports normal results)) CHOLESTEROL SCREENING 05/19/2019 05/19/2014 , 11/16/2013, 06/28/2013, Additional history exists BMI CHECK/ADVISE 07/14/2024 11/16/2013 DTAP/TDAP/TD (2 - Td or Tdap) 11/25/2024 11/25/2014 INFLUENZA (#1) 2025 03/14/2015, 04/09/2013, HEPATITIS C SCREENING Completed 11/16/2012 Care Teams Customs Agent Relationship Specialty Start Date End Date Community, Pcp PCP - General Internal Medicine 01/02/16
--- OUTSIDE RECORDS SUMMARY | 2025-04-23 09:44 | XMS_ITS | Patient Health Record ---
Author Organization [facility] Address [address] [place] [address] Care Team Providers Care Station Supervisor Name Role Phone Rojas Vizcaino MD Primary Care Provider Blaze Herman Jr Unavailable Reason For Referral No Information Medications Medication SIG (Take, Route, Frequency, Duration) Notes Start Date End Date Status Colyte with Flavor Packs 240 GM As directed Orally Over the specified time.; Duration: 1 day(s) Active Flonase 50 MCG/ACT 1 [...] Problem Status W/U Status Risk Notes Problem Colon cancer screening (516841263) Colon cancer screening (Z12.11) Active confirmed Plan Of Treatment Future Test Test Name Order Date COLONOSCOPY 11/19/2017 Insurance Providers Payer Name Payer Address Payer Phone Subscriber Number Group Number Insured Name Patient Relationship to Insured Coverage Start Date Coverage End Date MEDICARE OF [place] [address] [place] [phone] [id number] CALOS VALDEZ Self - patient is the insured MEDICAID OF [facility] [address] [place] [phone] [id number] CALOS VALDEZ Self - patient is the insured Medical (General) History Medical History History ICD Code asthma PTSD/depression gastroesophageal reflux disease arthritis seasonal allergies
--- OUTSIDE RECORDS SUMMARY | 2025-04-23 09:44 | XMS_ITS | Encounter Summary ---
Author Organization [facility] Address [address] [place] [address] Care Team Providers Care Sewing Supervisor Name Role Phone Name, Jeremiah BARBER Primary Care Provider Vini Schaffer MD Primary Care Provider Vini Demarco MD Primary Care Provider Jessica Irwin, Pcp Primary Care Provider Unavailem e Reason for Visit * Reason Onset Date Comments Faxed Order 05/01/2015 Encounter Details Date Type Department Care Team Description 05/01/[address] [address] Name, MD Jeremiah Faxed Order Social History Tobacco Use Types Packs/Day Years Used Date Smoking Tobacco: Never Alcohol Use Standard Drinks/Week Comments No 0 (1 standard drink = 0.6 oz pur e alcohol) Sex Assigned at Date Recorded Not on file documented as of this encounter Miscellaneous Notes * Telephone Encounter - Lalita Camara - 05/01/2015 2:07 PM EDT Faxed order documented in this encounter Plan of Treatment Not on file documented as of this encounter Visit Diagnoses Not on filedocumented in this encounter Care Teams Sewing Supervisor Relationship Specialty Start Date End Date Jeremiah Key MD PCP - General Internal Medicine 03/05/12 07/11/15 Vini Cisneros MD PCP - General Internal Medicine 07/12/15 09/26/15 Vini Cisneros MD PCP - General Internal Medicine 09/27/15 01/01/16 Community, Pcp PCP - General Internal Medicine 01/02/16 documented as of this encounter
--- OUTSIDE RECORDS SUMMARY | 2025-04-23 09:44 | XMS_ITS | Encounter Summary ---
Author Organization [facility] Address [address] [place] [address] Care Team Providers Care Technical Illustrator Name Role Phone Name, Jeremiah BARBER Primary Care Provider Vini Schaffer MD Primary Care Provider Vini Demarco MD Primary Care Provider Jessica Irwin, Pcp Primary Care Provider Shannon bello Encounter Details Date Type Department Care Team Description 03/02/2013 Release of Information Medical Records [address] [place] [id number] Abstract, Provider Social History Tobacco Use Types Packs/Day Years Used Date Smoking Tobacco: Never Alcohol Use Standard Drinks/Week Comments No 0 (1 standard drink = 0.6 oz pur e alcohol) Sex Assigned at Date Recorded Not on file documented as of this encounter Plan of Treatment Not on file documented as of this encounter Visit Diagnoses Not on filedocumented in this encounter Care Teams Technical Illustrator Relationship Specialty Start Date End Date Name, MD Jeremiah PCP - General Internal Medicine 03/05/12 07/11/15 Vini Cisneros MD PCP - General Internal Medicine 07/12/15 09/26/15 Vini Cisneros MD PCP - General Internal Medicine 09/27/15 01/01/16 Kb Irwin PCP - General Internal Medicine 01/02/16 documented as of this encounter
--- OUTSIDE RECORDS SUMMARY | 2025-04-23 09:44 | XMS_ITS | Encounter Summary ---
Author Organization [facility] Address [address] [place] [address] Care Team Providers Care Server Systems Administrator Name Role Phone Community, Pcp Primary Care Provider Unavailabl e Encounter Details Date Type Department Care Team Description 02/24/2016 Release of Information Medical Records [address] [place] [id number] Abstract, Provider Social History Tobacco Use Types [...] on filedocumented in this encounter Care Teams Server Systems Administrator Relationship Specialty Start Date End Date Community, Pcp PCP - General Internal Medicine 01/02/16 documented as of this encounter
--- NOTE | 2025-04-23 09:47 | ED.GENADULT ---
HPI - General Adult General Chief complaint: General Medical Stated complaint: R HIP PAIN Time Seen by Provider: 04/23/25 09:14 Source: patient and groundhand Mode of arrival: ambulatory Limitations: no limitations History of Present Illness ED Provider: HPI narrative: 74-year-old male presenting with right groin pain and swelling no redness for the past 4 days, no dysuria no hematuria no nausea or vomiting. Significant discomfort, no fevers or chills. Related Data Home Medications ?Medication ?Instructions ?Recorded ?Confirmed fluticasone propionate 220 2 puff inhalation BID 04/20/23 10/14/23 mcg/actuation HFA aerosol inhaler (Flovent HFA) Previous Rx's ?Medication ?Instructions ?Recorded escitalopram oxalate 10 mg tablet 10 mg PO DAILY #30 tabs 04/25/23 melatonin 3 mg tablet 3 mg PO BEDTIME #30 tabs 04/25/23 quetiapine 100 mg tablet 100 mg PO BEDTIME #30 tabs 04/25/23 quetiapine 25 mg tablet 25 mg PO BID PRN Anxiety #60 tabs 04/25/23 meclizine 12.5 mg tablet 12.5 mg PO BID PRN dizziness #10 05/07/23 tabs cephalexin 500 mg capsule 500 mg PO QID 7 days #28 caps 04/23/25 doxycycline hyclate 100 mg capsule 100 mg PO BID 7 days #14 caps 04/23/25 naproxen 500 mg tablet 500 mg PO BID 5 days #10 tabs 04/23/25 oxycodone 5 mg tablet 5 mg PO Q6H PRN pain #10 tabs 04/23/25 Allergies Allergy/AdvReac Type Severity Reaction Status Date / Time No Known Allergies (No Known Allergy Verified 04/23/25 09:17 Allergies*) Review of Systems Constitutional: Constitutional: Reports as per [facility] Past Medical History Medical History Allergic rhinitis Post traumatic stress disorder Depression Hypercholesterolemia HTN (hypertension) GERD (gastroesophageal reflux disease) Anxiety COVID-19 Asthma Surgical History History of surgery Social History Social History Household Members: None Housing: Apartment Are you a primary home health care respiratory therapist to a significant other at home: No Do you presently have visiting nurse or other home services: No Alcohol intake: former Patient Tobacco Use Status: Never used Tobacco Smoked in Last 30 Days: No e-Cigarette/Vaping Use: Never Used Second Hand Smoke Exposure: No Use of substances other than those prescribed or required for medical reasons: No Advance Directives: No Advance Directives Information Provided: No service: No Current occupational status: retired Sexual orientation: Straight/Heterosexual Physical Exam ED Vital Signs: Vital Signs - 24 hr 04/23/25 09:15 04/23/25 10:32 04/23/25 12:13 Temperature 98.4 F 98.4 F 98.3 F Pulse Rate 84 84 72 Respiratory Rate 18 20 13 Blood Pressure 148/83 H 121/72 113/69 Pulse Oximetry 97 96 98 Oxygen Delivery Method Room Air Room Air Room Air BMI result Body Mass Index 25.7 Const Other: General: ?Appears of stated age ? ?CV: RRR, no obvious murmurs appreciated ? ?Resp: ?No wheezing rales rhonchi no stridor moving air well ? Abd: ?Bowel sounds are present, no tenderness no rebound no rigidity : Right groin cellulitis, likely abscess very tender, no drainage, penis testicles perineal area normal without discoloration subcutaneous emphysema ? ?MSK: FROM, strength 5/5 all extremities ? Skin: Erythema ? ?Neuro: ?Alert and oriented x3, moving upper and lower extremities symmetrically, no obvious facial asymmetry noted, cranial nerves 2-12 intact Medications Administered Discontinued Medications Generic Name Dose Route Start Last Admin Trade Name Freq PRN Reason Stop Dose Admin Sodium Chloride 1,000 mls @ 999 mls/hr 04/23/25 10:00 04/23/25 11:46 Ns IV 04/23/25 11:00 Infused .Q1H1M RAÚL Infusion Acetaminophen 1,000 mg in 100 mls @ 400 mls/hr 04/23/25 09:47 04/23/25 10:42 Ofirmev IV 04/23/25 10:01 Infused ONCE ONE Infusion Vancomycin HCl 1,500 mg/ 500 mls @ 333.333 mls/hr 04/23/25 09:52 04/23/25 12:00 Sodium Chloride IV 04/23/25 11:21 Infused ONCE ONE Infusion Iohexol 100 ml 04/23/25 11:34 04/23/25 11:34 Iohexol 350 Mg/Ml 100 Ml Infus..Btl IV 04/23/25 11:35 85 ml ONCE ONE Administration Ketorolac Tromethamine 15 mg 04/23/25 09:47 04/23/25 10:19 Ketorolac Tromethamine 15 Mg/Ml Vial IM 04/23/25 09:48 15 mg ONCE ONE Administration Morphine Sulfate 4 mg 04/23/25 09:47 04/23/25 10:19 Morphine Sulfate 4 Mg/Ml Cartridge IVPUSH 04/23/25 09:48 4 mg ONCE ONE Administration Protocol Medical Decision Making Medical Decision Making MDM Narrative: 9:51 AM 04/23/2025 (Dr. Travon Heller): Presenting with cellulitis and likely abscess collection in the groin area, does not involve testicles or the perineal area, this is not for an ears, we will obtain CT pelvis to evaluate the extent of the infectious etiology however to make sure there is no underlying mass, we will obtain blood cultures, lactic, give fluids, and we will give IV antibiotics, would cover for MRSA 1:01 PM 04/23/2025 (Dr. Travon Heller): Patient has cellulitis no underlying abscess, anticipating discharge home with some pain medications and antibiotics, will discuss with the delinquent notice machine operator Differential Diagnosis Differential Diagnoses: The differential diagnosis associated with the presentation includes (Abscess, cellulitis, Win's gangrene, underlying mass, sepsis) Admission/Observation Consideration of admission/observation: Escalation of care including admission/observation considered Lab Data [facility] Lab Attestation statement: I reviewed the patient's lab results. 04/23/25 10:02 04/23/25 10:02 Labs: Lab Results 04/23/25 04/23/25 Range/Units 09:56 10:02 WBC 10.1 (4.8-10.8) X10*3/uL RBC 4.36 L (4.60-5.80) X10*6/uL Hgb 14.1 (14.0-18.0) g/dl Hct 41.5 L (42.0-52.0) % MCV 95.2 (80.0-98.0) fL MCH 32.3 (27.0-33.0) pg MCHC 34.0 (31.0-36.0) g/dl RDW 11.5 (11.0-16.0) % Plt Count 273 (160-400) X10*3/uL MPV 8.7 L (9.4-12.4) fL Immature Gran % (Auto) 0.9 H (0.0-0.4) % Neut % (Auto) 80.6 H (45-73) % Lymph % (Auto) 11.4 L (20-40) % Ventura % (Auto) 6.5 (2-11) % Eos % (Auto) 0.3 (0-4) % Baso % (Auto) 0.3 (0-2) % Lymph # (Auto) 1.2 (1.2-4.9) X10*3/uL Ventura # (Auto) 0.7 (0.1-1.2) X10*3/uL Eos # (Auto) 0.0 (0.0-0.4) X10*3/uL Baso # (Auto) 0.0 (0.0-0.2) X10*3/uL Abs Immat Gran (auto) 0.09 H (0.00-0.03) X10*3/uL Absolute Neuts (auto) 8.1 (2.0-8.3) x10*3/uL Absolute Nucleated RBC 0.000 (0.0-0.012) X10*3/uL Nucleated RBC % (auto) 0.0 (0.0-0.2) /100WBC Sodium 141 (135-145) mmol/L Potassium 3.7 (3.3-5.1) mmol/L Chloride 109 H (96-108) mmol/L Carbon Dioxide 24 (22-29) mmol/L Anion Gap 12 (12-20) BUN 16 (9-16) mg/dL Creatinine 0.73 (0.5-1.4) mg/dL Estim Creat Clear Calc 72.5 Estimated GFR > 60 Random Glucose 128 H (60-115) mg/dL Lactic Acid 1.5 (0.5-2.0) mmol/L Calcium 8.9 (8.4-10.2) mg/dL Total Bilirubin 0.4 (0.0-1.0) mg/dL AST 22 (5-37) U/L ALT 20 (0-40) U/L Alkaline Phosphatase 61 (39-117) U/L Total Protein 6.4 L (6.5-8.0) g/dL Albumin 3.9 (3.5-5.0) g/dL Radiology Impression Discussion of test interpretation with radiology: I have reviewed the radiologist's reading. (Impression: 1. Stable short interval appearance of edema versus cellulitis involving right inguinal/perineal region. No discrete abscess or loculated fluid collection. No soft tissue gas. 2. Mild likely reactive right inguinal/pelvic lymphadenopathy. 3. Stable additional chronic/nonacute findings ) Prescription Management I considered prescription management with: Pain Medication and Antibiotic Critical Care Time Critical Care Time Critical Care Time: Yes Total Critical Care Time: 35 Attestation: Time is exclusive of separately billable procedures. Time includes: direct patient care, patient reassessment, coordination of patient care, interpretation of data (laboratory data, pulse oximetry, arterial blood gases and chest xrays), review of patient's medical records, medical consultation and documentation of patient care. Procedures excluded from critical care time: central intravenous line placement and electrocardiography. Discharge Plan Discharge Clinical Impression: Cellulitis of groin, right Patient Disposition: Home, Self-Care Instructions: Cellulitis (ED) Additional Instructions: Warm compresses of the area, Tylenol 975 mg every 6 hours needed for pain, Naprosyn 500 mg twice daily as needed for pain, oxycodone 5 mg every 6 hours needed for pain, continue doxycycline and cephalexin prescribed for you starting tomorrow for the next 1 week, you have cellulitis which is a skin infection, they maybe underlying formation of the abscess but it is not visible in the CAT scan at this time, worsening swelling, drainage come back to the ER otherwise please follow up your PCP, I suspect starting antibiotics your symptoms we will start improving in approximately 3 days, if the redness spreads significantly into a testicles if the pain is worse despite treatment come back for re-evaluation Compresas tibias en el ?stacy, Tylenol 975 mg cada 6 horas necesario para el dolor, Naprosyn 500 mg dos veces al d?a seg?n sea necesario para el dolor, oxicodona 5 mg cada 6 horas necesaria para el dolor, contin?e con la doxiciclina y la cefalexina recetadas para usted a partir de ma?margarito joni la pr?xima semana, tiene celulitis, que es reyes infecci?n de la piel, puede que la formaci?n subyacente del absceso, ricco no es visible en la tomograf?a computarizada en jose momento, empeoramiento de la hinchaz?n, drenaje, regrese a la phil de emergencias; de lo contrario, payton un seguimiento con bishop m?dico de cabecera. Sospecho que al comenzar con antibi?ticos, tracy s?ntomas comenzar?n a mejorar en aproximadamente 3 d?as. Si el enrojecimiento se extiende significativamente a los test?culos, si el dolor empeora a pesar del tratamiento, regrese para reyes reevaluaci?n. Prescriptions: New doxycycline hyclate 100 mg capsule 100 mg PO BID 7 Days Qty: 14 0RF cephalexin 500 mg capsule 500 mg PO QID 7 Days Qty: 28 0RF naproxen 500 mg tablet 500 mg PO BID 5 Days Qty: 10 0RF oxycodone 5 mg tablet 5 mg PO Q6H PRN (Reason: pain) Qty: 10 0RF Rx Instructions: Partial Fill upon patient request. Discontinued doxycycline hyclate 100 mg capsule 100 mg PO BID 7 Days Qty: 14 0RF cephalexin 500 mg capsule 500 mg PO QID 7 Days Qty: 28 0RF No Action meclizine 12.5 mg tablet 12.5 mg PO BID PRN (Reason: dizziness) Qty: 10 0RF fluticasone propionate [Flovent HFA] 220 mcg/actuation HFA aerosol inhaler 2 puff INHALATION BID quetiapine 25 mg Tablet 25 mg PO BID PRN (Reason: Anxiety) Qty: 60 0RF escitalopram oxalate 10 mg Tablet 10 mg PO DAILY Qty: 30 0RF quetiapine 100 mg tablet 100 mg PO BEDTIME Qty: 30 0RF melatonin 3 mg Tablet 3 mg PO BEDTIME Qty: 30 0RF Print Language: Upper Sorbian
[2025-04-23 10:10] LABS: MANUAL DIFF FLAG NO
[2025-04-23 10:11] LABS: Hematocrit 41.5 % (42.0-52.0); Hemoglobin 14.1 g/dl (14.0-18.0); Imm Gran Abs Auto 0.09 X10*3/uL (0.00-0.03); Imm Gran Pct Auto 0.9 % (0.0-0.4); Lymphocytes Absolute Auto 1.2 X10*3/uL (1.2-4.9); Mean Corpuscular HGB Conc 34.0 g/dl (31.0-36.0); Mean Corpuscular Hemoglobin 32.3 pg (27.0-33.0); Mean Corpuscular Volume 95.2 fL (80.0-98.0); NRBC Abs Auto 0.000 X10*3/uL (0.0-0.012); NRBC Pct Auto 0.0 /100WBC (0.0-0.2); Platelet Count 273 X10*3/uL (160-400); Red Blood Count 4.36 X10*6/uL (4.60-5.80); White Blood Count 10.1 X10*3/uL (4.8-10.8)
[2025-04-23 10:32] VITALS: BP 121/72; PULSE 84; RESP 20; TEMP 36.9; O2SAT 96
[2025-04-23 10:36] LABS: Alanine Aminotransferase 20 U/L (0-40); Albumin Level 3.9 g/dL (3.5-5.0); Alkaline Phosphatase 61 U/L (39-117); Anion Gap 12 (12-20); Aspartate Amino Transferase 22 U/L (5-37); Blood Urea Nitrogen 16 mg/dL (9-16); Calcium 8.9 mg/dL (8.4-10.2); Carbon Dioxide 24 mmol/L (22-29); Chloride 109 mmol/L (96-108); Creatinine Clr Calc Pharmacy 72.5; Estimated Glomerular Filt Rate > 60; Potassium 3.7 mmol/L (3.3-5.1); Sodium 141 mmol/L (135-145); Total Protein 6.4 g/dL (6.5-8.0)
[2025-04-23] MEDS: iohexoL 350 MG/ML 100 ML INFUS..BTL IV (11:34)
[2025-04-23 12:13] VITALS: BP 113/69; PULSE 72; RESP 13; TEMP 36.8; O2SAT 98
[2025-04-23 13:39] VITALS: BP 113/69; PULSE 72; RESP 13; TEMP 36.8; O2SAT 98
== END 2025-04-23 13:39 | disposition home or self-care (01) ==
PROVIDERS: Emergency Provider Emergency Medicine; PCP Internal Medicine
DX: L03.314 Cellulitis of groin (principal); M25.551 Pain in right hip; Z79.899 Other long term (current) drug therapy
CPT/HCPCS: 36415; 72193; 80053; 83605; 85025; 87040; 96365; 96366; 96372; 96375; 99284; 99285; J0131; J1885; J2270; J3374; Q9967

== ENCOUNTER → 2025-04-23 09:47 | Outpatient (BNV) | payer OTHER, SELFPAY | PROVIDERS: Emergency Provider Emergency Medicine; PCP Internal Medicine; Visit Provider Radiology Diagnostic Radiology | DX: L02.214 Cutaneous abscess of groin (principal) | CPT/HCPCS: 72193 ==

== ENCOUNTER 2025-04-25 04:27 | Emergency (ER) | payer OTHER, SELFPAY ==
[2025-04-25 04:34] VITALS: BP 116/64; BP 125/86; PULSE 81; PULSE 85; RESP 16; TEMP 36.6; O2SAT 96; O2SAT 97; BMI 27.7
--- OUTSIDE RECORDS SUMMARY | 2025-04-25 04:48 | XMS_ITS | Encounter Summary ---
Author Organization [employer] [facility] Address [address] [place] [address] Care Team Providers Care Phlebotomist Associate Name Role Phone Alberta Rizo MD Primary Care Provide r Encounter Details Date Type Department Care Team (Latest Contact Info) Description 01/19/2019 Abstract [facility] Dental, Provider, DDS Social History [...] Care Team (Late st Contact Info) Description 08/26/2025 9:30 AM EST Office Visit [facility] [address] [place] [address] Jeanette, Lili [address] [place] [address] documented as of this encounter Visit Diagnoses Not on filedocumented in this encounter Care Teams Phlebotomist Associate Relationship Specialty Start Date End Date Alberta Rizo MD [address] [place] [address] PCP - General Family Medicine 07/30/19 documented as of this encounter
--- OUTSIDE RECORDS SUMMARY | 2025-04-25 04:48 | XMS_ITS | Encounter Summary ---
Author Organization [employer] Address [address] [facility] [address] [place] [address] Care Team Providers Care Licensed Embalmer Supervisor Name Role Phone Alberta Rizo MD Primary Care Provide r Reason for Visit * Reason Comments Med Refill Encounter Details Date Type Department Care Team ([facility] Contact Info) Description 02/10/2025 Refill [facility] [address] [place], [place] [phone] Nathanael Tellez MD [address] [place] [address] Social History Tobacco Use Types Packs/Day Years [...] Description 08/26/2025 9:30 AM EST Office Visit [facility] ADULT D[facility] [address] [place] [address] Jeanette, Lili [address] [place] [address] documented as of this encounter Visit Diagnoses Not on filedocumented in this encounter Additional Health Concerns Assessment Noted Time PHQ-9 Depression Total Score: 8 02/08/20 25 2:51 PM EDT documented as of this encounter Care Teams Licensed Embalmer Supervisor Relationship Specialty Start Date End Date Alberta Rizo MD [address] [place] [address] PCP - General Family Medicine 07/30/19 documented as of this encounter
--- OUTSIDE RECORDS SUMMARY | 2025-04-25 04:48 | XMS_ITS | Encounter Summary ---
Author Organization [employer] Address [address] [facility] [address] [place] [address] Care Team Providers Care Grocery Shopper Name Role Phone Alberta Rizo MD Primary Care Provide r Encounter Details Date Type Department Care Team (Late st Contact Info) Description 12/02/2023 Orders Only [facility] MEDICINE [address] [place], [place] [phone] Alberta Rizo MD [address] [place] [address] Social History Tobacco Use Types Packs/Day Years [...] Description 08/26/2025 9:30 AM EST Office Visit [facility] ADULT DENTAL [address] [place] [address] Jeanette, Lili [address] [place] [address] documented as of this encounter Visit Diagnoses Not on filedocumented in this encounter Additional Health Concerns Assessment Noted Time PHQ-9 Depression Total Score: 6 06/30/20 23 9:59 AM EST documented as of this encounter Care Teams Grocery Shopper Relationship Specialty Start Date End Date Alberta Rizo MD [address] [place] [address] PCP - General Family Medicine 07/30/19 documented as of this encounter
--- OUTSIDE RECORDS SUMMARY | 2025-04-25 04:48 | XMS_ITS | Encounter Summary ---
Author Organization [employer] Address [address] [facility] [address] [place] [address] Care Team Providers Care Body Worker Name Role Phone Alberta Rizo MD Primary Care Provide r Encounter Details Date Type Department Care Team ([facility] st Contact Info) Description 04/23/2025 Orders Only GENERIC EXTERNAL DATA DEPARTMENT Provider, Generic External Data Social History Tobacco Use Types Packs/Day Years [...] Description 08/26/2025 9:30 AM EST Office Visit [facility] ADULT DENTAL [address] [place], [place] [phone] Jeanette, Lili [address] [place] [address] Pending Results Name Type Priority Associated Diagnoses Date /Time Blood Culture (Second) Microbiology Routine 04/23/2025 10:02 AM EDT Blood Culture (First) Microbiology Routine 04/23/2025 9:57 AM EDT documented as of this encounter Procedures Procedure Name Priority Date/Time Associated Diagnosis Comments CT PELVIS W CONTRAST Routine 04/23/2025 12:48 PM EDT BLOOD CULTURE (SECOND) Routine 10:02 AM EDT CBC WITH AUTO DIFFERENTIAL Routine 04/23/2025 10:02 AM EDT COMPREHENSIVE METABOLIC PANEL Routine 04/23/2025 10:02 AM EDT BLOOD CULTURE (FIRST) Routine 04/23/2025 9:57 AM EDT LACTIC ACID Routine 04/23/2025 9:56 AM EDT documented in this encounter Results * CT Pelvis w/ Contrast (04/23/2025 12:48 PM EDT) Anatomical Region Laterality Modality Body, Pelvis Computed Tomogra phy 04/23/2025 12:4 8 PM EDT Narrative 04/23/2025 12:50 PM EDT [address] [address] [address] Scan Report Signed Patient: Dickson Sharma MR#: [id number] : 1950 Acct:[id number] Age/Sex: 74 / M ADM Date: 04/23/25 Loc: HO.ED Attending Dr: Ordering Physician: Travon Heller DO Date of Service: 04/23/25 Procedure(s): CT pelvis w IV con Accession Number(s): [id number] cc: Alberta Rizo MD; Travon Heller DO Report Number: [id number]: Total DLP = 191.00 mGy-cm Reason for Exam: right groin abscess CLINICAL HISTORY: right groin abscess CT pelvis with contrast Comparison: CT abdomen and pelvis most recently on 04/22/2025 Findings: Similar short interval appearance of increased attenuation throughout subcutaneous soft tissues of the right groin/perineal region. No discrete abscess or loculated fluid collection. No soft tissue emphysema. No free air or free fluid. Unremarkable bladder. Mildly enlarged and partially calcified prostate gland. Visualized colon and small bowel are unremarkable. Moderately calcified iliofemoral vessels. Few borderline enlarged right inguinal and pelvic lymph nodes. No acute osseous abnormality. No lytic or sclerotic osseous lesions. Impression: 1. Stable short interval appearance of edema versus cellulitis involving right inguinal/perineal region. No discrete abscess or loculated fluid collection. No soft tissue gas. 2. Mild likely reactive right inguinal/pelvic lymphadenopathy. 3. Stable additional chronic/nonacute findings as above. This document has been electronically signed by: Mary Zafar MD on 04/23/2025 12:48:20 Dictated By: Mary Zafar MD Signed By: <Electronically signed by Mary Zafar MD in OV> 04/23/25 1249 DD/ 1248 TD/TT: 04/23/25 1248 Rubbish Collection Supervisor: Procedure Note Donotuseinterpreter, Image - 04/23/[address] [address] [address] Scan Report Signed Patient: Connie SharmaoMR#: M [id number] : 1950cct:[id number] Age/Sex: 74 / MADM Date: 04/23/25 Loc: HO.ED Attending Dr: Ordering Physician: Travon Heller DO Date of Service: 04/23/25 Procedure(s): CT pelvis w IV con Accession Number(s): [id number] cc: Alberta Rizo MD; Travon Heller DO Report Number: [id number]: Total DLP = 191.00 mGy-cm Reason for Exam: right groin abscess CLINICAL HISTORY: right groin abscess CT pelvis with contrast Comparison: CT abdomen and pelvis most recently on 04/22/2025 Findings: Similar short interval appearance of increased attenuation throughout subcutaneous soft tissues of the right groin/perineal region. No discrete abscess or loculated fluid collection. No soft tissue emphysema. No free air or free fluid. Unremarkable bladder. Mildly enlarged and partially calcified prostate gland. Visualized colon and small bowel are unremarkable. Moderately calcified iliofemoral vessels. Few borderline enlarged right inguinal and pelvic lymph nodes. No acute osseous abnormality. No lytic or sclerotic osseous lesions. Impression: 1. Stable short interval appearance of edema versus cellulitis involving right inguinal/perineal region. No discrete abscess or loculated fluid collection. No soft tissue gas. 2. Mild likely reactive right inguinal/pelvic lymphadenopathy. 3. Stable additional chronic/nonacute findings as above. This document has been electronically signed by: Mary Zafar MD on 04/23/2025 12:48:20 Dictated By: Mary Zafar MD Signed By: <Electronically signed by Mary Zafar MD in OV> 04/23/25 1249 DD/ 1248 TD/TT: 04/23/25 1248 Rubbish Collection Supervisor: us [facility] External Provider IMG CT PROCEDURES Final Result * (ABNORMAL) Comprehensive Metabolic Panel (04/23/2025 10:02 AM EDT) Sodium 141 135 - 145 mmol/L [facility] Potassium 3.7 3.3 - 5.1 mmol/L [facility] Chloride 109(H) 96 - 108 mmol/L [facility] Carbon Dioxide 24 22 - 29 mmol/L [facility] Anion Gap 12 12 - 20 [facility] Urea Nitrogen (BUN) 16 9 - 16 mg/dL [facility] Creatinine, Serum 0.73 0.5 - 1.4 mg/dL [facility] Creatinine Clr Calc Pharmacy 72.5 [facility] Comment:eGFR (calculated fro m the MDRD study equation) and eCrCl(calculated from the Cockcroft-Gault equation) are based ondifferent parameters and may not yield comparable results.If eCrCl result is absurd, please check patient'sheight/weight. Estimated Glomerular Filt Rate >60 [facility] Comment:Chronic Kidney Disea se: Estimated GFR < 60 mL/min/[id number] Kidney Disease: Estimated GFR < 15 mL/min/1.73m2 Glucose 128(H) 60 - 115 mg/dL [facility] Calcium 8.9 8.4 - 10.2 mg/dL [facility] Bilirubin, Total 0.4 0.0 - 1.0 mg/dL [facility] Aspartate Amino Transferase 22 5 - 37 U/L [facility] Alanine Aminotransferase 20 0 - 40 U/L [facility] Total Protein 6.4(L) 6.5 - 8.0 g/dL [facility] Albumin Level 3.9 3.5 - 5.0 g/dL [facility] Alkaline Phosphatase 61 39 - 117 U/L [facility] 04/23/2025 10:0 2 AM EDT 04/23/2025 10:07 AM EDT us Generic External Data Provider LAB BLOOD ORDERAB LES Final Result [facility] [address] [place] [address] [phone] * (ABNORMAL) CBC auto differential (04/23/2025 10:02 AM EDT) White Blood Count 10.1 4.8 - 10.8 X10*3/uL [facility] Red Blood Count 4.36(L) 4.60 - 5.80 X10*6/uL [facility] Hemoglobin 14.1 14.0 - 18.0 g/dl [facility] Hematocrit 41.5(L) 42.0 - 52.0 % [facility] Mean Corpuscular Volume 95.2 80.0 - 98.0 fL [facility] Mean Corpuscular Hemoglobin 32.3 27.0 - 33.0 pg [facility] Mean Corpuscular HGB Conc 34.0 31.0 - 36.0 g/dl [facility] Red Cell Distribution Width 11.5 11.0 - 16.0 % [facility] Platelet Count 273 160 - 400 X10*3/uL [facility] Mean Platelet Volume 8.7(L) 9.4 - 12.4 fL [facility] Neutrophils Percent Auto 80.6(H) 45 - 73 % [facility] Imm Gran Pct Auto 0.9(H) 0.0 - 0.4 % [facility] Lymphocytes Percent Auto 11.4(L) 20 - 40 % [facility] Monocytes Percent Auto 6.5 2 - 11 % [facility] Eosinophils Percent Auto 0.3 0 - 4 % [facility] Basophils Percent Auto 0.3 0 - 2 % [facility] NRBC Pct Auto 0.0 0.0 - 0.2 /100WBC [facility] Neutrophils Absolute Auto 8.1 2.0 - 8.3 x10*3/uL [facility] Imm Gran Abs Auto 0.09(H) 0.00 - 0.03 X10*3/uL [facility] Lymphocytes Absolute Auto 1.2 1.2 - 4.9 X10*3/uL [facility] Monocytes Absolute Auto 0.7 0.1 - 1.2 X10*3/uL [facility] Eosinophils Absolute Auto 0.0 0.0 - 0.4 X10*3/uL [facility] Basophils Absolute Auto 0.0 0.0 - 0.2 X10*3/uL [facility] NRBC Abs Auto 0.000 0.0 - 0.012 X10*3/uL [facility] 04/23/2025 10:0 2 AM EDT 04/23/2025 10:07 AM EDT us Generic External Data Provider LAB BLOOD ORDERAB LES Final Result Performing Organization Address [facility]/ZIP Co de Phone Number [facility] [address] [place] [address] [phone] * Lactic Acid (04/23/2025 9:56 AM EDT) Lactic Acid 1.5 0.5 - 2.0 mmol/L [facility] 04/23/2025 9:56 AM EDT 04/23/2025 10:07 AM EDT us Generic External Data Provider LAB BLOOD ORDERAB LES Final Result Performing Organization Address [facility] Co de Phone Number [facility] [address] [place] [address] [phone] documented in this encounter Visit Diagnoses Not on filedocumented in this encounter Additional Health Concerns Assessment Noted Time PHQ-9 Depression Total Score: 8 02/08/20 25 2:51 PM EDT documented as of this encounter Care Teams Body Worker Relationship Specialty Start Date End Date Alberta Rizo MD [address] [place] [address] PCP - General Family Medicine 07/30/19 documented as of this encounter
--- OUTSIDE RECORDS SUMMARY | 2025-04-25 04:48 | XMS_ITS | Patient Health Record ---
Author Organization [facility] Address [address] [place] [address] Care Team Providers Care Cinder Dump Crane Operator Name Role Phone Rojas Vizcaino MD Primary Care Provider Blaze Herman Jr Unavailable [phone] Reason For Referral No Information Medications Medication [...] Status Risk Notes Problem Colon cancer screening (642029090) Colon cancer screening (Z12.11) Active confirmed Plan Of Treatment Future Test Test Name Order Date COLONOSCOPY 11/19/2017 Insurance Providers Payer Name Payer Address Payer Phone Subscriber Number Group Number Insured Name Patient Relationship to Insured Coverage Start Date Coverage End Date MEDICARE OF [place] [address] [place] [id number] CALOS VALDEZ Self - patient is the insured MEDICAID OF [facility] [address] [place] [address] [id number] CALOS VALDEZ Self - patient is the insured Medical (General) History Medical History History ICD Code asthma PTSD/depression gastroesophageal reflux disease arthritis seasonal allergies
--- OUTSIDE RECORDS SUMMARY | 2025-04-25 04:48 | XMS_ITS | Encounter Summary ---
Author Organization [employer] [facility] Address [address] [facility] [address] [place] [address] Care Team Providers Care Gaming Cage Worker Name Role Phone Alberta Rizo MD Primary Care Provide r Encounter Details Date Type Department Care Team (Latest Contact Info) Description 01/25/2021 Abstract [facility] CONVERSIONS Dental, Provider, DDS Social History Tobacco [...] 08/26/2025 9:30 AM EST Office Visit [facility] ADULT DENTAL [address] [place] [address] Jeanette, Lili [address] [place] [address] documented as of this encounter Visit Diagnoses Not on filedocumented in this encounter Care Teams Gaming Cage Worker Relationship Specialty Start Date End Date Alberta Rizo MD [address] [place], [place] [phone] PCP - General Family Medicine 07/30/19 documented as of this encounter
--- OUTSIDE RECORDS SUMMARY | 2025-04-25 04:48 | XMS_ITS | Encounter Summary ---
Author Organization [employer] Address [address] [facility] [address] [place] [address] Care Team Providers Care Crank Hand Name Role Phone Alberta Rizo MD Primary Care Provide r Encounter Details Date Type Department Care Team (Late st Contact Info) Description 12/11/2022 Orders Only [facility] [address] [place] [address] Camille Ramirez LPN Social History Tobacco Use [...] Description 08/26/2025 9:30 AM EST Office Visit [facility] ADULT DENTAL [address] [place] [address] Jeanette, Lili [address] [place] [address] documented as of this encounter Visit Diagnoses Not on filedocumented in this encounter Care Teams Crank Hand Relationship Specialty Start Date End Date Alberta Rizo MD [address] [place] [address] PCP - General Family Medicine 07/30/19 documented as of this encounter
--- OUTSIDE RECORDS SUMMARY | 2025-04-25 04:48 | XMS_ITS | Clinical Summary ---
Author Organization [employer] Address [address] [facility] [address] [place] [address] Care Team Providers Care Acoustic Warfare Analyst Name Role Phone Alberta Rizo MD Primary [...] plenty of water Change position slowly Psychosis (CMS/HCC) 05/02/2023 Assessment & Plan (02/07/2025 3:21 PM [...] Encounters Date Type Department Care Team Description 04/23/2025 Orders Only GENERIC EXTERNAL DATA DEPARTMENT Provider, Generic External Data 03/21/2025 Telephone [facility] [address] [place] [phone] Belen Saavedra RN Lab Orders 02/10/2025 8:00 AM EDT Office Visit [facility] ADULT DENT[facility] [address] [place] [phone] JeanetteLili bello Localized gingival recession, minimal (Primary Dx); Dental calculus; TMJ crepitus; Dental plaque; Crowded teeth; Missing teeth, acquired 02/10/2025 Refill [facility] [address] [place] [address] Nathanael Tellez MD 02/07/2025 3:30 PM EDT Office Visit [facility] [address] [place] [phone] Alberta Rizo MD Mood disorder ([facility]) (Primary Dx); Mild intermittent asthma, unspecified whether complicated; Allergic rhinitis, unspecified seasonality, unspecified trigger; Psychosis, unspecified psychosis type (CMS/HCC) 02/07/2025 Travel 02/03/[address] [address] Alberta Rizo MD chart prep 02/02/2025 2:45 PM EDT Office Visit [address] [address] Iqra Tom FNP Preop examination (Primary Dx); Mild intermittent asthma, unspecified whether complicated 02/02/2025 Travel 02/01/[address] [address] Ana Lin [place] CHARTPREP 02/01/2025 Refill [facility] [address] [place] [address] Nathanael Tellez MD Mild intermittent asthma with acute exacerbation 01/31/[address] [address] Alberta Rizo MD Pre-op Exam 01/28/2025 Patient Outreach [address] [address] Alberta Rizo MD Pre-visit Planning ((Unable to reach for PVP screening, LVM) to be completed in office ) from Last 3 Months Immunizations Immunization Administration [...] is your housing situation today? I have alexiscecilia dia 02/02/[address] you [...] 02/07/2025 2:50 PM EDT Plan of Treatment Upcoming Encounters Date Type Department Care Team (Late st Contact Info) Description 08/26/2025 9:30 AM EST Office Visit [facility] ADULT DENTAL [address] [place] [address] Jeanette, Lili [address] [place] [address] Health Maintenance Due Date Last Done Comments [...] W CONTRAST Routine 04/23/2025 12:48 PM EDT COMPREHENSIVE METABOLIC PANEL Routine 04/23/2025 10:02 AM EDT CBC WITH AUTO DIFFERENTIAL Routine 04/23/2025 10:02 AM EDT BLOOD CULTURE (SECOND) Routine 10:02 AM EDT BLOOD CULTURE (FIRST) Routine 04/23/2025 9:57 AM EDT LACTIC ACID Routine 04/23/2025 9:56 AM EDT T-SPOT(R).TB Routine 03/21/2025 9:33 AM EDT PERIODIC ORAL EVALUATION - ESTABLISHED PATIENT Routine [...] :00 AM EDT Dental calculus Dental plaque HM COLONOSCOPY Routine 03/26/2024 INTRAORAL - COMPLETE SERIES OF RADIOGRAPHIC IMAGES Routine 03/08/2024 8:00 AM EDT Crowded teeth Dental plaque TMJ crepitus [facility] HISTORICAL HEPATITIS C AB W/REFL TO HCV RNA, QN, PCR Routine 04/16/2022 8:16 AM EDT LIPID PANEL, STANDARD Routine 04/16/2022 8:16 AM EDT from Last 3 Months or Most Recently Relevant to Health Maintenance Results * CT Pelvis w/ Contrast (04/23/2025 12:48 PM EDT) Anatomical Region Laterality Modality Body, Pelvis Computed Tomogra phy 04/23/2025 12:4 8 PM EDT Narrative 04/23/2025 12:50 PM EDT [place] [address] CT Scan Report Signed Patient: Dickson Sharma MR#: [id number] : 1950 Acct:[id number] Age/Sex: 74 / M ADM Date: 04/23/25 Loc: HO.ED Attending Dr: Ordering Physician: Travon Heller DO Date of Service: 04/23/25 Procedure(s): CT pelvis w IV con Accession Number(s): [id number] cc: Alberta Rizo MD; Travon Heller DO Report Number: [id number]: Total DLP = 191.00 mGy-cm Reason for [...] 04/23/25 1249 DD/ 1248 TD/TT: 04/23/25 1248 Finding Fastener: Procedure Note Donotuseinterpreter, Image - 04/23/[address] [address] [address] Scan Report Signed Patient: Karen Sharma#: M [id number] : [id number]:[id number] Age/Sex: 74 / MADM Date: 04/23/25 Loc: HO.ED Attending Dr: Ordering Physician: Travon Heller DO Date of Service: 04/23/25 Procedure(s): CT pelvis w IV con Accession Number(s): [id number] cc: Alberta Rizo MD; Travon Heller DO Report Number: [id number]: Total DLP = 191.00 mGy-cm Reason for [...] 04/23/25 1249 DD/ 1248 TD/TT: 04/23/25 1248 Finding Fastener: [facility] External Provider IMG CT PROCEDURES Final Result * (ABNORMAL) CBC auto differential (04/23/2025 10:02 AM EDT) White Blood Count 10.1 4.8 - 10.8 X10*3/uL [facility] Red Blood Count 4.36(L) 4.60 - 5.80 X10*6/uL [facility] Hemoglobin 14.1 14.0 - 18.0 g/dl [facility] Hematocrit 41.5(L) 42.0 - 52.0 % [facility] Mean Corpuscular Volume 95.2 80.0 - 98.0 fL [facility] Mean Corpuscular Hemoglobin 32.3 27.0 - 33.0 pg [facility] Mean Corpuscular HGB Conc 34.0 31.0 - 36.0 g/dl [facility] Red Cell Distribution Width 11.5 11.0 - 16.0 % [facility] Platelet Count 273 160 - 400 X10*3/uL [facility] Mean Platelet Volume 8.7(L) 9.4 - 12.4 fL [facility] Neutrophils Percent Auto 80.6(H) 45 - 73 % [facility] Imm Gran Pct Auto 0.9(H) 0.0 - 0.4 % [facility] Lymphocytes Percent Auto 11.4(L) 20 - 40 % [facility] Monocytes Percent Auto 6.5 2 - 11 % [facility] Eosinophils Percent Auto 0.3 0 - 4 % [facility] Basophils Percent Auto 0.3 0 - 2 % [facility] NRBC Pct Auto 0.0 0.0 - 0.2 /100WBC [facility] Neutrophils Absolute Auto 8.1 2.0 - 8.3 x10*3/uL [facility] Imm Gran Abs Auto 0.09(H) 0.00 - 0.03 X10*3/uL [facility] Lymphocytes Absolute Auto 1.2 1.2 - 4.9 X10*3/uL [facility] Monocytes Absolute Auto 0.7 0.1 - 1.2 X10*3/uL [facility] Eosinophils Absolute Auto 0.0 0.0 - 0.4 X10*3/uL [facility] Basophils Absolute Auto 0.0 0.0 - 0.2 X10*3/uL [facility] NRBC Abs Auto 0.000 0.0 - 0.012 X10*3/uL [facility] 04/23/2025 10:0 2 AM EDT 04/23/2025 10:07 AM EDT us Generic External Data Provider LAB BLOOD ORDERAB LES Final Result [facility] [address] [place] [phone] * (ABNORMAL) Comprehensive Metabolic Panel (04/23/2025 10:02 AM EDT) Sodium 141 135 - 145 mmol/L [facility] Potassium 3.7 3.3 - 5.1 mmol/L [facility] Chloride 109(H) 96 - 108 mmol/L [facility] Carbon Dioxide 24 22 - 29 mmol/L [facility] Anion Gap 12 12 - 20 [facility] Urea Nitrogen (BUN) 16 9 - 16 mg/dL [facility] Creatinine, Serum 0.73 0.5 - 1.4 mg/dL [facility] Creatinine Clr Calc Pharmacy 72.5 [facility] Comment:eGFR (calculated fro m the MDRD study equation) and eCrCl(calculated from the Cockcroft-Gault equation) are based ondifferent parameters and may not yield comparable results.If eCrCl result is absurd, please check patient'sheight/weight. Estimated Glomerular Filt Rate >60 [facility] Comment:Chronic Kidney Disea se: Estimated GFR < 60 mL/min/1.75r1Lyvxkq Kidney Disease: Estimated GFR < 15 mL/min/1.73m2 Glucose 128(H) 60 - 115 mg/dL [facility] Calcium 8.9 8.4 - 10.2 mg/dL [facility] Bilirubin, Total 0.4 0.0 - 1.0 mg/dL [facility] Aspartate Amino Transferase 22 5 - 37 U/L [facility] Alanine Aminotransferase 20 0 - 40 U/L [facility] Total Protein 6.4(L) 6.5 - 8.0 g/dL [facility] Albumin Level 3.9 3.5 - 5.0 g/dL [facility] Alkaline Phosphatase 61 39 - 117 U/L [facility] 04/23/2025 10:0 2 AM EDT 04/23/2025 10:07 AM EDT Generic External Data Provider LAB BLOOD ORDERAB LES Final Result Performing Organization Address City/[facility]/ZIP Co de Phone Number [facility] [address] [place] [phone] * Lactic Acid (04/23/2025 9:56 AM EDT) Pathologist [facility] Lactic Acid 1.5 0.5 - 2.0 mmol/L [facility] 04/23/2025 9:56 AM EDT 04/23/2025 10:07 AM EDT us Generic External Data Provider LAB BLOOD ORDERAB LES Final Result Performing Organization Address [facility]/ZIP Co de Phone Number [facility] [address] [place] [address] [phone] * T-SPOT??.TB (03/21/2025 9:33 AM EDT) Pathologist [facility] T Spot TB Negative Negative [facility] Comment:A negative test resu lt does not exclude the possibilityof exposure to or infection with Mycobacteriumtuberculosis (M. tuberculosis). Patients with recentexposure to TB infected individuals exhibiting anegative T-SPOT.TB result should be considered forretesting within 6 weeks or if other relevant clinicalsymptoms indicate. Results from T-SPOT.TB testing mustbe used in conjunction with each individual'sepidemiological history, current medical status,and results of other diagnostic evaluations.The T-SPOT.TB test is qualitative and results arereported as positive, borderline, or negative, giventhat the test controls perform as expected. In linewith the Centers for Disease Control and Prevention's2010 recommendation to report quantitative measurementsalongside the qualitative result, the laboratoryprovides spot counts for informational purposes only.The T-SPOT.TB test should not be interpreted as aquantitative test. TS PANEL A 0 [facility] TS PANEL B 0 [facility] Negative Control Passed [facility] Positive Control Passed [facility] Comment:For additional infor jeane, please refer tohttp://education.[employer]/faq/AUY949(This link is being provided for informational/educational purposes only.)THIS TEST WAS PERFORMED AT:[facility] [id number] [place] [id number] WHIPPLE MD,PHD 03/21/2025 9:33 AM EDT 03/21/2025 11:16 AM EDT Alberta Ackerman MD LAB BLOOD ORDERABLES Final Result [facility] [address] [place] [phone] * Hm Colonoscopy (03/26/2024) Colonoscopy Normal Normal Narrative Marisa Sommer - 03/26/2024 Repeat Colonoscopy in 5 years if polyps are adenomatous and due to history of adenomatous colon Polyps (see external hospital admission note on 03/26/2024) Historical Provider HEALTH MAINTENANCE Edited Result - Final * HEPATITIS C AB W/REFL TO HCV RNA, QN, PCR (04/16/2022 8:16 AM EDT) HEPATITIS C ANTIBODY NON-REACTI VE NON-REACT JAI [facility] INDEX 0.05 <1.00 [facility] Comment: HCV antibody was non-reactive. There is no laboratory evidence of HCV infection. In most cases, no further action is required. However, if recent HCV exposure is suspected, a test for HCV RNA (test code 74947) is suggested. For additional information please refer to http://education.[employer]/faq/BBB50s3 (This link is being provided for informational/ educational purposes only.) 04/16/2022 8:16 AM EDT us Alberta Ackerman MD HISTORICAL/NON ORDERA BLE LABS Final Result [facility] * (ABNORMAL) LIPID PANEL, STANDARD (04/16/2022 8:16 AM EDT) Chol/HDLC Ratio 4.4 <5.0 (calc) CONVERTED LEGACY [...] factors. LDL-C is now calculated using the Cameron-Lundberg calculation, which is a validated novel method providing better accuracy than the Friedewald equation in the estimation of LDL-C. Cameron DIAZ et al. LORENZO. 2013;310(19): 2247-6462 (http://education.[employer]faq/PJA613) Non-HDL Cholesterol 133(H) <130 mg/dL (calc) CONVERTED [...] Most Recently Relevant to Health Maintenance Insurance [facility] OPTIONS (O D-SNP) [facility] STANDARD DENT[facility] - [facility] Care Teams Acoustic Warfare Analyst Relationship Specialty Start Date End Date Alberta Rizo MD [address] [place] [address] PCP - General Family Medicine 07/30/19
--- OUTSIDE RECORDS SUMMARY | 2025-04-25 04:48 | XMS_ITS | Encounter Summary ---
Author Organization [employer] Address [address] [facility] [address] [place] [address] Care Team Providers Care Magnetic Doctor Name Role Phone Alberta Rizo MD Primary Care Provide r Reason for Visit * Reason Onset Date Comments Pre-op Exam 01/31/2025 Encounter Details Date Type Department Care Team ([facility] st Contact Info) Description 01/31/2025 Telephone [facility] [address] [place], [place] [phone] Alberta Rizo MD [address] [place], [place] [phone] Pre-op Exam Social History Tobacco Use Types [...] Nearly every day 02/02/2025 2:58 PM EDT Jhonna Gandhi [place], [place] * Trouble falling or [...] encounter Miscellaneous Notes * Telephone Encounter - Liil Tom - 01/31/2025 12:06 PM EDT Facility agreed to pre op appointment on 02/02 with Negro * Telephone Encounter - Jeremiah Singh - 01/31/2025 10:38 AM EDT Date of Surgery: February 18 Surgical procedure being done: Cataract Eye Type of anesthesia: MAC Lab needed: No EKG: No Surgeon's name: Dr. Yañez Say Facility name: [facility] Surgeon's office number: [phone] Surgeon's office fax number: [phone] Contact name (person you spoke with): Sushil Last office note from surgeon requested: Yes Send Message to Lili Tom and Dileep Corona documented in this encounter Plan of Treatment Upcoming Encounters Date Type Department Care Team (Late st Contact Info) Description 08/26/2025 9:30 AM EST Office Visit [facility] ADULT DENT[facility] [address] [place] [address] Lili Reid [address] [place] [address] documented as of this encounter Visit Diagnoses Not on filedocumented in this encounter Additional Health Concerns Assessment Noted Time PHQ-9 Depression Total Score: 9 06/22/20 24 10:32 AM EST documented as of this encounter Care Teams Magnetic Doctor Relationship Specialty Start Date End Date Alberta Rizo MD [address] [place] [address] PCP - General Family Medicine 07/30/19 documented as of this encounter
[2025-04-25 06:03] VITALS: BP 109/77; PULSE 67; RESP 16; O2SAT 97
--- NOTE | 2025-04-25 06:05 | ED.GENADULT ---
HPI - General Adult General Chief complaint: Wound/Laceration Stated complaint: Cyst on groin area Time Seen by Provider: 04/25/25 06:05 History of Present Illness ED Provider: Yogesh GERMAIN narrative: The patient is a 74-year-old male who has been having problems with the an infection in his right groin for several days. He was seen here 3 days ago on Friday for this same problem. At that time he had blood cultures done in his CT of the abdomen and pelvis. The CT showed cellulitis of the right groin with no soft tissue gas or soft tissue defects and minimal reactive inguinal lymph nodes. This did not extend towards the testicle or scrotum. The patient had at 1st received IV piperacillin tazobactam in the emergency department but was then discharged from the emergency room on doxycycline and cephalexin. The patient returned the next day, 2 days ago on Friday, for the same complaint. At that visit he had a CT of the pelvis. The CT of the pelvis showed no significant change from the previous day. He was discharged to continue the doxycycline and cephalexin. He was also prescribed naproxen and oxycodone. He returns today by ambulance because he started to have drainage from the site of swelling in his right groin. He does not feel that the discomfort or the swelling is any worse but he was anxious about the presence of pus draining from the site and so he called an ambulance and came to the emergency room. No fevers at home. No chest pain or shortness of breath. No nausea or vomiting. No difficulty urinating. Related Data Home Medications ?Medication ?Instructions ?Recorded ?Confirmed fluticasone propionate 220 2 puff inhalation BID 04/20/23 10/14/23 mcg/actuation HFA aerosol inhaler (Flovent HFA) Previous Rx's ?Medication ?Instructions ?Recorded escitalopram oxalate 10 mg tablet 10 mg PO DAILY #30 tabs 04/25/23 melatonin 3 mg tablet 3 mg PO BEDTIME #30 tabs 04/25/23 quetiapine 100 mg tablet 100 mg PO BEDTIME #30 tabs 04/25/23 quetiapine 25 mg tablet 25 mg PO BID PRN Anxiety #60 tabs 04/25/23 meclizine 12.5 mg tablet 12.5 mg PO BID PRN dizziness #10 05/07/23 tabs cephalexin 500 mg capsule 500 mg PO QID 7 days #28 caps 10/11/25 doxycycline hyclate 100 mg capsule 100 mg PO BID 7 days #14 caps 04/23/25 naproxen 500 mg tablet 500 mg PO BID 5 days #10 tabs 04/23/25 oxycodone 5 mg tablet 5 mg PO Q6H PRN pain #10 tabs 04/23/25 Allergies Allergy/AdvReac Type Severity Reaction Status Date / Time No Known Allergies (No Known Allergy Verified 04/25/25 04:38 Allergies*) Review of Systems Review of Systems: Yes all other systems are reviewed and are negative [facility] Past Medical History Medical History Allergic rhinitis Post traumatic stress disorder Depression Hypercholesterolemia HTN (hypertension) GERD (gastroesophageal reflux disease) Anxiety COVID-19 Asthma Surgical History History of surgery Social History Social History Household Members: None Housing: Apartment Are you a primary healthcare analyst to a significant other at home: No Do you presently have visiting nurse or other home services: No Alcohol intake: former Patient Tobacco Use Status: Never used Tobacco Smoked in Last 30 Days: No e-Cigarette/Vaping Use: Never Used Second Hand Smoke Exposure: No Use of substances other than those prescribed or required for medical reasons: No Advance Directives: No Advance Directives Information Provided: No service: No Current occupational status: retired Sexual orientation: Straight/Heterosexual Physical Exam ED Vital Signs: Vital Signs - 24 hr 04/25/25 04:34 04/25/25 06:03 04/25/25 07:25 Temperature 97.8 F Pulse Rate 81 67 71 Respiratory Rate 16 16 16 Blood Pressure 125/86 109/77 128/86 Pulse Oximetry 96 97 98 Oxygen Delivery Method Room Air Room Air Room Air 04/25/25 08:17 Temperature 0 F L Pulse Rate 71 Respiratory Rate 16 Blood Pressure 128/86 Pulse Oximetry 98 Oxygen Delivery Method Room Air BMI result Body Mass Index 27.7 Const Other: The patient is awake, alert, pleasant, cooperative he does not appear in overt distress. He does not seem toxic. HENMT Other: The face is symmetrical. Mucous membranes moist. Eyes General: appearance normal, both eyes and all related structures Neck Neck: Yes normal visual inspection and Yes full ROM Resp Effort & Inspection: normal respiratory effort Auscultation: clear to auscultation bilaterally Cardio Rate: regular rate Rhythm: regular rhythm Heart sounds: S1 normal heart sound present and S2 normal heart sound present GI Other: Abdomen is soft and nontender Other: The patient has some soft tissue swelling and erythema to the skin in the right inguinal region just above the inguinal crease. The abnormality to the skin does not extend into the scrotum. This soft tissue swelling is tender. There is a small area of drainage when pressure is applied to the swelling. However the swelling itself is not particularly fluctuant. The scrotum itself seems uninvolved. Testes are unremarkable. Skin Other: There is swelling and tenderness with some slight erythema to the skin and a tiny area of purulent drainage to the skin of the right inguinal region just above the inguinal crease and proximal to the scrotum. Neuro Other: The patient is a 74-year-old male who was awake and alert with a normal mental status. He seems to have an anxious demeanor. Cranial nerves are grossly intact. He moves his extremities normally and appropriately. Extrem Other: There is no calf swelling or tenderness. No asymmetry. No peripheral edema. Medications Administered Discontinued Medications Generic Name Dose Route Start Last Admin Trade Name Freq PRN Reason Stop Dose Admin Bacitracin 1 appl 04/25/25 07:03 04/25/25 07:12 Bacitracin Oint 0.9 Gm Packet TOPICAL 04/25/25 07:04 1 appl ONCE ONE Administration Protocol Cephalexin HCl 500 mg 04/25/25 07:50 04/25/25 07:59 Cephalexin 500 Mg Capsule PO 04/25/25 07:51 500 mg ONCE ONE Administration Lidocaine HCl 2 ml 04/25/25 06:27 04/25/25 06:39 Lidocaine Hcl 1 % Mpf 2 Ml Vial INFILTRATI 04/25/25 06:28 2 ml ONCE ONE Administration Medical Decision Making Medical Decision Making [facility] Narrative: The patient is a 74-year-old male who was seen here twice a few days ago for a similar complaint. He had a CT of the abdomen and pelvis and a couple of days later returned and had a CT of the pelvis. He has what seems to be an area of soft tissue swelling an infection in the region of the right groin. This infection does not seem to extend into his scrotum. He has been on doxycycline and cephalexin for a few days. Today he started to have drainage from the area of swelling. Swelling itself does not feel remarkably fluctuant. However I can express a small amount of pus from 1 spot which is open. I explained to the patient that he seems to have a soft tissue skin infection which is ripening. I explained that I would make a small incision to see if I could enhanced the purulent drainage. The patient consented. I then cleaned the skin with Betadine and injected a small amount of 1% lidocaine around the area of drainage. I then made an incision with a 10. Blade. The incision was quite small. A small amount of pus was released. I probed the incision with a Marixa to try to enhance strange. My overall impression was that there was no significantly large abscess cavity and I did not feel a packing was indicated. Bacitracin and a Band-Aid were applied the patient will be discharged. He should continue his doxycycline and cephalexin. He should follow up with General surgery or his primary care doctor. Discharge Plan Discharge Clinical Impression: Soft tissue abscess of inguinal region, Cellulitis of right groin Patient Disposition: Home, Self-Care Additional Instructions: Please continue the antibiotics you were previously prescribed. Please take the doxycycline 2 times a day, approximately every 12 hours. Please take the cephalexin 4 times a day, approximately every 6 hours. A small incision was made to help increase the drainage from the infection. You will probably have ongoing drainage. This is normal. The wound may get wet. You may cover the wound with a Band-Aid. It might be good for you to follow up with the General surgery office. He you has been given the contact information for [facility] General surgery please call them for an appointment this week for follow up. Also plan on following up with your regular doctor. Return to the emergency room if significantly worse.. Prescriptions: No Action meclizine 12.5 mg tablet 12.5 mg PO BID PRN (Reason: dizziness) Qty: 10 0RF fluticasone propionate [Flovent HFA] 220 mcg/actuation HFA aerosol inhaler 2 puff INHALATION BID quetiapine 25 mg Tablet 25 mg PO BID PRN (Reason: Anxiety) Qty: 60 0RF escitalopram oxalate 10 mg Tablet 10 mg PO DAILY Qty: 30 0RF quetiapine 100 mg tablet 100 mg PO BEDTIME Qty: 30 0RF melatonin 3 mg Tablet 3 mg PO BEDTIME Qty: 30 0RF doxycycline hyclate 100 mg capsule 100 mg PO BID 7 Days Qty: 14 0RF cephalexin 500 mg capsule 500 mg PO QID 7 Days Qty: 28 0RF naproxen 500 mg tablet 500 mg PO BID 5 Days Qty: 10 0RF oxycodone 5 mg tablet 5 mg PO Q6H PRN (Reason: pain) Qty: 10 0RF Rx Instructions: Partial Fill upon patient request. Referrals: [facility] General Surgeons [Provider Group, General Surgery] Alberta Rizo MD [Primary Care Provider, Internal Medicine] Interventions: ED Discharge Assessment Last Done: 04/25/25 08:17 Discharge Date/Time: 04/25/25 08:18 Print Language: Telugu
[2025-04-25] MEDS: Lidocaine HCl 1 % MPF 2 ML VIAL INFILTRATI (06:39)
--- NOTE | 2025-04-25 07:22 | PC.NURSE ---
Care of Pt assumed at change of shift (0700.) Verbal orders received from ED provider to apply bacitracin to R groin incision and cover with band aid. Wound care provided, Pt tolerated well.
[2025-04-25 07:25] VITALS: BP 128/86; PULSE 71; RESP 16; O2SAT 98
[2025-04-25 08:17] VITALS: BP 128/86; PULSE 71; RESP 16; TEMP -17.7; TEMP 0; O2SAT 98
== END 2025-04-25 08:18 | disposition home or self-care (01) ==
PROVIDERS: Emergency Provider Emergency Medicine; PCP Internal Medicine
DX: L02.214 Cutaneous abscess of groin (principal); L03.314 Cellulitis of groin; I10 Essential (primary) hypertension; J45.909 Unspecified asthma, uncomplicated; Z79.899 Other long term (current) drug therapy
CPT/HCPCS: 10060; 87070; 87077; 87186; 87205; 99284; J2003

== ENCOUNTER 2025-04-27 04:50 | Emergency (ER) | payer OTHER, SELFPAY ==
--- NOTE | 2025-04-27 | ECG_ITS ---
Test Reason : DIZZINESS Blood Pressure : */* mmHG Vent. Rate : 83 BPM Atrial Rate : 83 BPM P-R Int : 132 ms QRS Dur : 86 ms QT Int : 356 ms P-R-T Axes : 43 -32 59 degrees QTcB Int : 418 ms Normal sinus rhythm with sinus arrhythmia Left axis deviation Abnormal ECG When compared with ECG of 07-Dec-2024 14:52, QRS axis Shifted left Referred By: Generic ED Physician Electronically Signed By: Donnie Haas
--- NOTE | ~2025-04-27 | MR_ITS ---
EXAMINATION: MR BRAIN WITHOUT CONTRAST CLINICAL INFORMATION: Vertigo, rule out cerebellar stroke. COMPARISON: No prior MRI. CT head earlier same day. TECHNIQUE: MRI of the brain was obtained using routine sequences without contrast. Examination performed on a 1.5 Kassi Siemens high-field unit. FINDINGS: There is no diffusion restriction. There is no intracranial hemorrhage, acute infarction, mass effect, or edema. Ventricles, sulci, and cisterns are normal in size and configuration for patient age. No shift of midline. No abnormal hemosiderin deposition is identified. There are a few scattered punctate foci of white matter T2 hyperintensity in the periventricular, subcortical, and hemispheric deep white matter. These foci are nonspecific but statistically relate to small vessel ischemic changes. 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 Midline structures appear normally formed. The pituitary gland appears normal. Posterior fossa structures appear normal. Cerebellar tonsils are appropriately located. Major flow voids are preserved within the skull base. The globes and orbital contents demonstrate no abnormalities. There are bilateral lens replacements. Paranasal sinuses are clear bilaterally. Nasal septum is midline without spur. The mastoids and tympanic cavities are normally aerated. Extracranial soft tissues demonstrate no abnormalities. No suspicious bone marrow changes are evident. There are degenerative changes in both TM joints. Atlantoaxial joint is normal. MR/MR head/brain wo con IMPRESSION: 1. No evidence of intracranial hemorrhage, acute infarction, mass effect, or edema. 2. Minimal changes of small vessel ischemia. Electronically signed by: Harman Cox MD 04/27/2025 03:18 PM EDT
--- NOTE | ~2025-04-27 | CT_ITS ---
EXAMINATION: CT HEAD WITHOUT IV CONTRAST HISTORY: Dizziness. TECHNIQUE: Unenhanced helical CT of the head was performed per standard departmental protocol. Coronal and sagittal reformats of the head were also evaluated. One or more of the following techniques was used for dose reduction: Automated exposure control, adjustment of the mA and/or kV according to patient size, use of iterative reconstruction technique. DLP: 614 mGy-cm COMPARISON: Comparison is made with the prior examination dated the 2423. FINDINGS: BRAIN: There is mild prominence of the ventricular system and cortical sulci, consistent with atrophy. Scattered periventricular and subcortical white matter hypodensities are noted which are nonspecific, but often seen in the setting of small vessel ischemic disease. There is no mass effect or midline shift. No intra- or extra-axial fluid collections are identified. SINUSES: The visualized paranasal sinuses are clear. The mastoid air cells and middle ear cavities are well pneumatized. ORBITS: The visualized orbits are unremarkable. BONES/SOFT TISSUES: The extracranial soft tissues are unremarkable. The calvarium is intact. No suspicious lytic or sclerotic lesions. CT/CT head/brain wo IV con IMPRESSION: No acute intracranial abnormality. Electronically signed by: Melo Polanco MD 04/27/2025 08:49 AM EDT
[2025-04-27 04:51] VITALS: BP 124/80; PULSE 94; O2SAT 96
[2025-04-27 05:43] VITALS: BP 124/80; PULSE 94; O2SAT 96; BMI 21.8
[2025-04-27 05:51] VITALS: BP 116/76; PULSE 91; RESP 16; TEMP 36.7; O2SAT 96
--- OUTSIDE RECORDS SUMMARY | 2025-04-27 05:54 | XMS_ITS | Encounter Summary ---
Author Organization [employer] Address [address] [place] [address] Care Team Providers Care Income Auditor Name Role Phone Alberta Rizo MD Primary Care Provide r Reason for Visit * Reason Onset Date Comments Nurse Triage 04/26/2025 Encounter Details Date Type Department Care Team ([facility] st Contact Info) Description 04/26/2025 Telephone [facility] MEDICINE [address] [place] [address] Alberta Rizo MD [address] [place] [address] Nurse Triage Social History Tobacco Use Types Packs/Day Years [...] encounter Miscellaneous Notes * Telephone Encounter - Siria Lopez RN - 04/26/2025 1:44 PM EDT TC to pt daughter. Pt daughter states that pt has hard lump on inner groin, denies hot to touch butlump is hard and tender. Reports that oxycodone prescribed from ER helped a little. Reviewed ER discharge and advised of lymph node swelling, advised of home care measures to help reduce pain and swelling with warm compressed and OTC analgesics. Advised to continue taking ABT prescribed from hospital even if feeling better. Advised for pt to contact office if pain is still present after completing ABT or if pt develops a fever or increased redness, swelling, or puss like drainage. Pt daughter verbalized understanding and agreement with plan. Protocol Used: Skin Lump or Localized Swelling (Adult) Protocol-Based Disposition: Home Care Positive Triage Question: * Small swelling or lump present < 1 week * All higher-acuity triage questions were negative Care Advice Discussed: * Reasons To Call Back - Fever occurs - Spreading redness occurs - Swelling becomes painful - Swelling lasts over 1 week - You become worse * Telephone Encounter - Maya Dent - 04/26/2025 10:52 AM EDT Patient calling to report ED visit on : Date: 04/25 Hospital: [facility] [place] Seen for: cyst in groin area Symptomatic Yes *if yes message should go to Triage Patient advised will forward to team nurse for follow up Contact pt daughter at [phone] documented in this encounter Plan of Treatment Upcoming Encounters Date Type Department Care Team (Late st Contact Info) Description 08/26/2025 9:30 AM EST Office Visit [facility] ADULT DENTAL [address], [place] [phone] Jeanette, Lili [address] [place] [address] documented as of this encounter Visit Diagnoses Not on filedocumented in this encounter Additional Health Concerns Assessment Noted Time PHQ-9 Depression Total Score: 8 02/08/20 25 2:51 PM EDT documented as of this encounter Care Teams Income Auditor Relationship Specialty Start Date End Date Alberta Rizo MD [address] [place] [address] PCP - General Family Medicine 07/30/19 documented as of this encounter
--- OUTSIDE RECORDS SUMMARY | 2025-04-27 05:54 | XMS_ITS | Encounter Summary ---
Author Organization [employer] [facility] Address [address] [place] [address] Care Team Providers Care Drivability Technician Name Role Phone Alberta Rizo MD Primary Care Provide r Encounter Details Date Type Department Care Team (Latest Contact Info) Description 01/19/2019 Abstract [facility] Dental, Provider, DDS Social History [...] Description 08/26/2025 9:30 AM EST Office Visit [facility] ADULT DENTAL [address] [place] [address] Jeanette, Lili [address] [place] [address] documented as of this encounter Visit Diagnoses Not on filedocumented in this encounter Care Teams Drivability Technician Relationship Specialty Start Date End Date Alberta Rizo MD [address] [place] [address] PCP - General Family Medicine 07/30/19 documented as of this encounter
--- OUTSIDE RECORDS SUMMARY | 2025-04-27 05:54 | XMS_ITS | Encounter Summary ---
Author Organization [employer] Address [address] [facility] [address] [place] [address] Care Team Providers Care Processing Archivist Name Role Phone Alberta Rizo MD Primary Care Provide r Encounter Details Date Type Department Care Team ([facility] st Contact Info) Description 04/23/2025 [...] Description 08/26/2025 9:30 AM EST Office Visit [facility] ADULT DENTAL [address] [place] [address] Jeanette, Lili [address] [place] [address] Pending Results Name Type Priority Associated Diagnoses Date /Time Blood Culture (Second) Microbiology Routine 04/23/2025 10:02 AM EDT Blood Culture (First) Microbiology Routine 04/23/2025 9:57 AM EDT documented as of this encounter Procedures Procedure Name Priority Date/Time Associated Diagnosis Comments GRAM STAIN RESULT (NON ORDERABLE) Routine 04/25/2025 6:[address] PELVIS W CONTRAST Routine 04/23/2025 12:48 PM EDT BLOOD CULTURE (SECOND) Routine 10:02 AM EDT CBC WITH AUTO DIFFERENTIAL Routine 04/23/2025 10:02 AM EDT COMPREHENSIVE METABOLIC PANEL Routine 04/23/2025 10:02 AM EDT BLOOD CULTURE (FIRST) Routine 04/23/2025 9:57 AM EDT LACTIC ACID Routine 04/23/2025 9:56 AM EDT documented in this encounter Results * Gram Stain Result (04/25/2025 6:29 AM EDT) 04/25/2025 6:29 AM EDT 04/25/2025 8:23 AM EDT Comment:Groin Narrative [facility] - 04/26/2025 7:54 AM EDT right inguinal swelling Gram stain results: 2+ polys 2+ epithelial cells 1+ Gram-positive cocci right inguinal swelling Staphylococcus species Quant Org ID 2+ Specimen Source: Groin us Generic External Data Provider HISTORICAL/NON OR DERABLE LABS Final Result Performing Organization Address City/State/[facility] Co de Phone Number [facility] [address] [place] [phone] * CT Pelvis w/ Contrast (04/23/2025 12:48 PM EDT) Anatomical Region Laterality Modality Body, Pelvis Computed Tomogra phy 04/23/2025 12:4 8 PM EDT Narrative 04/23/2025 12:50 PM EDT [address] [address] [address] Scan Report Signed Patient: Dickson Sharma MR#: [id number] : 1950 Acct:[id number] Age/Sex: 74 / M ADM Date: 04/23/25 Loc: HO.ED Attending Dr: Ordering Physician: Travon Heller DO Date of Service: 04/23/25 Procedure(s): CT pelvis w IV con Accession Number(s): [id number] cc: Alberta Rizo MD; Travon Heller DO Report Number: [id number]: Total DLP = 191.00 mGy-cm Reason for [...] 04/23/25 1249 DD/ 1248 TD/TT: 04/23/25 1248 Disaster Recovery Specialist: Procedure Note Donotuseinterpreter, Image - 04/23/[address] [place] [address] [address] Scan Report Signed Patient: Karen Sharma#: [id number] : 2Acct:[id number] Age/Sex: 74 / MADM Date: 04/23/25 Loc: HO.ED Attending Dr: Ordering Physician: Travon Heller DO Date of Service: 04/23/25 Procedure(s): CT pelvis w IV con Accession Number(s): [id number] cc: Alberta Rizo MD; Travon Heller DO Report Number: [id number]: Total DLP = 191.00 mGy-cm Reason for [...] 04/23/25 1249 DD/ 1248 TD/TT: 04/23/25 1248 Disaster Recovery Specialist: us [facility] External Provider IMG CT PROCEDURES Final Result * (ABNORMAL) Comprehensive Metabolic Panel (04/23/2025 10:02 AM EDT) Sodium 141 135 - 145 mmol/L [facility] Potassium 3.7 3.3 - 5.1 mmol/L [facility] Chloride 109(H) 96 - 108 mmol/L [facility] Carbon Dioxide 24 22 - 29 mmol/L [facility] Anion Gap 12 12 - 20 [facility] Urea Nitrogen (BUN) 16 9 - 16 mg/dL [facility] Creatinine, Serum 0.73 0.5 - 1.4 mg/dL [facility] Creatinine Clr Calc Pharmacy 72.5 [facility] Comment:eGFR (calculated fro m the MDRD study equation) and eCrCl(calculated from the Cockcroft-Gault equation) are based ondifferent parameters and may not yield comparable results.If eCrCl result is absurd, please check patient'sheight/weight. Estimated Glomerular Filt Rate >60 [facility] Comment:Chronic Kidney Disea se: Estimated GFR < 60 mL/min/1.77v2Wqchnw Kidney Disease: Estimated GFR < 15 mL/min/1.73m2 Glucose 128(H) 60 - 115 mg/dL [facility] Calcium 8.9 8.4 - 10.2 mg/dL [facility] Bilirubin, Total 0.4 0.0 - 1.0 mg/dL [facility] Aspartate Amino Transferase 22 5 - 37 U/L [facility] Alanine Aminotransferase 20 0 - 40 U/L [facility] Total Protein 6.4(L) 6.5 - 8.0 g/dL [facility] Albumin Level 3.9 3.5 - 5.0 g/dL [facility] Alkaline Phosphatase 61 39 - 117 U/L [facility] 04/23/2025 10:0 2 AM EDT 04/23/2025 10:07 AM EDT us Generic External Data Provider LAB BLOOD ORDERAB LES Final Result [facility] [address] [place] [address] [phone] * (ABNORMAL) CBC auto differential (04/23/2025 10:02 AM EDT) White Blood Count 10.1 4.8 - 10.8 X10*3/uL [facility] Red Blood Count 4.36(L) 4.60 - 5.80 X10*6/uL [facility] Hemoglobin 14.1 14.0 - 18.0 g/dl [facility] Hematocrit 41.5(L) 42.0 - 52.0 % [facility] Mean Corpuscular Volume 95.2 80.0 - 98.0 fL [facility] Mean Corpuscular Hemoglobin 32.3 27.0 - 33.0 pg [facility] Mean Corpuscular HGB Conc 34.0 31.0 - 36.0 g/dl [facility] Red Cell Distribution Width 11.5 11.0 - 16.0 % [facility] Platelet Count 273 160 - 400 X10*3/uL [facility] Mean Platelet Volume 8.7(L) 9.4 - 12.4 fL [facility] Neutrophils Percent Auto 80.6(H) 45 - 73 % [facility] Imm Gran Pct Auto 0.9(H) 0.0 - 0.4 % [facility] Lymphocytes Percent Auto 11.4(L) 20 - 40 % [facility] Monocytes Percent Auto 6.5 2 - 11 % [facility] Eosinophils Percent Auto 0.3 0 - 4 % [facility] Basophils Percent Auto 0.3 0 - 2 % [facility] NRBC Pct Auto 0.0 0.0 - 0.2 /100WBC [facility] Neutrophils Absolute Auto 8.1 2.0 - 8.3 x10*3/uL [facility] Imm Gran Abs Auto 0.09(H) 0.00 - 0.03 X10*3/uL [facility] Lymphocytes Absolute Auto 1.2 1.2 - 4.9 X10*3/uL [facility] Monocytes Absolute Auto 0.7 0.1 - 1.2 X10*3/uL [facility] Eosinophils Absolute Auto 0.0 0.0 - 0.4 X10*3/uL [facility] Basophils Absolute Auto 0.0 0.0 - 0.2 X10*3/uL [facility] NRBC Abs Auto 0.000 0.0 - 0.012 X10*3/uL [facility] 04/23/2025 10:0 2 AM EDT 04/23/2025 10:07 AM EDT us Generic External Data Provider LAB BLOOD ORDERAB LES Final Result Performing Organization Address City/[facility]/ZIP Co de Phone Number [facility] [address] [place] [phone] * Lactic Acid (04/23/2025 9:56 AM EDT) Lactic Acid 1.5 0.5 - 2.0 mmol/L [facility] 04/23/2025 9:56 AM EDT 04/23/2025 10:07 AM EDT Generic External Data Provider LAB BLOOD ORDERAB LES Final Result Performing Organization Address [facility] Co de Phone Number [facility] [address] [place] [phone] documented in this encounter Visit Diagnoses Not on filedocumented in this encounter Additional Health Concerns Assessment Noted Time PHQ-9 Depression Total Score: 8 02/08/20 25 2:51 PM EDT documented as of this encounter Care Teams Processing Archivist Relationship Specialty Start Date End Date Alberta Rizo MD [address] [place] [address] PCP - General Family Medicine 07/30/19 documented as of this encounter
--- OUTSIDE RECORDS SUMMARY | 2025-04-27 05:54 | XMS_ITS | Encounter Summary ---
Author Organization [employer] Address [address] [facility] [address] [place] [address] Care Team Providers Care Sewer Connector Name Role Phone Alberta Rizo MD Primary Care Provide r Encounter Details Date Type Department Care Team (Late st Contact Info) Description 12/11/2022 Orders Only [facility] [address] [place] [address] Camille Ramirez LPN Social History Tobacco Use [...] Description 08/26/2025 9:30 AM EST Office Visit [facility] ADULT DENTAL [address] [place] [address] Jeanette, Lili [address] [place] [address] documented as of this encounter Visit Diagnoses Not on filedocumented in this encounter Care Teams Sewer Connector Relationship Specialty Start Date End Date Alberta Rizo MD [address] [place] [address] PCP - General Family Medicine 07/30/19 documented as of this encounter
--- OUTSIDE RECORDS SUMMARY | 2025-04-27 05:54 | XMS_ITS | Clinical Summary ---
Author Organization [employer] Address [address] [facility] 7t [place] [address] Care Team Providers Care Manufacturing Controls Engineer Name Role Phone Alberta Rizo MD Primary [...] Encounters Date Type Department Care Team Description 04/26/2025 Telephone [facility] [address] [place] [address] Alberta Rizo MD Nurse Triage 04/23/2025 Orders Only GENERIC EXTERNAL DATA DEPARTMENT Provider, Generic External Data 03/21/[address] [address] Belen Saavedra, office machine inspector Orders 02/10/2025 8:00 AM EDT Office Visit [facility] [address] [place] [address] Lili Reid Localized gingival recession, minimal (Primary Dx); Dental calculus; TMJ crepitus; Dental plaque; Crowded teeth; Missing teeth, acquired 02/10/2025 Refill [facility] [address] [place] [address] [phone] Nathanael Tellez MD 02/07/2025 3:30 PM EDT Office Visit [facility] [address] [place] [address] Alberta Rizo MD Mood disorder ([facility]) (Primary Dx); Mild intermittent asthma, unspecified whether complicated; Allergic rhinitis, unspecified seasonality, unspecified trigger; Psychosis, unspecified psychosis type ([facility]) 02/07/2025 Travel 02/03/2025 Telephone [facility] [address] [place] [address] Alberta Rizo MD chart prep 02/02/2025 2:45 PM EDT Office Visit [address] [address] Iqra Tom FNP Preop examination (Primary Dx); Mild intermittent asthma, unspecified whether complicated 02/02/2025 Travel 02/01/[address] [address] Ana Lin [place] CHARTPREP 02/01/2025 Refill [facility] [address] [place] [address] Nathanael Tellez MD Mild intermittent asthma with acute exacerbation 01/31/[address] [address] Alberta Rizo MD Pre-op Exam 01/28/2025 Patient Outreach [address] [phone] Alberta Rizo MD Pre-visit Planning ((Unable to [...] Description 08/26/2025 9:30 AM EST Office Visit [facility] [address] [place] [address] Jeanette, Lili [address] [place] [address] Health Maintenance Due Date Last Done Comments [...] Recently Relevant to Health Maintenance Results * Gram Stain Result (04/25/2025 6:29 AM EDT) 04/25/2025 6:29 AM EDT 04/25/2025 8:23 AM EDT Comment:Groin Narrative [facility] - 04/26/2025 7:54 AM EDT right inguinal swelling Gram stain results: 2+ polys 2+ epithelial cells 1+ Gram-positive cocci right inguinal swelling Staphylococcus species Quant Org ID 2+ Specimen Source: Groin us Generic External Data Provider HISTORICAL/NON OR DERABLE LABS Final Result Performing Organization Address City/State/[facility] Co de Phone Number [facility] [address] [place] [phone] * CT Pelvis w/ Contrast (04/23/2025 12:48 PM EDT) Anatomical Region Laterality Modality Body, Pelvis Computed Tomogra phy 04/23/2025 12:4 8 PM EDT Narrative 04/23/2025 12:50 PM EDT [address] [address] [address] Scan Report Signed Patient: Dickson Sharma MR#: [id number] : 1950 Acct:[id number] Age/Sex: 74 / M ADM Date: 04/23/25 Loc: HO.ED Attending Dr: Ordering Physician: Travon Heller DO Date of Service: 04/23/25 Procedure(s): CT pelvis w IV con Accession Number(s): [id number] cc: Alberta Rizo MD; Travon Heller DO Report Number: [id number]: Total DLP = 191.00 mGy-cm Reason for [...] 04/23/25 1249 DD/ 1248 TD/TT: 04/23/25 1248 Mortgage Coordinator: Procedure Note Donotuseinterpreter, Image - 04/23/[address] [address] [address] Scan Report Signed Patient: Preston SharmaR#: M [id number] : 1950cct:[id number] Age/Sex: 74 / MADM Date: 04/23/25 Loc: HO.ED Attending Dr: Ordering Physician: Travon Heller DO Date of Service: 04/23/25 Procedure(s): CT pelvis w IV con Accession Number(s): [id number] cc: Alberta Rizo MD; RobsonnahedTravon DO Report Number: [id number]: Total DLP = 191.00 mGy-cm Reason for [...] 04/23/25 1249 DD/ 1248 TD/TT: 04/23/25 1248 Mortgage Coordinator: [facility] External Provider IMG CT PROCEDURES Final Result * (ABNORMAL) CBC auto differential (04/23/2025 10:02 AM EDT) White Blood Count 10.1 4.8 - 10.8 X10*3/uL [facility] Red Blood Count 4.36(L) 4.60 - 5.80 X10*6/uL [facility] Hemoglobin 14.1 14.0 - 18.0 g/dl [facility] Hematocrit 41.5(L) 42.0 - 52.0 % [facility] Mean Corpuscular Volume 95.2 80.0 - 98.0 fL [facility] Mean Corpuscular Hemoglobin 32.3 27.0 - 33.0 pg [facility] Mean Corpuscular HGB Conc 34.0 31.0 - 36.0 g/dl [facility] Red Cell Distribution Width 11.5 11.0 - 16.0 % [facility] Platelet Count 273 160 - 400 X10*3/uL [facility] Mean Platelet Volume 8.7(L) 9.4 - 12.4 fL [facility] Neutrophils Percent Auto 80.6(H) 45 - 73 % [facility] Imm Gran Pct Auto 0.9(H) 0.0 - 0.4 % [facility] Lymphocytes Percent Auto 11.4(L) 20 - 40 % [facility] Monocytes Percent Auto 6.5 2 - 11 % [facility] Eosinophils Percent Auto 0.3 0 - 4 % [facility] Basophils Percent Auto 0.3 0 - 2 % [facility] NRBC Pct Auto 0.0 0.0 - 0.2 /100WBC [facility] Neutrophils Absolute Auto 8.1 2.0 - 8.3 x10*3/uL [facility] Imm Gran Abs Auto 0.09(H) 0.00 - 0.03 X10*3/uL [facility] Lymphocytes Absolute Auto 1.2 1.2 - 4.9 X10*3/uL [facility] Monocytes Absolute Auto 0.7 0.1 - 1.2 X10*3/uL [facility] Eosinophils Absolute Auto 0.0 0.0 - 0.4 X10*3/uL [facility] Basophils Absolute Auto 0.0 0.0 - 0.2 X10*3/uL [facility] NRBC Abs Auto 0.000 0.0 - 0.012 X10*3/uL [facility] 04/23/2025 10:0 2 AM EDT 04/23/2025 10:07 AM EDT us Generic External Data Provider LAB BLOOD ORDERAB LES Final Result [facility] [address] [place] [address] [phone] * (ABNORMAL) Comprehensive Metabolic Panel (04/23/2025 10:02 AM EDT) Sodium 141 135 - 145 mmol/L [facility] Potassium 3.7 3.3 - 5.1 mmol/L [facility] Chloride 109(H) 96 - 108 mmol/L [facility] Carbon Dioxide 24 22 - 29 mmol/L [facility] Anion Gap 12 12 - 20 [facility] Urea Nitrogen (BUN) 16 9 - 16 mg/dL [facility] Creatinine, Serum 0.73 0.5 - 1.4 mg/dL [facility] Creatinine Clr Calc Pharmacy 72.5 [facility] Comment:eGFR (calculated fro m the MDRD study equation) and eCrCl(calculated from the Cockcroft-Gault equation) are based ondifferent parameters and may not yield comparable results.If eCrCl result is absurd, please check patient'sheight/weight. Estimated Glomerular Filt Rate >60 [facility] Comment:Chronic Kidney Disea se: Estimated GFR < 60 mL/min/1.55k4Zoygii Kidney Disease: Estimated GFR < 15 mL/min/1.73m2 Glucose 128(H) 60 - 115 mg/dL [facility] Calcium 8.9 8.4 - 10.2 mg/dL [facility] Bilirubin, Total 0.4 0.0 - 1.0 mg/dL [facility] Aspartate Amino Transferase 22 5 - 37 U/L [facility] Alanine Aminotransferase 20 0 - 40 U/L [facility] Total Protein 6.4(L) 6.5 - 8.0 g/dL [facility] Albumin Level 3.9 3.5 - 5.0 g/dL [facility] Alkaline Phosphatase 61 39 - 117 U/L [facility] 04/23/2025 10:0 2 AM EDT 04/23/2025 10:07 AM EDT us Generic External Data Provider LAB BLOOD ORDERAB LES Final Result [facility] [address] [place] [address] [phone] * Lactic Acid (04/23/2025 9:56 AM EDT) Lactic Acid 1.5 0.5 - 2.0 mmol/L [facility] 04/23/2025 9:56 AM EDT 04/23/2025 10:07 AM EDT us Generic External Data Provider LAB BLOOD ORDERAB LES Final Result Performing Organization Address City/[facility] Co de Phone Number [facility] [address] [place] [address] [phone] * T-SPOT??.TB (03/21/2025 9:33 AM EDT) Pathologist [facility] T Spot TB Negative Negative [facility] Comment:A negative test resu lt does [...] as aquantitative test. TS PANEL A 0 [facility] TS PANEL B 0 [facility] Negative Control Passed [facility] Positive Control Passed [facility] Comment:For additional infor jeane, please refer tohttp://education.Evomail/faq/VHY176(This link is being provided for informational/educational purposes only.)THIS TEST WAS PERFORMED AT:[id number] [place] [id number] WHIPPLE MD,PHD 03/21/2025 9:33 AM EDT 03/21/2025 11:16 AM EDT Alberta Ackerman MD LAB BLOOD ORDERABLES Final Result Performing Organization Address City/[facility]/ZIP Co de Phone Number [facility] [address] [place] [address] [phone] * Colonoscopy (03/26/2024) [facility] Colonoscopy Normal Normal Narrative Marisa Sommer - 03/26/2024 Repeat Colonoscopy in 5 years if polyps are adenomatous and due to history of adenomatous colon Polyps (see external hospital admission note on 03/26/2024) Result [facility] Historical Provider HEALTH MAINTENANCE Edited Result - Final * HEPATITIS C AB W/REFL TO HCV RNA, QN, PCR (04/16/2022 8:16 AM EDT) [facility] HEPATITIS C ANTIBODY NON-REACTI VE NON-REACT JAI [facility] INDEX 0.05 <1.00 [facility] Comment: HCV antibody was non-reactive. There is no laboratory evidence of HCV infection. In most cases, no further action is required. However, if recent HCV exposure is suspected, a test for HCV RNA (test code 34284) is suggested. For additional information please refer to http://education.Evomail/faq/FWV67m9 (This link is being provided for informational/ educational purposes only.) 04/16/2022 8:16 AM EDT us Alberta Ackerman MD HISTORICAL/NON ORDERA BLE LABS Final Result Performing Organization Address City/[facility]/ZIP Co de Phone Number [facility] * (ABNORMAL) LIPID PANEL, [...] LDL-C. Cameron SS et al. LORENZO. 2013;310(19): 3890-9056 (http://education.crobo/faq/JYD197) Non-HDL Cholesterol 133(H) <130 mg/dL (calc) CONVERTED [...] Most Recently Relevant to Health Maintenance Insurance [facility] CCA ASSISTED OPTIONS (HMO D-SNP) [facility] Care Teams Manufacturing Controls Engineer Relationship Specialty Start Date End Date Alberta Rizo MD [address] [facility] [place] [address] PCP - General Family Medicine 07/30/19
--- OUTSIDE RECORDS SUMMARY | 2025-04-27 05:54 | XMS_ITS | Encounter Summary ---
Author Organization [employer] Address [address] [facility] 7t [place] [address] Care Team Providers Care Phlebotomy Services Technician Name Role Phone Alberta Rizo MD Primary Care Provide r Reason for Visit * Reason Onset Date Comments Pre-op Exam 01/31/2025 Encounter Details Date Type Department Care Team ([facility] st Contact Info) Description 01/31/2025 Telephone [facility] MEDICINE [address] [place], [place] [phone] Alberta Rizo MD [address] [place], [place] [phone] Pre-op Exam Social History Tobacco Use Types [...] Surgeon's name: Dr. Yañez Say Facility name: [facility] Surgeon's office number: [phone] Surgeon's office fax number: [phone] Contact name (person you spoke with): Sushil Last office note from surgeon requested: Yes Send Message to Lili Tom and Dileep Corona documented in this encounter Plan of Treatment Upcoming Encounters Date Type Department Care Team (Late st Contact Info) Description 08/26/2025 9:30 AM EST Office Visit [facility] ADULT DENTAL [address] [place] [address] Lili Reid [address] [place] [address] documented as of this encounter Visit Diagnoses Not on filedocumented in this encounter Additional Health Concerns Assessment Noted Time PHQ-9 Depression Total Score: 9 06/22/20 24 10:32 AM EST documented as of this encounter Care Teams Phlebotomy Services Technician Relationship Specialty Start Date End Date Alberta Rizo MD [address] [place] [address] PCP - General Family Medicine 07/30/19 documented as of this encounter
--- OUTSIDE RECORDS SUMMARY | 2025-04-27 05:54 | XMS_ITS | Patient Health Record ---
Author Organization [facility] Address [address] [place] [address] Care Team Providers Care Hydroelectric Plant Operator Name Role Phone Rojas Vizcaino MD Primary Care Provider Blaze Herman Jr Unavailable [phone] Reason For Referral No Information Medications Medication [...] Status Risk Notes Problem Colon cancer screening (328961298) Colon cancer screening (Z12.11) Active confirmed Plan Of Treatment Future Test Test Name Order Date COLONOSCOPY 11/19/2017 Insurance Providers Payer Name Payer Address Payer Phone Subscriber Number Group Number Insured Name Patient Relationship to Insured Coverage Start Date Coverage End Date MEDICARE OF [place] [address] [place] [phone] [id number] CALOS VALDEZ Self - patient is the insured MEDICAID OF [facility] [address] [place] [phone] [id number] CALOS VALDEZ Self - patient is the insured Medical (General) History Medical History History ICD Code asthma PTSD/depression gastroesophageal reflux disease arthritis seasonal allergies
--- OUTSIDE RECORDS SUMMARY | 2025-04-27 05:54 | XMS_ITS | Encounter Summary ---
Author Organization [employer] [facility] Address [address] [facility] 7t [place] [address] Care Team Providers Care Button Tufter Name Role Phone Alberta Rizo MD Primary Care Provide r Encounter Details Date Type Department Care Team (Latest Contact Info) Description 01/25/2021 Abstract [facility] Dental, Provider, DDS Social History [...] Description 08/26/2025 9:30 AM EST Office Visit [facility] ADULT DENTAL [address] [place] [address] Jeanette, Lili [address] [place] [address] documented as of this encounter Visit Diagnoses Not on filedocumented in this encounter Care Teams Button Tufter Relationship Specialty Start Date End Date Alberta Rizo MD [address] [place], [place] [phone] PCP - General Family Medicine 07/30/19 documented as of this encounter
--- OUTSIDE RECORDS SUMMARY | 2025-04-27 05:54 | XMS_ITS | Encounter Summary ---
Author Organization [employer] Address [address] [facility] 7t [place] [address] Care Team Providers Care Auto Machinist Name Role Phone Alberta Rizo MD Primary Care Provide r Encounter Details Date Type Department Care Team (Late st Contact Info) Description 12/02/2023 Orders Only [facility] MEDICINE [address] [place], [place] [phone] Alberta Rizo MD [address] [place] [address] Social History Tobacco Use Types Packs/Day Years [...] Description 08/26/2025 9:30 AM EST Office Visit [facility] ADULT DENTAL [address] [place] [address] Jeanette, Lili [address] [place] [address] documented as of this encounter Visit Diagnoses Not on filedocumented in this encounter Additional Health Concerns Assessment Noted Time PHQ-9 Depression Total Score: 6 06/30/20 23 9:59 AM EST documented as of this encounter Care Teams Auto Machinist Relationship Specialty Start Date End Date Alberta Rizo MD [address] [place] [address] PCP - General Family Medicine 07/30/19 documented as of this encounter
--- OUTSIDE RECORDS SUMMARY | 2025-04-27 05:54 | XMS_ITS | Encounter Summary ---
Author Organization [employer] Address [address] [facility] 7t [place] [address] Care Team Providers Care News Production Assistant Name Role Phone Alberta Rizo MD Primary Care Provide r Reason for Visit * Reason Comments Med Refill Encounter Details Date Type Department Care Team ([facility] st Contact Info) Description 02/10/2025 Refill [facility] [address] [place], [place] [phone] Nathanael Tellez MD [address] [place] [address] Social History Tobacco Use Types Packs/Day Years [...] Description 08/26/2025 9:30 AM EST Office Visit [facility] ADULT DENTAL [address] [place] [address] Jeanette, Lili [address] [place] [address] documented as of this encounter Visit Diagnoses Not on filedocumented in this encounter Additional Health Concerns Assessment Noted Time PHQ-9 Depression Total Score: 8 02/08/20 25 2:51 PM EDT documented as of this encounter Care Teams News Production Assistant Relationship Specialty Start Date End Date Alberta Rizo MD [address] [place] [address] PCP - General Family Medicine 07/30/19 documented as of this encounter
[2025-04-27 06:02] LABS: MANUAL DIFF FLAG NO
[2025-04-27 06:05] LABS: Appearance Urine Clear; Glucose Urine UA Negative (Negative); PH 6.5 (5.0-9.0); Specific Gravity - Urine <= 1.005 (1.005-1.025)
[2025-04-27 06:16] LABS: Hematocrit 44.9 % (42.0-52.0); Hemoglobin 15.2 g/dl (14.0-18.0); Imm Gran Abs Auto 0.17 X10*3/uL (0.00-0.03); Imm Gran Pct Auto 2.2 % (0.0-0.4); Lymphocytes Absolute Auto 1.3 X10*3/uL (1.2-4.9); Mean Corpuscular HGB Conc 33.9 g/dl (31.0-36.0); Mean Corpuscular Hemoglobin 32.0 pg (27.0-33.0); Mean Corpuscular Volume 94.5 fL (80.0-98.0); NRBC Abs Auto 0.000 X10*3/uL (0.0-0.012); NRBC Pct Auto 0.0 /100WBC (0.0-0.2); Platelet Count 345 X10*3/uL (160-400); Red Blood Count 4.75 X10*6/uL (4.60-5.80); White Blood Count 7.7 X10*3/uL (4.8-10.8)
[2025-04-27 06:17] LABS: Anion Gap 12 (12-20); Blood Urea Nitrogen 18 mg/dL (9-16); Calcium 9.3 mg/dL (8.4-10.2); Carbon Dioxide 23 mmol/L (22-29); Chloride 112 mmol/L (96-108); Creatinine Clr Calc Pharmacy 81.4; Estimated Glomerular Filt Rate > 60; Potassium 3.9 mmol/L (3.3-5.1); Sodium 143 mmol/L (135-145)
[2025-04-27 06:25] LABS: Troponin-I High Sensitivity < 2.7 ng/L (<3.5-35.0)
--- NOTE | 2025-04-27 07:14 | ED_ITS ---
HPI - Seizure General Chief Complaint: Dizziness Stated Complaint: Dizziness Time Seen by Provider: 04/27/25 07:22 Related Data Home Medications ?Medication ?Instructions ?Recorded ?Confirmed fluticasone propionate 220 2 puff inhalation BID 04/2010/14/23 mcg/actuation HFA aerosol inhaler (Flovent HFA) Previous Rx's ?Medication ?Instructions ?Recorded escitalopram oxalate 10 mg tablet 10 mg PO DAILY #30 t abs 04/25/23 melatonin 3 mg tablet 3 mg PO BEDTIME #30 tabs quetiapine 100 mg tablet 100 mg PO BEDTIME #30 tabs 1 quetiapine 25 mg tablet 25 mg PO BID PRN Anxiety #60 tabs 04/25/23 meclizine 12.5 mg tablet 12.5 mg PO BID PRN dizziness #10 05/07/23 tabs cephalexin 500 mg capsule 500 mg PO QID 7 days #28 cap s 04/23/25 doxycycline hyclate 100 mg capsule 100 mg PO BID 7 day s #14 caps 04/23/25 naproxen 500 mg tablet 500 mg PO BID 5 days #10 tab s 04/23/25 oxycodone 5 mg tablet 5 mg PO Q6H PRN pain #10 tab s 04/23/25 Allergies Allergy/AdvReac Type Severity Reaction Status Date / Time No Known Allergies (No Known Allergy Verified 04/27/25 05:44 Allergies*) [facility] Past Medical History Medical History Allergic rhinitis Post traumatic stress disorder Depression Hypercholesterolemia HTN (hypertension) GERD (gastroesophageal reflux disease) Anxiety COVID-19 Asthma Surgical History History of surgery Social History Social History Household Members: None Housing: Apartment Are you a primary intensive care anaesthetist to a significant other at home: No Do you presently have visiting nurse or other home services: No Alcohol intake: former Patient Tobacco Use Status: Never used Tobacco Smoked in Last 30 Days: No e-Cigarette/Vaping Use: Never Used Second Hand Smoke Exposure: No Use of substances other than those prescribed or required for medical reasons: No Advance Directives: No Advance Directives Information Provided: Yes service: No Current occupational status: retired Sexual orientation: Straight/Heterosexual Physical Exam 2 Vital Signs: Vital Signs: Last Vital Signs Temp 98.1 F 04/27/25 05:51 Pulse 91 04/27/25 05:51 Resp 16 04/27/25 05:51 BP 116/76 04/27/25 05:51 Pulse Ox 96 04/27/25 05:51 O2 Del Method Room Air 04/27/25 05:51 BMI result Body Mass Index 21.8 Medical Decision Making Lab Data 04/27/25 05:57 04/27/25 05:56 Labs: Lab Results 04/27/25 04/27/25 Range/Units 05:56 05:57 WBC 7.7 (4.8-10.8) X10*3/uL RBC 4.75 (4.60-5.80) X10*6/uL Hgb 15.2 (14.0-18.0) g/dl Hct 44.9 (42.0-52.0) % MCV 94.5 (80.0-98.0) fL MCH 32.0 (27.0-33.0) pg MCHC 33.9 (31.0-36.0) g/dl RDW 11.4 (11.0-16.0) % Plt Count 345 D (160-400) X10*3/uL MPV 8.5 L (9.4-12.4) fL Immature Gran % (Auto) 2.2 H (0.0-0.4) % Neut % (Auto) 73.7 H (45-73) % Lymph % (Auto) 16.6 L (20-40) % Charles % (Auto) 6.0 (2-11) % Eos % (Auto) 1.0 (0-4) % Baso % (Auto) 0.5 (0-2) % Lymph # (Auto) 1.3 (1.2-4.9) X10*3/uL Charles # (Auto) 0.5 (0.1-1.2) X10*3/uL Eos # (Auto) 0.1 (0.0-0.4) X10*3/uL Baso # (Auto) 0.0 (0.0-0.2) X10*3/uL Abs Immat Gran (auto) 0.17 H (0.00-0.03) X10*3/uL Absolute Neuts (auto) 5.7 (2.0-8.3) x10*3/uL Absolute Nucleated RBC 0.000 (0.0-0.012) X10*3/uL Nucleated RBC % (auto) 0.0 (0.0-0.2) /100WBC Sodium 143 (135-145) mmol/L Potassium 3.9 (3.3-5.1) mmol/L Chloride 112 H (96-108) mmol/L Carbon Dioxide 23 (22-29) mmol/L Anion Gap 12 (12-20) BUN 18 H (9-16) mg/dL Creatinine 0.70 (0.5-1.4) mg/dL Estim Creat Clear Calc 81.4 Estimated GFR > 60 Random Glucose 93 (60-115) mg/dL Calcium 9.3 (8.4-10.2) mg/dL Troponin I High Sens < 2.7 (<3.5-35.0) ng/L Urine Color Yellow Urine Appearance Clear Urine pH 6.5 (5.0-9.0) Ur Specific [place] <= 1.005 (1.005-1.025) Urine Protein Negative (Neg-Trace) mg/dL Urine Glucose (UA) Negative (Negative) mg/dL Urine Ketones Negative (Negative) mg/dL Urine Blood Negative (Negative) Urine Nitrite Negative (Negative) Ur Leukocyte Esterase Negative (Negative) Discharge Plan Discharge Prescriptions: No Action meclizine 12.5 mg tablet 12.5 mg PO BID PRN (Reason: dizziness) Qty: 10 0RF fluticasone propionate [Flovent HFA] 220 mcg/actuation HFA aerosol inhaler 2 puff INHALATION BID quetiapine 25 mg Tablet 25 mg PO BID PRN (Reason: Anxiety) Qty: 60 0RF escitalopram oxalate 10 mg Tablet 10 mg PO DAILY Qty: 30 0RF quetiapine 100 mg tablet 100 mg PO BEDTIME Qty: 30 0RF melatonin 3 mg Tablet 3 mg PO BEDTIME Qty: 30 0RF doxycycline hyclate 100 mg capsule 100 mg PO BID 7 Days Qty: 14 0RF cephalexin 500 mg capsule 500 mg PO QID 7 Days Qty: 28 0RF naproxen 500 mg tablet 500 mg PO BID 5 Days Qty: 10 0RF oxycodone 5 mg tablet 5 mg PO Q6H PRN (Reason: pain) Qty: 10 0RF Rx Instructions: Partial Fill upon patient request. Print Language: Romansh
--- NOTE | 2025-04-27 08:03 | ED.DIZZY ---
HPI - Dizziness General Chief Complaint: Dizziness Stated Complaint: Dizziness Time Seen by Provider: 04/27/25 07:22 Source: patient, EMS and drafter refrigeration Mode of arrival: EMS Limitations: no limitations History of Present Illness ED Provider: DR. Dumas HPI Narrative: 74-year-old male history of anxiety/depression, mild persistent asthma, GERD, HTN, HLD, PTSD came in by ambulance after patient felt dizzy and the room spinning this morning causing him to fall on the couch, no head injury, no neck injury, stated that symptoms is worse only when he change his position from supine to standing up, has been eating and drinking okay, no chest pain, no shortness of breath. Patient has been treated for right groin cellulitis/abscess patient was given doxycycline and Keflex he still taking the antibiotic. CT of the abdomen pelvis showed cellulitis of right groin with no soft tissue gas or soft tissue defect and minimal reactive inguinal lymph node spare of the scrotum and testicles, s/p I and D to the right groin. Related Data Home Medications ?Medication ?Instructions ?Recorded ?Confirmed fluticasone propionate 220 2 puff inhalation BID 04/20/23 10/14/23 mcg/actuation HFA aerosol inhaler (Flovent HFA) Previous Rx's ?Medication ?Instructions ?Recorded escitalopram oxalate 10 mg tablet 10 mg PO DAILY #30 tabs 04/25/23 melatonin 3 mg tablet 3 mg PO BEDTIME #30 tabs 04/25/23 quetiapine 100 mg tablet 100 mg PO BEDTIME #30 tabs 04/25/23 quetiapine 25 mg tablet 25 mg PO BID PRN Anxiety #60 tabs 04/25/23 meclizine 12.5 mg tablet 12.5 mg PO BID PRN dizziness #10 05/07/23 tabs cephalexin 500 mg capsule 500 mg PO QID 7 days #28 caps 04/23/25 doxycycline hyclate 100 mg capsule 100 mg PO BID 7 days #14 caps 04/23/25 naproxen 500 mg tablet 500 mg PO BID 5 days #10 tabs 04/23/25 oxycodone 5 mg tablet 5 mg PO Q6H PRN pain #10 tabs 04/23/25 Allergies Allergy/AdvReac Type Severity Reaction Status Date / Time No Known Allergies (No Known Allergy Verified 04/27/25 05:44 Allergies*) Review of Systems Review of Systems: All other systems are reviewed and are negative Constitutional: Reports as per HPI and Reports no additional constitutional complaints Eyes: Reports as per HPI and Reports no additional eye complaints Reports system reviewed and no additional complaints, except as documented Cardiovascular: Reports as per HPI and Reports no additional cardiovascular complaints Respiratory: Reports as per HPI and Reports no additional respiratory complaints Gastrointestinal: Reports as per HPI and Reports no additional gastrointestinal complaints Genitourinary: Reports no additional female genitourinary complaints Musculoskeletal: Reports no additional musculoskeletal complaints Skin/Breast: Reports system reviewed and no additional complaints, except as docu Psychiatric: Reports no additional psychiatric complaints Endocrine: Reports no additional endocrine complaints Hematologic/Lymphatic: Reports no additional hematologic/lymphatic complaints Allergic/Immunologic: Reports no additional allergic/immunologic complaints Reports system reviewed and no additional complaints, except as documented and Reports Abnormal speech present [facility] Past Medical History Medical History Allergic rhinitis Post traumatic stress disorder Depression Hypercholesterolemia HTN (hypertension) GERD (gastroesophageal reflux disease) Anxiety COVID-19 Asthma Surgical History History of surgery Social History Social History Household Members: None Housing: Apartment Are you a primary rental boats caretaker to a significant other at home: No Do you presently have visiting nurse or other home services: No Alcohol intake: former Patient Tobacco Use Status: Never used Tobacco Smoked in Last 30 Days: No e-Cigarette/Vaping Use: Never Used Second Hand Smoke Exposure: No Use of substances other than those prescribed or required for medical reasons: No Advance Directives: No Advance Directives Information Provided: Yes service: No Current occupational status: retired Sexual orientation: Straight/Heterosexual Physical Exam Vital Signs: Vital Signs: Last Vital Signs Temp 97.6 F 04/27/25 13:26 Pulse 83 04/27/25 13:26 Resp 18 04/27/25 13:26 BP 115/52 L 04/27/25 13:26 Pulse Ox 97 04/27/25 13:26 O2 Del Method Room Air 04/27/25 13:26 BMI result Body Mass Index 21.8 Vital signs have been reviewed and appear to be correct. Blood pressure elevated. Heart rate normal. Respiratory rate normal. Temperature normal. Oxygen saturation normal. Appearance: Alert. Oriented X3. No acute distress. Head: Normal external exam. Normocephalic. Atraumatic. No Lange signs noted. No raccoon eyes noted Eyes: PERRLA. EOMI. Conjunctiva and sclera normal. Eyelids normal. ENT: TM's Normal. Pharynx normal. Uvula midline. Moist mucous membranes. No trismus noted. No drooling noted. No muffled voice noted. Neck: Normal inspection. Neck supple. FROM. No adenopathy. Thyroid Normal. No meningeal signs. No neck mass noted. CVS: Normal heart rate and rhythm. Heart sound normal. No murmurs noted. Pulses normal throughout. Respiratory: No respiratory distress. Painless inspiration. Breath sounds normal. No wheezes/rales/rhonchi noted. Chest nontender. No accessory muscle usage noted or decreased air movement noted. Abdomen: Soft and nontender. Bowel sounds normal in all 4 quadrants. No distention noted. No organomegaly noted. No visible injury noted. Right groin area of redness, no fluctuation. Back: No CVA tenderness. Full range of motion noted. Skin: Skin warm and dry. Normal skin color. Normal skin turgor. No rashes/lesions/lacerations noted. Extremities: No lower extremity edema. Extremities exhibit normal range of motion. Extremities nontender. Neuro: Oriented X 3. Cranial nerve exam: II-XII are grossly intact No motor deficit. No sensory deficit. Reflexes normal. Course Reevaluation(s) Reevaluation #1: Dizziness/vertigo is feeling better with meclizine. Repeat neuro exam show normal cerebellar exam. Head CT/MRI both unremarkable for acute stroke. Attempt to I and D right groin lesion with no drainage. Patient to continue with antibiotic and follow-up with PCP. Time: 15:35 Medications Administered Discontinued Medications Generic Name Dose Route Start Last Admin Trade Name Freq PRN Reason Stop Dose Admin Lidocaine HCl 10 ml 04/27/25 07:43 04/27/25 09:03 Lidocaine Hcl 1 % Mpf 5 Ml Vial SUBCUT 04/27/25 07:44 10 ml ONCE ONE Administration Meclizine HCl 25 mg 04/27/25 11:04 04/27/25 12:02 Meclizine Hcl 25 Mg Tablet PO 04/27/25 11:05 25 mg ONCE ONE Administration Medical Decision Making Differential Diagnosis Differential Diagnoses: The differential diagnosis associated with the presentation includes (Intracranial pathology, cerebellar infarction, electrolyte derangement, severe anemia, position vertigo, right groin cellulitis versus abscess.) Admission/Observation Consideration of admission/observation: Escalation of care including admission/observation considered Lab Data MDM Lab Attestation statement: I reviewed the patient's lab results. 04/27/25 05:57 04/27/25 05:56 Labs: Lab Results 04/27/25 04/27/25 Range/Units 05:56 05:57 WBC 7.7 (4.8-10.8) X10*3/uL RBC 4.75 (4.60-5.80) X10*6/uL Hgb 15.2 (14.0-18.0) g/dl Hct 44.9 (42.0-52.0) % MCV 94.5 (80.0-98.0) fL MCH 32.0 (27.0-33.0) pg MCHC 33.9 (31.0-36.0) g/dl RDW 11.4 (11.0-16.0) % Plt Count 345 D (160-400) X10*3/uL MPV 8.5 L (9.4-12.4) fL Immature Gran % (Auto) 2.2 H (0.0-0.4) % Neut % (Auto) 73.7 H (45-73) % Lymph % (Auto) 16.6 L (20-40) % [place] % (Auto) 6.0 (2-11) % Eos % (Auto) 1.0 (0-4) % Baso % (Auto) 0.5 (0-2) % Lymph # (Auto) 1.3 (1.2-4.9) X10*3/uL [place] # (Auto) 0.5 (0.1-1.2) X10*3/uL Eos # (Auto) 0.1 (0.0-0.4) X10*3/uL Baso # (Auto) 0.0 (0.0-0.2) X10*3/uL Abs Immat Gran (auto) 0.17 H (0.00-0.03) X10*3/uL Absolute Neuts (auto) 5.7 (2.0-8.3) x10*3/uL Absolute Nucleated RBC 0.000 (0.0-0.012) X10*3/uL Nucleated RBC % (auto) 0.0 (0.0-0.2) /100WBC Sodium 143 (135-145) mmol/L Potassium 3.9 (3.3-5.1) mmol/L Chloride 112 H (96-108) mmol/L Carbon Dioxide 23 (22-29) mmol/L Anion Gap 12 (12-20) BUN 18 H (9-16) mg/dL Creatinine 0.70 (0.5-1.4) mg/dL Estim Creat Clear Calc 81.4 Estimated GFR > 60 Random Glucose 93 (60-115) mg/dL Calcium 9.3 (8.4-10.2) mg/dL Troponin I High Sens < 2.7 (<3.5-35.0) ng/L Urine Color Yellow Urine Appearance Clear Urine pH 6.5 (5.0-9.0) Ur Specific [place] <= 1.005 (1.005-1.025) Urine Protein Negative (Neg-Trace) mg/dL Urine Glucose (UA) Negative (Negative) mg/dL Urine Ketones Negative (Negative) mg/dL Urine Blood Negative (Negative) Urine Nitrite Negative (Negative) Ur Leukocyte Esterase Negative (Negative) Independent Interpretation I performed an independent interpretation of an: CT Scan (Head: No acute intracranial abnormality) and MRI (Brain:1. No evidence of intracranial hemorrhage, acute infarction, mass effect, or edema. 2. Minimal changes of small vessel ischemia. ) Radiology Impression Discussion of test interpretation with radiology: I have reviewed the radiologist's reading. Procedures Abscess I/D Site: scrotum Side (if applicable): right Local Anesthetic: lidocaine 1% Amount of anesthesia used (mL): 5 Technique: needle aspiration and incised with blade Amount of fluid expressed (mL): 0 Sent for culture/gram staining?: No Irrigation: No Packing used?: none Discharge Plan Discharge Clinical Impression: Benign paroxysmal positional vertigo, Cellulitis of groin, right Patient Disposition: Home, Self-Care Instructions: Benign Paroxysmal Positional Vertigo (ED) Prescriptions: No Action meclizine 12.5 mg tablet 12.5 mg PO BID PRN (Reason: dizziness) Qty: 10 0RF fluticasone propionate [Flovent HFA] 220 mcg/actuation HFA aerosol inhaler 2 puff INHALATION BID quetiapine 25 mg Tablet 25 mg PO BID PRN (Reason: Anxiety) Qty: 60 0RF escitalopram oxalate 10 mg Tablet 10 mg PO DAILY Qty: 30 0RF quetiapine 100 mg tablet 100 mg PO BEDTIME Qty: 30 0RF melatonin 3 mg Tablet 3 mg PO BEDTIME Qty: 30 0RF doxycycline hyclate 100 mg capsule 100 mg PO BID 7 Days Qty: 14 0RF cephalexin 500 mg capsule 500 mg PO QID 7 Days Qty: 28 0RF naproxen 500 mg tablet 500 mg PO BID 5 Days Qty: 10 0RF oxycodone 5 mg tablet 5 mg PO Q6H PRN (Reason: pain) Qty: 10 0RF Rx Instructions: Partial Fill upon patient request. Referrals: Scott Colón MD [Physician, General Surgery] Print Language: Paraguayan
--- NOTE | 2025-04-27 08:48 | PC.NURSE ---
MRI screening sheet completed with in person sport psychologist, faxed to MRI.
[2025-04-27 08:55] VITALS: BP 134/78; PULSE 79; RESP 18; TEMP 36.7; O2SAT 97
[2025-04-27] MEDS: Lidocaine HCl 1 % MPF 5 ML VIAL 10 ML SUBCUT (09:03)
[2025-04-27 13:26] VITALS: BP 115/52; PULSE 83; RESP 18; TEMP 36.4; O2SAT 97
--- NOTE | 2025-04-27 14:23 | PC.NURSE ---
Pt to MRI.
[2025-04-27 16:22] VITALS: BP 138/99; PULSE 81; RESP 17; TEMP 36.7; O2SAT 94
== END 2025-04-27 16:32 | disposition home or self-care (01) ==
PROVIDERS: Emergency Provider Emergency Medicine
DX: N49.2 Inflammatory disorders of scrotum (principal); L03.314 Cellulitis of groin; H81.13 Benign paroxysmal vertigo, bilateral; I49.8 Other specified cardiac arrhythmias; Z79.899 Other long term (current) drug therapy
CPT/HCPCS: 36415; 55100; 70450; 70551; 80048; 81003; 84484; 85025; 93005; 99284; J2003

== ENCOUNTER → 2025-04-27 05:48 | Outpatient (BNV) | payer OTHER, SELFPAY | PROVIDERS: Emergency Provider Emergency Medicine; Visit Provider Internal Medicine Cardiovascular Disease | DX: R94.31 Abnormal electrocardiogram [ECG] [EKG] (principal); R42 Dizziness and giddiness | CPT/HCPCS: 93010 ==

== ENCOUNTER → 2025-04-27 07:43 | Outpatient (BNV) | payer OTHER, SELFPAY | PROVIDERS: Emergency Provider Emergency Medicine; Visit Provider Radiology Diagnostic Radiology | DX: R42 Dizziness and giddiness (principal) | CPT/HCPCS: 70450; 70551 ==

== ENCOUNTER 2025-05-03 08:02 | Outpatient (REF) | payer OTHER, SELFPAY ==
--- OUTSIDE RECORDS SUMMARY | 2025-05-03 08:06 | XMS_ITS | Patient Health Record ---
Author Organization [facility] Address [address] [place] [address] Care Team Providers Care Conductor/Engineer Name Role Phone Rojas Vizcaino MD Primary [...] Status Risk Notes Problem Colon cancer screening ([id number]) Colon cancer screening (Z12.11) Active confirmed Plan Of Treatment Future Test Test Name Order Date COLONOSCOPY 11/19/2017 Insurance Providers Payer Name Payer Address Payer Phone Subscriber Number Group Number Insured Name Patient Relationship to Insured Coverage Start Date Coverage End Date MEDICARE OF [place] [address] [place] [id number] CALOS VALDEZ Self - patient is the insured MEDICAID OF [facility] [address] [place] [address] [id number] CALOS VALDEZ Self - patient is the insured Medical (General) History Medical History History ICD Code asthma PTSD/depression gastroesophageal reflux disease arthritis seasonal allergies
[2025-05-03 12:19] LABS: Alanine Aminotransferase 32 U/L (0-40); Albumin Level 4.3 g/dL (3.5-5.0); Alkaline Phosphatase 66 U/L (39-117); Anion Gap 12 (12-20); Aspartate Amino Transferase 31 U/L (5-37); Blood Urea Nitrogen 20 mg/dL (9-16); Calcium 9.4 mg/dL (8.4-10.2); Carbon Dioxide 25 mmol/L (22-29); Chloride 108 mmol/L (96-108); Estimated Glomerular Filt Rate > 60; Potassium 4.2 mmol/L (3.3-5.1); Sodium 141 mmol/L (135-145); Total Protein 7.0 g/dL (6.5-8.0)
== END 2025-05-03 08:03 | disposition home or self-care (01) ==
LOC: HO.HHCL 08:02
PROVIDERS: PCP Internal Medicine; Visit Provider Student in an Organized Health Care Education/Training Program
DX: L02.214 Cutaneous abscess of groin (principal)
CPT/HCPCS: 36415; 80053

== ENCOUNTER 2025-05-25 08:23 | Outpatient (AMB) | payer OTHER, SELFPAY ==
--- NOTE | 2025-05-25 08:25 | MHC.OFFVIS ---
Vital Signs 05/25/25 08:26 Height 5 ft 5 in Weight 144 lb 4 oz BMI 24.0 BP 117/66 Blood Pressure Location Rt brachial Position Sitting Pulse 80 Intake Visit Reasons: cellulitis right groin Intake Note: [place] [facility] [place] for cellulitis of the right groin. Pt c/o: reports he was prescribed an antibiotic at [facility] [place] but it was not effective, he went to walk in clinic at [facility] and the provider he was evaluated by prescribed a different antibiotic and this one was effective and he noticed an improvement, reports the area of the cellulitis has improved, denies fever, chills, nausea or vomiting. Party Plan Sales Unit Sales Leader Required: Yes Party Plan Sales Unit Sales Leader Language: Maintenance Service Supervisor Services: Party Plan Sales Unit Sales Leader Present Party Plan Sales Unit Sales Leader Name: Koby Information Interpreted: non-clinical & clinical Accompanied by: Family/Other Allergies No Known Allergies (No Known Allergies*) Allergy (Verified 05/25/25 08:36) Medication List - Last Reconciled 05/25/25 by Ramin Guevara MD escitalopram oxalate 10 mg PO DAILY fluticasone propionate 220 mcg/actuation (Flovent HFA) 2 puffs inhalation BID loratadine 10 mg PO DAILY meclizine 12.5 mg PO BID PRN melatonin 3 mg PO BEDTIME naproxen 500 mg PO BID 5 days oxycodone 5 mg PO Q6H PRN quetiapine 25 mg PO BID PRN quetiapine 100 mg PO BEDTIME HPI HPI cellulitis right groin: Details: 74-year-old male referred for an area of redness in the right groin. He says that he went to the ER about a month ago because of an area of redness and swelling on the right groin. He was apparently prescribed antibiotics. He was then referred to me. He no longer feels any swelling or redness. He does not have any tenderness anymore. He says that the area has healed completely He denies any trauma or insect bite to the area. He is not a diabetic. [facility] Medical History Allergic rhinitis Post traumatic stress disorder Depression Hypercholesterolemia HTN (hypertension) GERD (gastroesophageal reflux disease) Anxiety COVID-19 Asthma Surgical History History of surgery Social History Household Members: None Housing: Apartment Are you a primary long term care administrator to a significant other at home: No Do you presently have visiting nurse or other home services: No Alcohol intake: former Patient Tobacco Use Status: Never used Tobacco e-Cigarette/Vaping Use: Never Used Second Hand Smoke Exposure: No service: No Current occupational status: retired Sexual orientation: Straight/Heterosexual Review of Systems Const Denies chills and Denies fever(s) Card Denies chest pain, Denies dyspnea and Denies dyspnea on exertion Resp Denies cough, Denies dyspnea and Denies dyspnea on exertion GI Denies hematochezia and Denies change in bowel habits Denies hematuria and Denies difficulty urinating Musc Denies back pain and Denies limited range of motion Neuro Denies focal weakness and Denies convulsions Psych Denies depression and Denies mood swings Physical Exam Vital Signs: Last Vital Signs Pulse 80 05/25/25 08:26 BP 117/66 05/25/25 08:26 BMI result Body Mass Index 24.0 Const General: comfortable and no acute distress Orientation/consciousness: patient oriented x3 Neck Neck: Yes no lymphadenopathy Resp Auscultation: clear to auscultation bilaterally Cardio Rhythm: regular rhythm GI Palpation (GI): Soft to palpation, nontender and no guarding Skin Other: No area of induration, no cystic mass, no swelling, no tenderness, no redness on the right groin Neuro General: patient oriented x3 Assessment & Plan Assessment & Plan (1) Cellulitis: Code(s): L03.90 - Cellulitis, unspecified Category: Medical Qualifiers: Site of cellulitis: trunk Site of cellulitis of trunk: abdominal wall Qualified Code(s): L03.311 - Cellulitis of abdominal wall Plan: He was referred for what appeared to be cellulitis of the right groin. This was likely secondary to an infected cyst. I do not feel any cystic induration or swelling currently. I do not see any redness He does not require any surgical intervention currently. However, if he does have recurrent infection of the area, he may benefit from excision of the cyst. I therefore advised him to come to the office if this recurs in the future His daughter was with him during the visit. Coding Level of Care Code New Pt Level 3 (96094) Diagnoses Cellulitis L03.311 Site of cellulitis: trunk Site of cellulitis of trunk: abdominal wall
[2025-05-25 08:26] VITALS: BP 117/66; PULSE 80; BMI 24.0
--- OUTSIDE RECORDS SUMMARY | 2025-05-25 08:35 | XMS_ITS | Encounter Summary ---
Author Organization [employer] Address [address] [place] [address] Care Team Providers Care Cisco Unified Communications Engineer Name Role Phone Alberta Rizo MD Primary Care Provide r Encounter Details Date Type Department Care Team (Late st Contact Info) Description 12/02/2023 Orders Only [facility] [address] [place], [place] [phone] Alberta Rizo MD [address] [place] [address] Social History Tobacco Use Types Packs/Day Years [...] Care Team (Late st Contact Info) Description 07/22/2025 9:30 AM EST Office Visit [facility] [address] [place] [address] Alberta Rizo MD [address] [place] [address] 08/26/2025 9:30 AM EST Office Visit [facility] ADULT DENTAL [address] [place] [address] Jeanette, Lili [address] [place] [address] documented as of this encounter Visit Diagnoses Not on filedocumented in this encounter Additional Health Concerns Assessment Noted Time PHQ-9 Depression Total Score: 6 06/30/20 23 9:59 AM EST documented as of this encounter Care Teams Cisco Unified Communications Engineer Relationship Specialty Start Date End Date Alberta Rizo MD [address] [place] [id number] PCP - General Family Medicine 07/30/19 documented as of this encounter
--- OUTSIDE RECORDS SUMMARY | 2025-05-25 08:35 | XMS_ITS | Encounter Summary ---
Author Organization [employer] Address [address] [place] [address] Care Team Providers Care General Activities Therapist Name Role Phone Alberta Rizo MD Primary Care Provide r Reason for Visit * Reason Comments Med Refill Encounter Details Date Type Department Care Team ([facility] st Contact Info) Description 02/10/2025 Refill [facility] [address] [place], [place] [phone] Nathanael Tellez MD [address] [place] [address] Social History Tobacco Use Types Packs/Day Years [...] your housing situation today? I have alexis ida 02/02/[address] you li [...] Description 07/22/2025 9:30 AM EST Office Visit [facility] [address] [place] [address] Alberta Rizo MD [address] [place] [address] 08/26/2025 9:30 AM EST Office Visit [facility] [address] [place] [address] JeanetteJacobLili [address] [place] [address] documented as of this encounter Visit Diagnoses Not on filedocumented in this encounter Additional Health Concerns Assessment Noted Time PHQ-9 Depression Total Score: 8 02/08/20 25 2:51 PM EDT documented as of this encounter Care Teams General Activities Therapist Relationship Specialty Start Date End Date Alberta Rizo MD [address] [place] [phone] PCP - General Family Medicine 07/30/19 documented as of this encounter
--- OUTSIDE RECORDS SUMMARY | 2025-05-25 08:35 | XMS_ITS | Encounter Summary ---
Author Organization [employer] Address [address] [facility] [address] [place] [address] Care Team Providers Care Contact Lens Manufacturer Name Role Phone Alberta Rizo MD Primary Care Provide r Reason for Visit * Reason Onset Date Comments Pre-op Exam 01/31/2025 Encounter Details Date Type Department Care Team ([facility] st Contact Info) Description 01/31/2025 Telephone [facility] [address] [place], [place] [phone] Alberta Rizo MD [address] [place], [place] [phone] Pre-op Exam Social History Tobacco Use Types [...] every day 02/02/2025 2:58 PM EDT Johnna Gnadhi [place], [place] * Trouble falling or staying [...] Surgeon's name: Dr. Yañez Say Facility name: [facility] Surgeon's office number: [phone] Surgeon's office fax number: [phone] Contact name (person you spoke with): Sushil Last office note from surgeon requested: Yes Send Message to Lili Tom and Dileep Corona documented in this encounter Plan of Treatment Upcoming Encounters Date Type Department Care Team (Late st Contact Info) Description 07/22/2025 9:30 AM EST Office Visit [facility] [address] [place] [address] Alberta Rizo MD [address] [place] [address] 08/26/2025 9:30 AM EST Office Visit [facility] ADULT [facility] [address] [place] [address] Lili Reid [address] [place] [address] documented as of this encounter Visit Diagnoses Not on filedocumented in this encounter Additional Health Concerns Assessment Noted Time PHQ-9 Depression Total Score: 9 06/22/20 24 10:32 AM EST documented as of this encounter Care Teams Contact Lens Manufacturer Relationship Specialty Start Date End Date Alberta Rizo MD [address] [place] [address] PCP - General Family Medicine 07/30/19 documented as of this encounter
--- OUTSIDE RECORDS SUMMARY | 2025-05-25 08:35 | XMS_ITS | Encounter Summary ---
Author Organization [employer] Address [address] [facility] 7t [place] [address] Care Team Providers Care Buttoner Name Role Phone Alberta Rizo MD Primary Care Provide r Encounter Details Date Type Department Care Team (Late st Contact Info) Description 12/11/2022 Orders Only [facility] CHC MED & PEDS [address] [place] [address] Camille Ramirez LPN Social History Tobacco Use [...] Description 07/22/2025 9:30 AM EST Office Visit [facility] MEDICINE [address] [place] [address] Alberta Rizo MD [address] [place] [address] 08/26/2025 9:30 AM EST Office Visit [facility] ADULT DENTAL [address] [place] [address] Lili Reid [address] [place] [address] documented as of this encounter Visit Diagnoses Not on filedocumented in this encounter Care Teams Buttoner Relationship Specialty Start Date End Date Alberta Rizo MD [address] [place] [address] PCP - General Family Medicine 07/30/19 documented as of this encounter
--- OUTSIDE RECORDS SUMMARY | 2025-05-25 08:35 | XMS_ITS | Clinical Summary ---
Author Organization [employer] Address [address] [facility] 7t [place] [address] Care Team Providers Care Screw Machine Tool Setter Name Role Phone Alberta Rizo MD Primary Care Provide r Allergies No known active allergies Medications escitalopram (Lexapro) 10 MG tablet Take 10 mg by mouth in the morning. 04/11/20 23 Active pyridoxine (Vitamin B-6) 100 MG tablet Take 100 mg by mouth in the morning. 02/25/20 23 Active melatonin 3 MG tablet Take by mouth. Take 1 tablet by mouth every night at bedtime Active albuterol 108 (90 Base) MCG/ACT inhalerIndicatio ns:Mild intermittent asthma without complication Inhale 2 puffs every 6 (six) hours if needed for wheezing. 18 g 06/30/20 23 Active triamcinolone (Kenalog) 0.1 % creamIndications :Rash Apply topically if needed in the morning and at bedtime (pain and swelling). 30 g 2 06/30/20 23 Active busPIRone (Buspar) 7.5 MG tablet Take 7.5 mg by mouth 2 times daily. 10/28/19 24 Active Bisacodyl EC 5 MG EC tablet TAKE 4 TABLETS BY MOUTH ONCE el DAY BEFORE PROCEDURE AT NOON 10/14/19 24 Active QUEtiapine (SEROquel) 50 MG tablet TAKE ONE-HALF TO 1 TABLET EVERY DAY AT BEDTIME 11/17/19 24 Active omeprazole (PriLOSEC) [address] capsuleIndicatio ns:Gastroesophag eal reflux disease without esophagitis Take 1 capsule (20 mg) by mouth before breakfast. Do not crush or chew. 90 capsule 1 06/22/20 24 Active Ventolin HFA 108 (90 Base) MCG/ACT inhaler Inhale 2 puffs every 4 (four) hours if needed for wheezing. 18 g 3 09/07/19 Active Spacer/Aero-Hold ing Chambers (OptiChamber Lesli) misc 1 each every 4 (four) hours if needed (asthma). 1 each 09/07/19 Active Nebulizer misc 1 kit Every 4-6 hours as needed (shortness of breath wheezing). Accerlon nebulizer given in walk in center 09/07/2024, education provided Active busPIRone (Buspar) 10 MG tablet Take 1 tablet by mouth 2 times daily. 12/10/19 Active albuterol (2.5 MG/3ML) 0.083% nebulizer solutionIndicati ons:Mild intermittent asthma with acute exacerbation INHALE 1 AMPULE USING A NEBULIZER EVERY 6 HOURS NEEDED FOR WHEEZING 90 mL 3 02/03/20 Active budesonide-formo terol (Symbicort) 80-4.5 MCG/ACT inhalerIndicatio ns:Mild intermittent asthma, unspecified whether complicated Inhale 2 puffs in the morning and at bedtime. Rinse mouth with water after use to reduce aftertaste and incidence of candidiasis. Do not swallow. 1 each 02/08/20 25 026 Active loratadine (Claritin) 10 MG tabletIndication s:Allergic rhinitis, unspecified seasonality, unspecified trigger TAKE 1 TABLET BY MOUTH EVERY DAY 30 tablet 2 05/23/20 25 Active loratadine (Claritin) 10 MG tabletIndication s:Allergic rhinitis, unspecified seasonality, unspecified trigger Take 1 tablet (10 mg) by mouth Once per day. 30 tablet 2 02/08/20 25 025 Discontinued sulfamethoxazole -trimethoprim (Bactrim DS) 800-160 MG tablet Take 1 tablet by mouth 2 times daily for 7 days. 14 tablet 04/29/20 25 025 meclizine (Antivert) 25 MG tabletIndication s:Vertigo Take 1 tablet (25 mg) by mouth if needed in the morning, at noon, and at bedtime for dizziness for up to 10 days. 30 tablet 05/13/20 25 025 Active Problems Problem Noted Date Diagnosed Date Abscess of groin, right 04/30/2025 Assessment & Plan (04/30/2025 9:47 AM EDT): Pt w ongoing collection that clinically seems to be improving but significant large that will need close monitoring Pt completed already today Doxycycline last dose this am Will extend treatment for another weeks w MRSA coverage -warm compresses QID -Bactrim DS BID x 7 days -pt has1 more day of cephalexin advised to stop w known MRSA growing ,already completed doxycycline this am -tylenol prn and has naproxen only if mod to intense pain -STAT general surgeon referral for evaluation for I&D -check chem in 5 day to monitor on bactrim -alarm signs symptions discussed Missing teeth, acquired 02/10/2025 Bilateral hip pain [...] Encounters Date Type Department Care Team Description 05/22/2025 Refill [facility] MEDICINE [address] [place] [phone] Alberta Rizo MD Allergic rhinitis, unspecified seasonality, unspecified trigger 05/13/[address] [address] Alberta Rizo MD Vertigo 05/06/[address] [address] Alberta Rizo MD maria esther recall 05/03/2025 Results Follow-Up [address] [address] Alberta Palafox MD Comprehensive Metabolic Panel 04/29/2025 9:00 AM EDT Office Visit [address] [address] Alberta Palafox MD Groin abscess (Primary Dx); Abscess of groin, right 04/29/2025 Travel 04/26/[address] [address] Alberta Rizo MD Nurse Triage 04/23/2025 Orders Only GENERIC EXTERNAL DATA DEPARTMENT Provider, Generic External Data 03/21/[address] [address] Belen Saavedra, tellers supervisor Orders from Last 3 Months Immunizations Immunization Administration [...] Sign Reading Time Taken Comments Blood Pressure 118/60 04/29/2025 9:00 AM EDT Pulse 94 04/29/2025 9:00 AM EDT Temperature 36.4 C (97.5 F) 04/29/2025 9:00 AM EDT Respiratory Rate 20 04/29/2025 9:00 AM EDT Oxygen Saturation 98% 04/29/2025 9:00 AM EDT Inhaled Oxygen Concentration - - Weight 65.1 kg (143 lb 9.6 oz) 04/29/2025 9:00 A M EDT Height 170.9 cm (5' 7.3 ) 04/29/2025 9:00 AM EDT Body Mass Index 22.29 04/29/2025 9:00 AM EDT Plan of Treatment Upcoming Encounters Date Type Department Care Team (Late st Contact Info) Description 07/22/2025 9:30 AM EST Office Visit [facility] MEDICINE [address] [place] [address] Alberta Rizo MD [address] [place] [address] 08/26/2025 9:30 AM EST Office Visit [facility] ADULT DENTAL [address] [place] [address] Lili Reid [address] [place] [address] Health Maintenance Due Date Last Done Comments CT Colonography 1950 FIT DNA/Cologuard 1950 FIT 1950 FOBT 1950 Sigmoidoscopy 1950 Dental Oral Exam 08/14/2025 02/10/2025, , 12/31/2022, Additional history exists Dental Prophylaxis 08/14/2025 02/10/2025, 0 03/08/2024, 09/05/2023, Additional history exists COVID-19 Vaccine ( season) 2025 04/01/2025, 07/17/2023, 07/11/2022, Additional history exists SDOH Screening 02/02/2026 02/02/2025 Alcohol/Substance Use Screening 02/07/2026 02/07/2025 Depression Screening 02/07/2026 02/07/2025, 02/08/20 Tobacco Screening 02/10/2026 02/10/2025 Dental X-Ray: Bitewings 02/11/2026 02/11/20, 03/08/2024, 12/31/2022, Additional history exists Dental X-Ray: [...] Aged 60 years or older Completed 06/30/2023 Influenza Vaccine Completed 04/01/2025, , 04/11/2023, Additional history exists HIB Vaccines Aged Out No longer eligi [...] Procedure Name Priority Date/Time Associated Diagnosis Comments COMPREHENSIVE METABOLIC PANEL Routine 05/03/2025 8:13 AM EDT Groin abscess GRAM STAIN RESULT (NON ORDERABLE) Routine 04/25/2025 [...] EDT T-SPOT(R).TB Routine 03/21/2025 9:33 AM EDT PROPHYLAXIS - ADULT Routine 02/10/2025 8 :00 AM EDT Dental calculus Dental plaque BITEWINGS - 4 RADIOGRAPHIC IMAGES Routine 02/10/2025 8:00 AM EDT Localized gingival recession, minimal Dental calculus TMJ crepitus Dental plaque Crowded teeth PERIODIC ORAL EVALUATION - ESTABLISHED PATIENT Routine 02/10/2025 8:00 AM EDT HM COLONOSCOPY Routine 03/26/2024 INTRAORAL - COMPLETE SERIES OF RADIOGRAPHIC IMAGES Routine 03/08/2024 8:00 AM EDT Crowded teeth Dental plaque TMJ crepitus ZZZ HISTORICAL HEPATITIS C AB W/REFL TO HCV RNA, QN, PCR Routine 04/16/2022 8:16 AM EDT LIPID PANEL, STANDARD Routine 04/16/2022 8:16 AM EDT from Last 3 Months or Most Recently Relevant to Health Maintenance Results * (ABNORMAL) Comprehensive Metabolic Panel (05/03/2025 8:13 AM EDT) Only the most recent of2 resultswithin the time period is included. Sodium 141 135 - 145 mmol/L [facility] Potassium 4.2 3.3 - 5.1 mmol/L [facility] Chloride 108 96 - 108 mmol/L [facility] Carbon Dioxide 25 22 - 29 mmol/L [facility] Anion Gap 12 12 - [address] [facility] Urea Nitrogen (BUN) 20(H) 9 - 16 mg/dL [facility] Creatinine, Serum 0.92 0.5 - 1.4 mg/dL [facility] Estimated Glomerular Filt Rate >[address] [facility] Comment:Chronic Kidney Disea se: Estimated GFR < 60 mL/min/1.30t4Hqlhad Kidney Disease: Estimated GFR < 15 mL/min/1.73m2 Glucose 107 60 - 115 mg/dL [facility] Calcium 9.4 8.4 - 10.2 mg/dL [facility] Bilirubin, Total 0.6 0.0 - 1.0 mg/dL [facility] Aspartate Amino Transferase 31 5 - 37 U/L [facility] Alanine Aminotransferase 32 0 - 40 U/L [facility] Total Protein 7.0 6.5 - 8.0 g/dL [facility] Albumin Level 4.3 3.5 - 5.0 g/dL [facility] Alkaline Phosphatase 66 39 - 117 U/L [facility] Blood Venous blood specimen / Unknown 05/03/2025 8:13 AM EDT 05/03/2025 11:32 AM EDT us Alberta Parnell MD LAB BLOOD ORDERAB LES Final Result Performing Organization Address [facility] Co de Phone Number [facility] [address] [place] [phone] * Gram Stain Result (04/25/2025 6:29 AM EDT) 04/25/2025 6:29 AM EDT 04/25/2025 8:23 AM EDT Comment:Groin Narrative [facility] - 04/27/2025 7:22 AM EDT right inguinal swelling Gram stain results: 2+ polys 2+ epithelial cells 1+ Gram-positive cocci right inguinal swelling Methicillin Res Staph Aureus Quant Org ID 2+ Methicillin Res Staph Aureus: Clindamycin <=0.25(S) Methicillin Res Staph Aureus: Erythromycin >=8(R) Methicillin Res Staph Aureus: Oxacillin >=4(R) Methicillin Res Staph Aureus: Penicillin-G >=0.5(R) Methicillin Res Staph Aureus: Tetracycline <=1(S) Methicillin Res Staph Aureus: Trimethoprim/Sulfamethoxazole <=10(S) Methicillin Res Staph Aureus: Vancomycin 1(S) Specimen Source: Groin us Generic External Data Provider HISTORICAL/NON OR DERABLE LABS Final Result Performing Organization Address City/[facility] Co de Phone Number [facility] [address] [place] [phone] * CT Pelvis w/ Contrast (04/23/2025 12:48 PM EDT) Anatomical Region Laterality Modality Body, Pelvis Computed Tomogra phy 04/23/2025 12:4 8 PM EDT Narrative 04/23/2025 12:50 PM EDT [address] [address] [address] Scan Report Signed Patient: Dickson Sharma MR#: [id number] : 1950 Acct:[id number] Age/Sex: 74 / M ADM Date: 04/23/25 Loc: HO.ED Attending Dr: Ordering Physician: Travon Heller DO Date of Service: 04/23/25 Procedure(s): CT pelvis w IV con Accession Number(s): [id number] cc: Alberta Rizo MD; Travon Heller DO Report Number: [id number]: Total DLP = 191.00 mGy-cm Reason for [...] 04/23/25 1249 DD/ 1248 TD/TT: 04/23/25 1248 Insulation Supervisor: Procedure Note Donotuseinterpreter, Image - 04/23/[address] [address] [address] Scan Report Signed Patient: Connie SharmaoMR#: [id number] : 1950cct:[id number] Age/Sex: 74 / MADM Date: 04/23/25 Loc: HO.ED Attending Dr: Ordering Physician: Travon Heller DO Date of Service: 04/23/25 Procedure(s): CT pelvis w IV con Accession Number(s): [id number] cc: Alberta Rizo MD; Travon Heller DO Report Number: [id number]: Total DLP = 191.00 mGy-cm Reason for [...] 04/23/25 1249 DD/ 1248 TD/TT: 04/23/25 1248 Insulation Supervisor: [facility] External Provider IMG CT PROCEDURES Final Result * Blood Culture (Second) (04/23/2025 10:02 AM EDT) Blood Venous blood specimen / Unknown 04/23/2025 10:02 AM EDT 04/23/2025 10:07 AM EDT Comment:Blood Narrative [facility] - 04/28/2025 12:08 PM EDT Blood Culture (Second) No growth after 5 days. Specimen Source: Blood us Generic External Data Provider LAB MICROBIOLOGY - GENERAL ORDERABLES Final Result [facility] [address] [place], [place] [phone] * (ABNORMAL) CBC auto differential (04/23/2025 10:02 AM EDT) White Blood Count 10.1 4.8 - 10.8 X10*3/uL [facility] Red Blood Count 4.36(L) 4.60 - 5.80 X10*6/uL [facility] Hemoglobin 14.1 14.0 - 18.0 g/dl [facility] Hematocrit 41.5(L) 42.0 - 52.0 % [facility] Mean Corpuscular Volume 95.2 80.0 - 98.[address] [facility] Mean Corpuscular Hemoglobin 32.3 27.0 - 33.[address] [facility] Mean Corpuscular HGB Conc 34.0 31.0 - 36.0 g/dl [facility] Red Cell Distribution Width 11.5 11.0 - 16.0 % [facility] Platelet Count 273 160 - 400 X10*3/uL [facility] Mean Platelet Volume 8.7(L) 9.4 - 12.[address] [facility] Neutrophils Percent Auto 80.6(H) 45 - 73 % [facility] Imm Gran Pct Auto 0.9(H) 0.0 - 0.4 % [facility] Lymphocytes Percent Auto 11.4(L) 20 - 40 % [facility] Monocytes Percent Auto 6.5 2 - 11 % [facility] Eosinophils Percent Auto 0.3 0 - 4 % [facility] Basophils Percent Auto 0.3 0 - 2 % [facility] NRBC Pct Auto 0.0 0.0 - 0.2 /100WBC [facility] Neutrophils Absolute Auto 8.1 2.0 - 8.3 x10*3/uL [facility] Imm Gran Abs Auto 0.09(H) 0.00 - 0.03 X10*3/uL [facility] Lymphocytes Absolute Auto 1.2 1.2 - 4.9 X10*3/uL [facility] Monocytes Absolute Auto 0.7 0.1 - 1.2 X10*3/uL [facility] Eosinophils Absolute Auto 0.0 0.0 - 0.4 X10*3/uL [facility] Basophils Absolute Auto 0.0 0.0 - 0.2 X10*3/uL [facility] NRBC Abs Auto 0.000 0.0 - 0.012 X10*3/uL [facility] 04/23/2025 10:0 2 AM EDT 04/23/2025 10:07 AM EDT Generic External Data Provider LAB BLOOD ORDERAB LES Final Result Performing Organization Address [facility] Co de Phone Number [facility] [address] [place] [phone] * Blood Culture (First) (04/23/2025 9:57 AM EDT) Blood Venous blood specimen / Unknown 04/23/2025 9:57 AM EDT 04/23/2025 10:07 AM EDT Comment:Blood Narrative [facility] - 04/28/2025 12:08 PM EDT Blood Culture (First) No growth after 5 days. Specimen Source: Blood Generic External Data Provider LAB MICROBIOLOGY - GENERAL ORDERABLES Final Result Performing Organization Address City/[facility] Co de Phone Number [facility] [address] [place] [phone] * Lactic Acid (04/23/2025 9:56 AM EDT) Lactic Acid 1.5 0.5 - 2.0 mmol/L [facility] 04/23/2025 9:56 AM EDT 04/23/2025 10:07 AM EDT us Generic External Data Provider LAB BLOOD ORDERAB LES Final Result Performing Organization Address [facility]/ZIP Co de Phone Number [facility] [address] [place] [address] [phone] * T-SPOT??.TB (03/21/2025 9:33 AM EDT) [facility] T Spot TB Negative Negative [facility] Comment:A negative test resu lt [...] aquantitative test. TS PANEL A [address] [facility] TS PANEL B [address] [facility] Negative Control Passed [facility] Positive Control Passed [facility] Comment:For additional infor jeane, please refer tohttp://education.RedKLEVER.Grabbed/faq/XWE088(This link is being provided for informational/educational purposes only.)THIS TEST WAS PERFORMED AT:[facility]/5gig [id number] [place] [id number] WHIPPLE MD,PHD 03/21/2025 9:33 AM EDT 03/21/2025 11:16 AM EDT us Alberta Ackerman MD LAB BLOOD ORDERABLES Final Result Performing Organization Address [facility]/ZIP Co de Phone Number [facility] [address] [place] [phone] [phone] * Colonoscopy (03/26/2024) Pathologist [facility] Colonoscopy Normal Normal Narrative Marisa Sommer - 03/26/2024 Repeat Colonoscopy in 5 years if polyps are adenomatous and due to history of adenomatous colon Polyps (see external hospital admission note on 03/26/2024) Historical Provider HEALTH MAINTENANCE Edited Result - Final * HEPATITIS C AB W/REFL TO HCV RNA, QN, PCR (04/16/2022 8:16 AM EDT) Pathologist [facility] HEPATITIS C ANTIBODY NON-REACTI VE NON-REACT JAI [facility] LABS INDEX 0.05 <1.00 [facility] Comment: HCV antibody was non-reactive. There is no laboratory evidence of HCV infection. In most cases, no further action is required. However, if recent HCV exposure is suspected, a test for HCV RNA (test code 63901) is suggested. For additional information please refer to http://education.[employer]/faq/PAO93s1 (This link is being provided for informational/ educational purposes only.) 04/16/2022 8:16 AM EDT Alberta Ackerman MD HISTORICAL/NON ORDERA BLE LABS Final Result [facility] * (ABNORMAL) LIPID PANEL, STANDARD (04/16/2022 8:16 AM EDT) Pathologist [facility] Chol/HDLC Ratio 4.4 <5.0 (calc) CONVERTED LEGACY [...] LDL-C. Cameron DIAZ et al. LORENZO. 2013;310(19): 3417-5811 (http://education.ClickMechanic.com/faq/AYM918) Non-HDL Cholesterol 133(H) <130 mg/dL (calc) CONVERTED [...] Most Recently Relevant to Health Maintenance Insurance [facility]PC OPTIONS (O D-SNP) [facility] STANDARD D[facility] - [facility] Care Teams Screw Machine Tool Setter Relationship Specialty Start Date End Date Alberta Rizo MD [address] [place] [address] PCP - General Family Medicine 07/30/19
--- OUTSIDE RECORDS SUMMARY | 2025-05-25 08:35 | XMS_ITS | Encounter Summary ---
Author Organization [facility] Address [address] [facility] 7t [place] [address] Care Team Providers Care Senior J2Ee Developer Name Role Phone Alberta Rizo MD Primary Care Provide r Encounter Details Date Type Department Care Team (Latest Contact Info) Description 01/19/2019 Abstract [facility] CONVERSIONS Dental, Provider, DDS Social History [...] Description 07/22/2025 9:30 AM EST Office Visit [facility] MEDICINE [address] [place] [address] Alberta Rizo MD [address] [place] [address] 08/26/2025 9:30 AM EST Office Visit [facility] ADULT DENTAL [address] [place] [address] Jeanette, Lili [address] [place] [address] documented as of this encounter Visit Diagnoses Not on filedocumented in this encounter Care Teams Senior J2Ee Developer Relationship Specialty Start Date End Date Alberta Rizo MD [address] [place] [address] PCP - General Family Medicine 07/30/19 documented as of this encounter
--- OUTSIDE RECORDS SUMMARY | 2025-05-25 08:35 | XMS_ITS | Patient Health Record ---
Author Organization [facility] Address [address] [place] [address] Care Team Providers Care National Sales Trainer Name Role Phone Rojas Vizcaino MD Primary [...] Status Risk Notes Problem Colon cancer screening (071061679) Colon cancer screening (Z12.11) Active confirmed Plan Of Treatment Future Test Test Name Order Date COLONOSCOPY 11/19/2017 Insurance Providers Payer Name Payer Address Payer Phone Subscriber Number Group Number Insured Name Patient Relationship to Insured Coverage Start Date Coverage End Date MEDICARE OF [place] [address] [place] [phone] [id number] CALOS VALDEZ Self - patient is the insured MEDICAID OF [facility] [address] [place] [address] [phone] [id number] CALOS VALDEZ Self - patient is the insured Medical (General) History Medical History History ICD Code asthma PTSD/depression gastroesophageal reflux disease arthritis seasonal allergies
--- OUTSIDE RECORDS SUMMARY | 2025-05-25 08:35 | XMS_ITS | Encounter Summary ---
Author Organization [employer] Address [address] [facility] 7t [place] [address] Care Team Providers Care Stations Superintendent Name Role Phone Alberta Rizo MD Primary Care Provide r Reason for Visit * Reason Comments Med Refill Encounter Details Date Type Department Care Team ([facility] st Contact Info) Description 05/22/2025 Refill [facility] MEDICINE [address] [place], [place] [phone] Alberta Rizo MD [address] [place] [address] Allergic rhinitis, unspecified seasonality, unspecified trigger Social History Tobacco Use Types Packs/Day Years [...] Description 07/22/2025 9:30 AM EST Office Visit [facility] MEDICINE [address] [place] [address] Alberta Rizo MD [address] [place] [address] 08/26/2025 9:30 AM EST Office Visit [facility] ADULT DENTAL [address] [place] [address] Jeanette, Lili [address] [place] [address] documented as of this encounter Visit Diagnoses Diagnosis Allergic rhinitis, unspecified seasonality, unspecified trigger documented in this encounter Additional Health Concerns Assessment Noted Time PHQ-9 Depression Total Score: 8 02/08/20 25 2:51 PM EDT documented as of this encounter Care Teams Stations Superintendent Relationship Specialty Start Date End Date Alberta Rizo MD [address] [place] [phone] PCP - General Family Medicine 07/30/19 documented as of this encounter
--- OUTSIDE RECORDS SUMMARY | 2025-05-25 08:35 | XMS_ITS | Encounter Summary ---
Author Organization [facility] Address [address] [facility] 7t [place] [address] Care Team Providers Care Hot Packer Name Role Phone Alberta Rizo MD Primary Care Provide r Encounter Details Date Type Department Care Team (Latest Contact Info) Description 01/25/2021 Abstract [facility] CONVERSIONS Dental, Provider, DDS Social History Tobacco [...] 9:30 AM EST Office Visit [facility] MEDICINE [address] [place] [address] Alberta Rizo MD [address] [place] [address] 08/26/2025 9:30 AM EST Office Visit [facility] ADULT DENTAL [address] [place] [address] Jeanette, Lili [address] [place] [address] documented as of this encounter Visit Diagnoses Not on filedocumented in this encounter Care Teams Hot Packer Relationship Specialty Start Date End Date Alberta Rizo MD [address] [place] [address] PCP - General Family Medicine 07/30/19 documented as of this encounter
== END 2025-05-25 08:50 | disposition home or self-care (01) ==
LOC: HO.HGS 08:23
PROVIDERS: PCP Internal Medicine; Visit Provider Surgery
DX: L03.311 Cellulitis of abdominal wall (principal)
CPT/HCPCS: 99203

== ENCOUNTER → 2025-05-25 08:23 | Outpatient (BNVA) | payer OTHER, SELFPAY | PROVIDERS: PCP Internal Medicine; Visit Provider Surgery | DX: L03.311 Cellulitis of abdominal wall (principal) | CPT/HCPCS: 99202 ==

== ENCOUNTER 2025-06-21 06:31 | Observation (INO) | payer OTHER, SELFPAY ==
[2025-06-21] VITALS (13 sets, daily range): BP systolic 88–137; BP diastolic 52–91; PULSE 62–113; RESP 12–20; TEMP 36.6–36.8; O2SAT 94–98; BMI 23.7; BMI 23.8
--- NOTE | ~2025-06-21 | CT_ITS ---
EXAMINATION: CT HEAD WITHOUT IV CONTRAST HISTORY: syncope +HS. TECHNIQUE: Unenhanced helical CT of the head was performed per standard departmental protocol. Coronal and sagittal reformats of the head were also evaluated. One or more of the following techniques was used for dose reduction: Automated exposure control, adjustment of the mA and/or kV according to patient size, use of iterative reconstruction technique. DLP: 637 mGy-cm COMPARISON: Previous head CT most recent April 2025 and brain MRI April 2025 FINDINGS: BRAIN: There is no evidence of an extra-axial collection. There is no evidence of intra or extra-axial hemorrhage. Ventricles and extra-axial CSF spaces are slightly prominent suggestive of mild generalized atrophy appropriate for age. There is mild nonspecific periventricular white matter disease. There is decreased attenuation seen in the right temporal lobe/temporal fossa. This may be related to beam hardening artifact from the adjacent bone. Clinical correlation recommended. No other evidence of mass mass effect or infarct. SINUSES: The visualized paranasal sinuses are clear. The mastoid air cells and middle ear cavities are well pneumatized. ORBITS: The visualized orbits are unremarkable. BONES/SOFT TISSUES: The extracranial soft tissues are unremarkable. The calvarium is intact. No suspicious lytic or sclerotic lesions. CT/CT head/brain wo IV con IMPRESSION: Decreased attenuation in the right temporal fossa. This may be artifactual and represent been hardening artifact from the adjacent skull base. Clinical correlation recommended. This could be further evaluated with brain MRI if clinically warranted. Electronically signed by: Mary Hope MD 06/21/2025 08:49 AM EST
--- NOTE | ~2025-06-21 | XR_ITS ---
EXAMINATION: XR CHEST CLINICAL INFORMATION: Syncope COMPARISON: Previous chest x-ray most recently June 2023 TECHNIQUE: Frontal view of the chest was obtained. FINDINGS: Low lung volumes. Increased central bronchovascular and interstitial markings, left greater than right. This may be due to low lung volumes. No focal consolidation. No pleural effusion or pneumothorax. Cardiac and mediastinal contours are stable. Degenerative changes of the spine and shoulders. XR/XR chest 1V IMPRESSION: Low lung volumes. Increased central markings. This may be related to low lung volumes. Differential would include airways disease and mild pulmonary edema. Electronically signed by: Mary Hope MD 06/21/2025 08:52 AM [facility]
--- NOTE | ~2025-06-21 | CT_ITS ---
EXAMINATION: CT CERVICAL SPINE WITHOUT IV CONTRAST HISTORY: syncope +HS. TECHNIQUE: Helical CT of the cervical spine was performed per standard departmental protocol. Coronal and sagittal reformatted images were also evaluated. One or more of the following techniques was used for dose reduction: Automated exposure control, adjustment of the mA and/or kV according to patient size, use of iterative reconstruction technique. DLP: 275 mGy-cm COMPARISON: There are no prior studies available for comparison. FINDINGS: CERVICAL SPINE: Mild curvature of the lower cervical and proximal thoracic spine to the right. Bone alignment is otherwise normal. No fracture or dislocation. Multilevel degenerative spondylosis and degenerative disc disease from C3-4 to C7-T1. Mild degenerative changes at the C1 dens articulation. BRAIN: The visualized portion of the brain is unremarkable. SINUSES: The visualized paranasal sinuses, mastoid air cells and middle ear cavities are unremarkable. LUNG APICES: The seminal changes. The visualized lung apices are clear. SOFT TISSUES: The visualized vertebral soft tissues are unremarkable. Bilateral carotid calcification. CT/CT cervical spine wo IV con IMPRESSION: No evidence of fracture or malalignment of the cervical spine. Degenerative changes. Electronically signed by: Mary Hope MD 06/21/2025 08:44 AM EST
--- NOTE | 2025-06-21 07:20 | ECG_ITS ---
Test Reason : FALL Blood Pressure : */* mmHG Vent. Rate : 95 BPM Atrial Rate : 95 BPM P-R Int : 132 ms QRS Dur : 84 ms QT Int : 344 ms P-R-T Axes : 30 -28 56 degrees QTcB Int : 432 ms Normal sinus rhythm Normal ECG When compared with ECG of 27-Apr-2025 05:48, No significant change was found Referred By: Cici Fuller Electronically Signed By: MIGUEL CAMERON MD
--- OUTSIDE RECORDS SUMMARY | 2025-06-21 07:26 | XMS_ITS | Patient Health Record ---
Author Organization [facility] Address [address] [place] [address] Care Team Providers Care Anatomy And Physiology Instructor Name Role Phone Rojas Vizcaino MD Primary Care Provider Blaze Herman Jr Unavailable Reason For Referral No Information Medications Medication SIG (Take, Route, Frequency, Duration) Notes Start Date End Date Status Colyte with Flavor Packs 240 GM Solution Reconstituted As directed Orally Over the specified time.; Duration: 1 day(s) Active Flonase 50 MCG/ACT Suspension 1 spray in each nostril Nasally Once a day Active Claritin 10 MG Tablet 1 tablet Orally On ce a day Active Omeprazole 20 MG Capsule Delayed Release TOME SUSAN CAPSULA VIA ORAL CADA MARTIN Oral Once a day Active Flovent HFA 44 MCG/ACT Aerosol INHALE DOS DISPAROS VIA ORAL DOS VECES AL MARTIN Inhalation Twice a day Active QUEtiapine Fumarate 25 MG Tablet TAKE 1 TABLET BY MOUTH 3 TIMES A DAY NEEDED Oral Once a day/prn Active Albuterol Sulfate HFA 108 (90 Base) MCG/ACT Aerosol Solution 2 puffs as needed Inhalation every 6 hrs/prn Active LORazepam 2 MG Tablet 1 tablet as needed Oral Once a day Active Immunizations Vaccine Route Administration Date Status Comme nts Flu vaccine no Preserv 3 and > Unknown 05/20/2017 Admin istered Social History Tobacco Use: Social History Observation Description Date Details (start date - stop date) Never Smoker NA - NA Social History Drugs/Alcohol: Social Info Question Answer Notes Alcohol Screen Did you have a drink containing alcohol in the past year? No Points 0 Interpretation Negative Tobacco Use: Social Info Question Answer Notes Tobacco Use/Smoking Patient is a nonsmoker Additional Details Category Social Info Options Details Miscellaneous: Marital status: Occupation: retired Problems Problem Type SNOMED Code ICD Code Onset Dates Problem Status W/U Status Risk Notes Problem Colon cancer screening (871503681) Colon cancer screening (Z12.11) Active confirmed Plan Of Treatment Future Test Test Name Order Date COLONOSCOPY 11/19/2017 Insurance Providers Payer Name Payer Address Payer Phone Subscriber Number Group Number Insured Name Patient Relationship to Insured Coverage Start Date Coverage End Date MEDICARE OF [place] [address] [place] [id number] CALOS VALDEZ Self - patient is the insured [facility]ICAID [facility] [address] [place] [address] [id number] VALDEZ CALOS Self - patient is the insured Medical (General) History Medical History History ICD Code asthma PTSD/depression gastroesophageal reflux disease arthritis seasonal allergies
[2025-06-21 07:44] LABS: Hematocrit 47.6 % (42.0-52.0); Hemoglobin 16.3 g/dl (14.0-18.0); Imm Gran Abs Auto 0.13 X10*3/uL (0.00-0.03); Imm Gran Pct Auto 1.9 % (0.0-0.4); Lymphocytes Absolute Auto 0.9 X10*3/uL (1.2-4.9); MANUAL DIFF FLAG NO; Mean Corpuscular HGB Conc 34.2 g/dl (31.0-36.0); Mean Corpuscular Hemoglobin 32.1 pg (27.0-33.0); Mean Corpuscular Volume 93.7 fL (80.0-98.0); NRBC Abs Auto 0.000 X10*3/uL (0.0-0.012); NRBC Pct Auto 0.0 /100WBC (0.0-0.2); Platelet Count 267 X10*3/uL (160-400); Red Blood Count 5.08 X10*6/uL (4.60-5.80); White Blood Count 6.9 X10*3/uL (4.8-10.8)
[2025-06-21 07:49] LABS: Appearance Urine Clear; Glucose Urine UA Negative (Negative); PH 7.5 (5.0-9.0); Specific Gravity - Urine 1.010 (1.005-1.025)
--- NOTE | 2025-06-21 08:00 | ED.FALL ---
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 patient states he was washing a pot when he felt dizzy described as room spinning, syncopized and woke up on the floor in a puddle of water. Admits to hitting his forehead with associated headache at present. Denies anticoagulation use. Denies neck/ back pain, nausea, vomiting, vision change or loss, CP/ SOB, abdominal pain Related Data Home Medications ?Medication ?Instructions ?Recorded ?Confirmed loratadine 10 mg tablet 10 mg PO DAILY 05/25/25 06/21/25 albuterol sulfate 2.5 mg/3 mL 2.5 mg inhalation Q6H PRN wheezing 06/21/25 06/21/25 (0.083 %) solution for nebulization budesonide-formoterol HFA 80 2 puff inhalation BID 06/21/25 06/21/25 mcg-4.5 mcg/actuation aerosol inhaler buspirone 10 mg tablet 10 mg PO BID 06/21/25 06/21/25 naproxen 500 mg tablet 500 mg PO BID PRN Pain 06/21/25 06/21/25 quetiapine 50 mg tablet 50 mg PO BEDTIME 06/21/25 06/21/25 Previous Rx's ?Medication ?Instructions ?Recorded escitalopram oxalate 10 mg tablet 10 mg PO DAILY #30 tabs 04/25/23 melatonin 3 mg tablet 3 mg PO BEDTIME #30 tabs 04/25/23 Allergies Allergy/AdvReac Type Severity Reaction Status Date / Time No Known Allergies (No Known Allergy Verified 06/21/25 06:42 Allergies*) Review of Systems Review of Systems: Yes all other systems are reviewed and are negative Constitutional: Constitutional: Reports as per HPI Neurologic: Denies Abnormal speech present PMFSH Past Medical History Attestation statement: The following information was validated with the patient. Source: old records reviewed Medical History Allergic rhinitis Post traumatic stress disorder Depression Hypercholesterolemia HTN (hypertension) GERD (gastroesophageal reflux disease) Anxiety COVID-19 Asthma Surgical History History of surgery Social History Social History Household Members: None Housing: Apartment Are you a primary rn progressive care unit to a significant other at home: No Do you presently have visiting nurse or other home services: Yes Alcohol intake: former Patient Tobacco Use Status: Never used Tobacco e-Cigarette/Vaping Use: Never Used Second Hand Smoke Exposure: No service: No Current occupational status: retired Sexual orientation: Straight/Heterosexual Physical Exam Vital Signs: Vital Signs: Last Vital Signs Temp 97.7 F 06/22/25 07:07 Pulse 64 06/22/25 07:07 Resp 16 06/22/25 07:07 BP 134/73 06/22/25 07:07 Pulse Ox 95 06/22/25 07:07 O2 Del Method Room Air 06/22/25 07:07 BMI result Body Mass Index 23.7 Const: General: cooperative, healthy appearing and no acute distress Orientation/consciousness: patient oriented x3 Limitations: no limitations HEENT: Other: mild erythema to central forehead Head: Yes normal to inspection, No Lange's sign and No raccoon eyes Ears: hearing grossly normal bilaterally General nose exam: Normal external nose present Face and sinus: Yes normal facial exam Throat: Yes posterior oropharynx normal Eyes: General: appearance normal, both eyes and all related structures Pupils: Equal, round and reactive pupils present EOM: EOMs intact bilaterally Neck: Neck: Yes normal visual inspection and Yes no meningeal signs Resp: Effort & Inspection: normal respiratory effort and no respiratory distress Auscultation: clear to auscultation bilaterally Cardio: Rate: regular rate Heart sounds: S1 normal heart sound present and S2 normal heart sound present GI: Inspection: Yes normal to inspection Palpation (GI): Soft to palpation, nontender, no guarding and not rigid : General: Yes no CVA tenderness Back/Spine/Pelvis: Other: No midline cervical/thoracic/lumbar spinous tenderness/step-off or deformity Back: no CVA tenderness Skin: Rashes: no rashes Wounds: no wounds Neuro: General: patient oriented x3, tone normal, moves all extremities, no meningeal signs, no focal motor deficits and CN's II-XI intact bilaterally Cranial nerves: Yes CN's II-XII intact bilaterally, Yes Equal, round and reactive pupils present and Yes Bilaterally intact EOM present Cognition (Neuro): normal cognition Speech: No Abnormal speech present Extrem: General: Yes normal to inspection Course Course Course Narrative: - labs reassuring including negative troponin - UA and viral testing negative - orthostatic vital signs negative CT head/brain wo IV con IMPRESSION: Decreased attenuation in the right temporal fossa. This may be artifactual and represent been hardening artifact from the adjacent skull base. Clinical correlation recommended. This could be further evaluated with brain MRI if clinically warranted. CT cervical spine wo IV con IMPRESSION: No evidence of fracture or malalignment of the cervical spine. Degenerative changes. XR chest 1V IMPRESSION: Low lung volumes. Increased central markings. This may be related to low lung volumes. Differential would include airways disease and mild pulmonary edema. > plan to admit for further management of syncope Medications Administered Generic Name Dose Route Start Last Admin Trade Name Freq PRN Reason Stop Dose Admin Acetaminophen 650 mg 06/21/25 10:39 06/21/25 16:32 Acetaminophen 325 Mg Tablet PO 650 mg Q6H PRN Administration Pain, Mild 1-3,fever,headache Sodium Chloride 3 ml 06/21/25 16:00 06/22/25 00:41 0.9 % Sodium Chloride Flush 3 Ml Syringe IVFLUSH Not Given QSHIFT RAÚL Discontinued Medications Generic Name Dose Route Start Last Admin Trade Name Freq PRN Reason Stop Dose Admin Sodium Chloride 1,000 mls @ 999 mls/hr 06/21/25 07:30 06/21/25 08:54 Ns IV 06/21/25 08:30 Infused .Q1H1M RAÚL Infusion Meclizine HCl 25 mg 06/21/25 07:20 06/21/25 07:55 Meclizine Hcl 25 Mg Tablet PO 06/21/25 07:21 25 mg ONCE ONE Administration Medical Decision Making Medical Decision Making MDM Narrative: 74-year-old Yakut-speaking male with a past medical history HLD, HTN, GERD, anxiety, asthma, depression, PTSD, presenting to the ED via EMS 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 patient states he was washing a pot when he felt dizzy described as room spinning, syncopized and woke up on the floor in a puddle of water. on exam mildly tachycardic, anxious, NAD/nontoxic appearing, no focal neuro deficits, filed forehead erythema. Concern for vertigo and syncope vs ACS vs ICH/fractures. Rule out metabolic infectious etiologies. Lower suspicion for dissection at this time or PE Plan: EKG, labs, UA, head/C-spine CT, CXR, orthostatic vital signs, IVF, re-evaluate Please refer to course for remaining clinical decision making, interpretation of labs/imaging results, and discussions with consultants and/or family members. Differential Diagnosis Differential Diagnoses: The differential diagnosis associated with the presentation includes As above Admission/Observation Consideration of admission/observation: Escalation of care including admission/observation considered Lab Data MDM Lab Attestation statement: I reviewed the patient's lab results. 06/21/25 07:37 06/21/25 07:37 Labs: Lab Results 06/21/25 06/21/25 Range/Units 07:37 07:39 WBC 6.9 (4.8-10.8) X10*3/uL RBC 5.08 (4.60-5.80) X10*6/uL Hgb 16.3 (14.0-18.0) g/dl Hct 47.6 (42.0-52.0) % MCV 93.7 (80.0-98.0) fL MCH 32.1 (27.0-33.0) pg MCHC 34.2 (31.0-36.0) g/dl RDW 11.4 (11.0-16.0) % Plt Count 267 (160-400) X10*3/uL MPV 8.6 L (9.4-12.4) fL Immature Gran % (Auto) 1.9 H (0.0-0.4) % Neut % (Auto) 77.9 H (45-73) % Lymph % (Auto) 12.5 L (20-40) % [place] % (Auto) 7.0 (2-11) % Eos % (Auto) 0.4 (0-4) % Baso % (Auto) 0.3 (0-2) % Lymph # (Auto) 0.9 L (1.2-4.9) X10*3/uL [place] # (Auto) 0.5 (0.1-1.2) X10*3/uL Eos # (Auto) 0.0 (0.0-0.4) X10*3/uL Baso # (Auto) 0.0 (0.0-0.2) X10*3/uL Abs Immat Gran (auto) 0.13 H (0.00-0.03) X10*3/uL Absolute Neuts (auto) 5.4 (2.0-8.3) x10*3/uL Absolute Nucleated RBC 0.000 (0.0-0.012) X10*3/uL Nucleated RBC % (auto) 0.0 (0.0-0.2) /100WBC Sodium 142 (135-145) mmol/L Potassium 3.7 (3.3-5.1) mmol/L Chloride 110 H (96-108) mmol/L Carbon Dioxide 26 (22-29) mmol/L Anion Gap 10 L (12-20) BUN 22 H (9-16) mg/dL Creatinine 0.78 (0.5-1.4) mg/dL Estim Creat Clear Calc 76.1 Estimated GFR > 60 Random Glucose 107 (60-115) mg/dL Calcium 9.4 (8.4-10.2) mg/dL Magnesium 1.8 (1.6-2.6) mg/dL Total Bilirubin 0.3 (0.0-1.0) mg/dL Direct Bilirubin 0.2 (0.0-0.5) mg/dL AST 25 (5-37) U/L ALT 31 (0-40) U/L Alkaline Phosphatase 70 (39-117) U/L Troponin I High Sens < 2.7 (<3.5-35.0) ng/L NT-Pro-B Natriuret Pep 42.1 (<300) pg/mL Total Protein 7.2 (6.5-8.0) g/dL Albumin 4.5 (3.5-5.0) g/dL Urine Color Yellow Urine Appearance Clear Urine pH 7.5 (5.0-9.0) Ur Specific [place] 1.010 (1.005-1.025) Urine Protein Negative (Neg-Trace) mg/dL Urine Glucose (UA) Negative (Negative) mg/dL Urine Ketones Negative (Negative) mg/dL Urine Blood Negative (Negative) Urine Nitrite Negative (Negative) Ur Leukocyte Esterase Negative (Negative) Influenza Type A (PCR) NEGATIVE (Negative) Influenza Type B (PCR) NEGATIVE (Negative) RSV RNA Qual (PCR) NEGATIVE (Negative) SARS-CoV-2 RNA (RT-PCR) NEGATIVE (Negative) Independent Interpretation I performed an independent interpretation of an: EKG, Plain X-Ray and CT Scan Radiology Impression Discussion of test interpretation with radiology: I have reviewed the radiologist's reading. Independent Historian Clinical information obtained from an independent historian. History obtained from or confirmed by: EMS External Record Review External record reviewed: Inpatient record, Office record, Outpatient record, Prior outpatient labs, Prior outpatient radiology, Primary care record and Outside ED record Tests considered The following testing was considered but not selected: As above Prescription Management I considered prescription management with: Other Chronic Conditions Patient?s care impacted by: Hypertension and Other Social Determinants Patient?s care significantly limited by Social Determinants of Health including: Problems related to primary support group and Other Social Determinant of Health Discharge Plan Discharge Clinical Impression: Syncope, Head injury, Dizziness Patient Disposition: Admitted As Inpatient Interventions: Admission Worksheet (ED) Last Done: 06/21/25 14:29 Discharge Date/Time: 06/21/25 16:17
[2025-06-21 08:01] LABS: Alanine Aminotransferase 31 U/L (0-40); Albumin Level 4.5 g/dL (3.5-5.0); Alkaline Phosphatase 70 U/L (39-117); Anion Gap 10 (12-20); Aspartate Amino Transferase 25 U/L (5-37); Blood Urea Nitrogen 22 mg/dL (9-16); Calcium 9.4 mg/dL (8.4-10.2); Carbon Dioxide 26 mmol/L (22-29); Chloride 110 mmol/L (96-108); Creatinine Clr Calc Pharmacy 76.1; Estimated Glomerular Filt Rate > 60; Magnesium 1.8 mg/dL (1.6-2.6); Potassium 3.7 mmol/L (3.3-5.1); Sodium 142 mmol/L (135-145); Total Protein 7.2 g/dL (6.5-8.0)
[2025-06-21 08:16] LABS: Troponin-I High Sensitivity < 2.7 ng/L (<3.5-35.0)
[2025-06-21 08:24] LABS: Resp Syncy Virus RNA Qual PCR NEGATIVE (Negative); SARS COV2 PCR INHOUSE NEGATIVE (Negative)
[2025-06-21 09:38] LABS: NT Pro B Type Natriuretic Pept 42.1 pg/mL (<300)
--- NOTE | 2025-06-21 10:57 | PM.IMHP ---
History of Present Illness Date of Service: 06/21/25 Chief Complaint: Dizziness 74 year old man presenting to the ED after a fall at home while cooking. He reported he was standing in front of the stove and suddenly felt dizzy and fell to the ground hitting his forehead. He denied LOC, chect pain, sob, headache, visual changes, nausea, vomiting or diarrhea. Head, and cervical spine ct negative for acute abnormality. CXR negative for consolidation or effusion, UA negative. No orthostasis noted in ED. He received a dose of meclizine in the ED. He will be placed on observation for Dizziness and fall. Review of Systems Review of Systems: Denies any recent fever chills or decrease in appetite respiratory denies any shortness of breath or cough cardiovascular denied chest pain gastrointestinal denies any dysphagia abdominal pain nausea vomiting or diarrhea genitourinary denies any dysuria frequency or hematuria musculoskeletal denies any joint pain or swelling neuropsych denies any weakness or seizures all other systems reviewed are negative [facility] Medical History Allergic rhinitis Post traumatic stress disorder Depression Hypercholesterolemia HTN (hypertension) GERD (gastroesophageal reflux disease) Anxiety COVID-19 Asthma Surgical History History of surgery Social History Household Members: None Housing: Apartment Are you a primary children's zoo caretaker to a significant other at home: No Do you presently have visiting nurse or other home services: No Alcohol intake: former Patient Tobacco Use Status: Never used Tobacco Smoked in Last 30 Days: No e-Cigarette/Vaping Use: Never Used Second Hand Smoke Exposure: No Use of substances other than those prescribed or required for medical reasons: No Advance Directives: No Advance Directives Information Provided: Yes service: No Current occupational status: retired Sexual orientation: Straight/Heterosexual Meds Allergies Allergy/AdvReac Type Severity Reaction Status Date / Time No Known Allergies (No Known Allergy Verified 06/21/25 06:42 Allergies*) Active Medications: Current Medications Acetaminophen (Acetaminophen 325 Mg Tablet) 650 mg PO Q6H PRN PRN Reason: Pain, Mild 1-3,fever,headache Calcium Carbonate (Calcium Carbonate 750 Mg Tab.Chew) 750 mg PO Q4H PRN PRN Reason: Heartburn Magnesium Hydroxide (Milk Of Magnesia 30 Ml Oral.Susp) 30 ml PO DAILY PRN PRN Reason: Constipation Melatonin (Melatonin 3 Mg Tablet) 6 mg PO BEDTIME PRN PRN Reason: Insomnia Sodium Chloride (0.9 % Sodium Chloride Flush 3 Ml Syringe) 3 ml IVFLUSH QSHIFT [facility] Home Medications ?Medication ?Instructions ?Recorded ?Confirmed ?Last Taken ?Type fluticasone propionate 220 2 puff inhalation BID 04/20/23 05/25/25 Unknown History mcg/actuation HFA aerosol inhaler (Flovent HFA) loratadine 10 mg tablet 10 mg PO DAILY 05/25/25 05/25/25 Unknown History albuterol sulfate 2.5 mg/3 mL 2.5 mg inhalation Q6H PRN wheezing 06/21/25 Unknown History (0.083 %) solution for nebulization budesonide-formoterol HFA 80 2 puff inhalation BID 06/21/25 Unknown History mcg-4.5 mcg/actuation aerosol inhaler buspirone 10 mg tablet 10 mg PO BID 06/21/25 Unknown History ketorolac 0.5 % eye drops 1 drp ophthalmic (eye) TID 06/21/25 Unknown History quetiapine 50 mg tablet 25 - 50 mg PO BEDTIME 06/21/25 Unknown History Physical Exam Vital Signs and Narrative: Vital Signs: Last Vital Signs Temp 98 F 06/21/25 07:45 Pulse 90 06/21/25 08:55 Resp 16 06/21/25 08:55 BP 113/76 06/21/25 08:55 Pulse Ox 98 06/21/25 08:55 O2 Del Method Room Air 06/21/25 08:55 BMI result Body Mass Index 23.7 Appearing in no acute distress head is normocephalic atraumatic eyes pupils are PERRLA sclera is anicteric mouth throat mucous membranes are intact and moist neck is supple no lymphadenopathy, no JVD noted lung sounds are clear to auscultation heart regular rate rhythm, clear S1, S2 positive bowel sounds, abdomen is soft, nontender neuro patient is alert x3, no focal deficits Results Labs 06/21/25 07:37 06/21/25 07:37 Labs: Laboratory Results - last 24 hr 06/21/25 06/21/25 07:37 07:39 MCV 93.7 MCH 32.1 MCHC 34.2 RDW 11.4 Plt Count 267 MPV 8.6 L Immature Gran % (Auto) 1.9 H Neut % (Auto) 77.9 H Lymph % (Auto) 12.5 L [place] % (Auto) 7.0 Eos % (Auto) 0.4 Baso % (Auto) 0.3 Lymph # (Auto) 0.9 L [place] # (Auto) 0.5 Eos # (Auto) 0.0 Baso # (Auto) 0.0 Abs Immat Gran (auto) 0.13 H Absolute Neuts (auto) 5.4 Absolute Nucleated RBC 0.000 Nucleated RBC % (auto) 0.0 Anion Gap 10 L Estim Creat Clear Calc 76.1 Estimated GFR > 60 Random Glucose 107 Calcium 9.4 Magnesium 1.8 Total Bilirubin 0.3 Direct Bilirubin 0.2 AST 25 ALT 31 Alkaline Phosphatase 70 Troponin I High Sens < 2.7 NT-Pro-B Natriuret Pep 42.1 Total Protein 7.2 Albumin 4.5 Urine Color Yellow Urine Appearance Clear Urine pH 7.5 Ur Specific [place] 1.010 Urine Protein Negative Urine Glucose (UA) Negative Urine Ketones Negative Urine Blood Negative Urine Nitrite Negative Ur Leukocyte Esterase Negative Influenza Type A (PCR) NEGATIVE Influenza Type B (PCR) NEGATIVE RSV RNA Qual (PCR) NEGATIVE SARS-CoV-2 RNA (RT-PCR) NEGATIVE Imaging Radiologist's Impressions: Impressions Chest X-Ray 06/21/25 07:45 IMPRESSION: Low lung volumes. Increased central markings. This may be related to low lung volumes. Differential would include airways disease and mild pulmonary edema. Electronically signed by: Mary Hope MD 06/21/2025 08:52 AM EST RP Cervical Spine CT 06/21/25 08:03 IMPRESSION: No evidence of fracture or malalignment of the cervical spine. Degenerative changes. Electronically signed by: Mary Hope MD 06/21/2025 08:44 AM EST RP Head CT 06/21/25 08:03 IMPRESSION: Decreased attenuation in the right temporal fossa. This may be artifactual and represent been hardening artifact from the adjacent skull base. Clinical correlation recommended. This could be further evaluated with brain MRI if clinically warranted. Electronically signed by: Mary Hope MD 06/21/2025 08:49 AM EST Assessment and Plan (1) Dizziness: Status: Acute Plan 74 year old man with a hx of vertigo presented after a fall at home Fall with dizziness seems likely BPPV monitor on telemetry for arrythmia Check orthostatic blood pressures PT for vestibular rehab exercises Meclizine prn avoid rapid transitions/ movements Mental health continue home medications Mild non persistent asthma no exacerbation continue inhalors as needed DVT prophylaxis with Heparin Full code Quality Stroke Does the patient have a stroke diagnosis?: No VTE Prior VTE?: No VTE Risk Level:: Medical - moderate - high VTE Device Contraindication: Treatment Not Indicated VTE Drug Contraindication: N/A - Med Ordered
[2025-06-21 11:10] LABS: Troponin-I High Sensitivity 5.1 ng/L (<3.5-35.0)
--- NOTE | 2025-06-21 11:20 | PHA.MEDREC ---
Addendum entered by Maurice Singer RPh 06/21/25 11:50: Reviewed by [facility] Original Note: Pharmacy Consult ? Medication Reconciliation Pharmacy has completed the medication reconciliation. Spoke with pt, utilizing educational interpreter and pt was able to confirm medications. Pt confirmed he is no longer taking Ketorlac eye drops; pt was taking it only when he had an eye operation and stopped it in the last few weeks and he is taking his Quetiapine 50mg tab 1 tablet at bedtime; not 1/2-1 tab at bedtime per original directions.
[2025-06-21] MEDS: 0.9 % Sodium Chloride Flush 3 ML SYRINGE IVFLUSH (16:07)
[2025-06-22 03:00] VITALS: BP 114/69; PULSE 63; RESP 18; TEMP 36.4; O2SAT 97
--- NOTE | 2025-06-22 07:00 | CA_ITS ---
Transthoracic Echocardiogram Patient (Last, First, Middle): Dickson Sharma, Gender: Male Date of : 1950 Age: 74 Procedure Date: 06/22/2025 Procedure Type: Transthoracic Echocardiogram Location: [facility] [place] Height: 167.64 cm Weight: 66.68 kg BSA: 1.75 m2 Heart Rate: bpm BP: 113 / 76 mmHg Food Safety Field Specialist: TO Referring MD: Salma Pickett NP Home Appraiser: Kobe Vázquez MD Symptoms: syncope Study Quality: Adequate ECG Rhythm: Sinus Conclusions: - 1. Normal LV ejection fraction of 60-65% with grade 1 diastolic dysfunction 2. Normal cardiac valvular Dopplers 3. No gross pericardial effusion Findings Left Ventricle Normal left ventricular size, thickness, and systolic function. The visually estimated ejection fraction is between 60-65%. Spectral Doppler is indicative of an impaired relaxation filling pattern. E/E prime ratio is <8, consistent with normal filling pressures. Evidence suggests grade I (mild) diastolic dysfunction. Right Ventricle Normal right ventricular cavity size and systolic function. Atria Both atria are normal in size. There is lipomatous hypertrophy of the interatrial septum. There is no evidence of interatrial shunt. Aortic Valve Normal aortic valve structure and function. There is no aortic valve stenosis. There is no aortic valve regurgitation. Mitral Valve There is mild anterior and posterior mitral leaflet thickening. There is trace mitral valve regurgitation. There is no mitral valve stenosis. Pulmonic Valve The pulmonic valve is likely normal. Tricuspid Valve Likely normal tricuspid valve structure and function. Tricuspid regurgitation envelope is inadequate for calculation of right ventricular systolic pressure. Normal right atrial pressure. Great Vessels All visible segments of the aorta are normal in size. The pulmonary artery was not well visualized. Small plaque is seen in the sino tubular ridge. Venous The inferior vena cava is normal in size and collapses greater than 50% with inspiration. Pericardium/Pleural There is no evidence of pericardial effusion. Prior Study Comparison No prior study available for comparison. Measurements 2D Linear Measurements IVSd: 0.75 0.6-0.9/0.6-1.0 cm LVIDd: 4.15 3.9-5.3/4.2-5.9 cm LVIDd Index: 2.37 2.4-3.2/2.2-3.1 cm/m2 LVIDs: 2.77 2.0-3.6 cm LVPWd: 0.86 0.7-1.1 cm LA Diam: 3.00 2.7-3.8/3.0-4.0 cm LAIDs Index: 1.71 1.5-2.3 cm/m2 LV Mass: 124.31 67-162/88-224 g LV Mass Index: 71.04 43-95/49-115 g/m2 LVOT Diam: 2.00 3.0+(-)1.3 cm 2D Systolic Function EF 4C: 64.70 >55% EF 2C: 60.20 >55% EF BiP: 62.30 >55% Mitral Valve MV Pk E: 0.73 MV PK A: 0.75 MV Decel Time: 196.00 E/A: 1.00 E'Lateral: 7.40 E'Medial: 5.98 E/E' Med: 12.30 E/E' Lat: 9.90 PHT: 57.00 MVA PHT: 3.86 Decel [place]: 3.74 Aortic Valve AoV Pk Abad: 1.22 AoV Mn Abad: 0.83 AoV VTI: 0.22 AoV Pk Grad: 6.00 Aov Mn Grad: 3.00 CHASITY Cont.VTI: 2.78 LVOT LVOT Pk Abad: 1.07 LVOT Mn Abad: 0.74 LVOT VTI: 0.20 LVOT Pk Grad: 5.00 LVOT Mn Grad: 2.00 LVOT Diam: 2.00 LVOT Area: 3.14 Diastolic Function MV Pk E: 0.73 MV Pk A: 0.75 E/A: 1.00 E'Medial: 5.98 E/E' Med: 12.30 E' Laterial: 7.40 E/E' Lat: 9.90 Right Ventricle TAPSE (mm): 15.60 TVS' Abad: 9.14 Tricuspid Valve RA Press: 3.00 Great Vessels Aorta Sinus of Valsalva: 2.92 2.0-3.5 cm Ao Asc: 3.20 2.1-3.4 cm Updated in Other Vendor System with Status of Final Kobe Vázquez MD electronically signed on 06/22/2025 1:58:26 PM with status of Final
[2025-06-22 07:07] VITALS: BP 134/73; PULSE 64; RESP 16; TEMP 36.5; O2SAT 95
--- NOTE | 2025-06-22 07:38 | HO.PM.IMPN ---
Subjective Subjective Date of Service: 06/22/25 Physical Exam Vital Signs: Vital Signs: Last Vital Signs Temp 97.7 F 06/22/25 07:07 Pulse 64 06/22/25 07:07 Resp 16 06/22/25 07:07 BP 134/73 06/22/25 07:07 Pulse Ox 95 06/22/25 07:07 O2 Del Method Room Air 06/22/25 07:07 BMI result Body Mass Index 23.8 Objective Data Active Medications Acetaminophen (Acetaminophen 325 Mg Tablet) 650 mg PO Q6H PRN PRN Reason: Pain, Mild 1-3,fever,headache Last Admin: 06/21/25 16:32 Dose: 650 mg Documented By: MELIDA Calcium Carbonate (Calcium Carbonate 750 Mg Tab.Chew) 750 mg PO Q4H PRN PRN Reason: Heartburn Magnesium Hydroxide (Milk Of Magnesia 30 Ml Oral.Susp) 30 ml PO DAILY PRN PRN Reason: Constipation Meclizine HCl (Meclizine Hcl 12.5 Mg Tablet) 12.5 mg PO Q6H PRN PRN Reason: dizziness Melatonin (Melatonin 3 Mg Tablet) 6 mg PO BEDTIME PRN PRN Reason: Insomnia Sodium Chloride (0.9 % Sodium Chloride Flush 3 Ml Syringe) 3 ml IVFLUSH QSHIFT [facility] Last Admin: 06/22/25 00:41 Dose: Not Given Documented By: NURY Non-Admin Reason: Previously Administered Labs 06/21/25 07:37 06/21/25 07:37 Labs: Laboratory Results - last 24 hr 06/21/25 06/21/25 06/21/25 07:37 07:39 10:42 MCV 93.7 MCH 32.1 MCHC 34.2 RDW 11.4 Plt Count 267 MPV 8.6 L Immature Gran % (Auto) 1.9 H Neut % (Auto) 77.9 H Lymph % (Auto) 12.5 L [place] % (Auto) 7.0 Eos % (Auto) 0.4 Baso % (Auto) 0.3 Lymph # (Auto) 0.9 L [place] # (Auto) 0.5 Eos # (Auto) 0.0 Baso # (Auto) 0.0 Abs Immat Gran (auto) 0.13 H Absolute Neuts (auto) 5.4 Absolute Nucleated RBC 0.000 Nucleated RBC % (auto) 0.0 Anion Gap 10 L Estim Creat Clear Calc 76.1 Estimated GFR > 60 Random Glucose 107 Calcium 9.4 Magnesium 1.8 Total Bilirubin 0.3 Direct Bilirubin 0.2 AST 25 ALT 31 Alkaline Phosphatase 70 Troponin I High Sens < 2.7 5.1 D NT-Pro-B Natriuret Pep 42.1 Total Protein 7.2 Albumin 4.5 Urine Color Yellow Urine Appearance Clear Urine pH 7.5 Ur Specific [place] 1.010 Urine Protein Negative Urine Glucose (UA) Negative Urine Ketones Negative Urine Blood Negative Urine Nitrite Negative Ur Leukocyte Esterase Negative Influenza Type A (PCR) NEGATIVE Influenza Type B (PCR) NEGATIVE RSV RNA Qual (PCR) NEGATIVE SARS-CoV-2 RNA (RT-PCR) NEGATIVE Quality Stroke Does the patient have a stroke diagnosis?: No VTE Prior VTE?: No VTE Risk Level:: Medical - moderate - high VTE Device Contraindication: Treatment Not Indicated VTE Drug Contraindication: N/A - Med Ordered
[2025-06-22 08:00] VITALS: BP 117/71; PULSE 65
[2025-06-22 08:31] VITALS: BP 116/73; PULSE 69
[2025-06-22 08:32] VITALS: BP 124/74; PULSE 83
[2025-06-22] MEDS: 0.9 % Sodium Chloride Flush 3 ML SYRINGE IVFLUSH (08:35)
--- NOTE | 2025-06-22 09:08 | MHC.CM.PN ---
URMILA was addressed with Patient. 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 Patient will benefit from a PT Eval to assist with disposition (home self care vs new VNA).CM has initiated and will follow for dc planning. PCP is Dr. Robin and Daughter/HCP/Colette or Son-in-Law will transport at dc.
--- NOTE | 2025-06-22 10:34 | P.DS_ITS ---
DS: Providers Provider Date of Service: 06/22/25 Date of admission: 06/21/25 10:16 Date of discharge: 06/22/25 Primary care physician: Alberta Ackerman MD DS: Diagnosis Discharge Diagnosis (1) Dizziness: Status: Acute DS: Summary Hospital Course Hospital Course: H&P: Chief Complaint: Dizziness 74 year old man presenting to the ED after a fall at home while cooking. He reported he was standing in front of the stove and suddenly felt dizzy and fell to the ground hitting his forehead. He denied LOC, chect pain, sob, headache, visual changes, nausea, vomiting or diarrhea. Head, and cervical spine ct negative for acute abnormality. CXR negative for consolidation or effusion, UA negative. No orthostasis noted in ED. He received a dose of meclizine in the ED. He will be placed on observation for Dizziness and fall. Hospital course: A 74-year-old man was admitted after a fall at home associated with dizziness, with a history suggestive of benign paroxysmal positional vertigo (BPPV). His trauma workup was unremarkable, telemetry monitoring showed no arrhythmias, and he remained nonorthostatic without evidence of acute cardiac or neurological events. He was started on vestibular rehabilitation with physical therapy and advised to continue outpatient PT. Meclizine was provided as needed for vertigo, and he was counseled to avoid rapid transitions and sudden movements. His home mental health medications and inhalers for mild, non-persistent asthma were continued, and he received DVT prophylaxis with heparin. No further syncopal events occurred during his stay. At discharge, he was instructed to continue his home medications, use meclizine as needed, follow vestibular rehab exercises, practice fall precautions, and attend scheduled outpatient follow-up. Time spent discussing smoking cessation with patient: more than 10 minutes Status at Discharge Functional status at discharge: independent ambulation Overall status at discharge: patient is progressing back to baseline Time Attestation Discharge Coordination Time (in mins): 55 Quality: Safe Use of Opioids Does Pt have an Active Cancer Diagnosis on the Problem List?: No Quality: Stroke Does the patient have a stroke diagnosis?: No Physical Exam Vital Signs: Vital Signs: Last Vital Signs Temp 97.7 F 06/22/25 07:07 Pulse 83 06/22/25 08:32 Resp 16 06/22/25 07:07 BP 124/74 06/22/25 08:32 Pulse Ox 95 06/22/25 07:07 O2 Del Method Room Air 06/22/25 07:07 BMI result Body Mass Index 23.8 Alert and oriented no acute distress Anicteric Cardiovascular regular rate rhythm no murmur appreciate Lungs clear to auscultation bilaterally no wheezes rales or rub Abdomen positive bowel sounds soft nontender throughout Extremities without edema clubbing or cyanosis DS: Data Data Completed and Pending Labs on day of discharge: Laboratory Results - last 24 hr 06/21/25 10:42 Troponin I High Sens 5.1 D Discharge Plan Discharge Patient Disposition: Home, Self-Care Discharge Diagnosis: BPPV Referrals: Physical Therapy - [facility] [place] [Outside] - 1 Week Alberta Rizo MD [Primary Care Provider, Internal Medicine] - 1 Week Discharge Medications: New meclizine 12.5 mg Tablet 12.5 mg PO Q6H PRN (Reason: dizziness) 30 Days Qty: 14 0RF Continued escitalopram oxalate 10 mg Tablet 10 mg PO DAILY Qty: 30 0RF melatonin 3 mg Tablet 3 mg PO BEDTIME Qty: 30 0RF albuterol sulfate 2.5 mg /3 mL (0.083 %) solution for nebulization 2.5 mg inhalation Q6H PRN (Reason: wheezing) buspirone 10 mg tablet 10 mg PO BID quetiapine 50 mg tablet 50 mg PO BEDTIME budesonide-formoterol 80-4.5 mcg/actuation HFA aerosol inhaler 2 puff INHALATION BID naproxen 500 mg tablet 500 mg PO BID PRN (Reason: Pain) loratadine 10 mg tablet 10 mg PO DAILY Discharge Orders: Discharge Order (Routine); Ordered 06/22/25 Ordered By: Carmita Akbar Diet: Advance to usual diet Activity on Discharge: As tolerated Stand Alone Forms: Patient Portal Discharge page Print Language: Turkish Care Plan Goals: Certainly, Dr. Akbar. Here are discharge instructions for a patient with BPPV and outpatient physical therapy: Discharge Instructions: Benign Paroxysmal Positional Vertigo (BPPV) Diagnosis: You have been diagnosed with benign paroxysmal positional vertigo (BPPV), a common cause of dizziness related to changes in head position. What to Expect: - You may experience brief episodes of dizziness, especially with certain head movements (such as turning in bed, looking up, or bending over). - These symptoms often improve over time and with specific exercises. Medications: - Take meclizine (Antivert) as needed for severe dizziness, but try to limit use to when symptoms are bothersome, as it can cause drowsiness. Activity and Safety: - Avoid sudden head movements and rapid changes in position. - Get up slowly from bed or chairs. - Use handrails and keep your home free of tripping hazards. - If you feel dizzy, sit or lie down immediately to prevent falls. Physical Therapy: - You have been referred to outpatient physical therapy for vestibular rehabilitation. - Attend all scheduled PT appointments. - Your therapist will teach you exercises (such as the Hugo maneuver or Coreas- Daroff exercises) to help reduce your symptoms. - Practice these exercises at home as instructed by your therapist. When to Seek Medical Attention: - If you experience new or worsening symptoms, such as persistent vomiting, severe headache, weakness, numbness, vision changes, chest pain, or difficulty walking. - If you have another fall or injury. Follow-Up: - Follow up with your primary care provider and physical therapist as scheduled. Additional Instructions: - Continue all other home medications as previously prescribed. - If you have any questions or concerns, contact your PCP Health Concerns: See above Plan of Treatment: See above Assessment: See above
--- NOTE | 2025-06-22 10:34 | MHC.CM.PN ---
Patient has been medically cleared for dc to home today, self care.
[2025-06-22 11:25] VITALS: BP 114/59; PULSE 61; RESP 16; TEMP 36.2; O2SAT 97
== END 2025-06-22 16:07 | disposition home or self-care (01) ==
LOC: HO.ED 10:18 → HO.EDOVER 10:19 → HO.IMC 14:14
PROVIDERS: Physician Assistant; Admitting Provider Nurse Practitioner Acute Care; Emergency Provider Emergency Medicine Emergency Medical Services; PCP Internal Medicine; Visit Provider Student in an Organized Health Care Education/Training Program
DX: H81.13 Benign paroxysmal vertigo, bilateral (principal); R55 Syncope and collapse; I10 Essential (primary) hypertension; E78.5 Hyperlipidemia, unspecified; K21.9 Gastro-esophageal reflux disease without esophagitis; J45.30 Mild persistent asthma, uncomplicated; W18.39XA Other fall on same level, initial encounter; W01.198A Fall on same level from slipping, tripping and stumbling with subsequent striking against other object, initial encounter; Y93.G3 Activity, cooking and baking; Y92.030 Kitchen in apartment as the place of occurrence of the external cause; Y99.8 Other external cause status; Z79.899 Other long term (current) drug therapy; Z03.818 Encounter for observation for suspected exposure to other biological agents ruled out
CPT/HCPCS: 36415; 70450; 71045; 72125; 80048; 80076; 81003; 83735; 83880; 84484; 85025; 87637; 93005; 93306; 95992; 96360; 97162; 97530; 99222; 99285; Q9957

== ENCOUNTER → 2025-06-21 07:20 | Outpatient (BNV) | payer OTHER, SELFPAY | PROVIDERS: Emergency Provider Emergency Medicine Emergency Medical Services; PCP Internal Medicine; Visit Provider Radiology Diagnostic Radiology | DX: S09.90XA Unspecified injury of head, initial encounter (principal); R55 Syncope and collapse; M50.30 Other cervical disc degeneration, unspecified cervical region; J98.4 Other disorders of lung | CPT/HCPCS: 70450; 71045; 72125 ==

== ENCOUNTER → 2025-06-21 07:20 | Outpatient (BNV) | payer OTHER, SELFPAY | PROVIDERS: Emergency Provider Emergency Medicine Emergency Medical Services; PCP Internal Medicine; Visit Provider Internal Medicine Cardiovascular Disease | DX: R55 Syncope and collapse (principal) | CPT/HCPCS: 93010 ==

== ENCOUNTER 2025-06-21 10:16 | Outpatient (BNV) | payer OTHER, SELFPAY | END 2025-06-22 07:00 | PROVIDERS: Admitting Provider Nurse Practitioner Acute Care; Emergency Provider Emergency Medicine Emergency Medical Services; PCP Internal Medicine; Visit Provider Internal Medicine Cardiovascular Disease | DX: I51.89 Other ill-defined heart diseases (principal); R55 Syncope and collapse | CPT/HCPCS: 93306 ==

== ENCOUNTER → 2025-06-21 10:16 | Outpatient (BNV) | payer OTHER, SELFPAY | PROVIDERS: Admitting Provider Nurse Practitioner Acute Care; Emergency Provider Emergency Medicine Emergency Medical Services; PCP Internal Medicine; Visit Provider Nurse Practitioner Acute Care | DX: R42 Dizziness and giddiness (principal) | CPT/HCPCS: 99223 ==